=== PATIENT | female | born 1950 | race Caucasian/White ===

== ENCOUNTER 2024-05-12 18:57 | Inpatient (IN) | payer MEDICARE, MEDICAID, SELFPAY ==
[2024-05-12] VITALS (10 sets, daily range): BP systolic 133–168; BP diastolic 83–90; BMI 28.1
[2024-05-12 13:26] LABS: Urine Albumin 3+ (Neg - Trace); Urine Bilirubin 1+ (Negative); Urine Character Slightly Cloudy (Clear); Urine Color Amber; Urine Glucose Trace (Negative); Urine Ketone 3+ (Negative); Urine Leukocyte Trace (Negative); Urine Nitrite Negative (Negative); Urine Occult Blood 3+ (Negative); Urine Urobilinogen Negative (Neg - 1+)
[2024-05-12 13:32] LABS: Ammonia 26 umol/L (9-30); Lactic Acid 1.7 mmol/L (0.7-2.0)
[2024-05-12 13:34] LABS: ALT (SGPT) 36 U/L (0-35); AST (SGOT) 42 U/L (14-36); Albumin 3.9 g/dl (3.5-5.0); Alkaline Phosphatase 98 U/L (38-126); Blood Urea Nitrogen 17 mg/dl (7-17); Calcium 9.5 mg/dl (8.4-10.2); Carbon Dioxide 23 mmol/L (22-30); Chloride 99 mmol/L (98-107); Glucose 278 mg/dl (70-99); Hematocrit 47.3 % (37.0-47.0); Hemoglobin 16.3 g/dL (12.0-16.0); Mean Corp Hgb Conc. 34.5 g/dL (33.0-37.0); Mean Corpuscular Hgb 33.3 pg (27.0-31.0); Mean Corpuscular Volume 96.7 fL (81.0-99.0); Mean Platelet Volume 10.4 fL (7.4-10.4); Platelet Count 310 10^3/uL (130-400); Potassium 3.7 mmol/L (3.5-5.1); Red Blood Cell Count 4.89 10^6/uL (4.20-5.40); Red Cell Dist. Width 13.3 % (11.5-14.5); Sodium 133 mmol/L (135-145); Total Bilirubin 1.7 mg/dl (0.2-1.3); Total Protein 6.6 g/dl (6.3-8.2); White Blood Cell Count 25.3 10^3/uL (4.8-10.8); eGFR > 60.00
[2024-05-12 13:44] LABS: NT-proBNP 1580 pg/ml; Troponin I 0.019 ng/ml
[2024-05-12 14:00] LABS: Urine Amorphous Seen
[2024-05-12 14:01] LABS: Urine Bacteria Moderate (Negative); Urine White Cell 21-25 /HPF (0-5)
[2024-05-12 14:14] LABS: % Basophils 0.2 % (0-2); % Immature Granulocytes 0.6 % (0-0.5); % Lymphocytes 6.4 % (20.5-51.1); % Neutrophils 85.8 % (42.2-75.2); Absolute Basophils 0.1 10^3/uL (0-0.2); Absolute Immature Granulocytes 0.2 10^3/uL (0-0.05); Absolute Lymphocytes 1.6 10^3/uL (1.2-3.4); Absolute Monocytes 1.8 10^3/uL (0.1-0.6); Absolute Neutrophils 21.7 10^3/uL (1.4-6.5); Nucleated Red Blood Cells % 0 %
[2024-05-12] MEDS: TYLENOL/FEVERALL 650 MG RECTAL (15:04)
[2024-05-12] MEDS: ZOSYN 50 IV ×2 (15:04→21:27)
[2024-05-12] MEDS: NSS 500 IV ×2 (15:05→16:28)
--- NOTE | 2024-05-12 15:25 | ED.GENMED ---
History of Present Illness
General
Chief Complaint: Weakness
Source: ambulance crew
Exam Limitations: clinical condition and dementia
Time Seen by Provider: 05/12/24 14:03
History of Present Illness
History of Present Illness:
73 y/o F with h/o COPD on o2; chronic pain on opiates, RA
here with failure to thrive apparently
per EMS pt's called 911 saying that she wasn't eating/drinking
she appaerntly hasn't been able to get out of bed, has been incontinent, c/o shortness of breath
here she seemed to give unreliable history; told me she doesn't usually wear o2 but it is documented she has been on o2
she seems drowsy but awakens
denies pain
appears very dry
i tried calling pt's
no answer
Past History
Past History
ED Past Medical History: COPD, HTN and Other
ED Past Surgical History: Gynecological and Other
Social History
Tobacco: Smoker
Alcohol: None
Drug: None
Personal:
Living: with family (Lives with significant other)
Employment: Employed
Family History
Family History: Hypertension
Phy Exam
Physical Exam
Physical Exam:
GENERAL: arousable to stimuli, a little drowsy
EYE: pupils equal and reactive
NECK: Supple
ENT: VERY DRY MM
CARDIAC: tachycardia; mild RLE edema > Left
LUNGS: diminished; on o2; mild tachypnea; right sided crackles more prominent than L
ABDOMEN: Soft, without focal tenderness, no r/g, no cvat, normal bowel sounds]
incontinent
NEUROLOGICAL: Alert and oriented x 1, generally weak; no strength to lift legs but sensation intact
SKIN: Warm and dry
MUSCULOSKELETAL:mild RLE edema; neg marco's sign
PSYCH: Normal and appropriate interaction.
Course
Orders/Labs/Results
Orders:
Orders
05/12/24 12:48
EKG [Electrocardiogram (*1)] Urgent
Reason for Study: Chest Pain
05/12/24 12:50
EKG- Treatment ONCE
05/12/24 12:59
Ammonia Urgent
Complete Blood Count/With Diff Urgent
Comprehensive Metabolic Panel Urgent
Lactate Level [Lactic Acid] Urgent
NT-proBNP Urgent
Troponin I Urgent
Urinalysis Reflex To Culture Urgent
Date Specimen was Collected: 05/12/24
Time Specimen was Collected: 12:49
Comment: Straight cath specimen
Urine Microscopic Reflex Cult Urgent
Urine Culture Urgent
ROSALIE Source: U
Specimen Description:
Date Specimen was Collected: 05/12/24
Time Specimen was Collected: 12:49
05/12/24 13:02
Blood Culture Urgent
ROSALIE Source: Blood/Venous
Specimen Description:
05/12/24 14:29
COVID-19 Antigen Urgent
Source: Nasal Swab
Acetaminophen [Tylenol/Feverall] 650 mg RECTAL NOW STA
05/12/24 14:30
Lactic Acid Q4H
Comment: CANCEL 2nd LACTIC ACID IF 1st LACTIC ACID IS LESS THAN 2
05/12/24 14:31
0.9% Sodium Chloride 500 ml [Nss] 500 ml IV BOLUS
CR Chest Portable - 1 View Urgent
Comment:
Reason For Exam: fever, cough
Reason Study Needs to be Portable: Patient Unstable
05/12/24 14:40
Piperacillin/Tazo 3.375 Gram [Zosyn] 3.375 gram in 50 ml IV NOW
05/12/24 15:29
0.9% Sodium Chloride 500 ml [Nss] 500 ml IV BOLUS
Venous Doppler Lwr Ext Rt [US Periph Venous LOWER Ext RT] Urgent
Comment:
Reason For Exam: rle edema
05/12/24 18:30
Lactic Acid Q4H
Comment: CANCEL 2nd LACTIC ACID IF 1st LACTIC ACID IS LESS THAN 2
Abnormal Lab Results
05/12/24
12:59
WBC 25.3 H 10^3/uL
(4.8-10.8)
Hgb 16.3 H g/dL
(12.0-16.0)
Hct 47.3 H %
(37.0-47.0)
MCH 33.3 H pg
(27.0-31.0)
Abs Immat Gran (auto) 0.2 H 10^3/uL
(0-0.05)
Absolute Neuts (auto) 21.7 H 10^3/uL
(1.4-6.5)
Absolute Monos (auto) 1.8 H 10^3/uL
(0.1-0.6)
Immature Gran % 0.6 H %
(0-0.5)
Neutrophils % 85.8 H %
(42.2-75.2)
Lymphocytes % 6.4 L %
(20.5-51.1)
Sodium 133 L mmol/L
(135-145)
Glucose 278 H mg/dl
(70-99)
Total Bilirubin 1.7 H mg/dl
(0.2-1.3)
AST 42 H U/L
(14-36)
ALT 36 H U/L
(0-35)
Urine Ketones 3+ A
(Negative)
Ur Occult Blood Reflex 3+ A
(Negative)
Urine Bilirubin 1+ A
(Negative)
Leukocyte Esterase Rfl Trace A
(Negative)
Urine RBC 11-15 A /HPF
(0-2)
Urine WBC (Reflex) 21-25 A /HPF
(0-5)
Urine Bacteria (Reflex) Moderate A
(Negative)
Urine Glucose Trace A
(Negative)
Urine Albumin (Reflex) 3+ A
(Neg - Trace)
05/12/24 12:59
05/12/24 12:59
Vital Signs
Initial and Last Documented VS:
Initial Vital Signs
Temp Pulse Resp Pulse Ox
102.5 F H 114 28 90
05/12/24 12:52 05/12/24 12:52 05/12/24 12:52 05/12/24 12:52
Last Documented Vital Signs
Temp Pulse Resp BP Pulse Ox
102.5 F H 111 37 157/86 93
05/12/24 12:52 05/12/24 13:03 05/12/24 13:03 05/12/24 13:10 05/12/24 13:12
MDM/Problems Addressed
Differential Diagnosis Includes:
sepsis urine or pneumonia, covid, pe
MDM/Problems Addressed:
73 y/o F copd on o2, poor historian; i was unable to reach by phone who called 911 for reportedly 2-3 days of not eat/drinking, laying in urine; she c/o mild dyspnea on arrival
febrile 102, very dry appearing; crackles in both lungs; RLE edema > left mild
abdomen nontender
wbc 25, urine pos, cr normal, lactate normal; bcx pending; cxr suspicious for LLL pna; has allergy to vanc, unclear what it was;
bp stable
will give IVF, zosyn
*Critical Care Note
Total Time (30-74mins, 75-104mins- exclusive of procedures): Not Applicable
ED Attending Note
-
Portions of this chart may have been created with voice recognition software.� Occasional wrong word or��sound alike� substitutions may have occurred due to the inherent limitations of voice recognition software.
Discharge Plan
Departure
Patient Disposition: Admit
Date of Disposition: 05/12/24
Time of Disposition: 14:52
Admit to: IMU
Presentation/result/management discussed w/ accepting MD/DO: Hospitalist
Condition: Fair
Covid-19: Not Applicable
Discharge Problem:
Sepsis
Prescriptions:
No Action
atenolol 50 MG tablet
50 mg PO DAILY
duloxetine 30 MG capsule,delayed release(DR/EC)
30 mg PO DAILY
Rx Instructions:
taken w/ 60mg = 90mg total
duloxetine 60 MG capsule,delayed release(DR/EC)
60 mg PO QPM
Rx Instructions:
taken w/ 30mg = 90mg total
budesonide-formoterol [Symbicort] 160-4.5 mcg/actuation HFA aerosol inhaler
2 puff INHALATION R BID
aspirin 81 mg Tablet,Delayed Release (Dr/Ec)
81 mg PO DAILY
spironolactone 25 mg Tablet
25 mg PO DAILY
gabapentin 800 mg Tablet
800 mg PO TID
hydrochlorothiazide 25 mg Tablet
25 mg PO DAILY
albuterol sulfate 90 mcg/actuation Hfa Aerosol Inhaler
2 puff INHALATION R Q6HPRN PRN (Reason: sob)
CertaVite Senior 0.4 mg-300 mcg- 250 mcg Tablet
1 tab PO DAILY
buprenorphine 7.5 mcg/hour Patch Weekly
1 patch TRANSDERMAL QWEEK
calcium carbonate-vitamin D3 600 mg-62.5 mcg (2,500 unit) capsule
1 cap PO DAILY
prednisone 5 MG tablet
5 mg PO DAILY
Referrals:
UNKNOWN - PT DOES,NOT KNOW [Family Provider] -
Interventions
Interventions:
*Risk Screen - Suicide Last Done: 05/12/24 13:12
*General Assessment Last Done: 05/12/24 13:12
*Neglect/Abuse Screening Last Done: 05/12/24 13:12
ED- Fall Risk Assessment Last Done: 05/12/24 13:12
ED- Cardiac Assessment Last Done: 05/12/24 13:12
ED- Neurological Assessment Last Done: 05/12/24 13:12
ED- Pulmonary Assessment Last Done: 05/12/24 13:12
Discharge Date and Time
Print Language: SUDANESE
--- NOTE | 2024-05-12 15:31 | PHANOTE ---
med rec jessie(05/12/24)-patient was unable to give medication information, attempted to call caregiver Jose Walters at 14:58 and 15:31, but no response. Compiled medication list from [facility] records and [facility].
--- NOTE | 2024-05-12 15:34 | HPS.HSE ---
Addendum entered and electronically signed by Shahzad Spangler MD 05/12/24 20:26:
Case discussed with Neurology ok to start hep gtt for DVT no bolus
Keep NPO pending speech eval
Repeat CT head w/o contrast in AM preior to MRI.
Original Note:
Family Physician
-
Family Physician: NOT KNOW UNKNOWN - PT DOES
Chief Complaint
-
Fever
History of Present Illness
73F COPD Chronic Respiratory Failure requiring 2L Rheumatoid Arthritis BIBEMS septic with fever leukocytosis tachycardia hypoxia (requiring 4L) confused aphasic patient unable to provide meaningful history. All of history from records, ED report,
and discussion with patient's significant other saulo Garcia over phone. Per Jose patient had been sick for the past 2-3 days reporting right sided abdomen pain with associate intermittent fever. Night prior patient was incontinent of urine
and was unable to get out of bed (ambulatory with walker at baseline). Saulo attempted to bring patient to hospital, however she refused. Morning following patient appeared confused prompting to call EMS. AOx1 patient appears only
oriented to self. Significant word finding difficulties were noted, patient had difficulty saying her last name. Repeated a nonsensical word when asked the name of current stated location and year.
Medical History
Past Medical History
Past Medical History: Reports Other (as above)
Past Surgical History: Reports Other (as above)
Social History
Tobacco: Former Smoker
Alcohol: None
Drug: None
Personal: Other (Saulo)
Living: Other (Lives with Saulo)
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
Family History
Family History: Not pertinent (reviewed)
Allergies / Home Medications
Allergies reflects when Allergies were last updated in [facility].
Home Medications with original date entered in [facility]
Allergy/Medication List:
Allergies
Allergy/AdvReac Type Severity Reaction Status Date / Time
ceftriaxone sodium Allergy numbness Verified 05/12/24 12:51
[From Rocephin] tingling
mouth
infliximab [From Remicade] Allergy Unknown Verified 05/12/24 12:51
vancomycin [Vancomycin] Allergy Unknown Verified 05/12/24 12:51
Home Medications
atenolol 50 mg tablet 50 mg PO DAILY Blood pressure 10/11/18
duloxetine 30 mg capsule,delayed release 30 mg PO DAILY neuropathic pain 04/13/19
duloxetine 60 mg capsule,delayed release 60 mg PO QPM neuropathic pain 06/30/21
budesonide-formoterol HFA 160 mcg-4.5 mcg/actuation aerosol inhaler (Symbicort) 2 puff inhalation R BID Lung/breathing issues 01/11/23
albuterol sulfate 90 mcg/actuation aerosol inhaler 2 puff inhalation R Q6HPRN PRN sob 05/12/24
aspirin 81 mg tablet,delayed release 81 mg PO DAILY 05/12/24
buprenorphine 7.5 mcg/hour weekly transdermal patch 1 patch transdermal QWEEK 05/12/24
calcium carbonate 600 mg-vitamin D3 62.5 mcg (2,500 unit) capsule 1 cap PO DAILY 05/12/24
gabapentin 800 mg tablet 800 mg PO TID 05/12/24
hydrochlorothiazide 25 mg tablet 25 mg PO DAILY 05/12/24
tcwbmejw-jci-ehiie acid 0.4 mg-lycopene 300 mcg-lutein 250 mcg tablet (CertaVite Senior) 1 tab PO DAILY 05/12/24
prednisone 5 mg tablet 5 mg PO DAILY rheumatoid arthritis 05/12/24
spironolactone 25 mg tablet 25 mg PO DAILY 05/12/24
Review of Systems
-
Unable to obtain full review of systems at this time due to: Other (Confused Aphasic Denies any Issues, unreliable ROS)
Physical Exam
Vital Signs
Vital Signs
Temp Pulse Resp BP Pulse Ox
102.5 F H 111 37 157/86 93
05/12/24 12:52 05/12/24 13:03 05/12/24 13:03 05/12/24 13:10 05/12/24 13:12
Physical Exam
General: Other (as below)
Laboratory Results
-
05/12/24 12:59
05/12/24 12:59
Laboratory Results
Lactic Acid 1.7 mmol/L (0.7-2.0) 05/12/24 12:59
Total Bilirubin 1.7 mg/dl (0.2-1.3) H 05/12/24 12:59
AST 42 U/L (14-36) H 05/12/24 12:59
ALT 36 U/L (0-35) H 05/12/24 12:59
Alkaline Phosphatase 98 U/L (38-126) 05/12/24 12:59
Troponin I 0.019 ng/ml 05/12/24 12:59
Impression/Plan
-
Physical Exam
General: No pallor, cyanosis, or jaundice.
HEENT: Throat clear. PERRLA Normocephalic atraumatic dry oral mucosa
NECK: Supple. No JVD Carotid Bruits
RESPIRATORY: Lungs clear to auscultation. No crackles wheezes stridor
CVS: S1, S2 sinus tachy. No murmur, rub or gallop.
ABDOMEN: Soft, non-tender. No distension. BS+/normal.
EXTREMITIES: Right externally rotated but same level compared to left, Right Calf larger then Left. Ulnar deviations hands and Valgus deformity b/l knees likey d/t RA
limited range of motion extremities due to weakness vs rheumatoid arthritis
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
IMPRESSION:
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
meaningful history. All of history from records, ED report, and discussion with patient's significant other saulo Garcia over phone. Per Jose patient had been sick for the past 2-3 days reporting right sided abdomen pain with associate
intermittent fever. Night prior patient was incontinent of urine and was unable to get out of bed (ambulatory with walker at baseline). Conchitaelif attempted to bring patient to hospital, however she refused. Morning following patient appeared
confused prompting to call EMS. AOx1 patient appears only oriented to self. Significant word finding difficulties were noted, patient had difficulty saying her last name. Repeated a nonsensical word when asked the name of current stated
location and year.
PLAN:
#Sepsis PNA vs UTI
IMU admit
Leukocytosis Fever Tachycardia
CXR suggestive PNA
urinalysis notes bacteriuria
No hypotension or Lactic acidosis
cont empiric Zozyn
follow Cx's
Tylenol PRN
Acute on Chronic Respiratory Failure
COPD
-requiring 4L, previously noted to be on 2L
-likely d/t PNA as above
-wean O2 as tolerated
-cont home inhaler symbicort
-Duoneb prn sob/wheezing
#RLE DVT
Venous duplex appreciated DVT
Respiratory status otherwise stable on 4L NC
hold of on anticoagulation for now given concern acute stroke
check LLE venous duplex
#Aphasic possible Encephalopathy vs Suspected Stroke out of window, last known normal night prior per discussion w/ Saulo
NPO except meds for now, hold oral medications if unable to pass bedside swallow
CT head appreciated no acute hemorrhage or infarct
NIH neuro checks
follow up Brain MRI MRA Head and Neck
cont home aspirin
permissive hypertension <220/120
Neuro eval
ST/PT/OT eval
A1c
Lipid panel
aspiration fall precautions
#Hyperglycemia
Low dose sliding scale
Follow up A1c
HTN
Hydralazine prn >220/120
hold home Atenolol HCTz Spironolactone
Rheumatoid Arthritis
Chronic Pain
Ambulatory dysfunction
cont home prednisone gabapentin duloxetine
IV morphine 2mg Q4Hprn moderate severe pain
Externally rotated RLE but same level as Left, likely deformity d/t rheumatoid arthritis checking CR hips
DVT ppx Lovenox for now
Gi ppx Protonix
Full Code as per Saulo reported POA.
I spent a total of 80 minutes with the patient or on the floor. More than 50% of this time involved counseling and coordination of care.
[2024-05-12 17:00] LABS: COVID-19 Antigen Negative (Negative)
[2024-05-12 20:12] LABS: Glucose - Point of Care 216 mg/dl (70-99)
[2024-05-12] MEDS: SYMBICORT 160/4.5 MCG INHALER 2 PUFF INH (20:16)
[2024-05-12] MEDS: NSS (PRESERVATIVE FREE) 10 ML IV (21:27)
[2024-05-12] MEDS: MORPHINE SULFATE 2 MG IV (21:27)
[2024-05-12] MEDS: PROTONIX IV 40 MG IV (21:27)
[2024-05-12 21:40] LABS: INR 1.29
[2024-05-12 21:41] LABS: APTT 34.2 Sec (23.4-35.0)
[2024-05-12] MEDS: HEPARIN 25000 UNITS/250 ML IV (22:12)
--- NOTE | 2024-05-12 22:18 | PTCARENOTE ---
Addendum entered by Harish Leigh RN 05/12/24 22:35:
Hip Xray, moved to AM w/ follow up Ct head per house VEST PRESSER.
Buprenorphine patch removed per VEST PRESSER as date of patch is unknown.
Original Note:
Pt arrived from ED approx. 2039. workup for sepsis PNA vs UTI/DVT.
Started on DVT heparin gtt.
Stoke alert called in ED, MRI ordered in AM based on findings from CT.
NIH qShift, neuro checks Q4 x 24hr.
[2024-05-12] MEDS: NEURONTIN PO (22:41)
[2024-05-12 22:56] LABS: Glucose - Point of Care 207 mg/dl (70-99)
[2024-05-13] VITALS (15 sets, daily range): BP systolic 136–179; BP diastolic 68–92; BMI 28.1
[2024-05-13] MEDS: NOVOLOG FLEXPEN-LOW RESISTANCE 2 UNITS SC (00:14)
--- NOTE | 2024-05-13 00:22 | PTCARENOTE ---
pt. NIH/neuro status remains unchanged.
Mild aphasia, slight drift in all ext. noted.
Remains on heparin gtt.
hypertensive, allowing for permissive state, still within parameters.
Pain appears to be controlled w/ PRNs.
Fiance updated at length over phone.
[2024-05-13] MEDS: ZOSYN 50 IV ×2 (01:58→07:51)
[2024-05-13 03:29] LABS: % Basophils 0.4 % (0-2); % Immature Granulocytes 0.5 % (0-0.5); % Lymphocytes 9.1 % (20.5-51.1); % Monocytes 6.5 % (1.7-9.3); % Neutrophils 82.5 % (42.2-75.2); Absolute Basophils 0.1 10^3/uL (0-0.2); Absolute Eosinophils 0.2 10^3/uL (0-0.7); Absolute Immature Granulocytes 0.1 10^3/uL (0-0.05); Absolute Monocytes 1.5 10^3/uL (0.1-0.6); Absolute Neutrophils 18.4 10^3/uL (1.4-6.5); Hematocrit 41.6 % (37.0-47.0); Hemoglobin 14.5 g/dL (12.0-16.0); Mean Corp Hgb Conc. 34.9 g/dL (33.0-37.0); Mean Corpuscular Hgb 33.6 pg (27.0-31.0); Mean Corpuscular Volume 96.3 fL (81.0-99.0); Mean Platelet Volume 10.1 fL (7.4-10.4); Nucleated Red Blood Cells % 0 %; Platelet Count 258 10^3/uL (130-400); Red Blood Cell Count 4.32 10^6/uL (4.20-5.40); Red Cell Dist. Width 13.2 % (11.5-14.5); White Blood Cell Count 22.3 10^3/uL (4.8-10.8)
[2024-05-13 03:42] LABS: APTT 50.4 Sec (23.4-35.0)
[2024-05-13 03:56] LABS: Blood Urea Nitrogen 16 mg/dl (7-17); Calcium 8.7 mg/dl (8.4-10.2); Carbon Dioxide 24 mmol/L (22-30); Chloride 103 mmol/L (98-107); Estimated Creatinine Clearance 90 ml/min; Glucose 198 mg/dl (70-99); HDL Cholesterol 39 mg/dl; LDL Cholesterol, Calculated 79 mg/dl; Magnesium 2.1 mg/dl (1.6-2.3); Potassium 3.6 mmol/L (3.5-5.1); Sodium 134 mmol/L (135-145); Total Cholesterol 146 mg/dl (50-199); Triglyceride 143 mg/dl (10-149); Very Low Density Lipoprotein 28 mg/dl (0-30); eGFR > 60.00
[2024-05-13 06:01] LABS: Glucose - Point of Care 193 mg/dl (70-99)
[2024-05-13] MEDS: NOVOLOG FLEXPEN-LOW RESISTANCE 1 UNITS SC ×3 (06:22→17:33)
--- NOTE | 2024-05-13 07:19 | W.PN.HOSP.TC ---
Addendum entered and electronically signed by Shahzad Spangler MD 05/13/24 21:04:
RLE DVT
hep gtt no bolus
Original Note:
Today's Communication/Plan
-
cont strict NPO
IVF support
non-formulary home Buprenorphine patch substituted with IV morphine equivalent
cont abx as per ID
hep gtt
blood pressure control
Wean O2 as tolerated
ST/PT/OT
Assessment / Plan
Assessment / Plan
Physical Exam
General: No pallor, cyanosis, or jaundice.
HEENT: Throat clear. PERRLA Normocephalic atraumatic dry oral mucosa
NECK: Supple. No JVD Carotid Bruits
RESPIRATORY: Rhonchi
CVS: S1, S2 sinus tachy. No murmur, rub or gallop.
ABDOMEN: Soft, non-tender. No distension. BS+/normal.
EXTREMITIES: Right externally rotated but same level compared to left, Right Calf larger then Left. Ulnar deviations hands and Valgus deformity b/l knees likey d/t RA
limited range of motion extremities due to weakness vs rheumatoid arthritis
TALLOW PUMPER: AOx2 disoriented to time continues to exhibit word finding difficulties occasional perseverates 1 word responses but otherwise improved since initial presentation able to say her last name.
IMPRESSION:
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
meaningful history. All of history from records, ED report, and discussion with patient's significant other saulo Garcia over phone. Per Jose patient had been sick for the past 2-3 days reporting right sided abdomen pain with associate
intermittent fever. Night prior patient was incontinent of urine and was unable to get out of bed (ambulatory with walker at baseline). Saulo attempted to bring patient to hospital, however she refused. Morning following patient appeared
confused prompting to call EMS. AOx1 patient appears only oriented to self. Significant word finding difficulties were noted, patient had difficulty saying her last name. Repeated a nonsensical word when asked the name of current stated
location and year.
PLAN:
#Sepsis PNA vs UTI
IMU admit
Leukocytosis Fever Tachycardia
CXR suggestive PNA
urinalysis notes bacteriuria
No hypotension or Lactic acidosis
follow Cx's
Tylenol PRN
ID eval appreciated empiric zosyn discontinued in favor of unasyn and IV doxycycline
Acute on Chronic Respiratory Failure
COPD
-requiring 4L, previously noted to be on 2L
-likely d/t PNA as above
-wean O2 as tolerated
-cont home inhaler symbicort
-Duoneb prn sob/wheezing
#RLE DVT
Venous duplex appreciated DVT
Respiratory status otherwise stable on 4L NC
hep gtt
#Aphasic possible Encephalopathy vs dementia delirium vs Suspected Stroke out of window, last known normal night prior presentation per discussion w/ Fiancee
strict NPO, speech eval appreciated high aspiration risk, consider alternative means of nutrition if patient doesn't improve
CT head appreciated no acute hemorrhage or infarct, severe white matter leukoaraiosis, severe calcific atherosclerotic plaque anterior posterior intracranial circulations, mild acute left maxillary sinusitis
Repeat CT head noted no acute changes
NIH neuro checks
Neuro eval appreciated likely Encephalopathy Dementia recommends holding off MRI at this time as unlikely to change mgmt, can consider MRI later when patient is more stable
PT/OT eval
A1c 8.2
Lipid panel appreciated
aspiration fall precautions
#Diabetes
#Hyperglycemia
Low dose sliding scale
A1c 8.2
Glycemic control
HTN
Hydralazine prn >160/100
resume home Atenolol HCTz Spironolactone when safe for oral meds
Rheumatoid Arthritis
Chronic Pain
Ambulatory dysfunction
cont home prednisone gabapentin duloxetine when safe for oral meds
Decadron 1 mg IV daily equivalent home prednisone 5 mg daily
IV morphine 2mg Q4Hprn moderate severe pain
Externally rotated RLE but same level as Left, likely deformity d/t rheumatoid arthritis
CR hips note no acute fractures dislocation
home subutex patch 7.5 mcg/h not available on formulary switched to equivalent IV morphine 0.75 mg Q6H per discussion with pharmacy
morphine 2mg prn Q4H moderate severe pain
DVT ppx Lovenox for now
Gi ppx Protonix
Full Code as per Saulo reported POA.
Discussed with Saulo Garcia on day of admission. Subsequent call 05/13 no answer received voicemail full unable to leave message
I spent a total of 57 minutes with the patient or on the floor. More than 50% of this time involved counseling and coordination of care.
Anticipated Discharge: > 48 hours
Subjective/Interval History
-
Date of Service: May 13, 2024
Seen and examined at bedside in no acute distress resting comfortably in bed. stable respiratory status on 4L. Aphasia improved since last night though some word finding issues remain.
Objective Data
-
Labs:
Laboratory Results
05/12/24 05/13/24 05/13/24
21:13 02:59 10:00
WBC 22.3 H
Hgb 14.5
Hct 41.6
Plt Count 258
PT 16.0 H
INR 1.29
APTT 34.2 50.4 H Pending
Sodium 134 L
Potassium 3.6
Chloride 103
Carbon Dioxide 24
BUN 16
Creatinine 0.5 L
Glucose 198 H
Calcium 8.7
Vital Signs:
Vital Signs
Temp Pulse Resp BP Pulse Ox
98.8 F 84 21 155/84 96
05/13/24 07:00 05/13/24 06:00 05/13/24 06:00 05/13/24 06:00 05/13/24 07:17
[2024-05-13] MEDS: SYMBICORT 160/4.5 MCG INHALER 2 PUFF INH ×2 (07:49→20:09)
[2024-05-13] MEDS: PROTONIX IV 40 MG IV (07:51)
[2024-05-13] MEDS: NSS (PRESERVATIVE FREE) 10 ML IV (07:51)
--- NOTE | 2024-05-13 09:06 | CON.ID ---
Addendum entered and electronically signed by Debo Aponte MD 05/13/24 11:26:
doxy switched to IV as now strict NPO
Original Note:
Consultation
-
Date/Time Consultation Requested: 05/13/24 8:21
Date/Time Consultation Performed: 05/13/24 9:07
Requesting Provider: Dr Spangler
Performing Provider: Dr Aponte
Reason for Consultation: sepsis pna vs uti
Chief Complaint / Past History
Chief Complaint
fever
History of Present Illness
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
weeks of levaquin) who presented here yesterday confused and aphasic; history obtained by chart review and interview with patient as she is now more lucid. Saulo reported 2-3 days of fever and right sided abdominal pain. Then incontinent and
unable to get out of bed; refused to come to hospital. Next AM confused and EMS called. Today she reports cough, minimally productive. No: dysuria, urgency, frequencny or suprapubic tenderness. No increase of her chronic pain. No recent RA flare
or increase of steroids. Not on injectable medications. No sick contacts.
Since arrival here febrile to 102.5 rectal, bp stable, wbc 25 today 22, hgb 14, plt 258, L shift noted on arrival now somewhat improved, an 134, cr 0.5, a1c pending, t bili 1.7, ast 42, alt 36, alk phos 98, ammonia 26, bnp 1500, ua 21-25 wbcs and
moderate bacteria, 2008 she labs still on file - she was hypogammaglobulinemic for IgG and IgM at that time, covid ag neg, CXR: left lower lobe pneumonia, periph vas: DVT in the right common femoral vein, CT head: no ICH/infarct, mild L max
sinusitis, repeat CT head this AM, bilateral hip xray: no fracture DJD, single blood culture in progress, urine culture in progress, patient is currently on zosyn. She has a remote history of a L psoas abscess with MSSA. ID is consulted for
assistance with management.
Past History
Additional Past Medical History:
Rheumatoid Arthritis
Chronic Pain Syndrome
Chronic Narcotic Dependence
Hypertension
COPD
OM/discitis L3/L4 due to MSSA 2008
Additional Past Surgical History:
T&A
Allergy History:
ceftriaxone sodium [From Rocephin] Allergy (Verified 05/12/24 12:51)
numbness tingling mouth
infliximab [From Remicade] Allergy (Verified 05/12/24 12:51)
Unknown
vancomycin [Vancomycin] Allergy (Verified 05/12/24 12:51)
Unknown
Medications Reviewed: Yes
Social History
Tobacco: Former Smoker (>50 pack year history)
Alcohol: None
Drug: Other (on prescription opiates)
Family History
Family History: Not Pertinent
Review of Systems
Review of Systems
General: Fever and Chills
All systems: All other systems were reviewed and were negative
Vital Signs
Temp Pulse Resp BP Pulse Ox
98.8 F 86 21 151/88 94
05/13/24 07:00 05/13/24 08:00 05/13/24 08:00 05/13/24 08:00 05/13/24 08:00
Physical Exam
Physical Exam
Constitutional: No Acute Distress and Chronically Ill
Cardiovascular: Regular Rate and S1/S2; Negative Murmur or Rub
Pulmonary: Clear and Symmetric; Negative Wheezes, Rales or Rhonchi
Gastrointestinal: Soft, Non Tender, Non Distended and Normal Bowel Sounds
Skin: Warm and Dry; Negative Rash or Jaundice
Lab / Diagnostic Study Results
05/13/24 02:59
05/13/24 02:59
Abs Immat Gran (auto) 0.1 10^3/uL (0-0.05) H 05/13/24 02:59
Absolute Neuts (auto) 18.4 10^3/uL (1.4-6.5) H 05/13/24 02:59
Absolute Lymphs (auto) 2.0 10^3/uL (1.2-3.4) 05/13/24 02:59
Absolute Monos (auto) 1.5 10^3/uL (0.1-0.6) H 05/13/24 02:59
Absolute Basos (auto) 0.1 10^3/uL (0-0.2) 05/13/24 02:59
Immature Gran % 0.5 % (0-0.5) 05/13/24 02:59
Neutrophils % 82.5 % (42.2-75.2) H 05/13/24 02:59
Lymphocytes % 9.1 % (20.5-51.1) L 05/13/24 02:59
Monocytes % 6.5 % (1.7-9.3) 05/13/24 02:59
Eosinophils % 1.0 % (0-6) 05/13/24 02:59
Basophils % 0.4 % (0-2) 05/13/24 02:59
PT 16.0 Sec (11.4-14.6) H 05/12/24 21:13
INR 1.29 05/12/24 21:13
Lactic Acid Cancelled 05/12/24 18:30
Ur Squamous Epith Cells 3-5 /LPF (Few) 05/12/24 12:59
Microbiology Results
Micro:
05/12/24 12:59 Urine Culture - Pending
Urine
05/12/24 13:02 Blood Culture - Pending
Blood/Venous
Assessment / Plan
Fever
Leukocytosis
Suspected Pneumonia, less likely UTI
Reported allergy to ceftriaxone - numbness/tingling mouth and vancomycin unknown
- send second blood culture given prior history of s aureus OM/discitis
- urine culture in progress
- obtain sputum culture if able
- no history of MDROs on file here
- start unasyn and doxycycline, stop zosyn. Selected given reported allergies, prior cultures
- follow clinically
RA
History of Hypogammaglobulinemia - 2008
- patient specifically denies any recent flares or increase in pred and any injectable medications including immunosuppression and IVIG
- recheck immunoglobulins IgG, IgA, IgM
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
- treated with high bioavailability oral therapy
- send second blood culture
Chronic Pain
- suggest replacing buprenorphine patch with scheduled equivalent - management per IM service
Care Review
Plan reviewed with: Physician (Dr Spangler - buprenorphine)
[2024-05-13 09:38] LABS: Glycohemoglobin (HgbA1c) 8.2 % (4.0-5.6)
--- NOTE | 2024-05-13 10:14 | PTCARENOTE ---
Repeat blood cx's and PTT drawn and sent. ST to see patient for swallow evaluation.
[2024-05-13 10:26] LABS: APTT 82.3 Sec (23.4-35.0)
[2024-05-13] MEDS: NEURONTIN PO ×3 (11:11→21:03)
[2024-05-13] MEDS: CYMBALTA DELAYED RELEASE PO ×2 (11:11→17:32)
--- NOTE | 2024-05-13 11:17 | PTCARENOTE ---
Pt seen by . Unable to safely swallow. Patient to remain strict NPO.
[2024-05-13] MEDS: HEPARIN 25000 UNITS/250 ML IV (11:28)
[2024-05-13] MEDS: UNASYN IV ×2 (11:35→17:32)
[2024-05-13] MEDS: APRESOLINE 5 MG IV ×3 (11:36→20:37)
[2024-05-13 11:42] LABS: Glucose - Point of Care 182 mg/dl (70-99)
[2024-05-13] MEDS: MORPHINE SULFATE 0.75 MG IV ×3 (11:48→23:21)
[2024-05-13] MEDS: DECADRON 1 MG IV (11:49)
--- NOTE | 2024-05-13 12:11 | CON.NEURO4 ---
Consultation - Neurology 4
-
CONSULTING PHYSICIAN: Freedom Mario MD neurology
REFERRING PHYSICIAN: Hospitalist
DICTATED BY: Freedom Mario MD
DATE/TIME OF REQUEST: May 12, 2024
DATE/TIME OF CONSULTATION: May 13, 2024
Reason for Consultation: Altered mental status
History of Present Illness:
This is a 73 year old right handed female who has presented to the hospital with chief complaint of confusion lethargy and speech impediment. She has a h/o chronic Respiratory Failure requiring home oxygen ([place]:2L/m) Rheumatoid Arthritis who was
admitted with fever leukocytosis tachycardia hypoxia (requiring 4L)
At the time of admission to the ER she was confused aphasic .
All the history was obtained from previous records, ED report, and patient's dulce Garcia over phone. Patient had been sick over the past 2-3 days c/o right sided abdomen pain with intermittent fever. Night prior to admission patient was
incontinent of urine and was unable to get out of bed (walks with walker at baseline).
Dulce attempted to bring patient to hospital, however she refused.
Yesterday Morning following patient appeared worse confused prompting call to EMS.
In the ER, patient had difficulty saying her name. Unable to state current location and year with incomprehensible words. Able to move all extremities.
Pat was placed on IV fluids, IV antibiotics. US of legs revealed DVT. And she was started on IV heparin without bolus.
This morning she is awake, alert, Oriented to person and place with fluent speech.Mild memory and cognitive impairment.Motor exam WNL. Pat remains bedbound
Past Medical History: As above
Surgical History: See Hospitalist Note
Family History: [place]
Social History: Lives at home with Dulce
Allergies: Addendum
Home Medications: Addendum
Review of Symptoms:
�Per the HPI.�All systems are reviewed negative except above.
�- 'Per the HPI. I am unable to obtain a complete review of systems�because of patient's inability to provide history.'
Vital Signs:
The patient has a
Temp Pulse Resp BP Pulse Ox
98.8 F 84 21 155/84 96
Physical Exam:
The patient is afebrile, heart sounds S1 and S2 are (regular / irregular), and chest is clear to auscultation bilaterally.
- If not clear, describe.
Neurologic Examination:
The patient is awake, alert and oriented x person and place. She is able to follow commands and answer questions appropriately. There is no aphasia or dysarthria. On cranial nerve assessment, pupils are 3 mm bilateral, round and reactive to light
and accommodation. Visual damon are full. Extraocular movements are intact. Facial sensations are intact and bilaterally symmetrical, there is no facial asymmetry. Hearing is intact bilaterally to normal conversation volume. Tongue palate and
uvula are midline. Sternocleidomastoid strengths are full bilaterally.
Motor strengths are 4/5 bilateral upper and lower extremities on medical research [place] scale. There is no drift or involuntary movement noted.
Deep tendon reflexes are + bilateral upper and lower extremities and Babinski is absent bilaterally.
Sensations of pain, touch, temperature and vibration are impaired and bilaterally symmetrical..
Coordination is intact by finger to nose bilaterally. Rombergs and gait NT as pat is bedbound.
Lab Results: Addendum
Neuro Imaging: CT head: Atrophy small vessel disease. Mild ventricumegaly
Impression:
Ms. SAAD MORGAN is a 73 year old F who has presented to the hospital with chief complaint) of altered mental status secondary to sepsis and DVT that is resolving with mental status near baseline following admission
Differentials for the patient's presentation include:
1. Encephalopathy secondary to sepsis
Recommendations:
1. IV antibiotics
2. IV heparin without bolus
3. Serial CT head
4. PT/OT
5. SW consult for placement
Discussed patient care with: Hospitalist
[2024-05-13] MEDS: VIBRAMYCIN 260 MG IV ×2 (12:41→23:19)
--- NOTE | 2024-05-13 13:22 | PTOTSP ---
SPEECH THERAPY SWALLOW EVALUATION:
Patient exhibits clinical signs of oropharyngeal dysphagia, likely acute related to sepsis/pneumonia, and possibly with a chronic component related to cognitive decline secondary to severe white leukoaraiosis. Patient is at high risk for aspiration
and related complications at this time given significant confusion, tenuous respiratory status, and tenuous pulmonary status. Patient exhibiting signs of aspiration at bedside. Recommend patient to continue strict NPO at this time; consider
temporary non-oral medication/hydration/nutrition. Speech therapy to follow and re-assess in 24 hours, assess diet tolerance and modify as appropriate, provide education regarding aspiration risks and precautions, determine readiness for additional
textures/trials and/or instrumental assessment of swallow when appropriate, and provide continued diagnostic swallow therapy.
RECOMMEND:
1) strict NPO at this time; consider temporary non-oral medication/hydration/nutrition
2) Speech therapy to follow and re-assess in 24 hours
--- NOTE | 2024-05-13 13:42 | PTCARENOTE ---
Patient resting comfortably. Fiance updated over the phone. IVFs ordered due to NPO status.
[2024-05-13] MEDS: LR 1000 IV ×2 (14:01→23:18)
--- NOTE | 2024-05-13 15:33 | TRANSFER ---
Report given to RD Quintero. Patient transported in bed with belongings to 3341.
--- NOTE | 2024-05-13 16:28 | TRANSFER ---
Pt rec'd as transfer from ICU into IMU 3341. NIHSS done at handoff, result 12. Per report, pt's scores do wax and wane with her mental status. Pt oriented to room and plan of care. Update provided by previous RN and also this RN to mika Villa over
the phone, he is very anxious. PRN Hydralazine given for Systolic BP 145. See MAR> pt remains strictly NPO. Safe environment maintained.
[2024-05-13 16:29] LABS: APTT 62.1 Sec (23.4-35.0)
[2024-05-13 17:40] LABS: Glucose - Point of Care 193 mg/dl (70-99)
[2024-05-13] MEDS: TYLENOL/FEVERALL 650 MG RECTAL (20:37)
[2024-05-13 23:05] LABS: APTT 122.1 Sec (23.4-35.0)
[2024-05-14] VITALS (15 sets, daily range): BP systolic 132–171; BP diastolic 70–84; PULSE 100; O2SAT 94–95; BMI 28.1
[2024-05-14] MEDS: NOVOLOG FLEXPEN-LOW RESISTANCE 1 UNITS SC ×3 (00:15→23:43)
[2024-05-14] MEDS: UNASYN IV ×5 (00:15→23:37)
[2024-05-14 00:24] LABS: Glucose - Point of Care 171 mg/dl (70-99)
[2024-05-14] MEDS: HEPARIN 25000 UNITS/250 ML IV ×2 (01:13→17:45)
[2024-05-14] MEDS: APRESOLINE 5 MG IV ×2 (04:06→13:10)
[2024-05-14 04:59] LABS: % Basophils 0.2 % (0-2); % Eosinophils 0.7 % (0-6); % Lymphocytes 17.2 % (20.5-51.1); % Monocytes 7.2 % (1.7-9.3); % Neutrophils 73.7 % (42.2-75.2); Absolute Eosinophils 0.1 10^3/uL (0-0.7); Absolute Immature Granulocytes 0.2 10^3/uL (0-0.05); Absolute Lymphocytes 3.1 10^3/uL (1.2-3.4); Absolute Monocytes 1.3 10^3/uL (0.1-0.6); Absolute Neutrophils 13.1 10^3/uL (1.4-6.5); Hematocrit 35.7 % (37.0-47.0); Hemoglobin 12.6 g/dL (12.0-16.0); Mean Corp Hgb Conc. 35.3 g/dL (33.0-37.0); Mean Corpuscular Hgb 33.4 pg (27.0-31.0); Mean Corpuscular Volume 94.7 fL (81.0-99.0); Nucleated Red Blood Cells % 0 %; Platelet Count 276 10^3/uL (130-400); Red Blood Cell Count 3.77 10^6/uL (4.20-5.40); Red Cell Dist. Width 13.2 % (11.5-14.5); White Blood Cell Count 17.8 10^3/uL (4.8-10.8)
[2024-05-14] MEDS: MORPHINE SULFATE 0.75 MG IV (05:00)
[2024-05-14 05:25] LABS: APTT 113.2 Sec (23.4-35.0)
--- NOTE | 2024-05-14 05:50 | PTCARENOTE ---
Pt resting well overnight. AAOx1. Unable to state name and age no date. Is slightly more talkative this am. Able to ask for pain med for whole body pain. Medicated with scheduled Morphine as ordered. Neuro/NIH as documented and unchanged from
prior. Heparin gtt currently at 18ml/hr awaiting this am's PTT result. LR continues infusing at 100ml/hr. SR/ST on CM rate 80's to 130''s at times. Temp at beginning of shift 101.2. Received Tylenol supp with good result. Received prn Apresoline x 2
per parameters with good result. Purewick with tea colored urine. Rest of assessment as documented. Maintained on Q2hr turns. Call duong remain within reach. Will continue to monitor.
[2024-05-14 05:57] LABS: Blood Urea Nitrogen 15 mg/dl (7-17); Calcium 8.1 mg/dl (8.4-10.2); Carbon Dioxide 21 mmol/L (22-30); Chloride 109 mmol/L (98-107); Estimated Creatinine Clearance 90 ml/min; Glucose 164 mg/dl (70-99); Sodium 139 mmol/L (135-145); eGFR > 60.00
[2024-05-14 06:05] LABS: Glucose - Point of Care 169 mg/dl (70-99)
[2024-05-14 06:16] LABS: IgA 323 mg/dl (70-400); IgG 601 mg/dl (700-1600); IgM 46 mg/dl (40-230)
[2024-05-14] MEDS: SYMBICORT 160/4.5 MCG INHALER 2 PUFF INH ×2 (07:15→19:56)
[2024-05-14] MEDS: MORPHINE SULFATE 2 MG IV (08:19)
[2024-05-14] MEDS: NSS (PRESERVATIVE FREE) 10 ML IV (08:21)
[2024-05-14] MEDS: FLUSH (NSS) 2 FLUSH IV (08:21)
[2024-05-14] MEDS: PROTONIX IV 40 MG IV (08:21)
--- NOTE | 2024-05-14 08:45 | VNURNOTE ---
Chart reviewed. Patient is current with [facility]. Will continue to follow hospital course.
--- NOTE | 2024-05-14 08:47 | PTCARENOTE ---
Patient awake and alert. Patient can state her name and date but unable to state the year she was born. Patient can't state where she is at and how she got here. She is complaining of severe pain 10/ 'all over'. Medicated patient with
morphine sulfate as ordered, she said that it didn't help her at all. Patient also 'very thirsty' performed mouth care and swabbed mouth. Speech therapy to evaluate at bedside again today.
[2024-05-14] MEDS: ALDACTONE PO (08:53)
[2024-05-14] MEDS: NEURONTIN PO (08:53)
[2024-05-14] MEDS: ORETIC PO (08:53)
[2024-05-14] MEDS: CYMBALTA DELAYED RELEASE PO (08:53)
[2024-05-14] MEDS: TENORMIN PO (08:54)
--- NOTE | 2024-05-14 09:08 | W.PN.ID1 ---
Date of Service
Date of Service: May 14, 2024
Today's Communication
- continue unasyn and doxycycline IV while NPO
awaiting immunoglobulins
Assessment / Plan
Fever
Leukocytosis
Suspected Pneumonia
UTI
Reported allergy to ceftriaxone - numbness/tingling mouth and vancomycin unknown
- blood cultures x2 in progress no growth to date
- urine culture 100K aerococcus - possibly the cause of fevers, now endorsing suprapubic tenderness which is new, given immunosuppression prefer to observe and try to obtain sputum culture for another day
- obtain sputum culture if able
- continue unasyn and doxycycline IV while NPO. Selected given reported allergies, prior cultures
- follow clinically
RA
History of Hypogammaglobulinemia - 2008
- patient specifically denies any recent flares or increase in pred and any injectable medications including immunosuppression and IVIG
- await immunoglobulins IgG, IgA, IgM
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
- treated with high bioavailability oral therapy
- send second blood culture
Chronic Pain
- suggest replacing buprenorphine patch with scheduled equivalent - management per IM service
Chief Complaint
-: Fever and Leukocytosis
Subjective / Review of Systems
tmax 101.2 - improving
bp stable
wbc improving
L shift resolved
cr 0.4
urine culture aerococcus 100K
still endorses productive cough, new complaint of mild suprapubic tenderness
Vital Signs / Physical Exam
Vital Signs
Vital Signs
Temp Pulse Resp BP Pulse Ox
98.2 F 99 23 153/76 94
05/14/24 07:11 05/14/24 08:00 05/14/24 08:00 05/14/24 08:00 05/14/24 08:38
Physical Exam
Constitutional: No Acute Distress and Chronically Ill
Cardiovascular: Regular Rate and S1/S2; Negative Murmur or Rub
Pulmonary: Clear and Symmetric; Negative Wheezes or Rales
Gastrointestinal: Soft, Non Tender, Non Distended and Normal Bowel Sounds
Genito-Urinary: Suprapubic Tenderness
Skin: Warm and Dry; Negative Rash or Jaundice
Neurological: Awake
Objective Data
Lab Data
Lab Results
05/14/24 04:44
05/14/24 04:44
PT 16.0 Sec (11.4-14.6) H 05/12/24 21:13
INR 1.29 05/12/24 21:13
APTT 113.2 Sec (23.4-35.0) H 05/14/24 04:44
Estimated Creat Clear 90 ml/min 05/14/24 04:44
Lactic Acid Cancelled 05/12/24 18:30
Total Bilirubin 1.7 mg/dl (0.2-1.3) H 05/12/24 12:59
AST 42 U/L (14-36) H 05/12/24 12:59
ALT 36 U/L (0-35) H 05/12/24 12:59
Alkaline Phosphatase 98 U/L (38-126) 05/12/24 12:59
Most recent labs reviewed.
Micro Results:
05/12/24 12:59 Urine Culture - Final
Urine Aerococcus Species
05/12/24 13:02 Blood Culture - Preliminary
Blood/Venous No Growth in 24 hours- Final report to follow
05/13/24 10:05 Blood Culture - Pending
Blood/Venous
--- NOTE | 2024-05-14 11:23 | CM ---
CM attempted to meet with pt and some confusion noted
Pt notes she resides with her SO in a 1st floor apartment
Per chart review from prior admission, SO assists her with her ADLs and she uses a WW
Pt has home O2, provider unknown
Pt is current with [facility]
CM attempted call with SO, no answer and VM full, unable to leave message
SNF recommended by PT/OT
PAC list bedside
Will need to confirm PLOF with SO and discuss SNF choices
Discharge Disposition- SNF
--- NOTE | 2024-05-14 11:30 | W.PN.HOSP.TC ---
Today's Communication/Plan
-
IV abx per ID
Speech eval
will d/w with pharmacy for pain control
PT/OT
MR brain
IV hep gtt for now
Assessment / Plan
Assessment / Plan
Physical Exam
General: No pallor, cyanosis, or jaundice.
HEENT: Throat clear. PERRLA Normocephalic atraumatic dry oral mucosa
NECK: Supple. No JVD Carotid Bruits
RESPIRATORY: Rhonchi
CVS: S1, S2 sinus tachy. No murmur, rub or gallop.
ABDOMEN: Soft, non-tender. No distension. BS+/normal.
EXTREMITIES: Right externally rotated but same level compared to left, Right Calf larger then Left. Ulnar deviations hands and Valgus deformity b/l knees likey d/t RA
limited range of motion extremities due to weakness vs rheumatoid arthritis
SECURITY ESCORT: AOx2 disoriented to time continues to exhibit word finding difficulties occasional perseverates 1 word responses but otherwise improved since initial presentation able to say her last name.
IMPRESSION:
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
meaningful history. All of history from records, ED report, and discussion with patient's significant other dulce Jiménezen over phone. Per Jose patient had been sick for the past 2-3 days reporting right sided abdomen pain with associate
intermittent fever. Night prior patient was incontinent of urine and was unable to get out of bed (ambulatory with walker at baseline). Dulce attempted to bring patient to hospital, however she refused. Morning following patient appeared
confused prompting to call EMS. AOx1 patient appears only oriented to self. Significant word finding difficulties were noted, patient had difficulty saying her last name. Repeated a nonsensical word when asked the name of current stated
location and year.
PLAN:
#Sepsis PNA vs aerococcus UTI
Leukocytosis Fever Tachycardia
CXR suggestive PNA
urinalysis notes bacteriuria
No hypotension or Lactic acidosis
follow Cx's
Tylenol PRN
ID eval appreciated empiric zosyn discontinued in favor of unasyn and IV doxycycline
Acute on Chronic Respiratory Failure
COPD
-requiring 4L, previously noted to be on 2L
-likely d/t PNA as above
-wean O2 as tolerated
-cont home inhaler symbicort
-Duoneb prn sob/wheezing
#RLE DVT
Venous duplex appreciated DVT
Respiratory status otherwise stable on 4L NC
hep gtt
#Aphasic possible Encephalopathy vs dementia delirium vs Suspected Stroke out of window, last known normal night prior presentation per discussion w/ Fiancee
strict NPO, speech eval appreciated high aspiration risk, consider alternative means of nutrition if patient doesn't improve
CT head appreciated no acute hemorrhage or infarct, severe white matter leukoaraiosis, severe calcific atherosclerotic plaque anterior posterior intracranial circulations, mild acute left maxillary sinusitis
Repeat CT head noted no acute changes
NIH neuro checks
MRI brain to r/o CVA.
PT/OT eval
A1c 8.2
Lipid panel appreciated
aspiration fall precautions
#Dysphagia
Speech eval-strict NPO for now
#Diabetes
#Hyperglycemia
Low dose sliding scale
A1c 8.2
Glycemic control
HTN Primary
Hydralazine prn >160/100
resume home Atenolol HCTz Spironolactone when safe for oral meds
Rheumatoid Arthritis
Chronic Pain
Ambulatory dysfunction
cont home prednisone gabapentin duloxetine when safe for oral meds
Decadron 1 mg IV daily equivalent home prednisone 5 mg daily
IV morphine 2mg Q4Hprn moderate severe pain
Externally rotated RLE but same level as Left, likely deformity d/t rheumatoid arthritis
CR hips note no acute fractures dislocation
home subutex patch 7.5 mcg/h not available on formulary switched to equivalent IV morphine 0.75 mg Q6H per discussion with pharmacy
morphine 2mg prn Q4H moderate severe pain
DVT ppx hep gtt
Gi ppx Protonix
Full Code as per Dulce reported POA.
Anticipated Discharge: > 48 hours
Subjective/Interval History
-
Date of Service: May 14, 2024
able to speak few words
states of pain
remains on oxygen
Objective Data
-
Labs:
Laboratory Results
05/14/24 05/14/24
04:44 12:00
WBC 17.8 H
Hgb 12.6
Hct 35.7 L
Plt Count 276
APTT 113.2 H Pending
Sodium 139
Potassium 3.0 L
Chloride 109 H
Carbon Dioxide 21 L
BUN 15
Creatinine 0.4 L
Glucose 164 H
Calcium 8.1 L
Vital Signs:
Vital Signs
Temp Pulse Resp BP Pulse Ox
98.2 F 99 23 153/76 94
05/14/24 07:11 05/14/24 08:00 05/14/24 08:00 05/14/24 08:00 05/14/24 08:38
I&O
05/13/24 05/14/24 05/15/24
06:59 06:59 06:59
Intake Total 2386 / 2386
Output Total 400 / 400
Balance 1985 / 1985
Data Reviewed
-
Total Time Spent with Patient (in minutes): 55
[2024-05-14 11:58] LABS: Glucose - Point of Care 204 mg/dl (70-99)
--- NOTE | 2024-05-14 12:26 | PTOTSP ---
SPEECH THERAPY SWALLOW EVALUATION:
Patient continues to exhibit clinical signs of oropharyngeal dysphagia, likely acutely related to sepsis/UTI/pneumonia in patient with chronic dysphagia risk factors including COPD, narcotic dependence, RA. Patient with concern for CVA, CXR
concerning for possible pnuemonia. WBC elevated. Patient with multiple predisposing and precipitating dysphagia risk factors. Patient remains at high risk for aspiration and related complications. Recommend Videofluoroscopic Swallowing Study to
further assess swallow function. Recommend patient to be NPO except for necessary medications crushed in puree and ARHP via small single sips of water (SPARINGLY), with RN supervision following oral care with aspiration precautions in place. Speech
therapy to follow and provide additional recommendations following VSE. Consider speech/language/cognitive communication evaluation pending MRI results.
RECOMMEND:
1) Videofluoroscopic Swallowing Study
2) NPO except for necessary medications crushed in puree
3) ARHP via small sips of water, SPARINGLY, with RN supervision and following oral care
4) Aspiration precautions during ARHP and medication administration
5) Speech therapy to follow; Consider speech/language/cognitive communication evaluation pending MRI results
[2024-05-14] MEDS: VIBRAMYCIN 260 MG IV (12:30)
--- NOTE | 2024-05-14 12:32 | PN.CDI ---
CDI
- -
CDI:
Physician Documentation Request
Admit Date: 05/12/24 18:57
Dear Doctor Cele,
Please review the following and provide your response in the progress notes.
Clinical Indicators:
Pt admitted with sepsis 2/2 PNA vs UTI
Progress note 05/14, ' CXR suggestive PNA... unasyn and IV doxycycline...Dysphagia ....Speech eval-strict NPO for now...'
Speech Eval 05/13, ' Patient exhibits clinical signs of oropharyngeal dysphagia...Patient exhibiting signs of aspiration at bedside. Recommend patient to continue strict NPO at this time; consider temporary non-oral medication/hydration/nutrition. '
Based on the above, could you clarify in the Progress Notes further specificity regarding the known, suspected or likely type of pneumonia you are treating (recognizing the specific organism may not be known)?
Aspiration Pneumonia
LLL PNA only
Other type (please Specify
Use of terms such as suspected, likely, concern for, or probable (associated with a specific diagnosis that is being evaluated, monitored, or treated as if it exists) are acceptable and can be coded in the inpatient setting, when documented at the
time of discharge.
Thank you,
Irena Alexis RN
CDI Specialist
[facility]
Please use your independent medical judgment in providing your response.
--- NOTE | 2024-05-14 12:36 | PN.CDI ---
CDI
- -
CDI:
Physician Documentation Request
Admit Date: 05/12/24 18:57
Dear Doctor Cele ,
Please review the following and provide your response in the progress notes.
Clinical Indicators:
Pt admitted with sepsis 2/2 PNA vs UTI
Documented throughout the record H&P - Progress notes 05/14, ' confused aphasic patient unable to provide meaningful history... Morning following patient appeared confused prompting to call EMS. AOx1 patient appears only oriented to self.
Significant word finding difficulties were noted, patient had difficulty saying her last name. Repeated a nonsensical word when asked the name of current stated location and year....Aphasic possible Encephalopathy ....'
Based on the above, could you clarify in the Progress Notes which, if any of the following, is the suspected type of Encephalopathy:
Toxic Metabolic Encephalopathy
Metabolic Encephalopathy
Other ( please specify)
Use of terms such as suspected, likely, concern for, or probable (associated with a specific diagnosis that is being evaluated, monitored, or treated as if it exists) are acceptable and can be coded in the inpatient setting, when documented at the
time of discharge.
Thank you,
Irena Alexis RN
CDI Specialist
[place] Text
Please use your independent medical judgment in providing your response.
--- NOTE | 2024-05-14 12:43 | PN.CDI ---
CDI
- -
CDI:
Physician Documentation Request
Admit Date: 05/12/24 18:57
Dear Doctor Cele,
Please review the following and provide your response in the progress notes.
Clinical Indicators:
Pt admitted with sepsis 2/2 PNA vs UTI/Chronic respiratory Failure on 2 LPM for COPD
Documented per ED, ' LUNGS: diminished; on o2; mild tachypnea; right sided crackles more prominent than L...'
Per EMS was 87% [facility] on arrival and 90% in ED
Please provide the type of suspected Respiratory Failure :
Acute on Chronic Hypoxic respiratory failure
Acute on chronic Hypercapnic respiratory failure
Other (please specify)
Use of terms such as suspected, likely, concern for, or probable (associated with a specific diagnosis that is being evaluated, monitored, or treated as if it exists) are acceptable and can be coded in the inpatient setting, when documented at the
time of discharge.
Thank you,
Irena Alexis RN
CDI Specialist
[place] Text
Please use your independent medical judgment in providing your response.
[2024-05-14] MEDS: DECADRON 1 MG IV (13:08)
[2024-05-14] MEDS: KCL 270 MEQ IV (13:09)
[2024-05-14] MEDS: DILAUDID 0.5 MG IV ×3 (13:26→23:37)
[2024-05-14] MEDS: NOVOLOG FLEXPEN-LOW RESISTANCE 2 UNITS SC ×2 (13:27→18:47)
[2024-05-14 14:34] LABS: APTT 81.6 Sec (23.4-35.0)
[2024-05-14] MEDS: LR 1000 IV ×2 (14:57→23:36)
--- NOTE | 2024-05-14 16:04 | PTCARENOTE ---
Lat PTT 81.6 no changes to heparin drip as per protocol. Drip remains at 1600 units/16 mls/hr. Heparin drip to be d/c at 8 pm and lovenox injections to be started. Patient to have MRI tomorrow. Patient is much more alert today and is responding
to questions better. Patient sleeping intermittently, easily arousable. Providing sips of water with supervision.
[2024-05-14] MEDS: TRANDATE 10 MG IV (16:16)
[2024-05-14] MEDS: NEURONTIN 800 MG PO ×2 (16:54→21:25)
[2024-05-14] MEDS: CYMBALTA DELAYED RELEASE 60 MG PO (17:53)
[2024-05-14 19:02] LABS: Glucose - Point of Care 205 mg/dl (70-99)
[2024-05-14] MEDS: LOVENOX 80 MG SC (20:28)
[2024-05-14 23:32] LABS: Glucose - Point of Care 173 mg/dl (70-99)
[2024-05-15] VITALS (10 sets, daily range): BP systolic 138–188; BP diastolic 72–97; BMI 27.8
[2024-05-15] MEDS: VIBRAMYCIN 260 MG IV ×2 (00:24→12:50)
--- NOTE | 2024-05-15 00:45 | PTCARENOTE ---
Pt received in bed from previous shift. AAOx2 (time) drowsy & forgetful. Telemetry = SR w/1st degree AV block. Full physical assessment documented (refer to worklist). NIHSS = 5. Neuro checks WNL. IV heparin discontinued per MD orders prior to
receiving SubQ lovenox. Female external catheter changed and maintained. Sacral foam intact. Miconazole powder ordered for fungal/MASD to groin. LR infusing via #18 LW without complication. Turned and positioned using foam wedge. Assisted pt
in calling s/o Allen before HS. Speech clear while on the phone. Call duong within reach. Plan of care ongoing.
[2024-05-15 04:52] LABS: % Basophils 0.2 % (0-2); % Eosinophils 0.3 % (0-6); % Immature Granulocytes 0.6 % (0-0.5); % Lymphocytes 19.1 % (20.5-51.1); % Monocytes 7.7 % (1.7-9.3); % Neutrophils 72.1 % (42.2-75.2); Absolute Immature Granulocytes 0.1 10^3/uL (0-0.05); Absolute Lymphocytes 2.3 10^3/uL (1.2-3.4); Absolute Monocytes 0.9 10^3/uL (0.1-0.6); Absolute Neutrophils 8.7 10^3/uL (1.4-6.5); Hematocrit 33.4 % (37.0-47.0); Hemoglobin 11.4 g/dL (12.0-16.0); Mean Corp Hgb Conc. 34.1 g/dL (33.0-37.0); Mean Corpuscular Hgb 33.6 pg (27.0-31.0); Mean Corpuscular Volume 98.5 fL (81.0-99.0); Mean Platelet Volume 10.1 fL (7.4-10.4); Nucleated Red Blood Cells % 0 %; Platelet Count 248 10^3/uL (130-400); Red Blood Cell Count 3.39 10^6/uL (4.20-5.40); Red Cell Dist. Width 13.3 % (11.5-14.5)
[2024-05-15 05:11] LABS: Blood Urea Nitrogen 14 mg/dl (7-17); Carbon Dioxide 25 mmol/L (22-30); Chloride 107 mmol/L (98-107); Estimated Creatinine Clearance 89 ml/min; Glucose 153 mg/dl (70-99); Magnesium 1.9 mg/dl (1.6-2.3); Potassium 3.5 mmol/L (3.5-5.1); Sodium 136 mmol/L (135-145); eGFR > 60.00
[2024-05-15] MEDS: UNASYN IV ×4 (05:12→23:18)
[2024-05-15] MEDS: DILAUDID 0.5 MG IV ×4 (05:12→23:19)
[2024-05-15 06:19] LABS: Glucose - Point of Care 143 mg/dl (70-99)
[2024-05-15] MEDS: NOVOLOG FLEXPEN-LOW RESISTANCE SC (06:21)
[2024-05-15] MEDS: SYMBICORT 160/4.5 MCG INHALER 2 PUFF INH ×2 (07:13→20:11)
[2024-05-15] MEDS: MORPHINE SULFATE 2 MG IV ×2 (08:47→16:46)
[2024-05-15] MEDS: LOVENOX 80 MG SC ×2 (08:47→19:56)
[2024-05-15] MEDS: PROTONIX IV 40 MG IV (08:52)
[2024-05-15] MEDS: NSS (PRESERVATIVE FREE) 10 ML IV (08:52)
[2024-05-15] MEDS: ALDACTONE 25 MG PO (08:52)
[2024-05-15] MEDS: NEURONTIN 800 MG PO ×3 (08:53→21:30)
[2024-05-15] MEDS: CYMBALTA DELAYED RELEASE 30 MG PO (08:53)
[2024-05-15] MEDS: TENORMIN 50 MG PO (08:54)
[2024-05-15] MEDS: LR 1000 IV (08:58)
[2024-05-15] MEDS: DESENEX/MITRAZOL/ZEASORB 1 APPLIC TOPICAL ×2 (08:59→19:56)
--- NOTE | 2024-05-15 09:00 | PTCARENOTE ---
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 Patient resting comfortably in bed. AAOx2 little forgetful to time, VSS. No events noted overnight. Complaints of pain related to RA, see DEC. IVF through IV. Pure wick in place. Scheduled for MRI and video
swallow eval today. Call duong in reach.
--- NOTE | 2024-05-15 09:42 | W.PN.ID1 ---
Date of Service
Date of Service: May 15, 2024
Today's Communication
- continue unasyn and doxycycline IV while strict NPO; when able to switch to orals will do so
Assessment / Plan
Fever
Leukocytosis
Suspected Pneumonia
UTI
Reported allergy to ceftriaxone - numbness/tingling mouth and vancomycin unknown
- blood cultures x2 in progress no growth to date
- urine culture 100K aerococcus
- not producing sputum
- continue unasyn and doxycycline IV while strict NPO; when able to switch to orals will do so
- follow clinically
RA
History of Hypogammaglobulinemia - 2008
- patient specifically denies any recent flares or increase in pred and any injectable medications including immunosuppression and IVIG
- hypogammaglobulinemia now for IgG only - follow up with rheumatology
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
- treated with high bioavailability oral therapy
Chief Complaint
-: Fever and Leukocytosis
Subjective / Review of Systems
afebrile
bp stable
further improved leukocytosis
no left shift
cr 0.4
hypogammaglobulinemia now for IgG only
on the phone - I introduced myself as her ID doc - she prefers to speak tomorrow
Vital Signs / Physical Exam
Vital Signs
Vital Signs
Temp Pulse Resp BP Pulse Ox
98.5 F 105 15 153/97 96
05/15/24 03:56 05/15/24 08:52 05/15/24 07:19 05/15/24 08:52 05/15/24 07:19
Physical Exam
Constitutional: No Acute Distress and Chronically Ill
Cardiovascular: Regular Rate and S1/S2; Negative Murmur or Rub
Pulmonary: Clear and Symmetric; Negative Wheezes or Rales
Gastrointestinal: Soft, Non Tender, Non Distended and Normal Bowel Sounds
Skin: Warm and Dry; Negative Rash or Jaundice
Objective Data
Lab Data
Lab Results
05/15/24 04:23
05/15/24 04:23
PT 16.0 Sec (11.4-14.6) H 05/12/24 21:13
INR 1.29 05/12/24 21:13
APTT 81.6 Sec (23.4-35.0) H 05/14/24 14:06
Estimated Creat Clear 89 ml/min 05/15/24 04:23
Lactic Acid Cancelled 05/12/24 18:30
Total Bilirubin 1.7 mg/dl (0.2-1.3) H 05/12/24 12:59
AST 42 U/L (14-36) H 05/12/24 12:59
ALT 36 U/L (0-35) H 05/12/24 12:59
Alkaline Phosphatase 98 U/L (38-126) 05/12/24 12:59
Most recent labs reviewed.
Micro Results:
05/12/24 13:02 Blood Culture - Preliminary
Blood/Venous No Growth in 48 hours- Final report to follow
05/13/24 10:05 Blood Culture - Preliminary
Blood/Venous No Growth in 24 hours- Final report to follow
05/12/24 12:59 Urine Culture - Final
Urine Aerococcus Species
[2024-05-15] MEDS: ATIVAN 0.5 MG PO (11:34)
--- NOTE | 2024-05-15 11:46 | PTOTSP ---
Video Swallow Study
Summary: Patient unable to breakdown solids due to missing dentition. Oral/pharyngeal swallowing physiology otherwise within functional limits. No aspiration occurred. No significant retention present. Esophageal sweep unremarkable.
Recommend:
1. IDDSI Level 4 (Puree), IDDSI Level 0 (Thin)
2. Medications as best tolerated
3. Supervision with PO intake (given confusion this admission)
4. Oral care 3x daily
5. Dysphagia therapy at the acute care level to determine if/when solid advancement appropriate.
6. Further cognitive-linguistic testing pending if appropriate pending further CVA work up.
[2024-05-15] MEDS: DECADRON 1 MG IV (12:49)
[2024-05-15] MEDS: NOVOLOG FLEXPEN-LOW RESISTANCE 1 UNITS SC (12:50)
--- NOTE | 2024-05-15 12:50 | W.PN.HOSP.TC ---
Addendum entered and electronically signed by Brian Oakley MD 05/15/24 15:13:
Acute hypoxic respiratory insufficiency.
Patient not on home oxygen.
Original Note:
Today's Communication/Plan
-
restarted diet
MR pending
tx out of IMU
PT/OT
IV abx
BP control
Assessment / Plan
Assessment / Plan
Physical Exam
General: No pallor, cyanosis, or jaundice.
HEENT: Throat clear. PERRLA Normocephalic atraumatic dry oral mucosa
NECK: Supple. No JVD Carotid Bruits
RESPIRATORY: Rhonchi
CVS: S1, S2 sinus tachy. No murmur, rub or gallop.
ABDOMEN: Soft, non-tender. No distension. BS+/normal.
EXTREMITIES: Right externally rotated but same level compared to left, Right Calf larger then Left. Ulnar deviations hands and Valgus deformity b/l knees likey d/t RA
limited range of motion extremities due to weakness vs rheumatoid arthritis
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
IMPRESSION:
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
meaningful history. All of history from records, ED report, and discussion with patient's significant other saulo Garcia over phone. Per Jose patient had been sick for the past 2-3 days reporting right sided abdomen pain with associate
intermittent fever. Night prior patient was incontinent of urine and was unable to get out of bed (ambulatory with walker at baseline). Saulo attempted to bring patient to hospital, however she refused. Morning following patient appeared
confused prompting to call EMS. AOx1 patient appears only oriented to self. Significant word finding difficulties were noted, patient had difficulty saying her last name. Repeated a nonsensical word when asked the name of current stated
location and year.
PLAN:
#Sepsis LLL PNA vs aerococcus UTI
Leukocytosis Fever Tachycardia
CXR suggestive PNA
urinalysis notes bacteriuria
No hypotension or Lactic acidosis
follow Cx's
Tylenol PRN
ID eval appreciated empiric zosyn discontinued in favor of unasyn and IV doxycycline
Leukocytosis significantly improving (some bump due to IV steroids)
Acute on Chronic Respiratory hypoxic respiratory insufficiency
COPD
-requiring 4L, previously noted to be on 2L
-likely d/t PNA as above
-wean O2 as tolerated
-cont home inhaler symbicort
-Duoneb prn sob/wheezing
#RLE DVT
Venous duplex appreciated DVT
Respiratory status otherwise stable on 4L NC
hep gtt stopped and started on lovenox.
Eventual transition to DOAC
#Aphasic possible toxic metabolic Encephalopathy vs dementia delirium vs Suspected Stroke out of window, last known normal night prior presentation per discussion w/ Fiancee
strict NPO, speech eval appreciated high aspiration risk, consider alternative means of nutrition if patient doesn't improve
CT head appreciated no acute hemorrhage or infarct, severe white matter leukoaraiosis, severe calcific atherosclerotic plaque anterior posterior intracranial circulations, mild acute left maxillary sinusitis
Repeat CT head noted no acute changes
NIH neuro checks
MRI brain to r/o CVA pending
PT/OT eval
A1c 8.2
Lipid panel appreciated
aspiration fall precautions
#Dysphagia
Started on puree diet w/thin liquids
#Diabetes
#Hyperglycemia
Low dose sliding scale
A1c 8.2
Glycemic control
HTN Primary
resume home Atenolol Spironolactone and HCTZ now
DC ivf
Rheumatoid Arthritis
Chronic Pain
Ambulatory dysfunction
cont home prednisone gabapentin duloxetine when safe for oral meds
Decadron 1 mg IV daily equivalent home prednisone 5 mg daily.
Will transition off to po steroids in next 24h.
Externally rotated RLE but same level as Left, likely deformity d/t rheumatoid arthritis
CR hips note no acute fractures dislocation
home subutex patch 7.5 mcg/h not available on formulary switched to equivalent IV dilaudid
morphine 2mg prn Q4H moderate severe pain
DVT ppx hep gtt
Gi ppx Protonix
Full Code as per Saulo reported POA.
ok to transfer out of IMU
d/w with Conchita garcia over the phone in details.
Anticipated Discharge: 24 - 48 hours
Subjective/Interval History
-
Date of Service: May 15, 2024
Patient with improvement in speech able to speak few more words.
Patient states she is feeling little bit better compared to yesterday
Off IV heparin and on Lovenox
Passed Swallow evaluation
Objective Data
-
Labs:
Laboratory Results
05/15/24
04:23
WBC 12.0 H
Hgb 11.4 L
Hct 33.4 L
Plt Count 248
Sodium 136
Potassium 3.5
Chloride 107
Carbon Dioxide 25
BUN 14
Creatinine 0.4 L
Glucose 153 H
Calcium 8.0 L
Vital Signs:
Vital Signs
Temp Pulse Resp BP Pulse Ox
98.0 F 105 15 153/97 96
05/15/24 07:35 05/15/24 08:52 05/15/24 07:19 05/15/24 08:52 05/15/24 07:19
I&O
05/14/24 05/15/24 05/16/24
06:59 06:59 06:59
Intake Total 2386 / 2386 3780 / 3780
Output Total 400 / 400 1330 / 1330
Balance 1985 2450 / 2450
Data Reviewed
-
Total Time Spent with Patient (in minutes): 59
[2024-05-15 12:51] LABS: Glucose - Point of Care 185 mg/dl (70-99)
--- NOTE | 2024-05-15 17:00 | PTCARENOTE ---
Report given to Richi Houston RN. Patient transported with all known belongings.
[2024-05-15] MEDS: CYMBALTA DELAYED RELEASE 60 MG PO (17:51)
[2024-05-15 18:27] LABS: Glucose - Point of Care 225 mg/dl (70-99)
[2024-05-15] MEDS: NOVOLOG FLEXPEN-LOW RESISTANCE 2 UNITS SC (18:34)
[2024-05-15] MEDS: TRANDATE 10 MG IV (19:54)
[2024-05-15] MEDS: DUONEB 3 ML INH (20:15)
[2024-05-15 21:41] LABS: Glucose - Point of Care 242 mg/dl (70-99)
[2024-05-16] VITALS (8 sets, daily range): BP systolic 134–168; BP diastolic 71–93; PULSE 74; O2SAT 97–98
[2024-05-16] MEDS: VIBRAMYCIN 260 MG IV ×2 (00:26→12:14)
[2024-05-16] MEDS: UNASYN IV ×2 (05:18→12:14)
[2024-05-16] MEDS: DILAUDID 0.5 MG IV ×4 (05:19→23:48)
[2024-05-16] MEDS: DUONEB 3 ML INH ×2 (06:44→20:17)
[2024-05-16] MEDS: SYMBICORT 160/4.5 MCG INHALER 2 PUFF INH ×2 (06:45→20:17)
[2024-05-16 07:53] LABS: % Basophils 0.4 % (0-2); % Eosinophils 1.6 % (0-6); % Immature Granulocytes 1.1 % (0-0.5); % Lymphocytes 26.8 % (20.5-51.1); % Monocytes 7.8 % (1.7-9.3); % Neutrophils 62.3 % (42.2-75.2); Absolute Basophils 0.1 10^3/uL (0-0.2); Absolute Eosinophils 0.2 10^3/uL (0-0.7); Absolute Immature Granulocytes 0.1 10^3/uL (0-0.05); Absolute Lymphocytes 3.3 10^3/uL (1.2-3.4); Absolute Neutrophils 7.7 10^3/uL (1.4-6.5); Hematocrit 34.7 % (37.0-47.0); Mean Corp Hgb Conc. 34.6 g/dL (33.0-37.0); Mean Corpuscular Hgb 33.6 pg (27.0-31.0); Mean Corpuscular Volume 97.2 fL (81.0-99.0); Mean Platelet Volume 10.3 fL (7.4-10.4); Nucleated Red Blood Cells % 0 %; Platelet Count 256 10^3/uL (130-400); Red Blood Cell Count 3.57 10^6/uL (4.20-5.40); Red Cell Dist. Width 13.1 % (11.5-14.5); White Blood Cell Count 12.4 10^3/uL (4.8-10.8)
[2024-05-16 08:18] LABS: Glucose - Point of Care 164 mg/dl (70-99)
[2024-05-16 08:19] LABS: Blood Urea Nitrogen 11 mg/dl (7-17); Calcium 8.2 mg/dl (8.4-10.2); Carbon Dioxide 23 mmol/L (22-30); Chloride 105 mmol/L (98-107); Estimated Creatinine Clearance 89 ml/min; Glucose 143 mg/dl (70-99); Magnesium 1.9 mg/dl (1.6-2.3); Potassium 3.4 mmol/L (3.5-5.1); Sodium 132 mmol/L (135-145); eGFR > 60.00
[2024-05-16] MEDS: PROTONIX IV 40 MG IV (08:31)
[2024-05-16] MEDS: NOVOLOG FLEXPEN-LOW RESISTANCE 1 UNITS SC ×2 (08:32→15:55)
[2024-05-16] MEDS: NSS (PRESERVATIVE FREE) 10 ML IV (08:32)
[2024-05-16] MEDS: NEURONTIN 800 MG PO ×3 (08:33→21:02)
[2024-05-16] MEDS: LOVENOX 80 MG SC ×2 (08:33→21:03)
[2024-05-16] MEDS: DELTASONE 5 MG PO (08:34)
[2024-05-16] MEDS: TENORMIN 50 MG PO (08:35)
[2024-05-16] MEDS: ALDACTONE 25 MG PO (08:35)
[2024-05-16] MEDS: CYMBALTA DELAYED RELEASE 30 MG PO (08:35)
[2024-05-16] MEDS: MORPHINE SULFATE 2 MG IV ×2 (08:43→21:11)
[2024-05-16] MEDS: DESENEX/MITRAZOL/ZEASORB 1 APPLIC TOPICAL ×2 (08:48→21:04)
[2024-05-16] MEDS: KCL ELIXIR 20 MEQ PO (09:20)
--- NOTE | 2024-05-16 10:57 | PTOTSP ---
Dysphagia Therapy
Patient with prolonged mastication related to missing dentition. Patient is appropriate to advance diet to IDDSI Level 6 (Soft Bite Sized), IDDSI Level 0 (Thin Liquid) diet.
Recommend:
1. IDDSI Level 6 (Soft/Bite Sized), IDDSI Level 0 (Thin)
2. Medications as best tolerated
3. Supervision with PO intake
4. Oral care 3x daily
5. Dysphagia therapy at the acute care level to determine if/when further solid advancement appropriate.
[2024-05-16 11:42] LABS: Glucose - Point of Care 275 mg/dl (70-99)
[2024-05-16] MEDS: NOVOLOG FLEXPEN-LOW RESISTANCE 2 UNITS SC (11:43)
--- NOTE | 2024-05-16 11:48 | W.PN.HOSP.TC ---
Today's Communication/Plan
-
replete kcl
abx per ID
CM for dispo/eliquis cost
mentation improved.
off IVF
Assessment / Plan
Assessment / Plan
Physical Exam
General: No pallor, cyanosis, or jaundice.
HEENT: Throat clear. PERRLA Normocephalic atraumatic dry oral mucosa
NECK: Supple. No JVD Carotid Bruits
RESPIRATORY: Rhonchi
CVS: S1, S2 sinus tachy. No murmur, rub or gallop.
ABDOMEN: Soft, non-tender. No distension. BS+/normal.
EXTREMITIES: Right externally rotated but same level compared to left, Right Calf larger then Left. Ulnar deviations hands and Valgus deformity b/l knees likey d/t RA
limited range of motion extremities due to weakness vs rheumatoid arthritis
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
meaningful history. All of history from records, ED report, and discussion with patient's significant other dulce Garcia over phone. Per Jose patient had been sick for the past 2-3 days reporting right sided abdomen pain with associate
intermittent fever. Night prior patient was incontinent of urine and was unable to get out of bed (ambulatory with walker at baseline). Dulce attempted to bring patient to hospital, however she refused. Morning following patient appeared
confused prompting to call EMS. AOx1 patient appears only oriented to self. Significant word finding difficulties were noted, patient had difficulty saying her last name. Repeated a nonsensical word when asked the name of current stated
location and year.
PLAN:
#Sepsis LLL PNA vs aerococcus UTI
Leukocytosis Fever Tachycardia
CXR suggestive PNA
urinalysis notes bacteriuria
No hypotension or Lactic acidosis
follow Cx's
Tylenol PRN
ID eval appreciated empiric zosyn discontinued in favor of unasyn and IV doxycycline
Leukocytosis significantly improving (some bump due to IV steroids)
Acute hypoxic respiratory insufficiency
COPD
-requiring 4L, previously noted to be on 2L and now on room air.
-likely d/t PNA as above
-wean O2 as tolerated
-cont home inhaler symbicort
-Duoneb prn sob/wheezing
-stable on room air. Not on home oxygen.
#RLE DVT
Venous duplex appreciated DVT
Respiratory status otherwise stable on 4L NC and now on room air.
hep gtt stopped and started on lovenox.
Eventual transition to DOAC -CM eval for cost of eliquis
#Aphasic possible toxic metabolic Encephalopathy vs dementia vs delirium vs tia low likelihood last known normal night prior presentation per discussion w/ Fiancee
CT head appreciated no acute hemorrhage or infarct, severe white matter leukoaraiosis, severe calcific atherosclerotic plaque anterior posterior intracranial circulations, mild acute left maxillary sinusitis
Repeat CT head noted no acute changes
NIH neuro checks
MRI brain negative for CVA.
PT/OT eval
A1c 8.2
Lipid panel appreciated
aspiration fall precautions
#Dysphagia
Diet upgraded to soft and bite sized
#Diabetes
#Hyperglycemia
Low dose sliding scale
A1c 8.2
Glycemic control
HTN Primary
resume home Atenolol Spironolactone and HCTZ now
DC ivf
Rheumatoid Arthritis
Chronic Pain
Ambulatory dysfunction
cont home prednisone gabapentin duloxetine when safe for oral meds
DC iv steroids and back to home dose po prednisone
Externally rotated RLE but same level as Left, likely deformity d/t rheumatoid arthritis
CR hips note no acute fractures dislocation
home subutex patch 7.5 mcg/h not available on formulary switched to equivalent IV dilaudid
morphine 2mg prn Q4H moderate severe pain
Chronic cervical spinal cord compression
-no symptoms
-OP f/u
Hypokalemia
-replete/monitor
DVT ppx lovenox
Gi ppx Protonix
Full Code as per Dulce reported POA.
d/w with Conchita garcia over the phone in details on 05/15
PT/OT Last noted SNF-. CM aware. start dispo process.
Anticipated Discharge: Within 24 hours
Subjective/Interval History
-
Date of Service: May 16, 2024
Patient states significant improvement in mentation feels back to baseline
Afebrile overnight
Objective Data
-
Labs:
Laboratory Results
05/16/24
07:25
WBC 12.4 H
Hgb 12.0
Hct 34.7 L
Plt Count 256
Sodium 132 L
Potassium 3.4 L
Chloride 105
Carbon Dioxide 23
BUN 11
Creatinine 0.4 L
Glucose 143 H
Calcium 8.2 L
Vital Signs:
Vital Signs
Temp Pulse Resp BP Pulse Ox
98.1 F 84 18 151/83 95
05/16/24 07:00 05/16/24 08:35 05/16/24 07:00 05/16/24 08:35 05/16/24 10:42
I&O
05/15/24 05/16/24 05/17/24
06:59 06:59 06:59
Intake Total 3780 / 3780 2510 / 2510
Output Total 1330 / 1330 700 / 700
Balance 2450 / 2450 1810 / 1810
Data Reviewed
-
Total Time Spent with Patient (in minutes): 59
--- NOTE | 2024-05-16 12:19 | CM ---
Addendum entered by Heydi Erickson 05/16/24 14:47:
PT recommends [facility]
CM spoke with patient's significant other via phone. He reported the following:
He does not drive
They live in a one floor condo; 28 steps up to enter;
He has been caring for patient for several years;
She has home health services with [facility] for PT and VN; and a physician visits her in the home
Patient will require an ambulance for transport.
Addendum entered by Heydi Erickson 05/16/24 13:48:
PT/OT reassessed patient and reported 'She cannot go home...she is way too weak and there's no way she is going to be able to return home independently'
Attending notified
Addendum entered by Heydi Erickson 05/16/24 12:59:
Significant Other, who she lives with, does not drive; will have to ask him if he can arrange transport if she goes home when discharged
Addendum entered by Heydi Erickson 05/16/24 12:46:
Met with patient at bedside; discussed recommendation to SNF; patient wants to go home with resumption of home health services with [facility]
PT will re-evaluate today
IMM benefit explained; form signed @ 1240
CM Consult completed. Chang script cost verified with pharmacy; NO out of pocket cost for patient; Attending notified
Addendum entered by Heydi Erickson 05/16/24 12:33:
Pharmacy updated on chart to [facility]
Original Note:
CM spoke with patient's significant other, Jose Romeo # [phone], to discuss discharge plan; explained PT's recommendation for rehab at a SNF; he is agreeable with plan; he reported that he does not drive
Reviewed list of SNFs with him and obtained preferences; referrals sent to [facility], [facility], [facility], and [facility] via [employer]
Plan: discharge tomorrow to SNF pending bed availability
--- NOTE | 2024-05-16 12:28 | W.PN.ID1 ---
Date of Service
Date of Service: May 16, 2024
Today's Communication
- switched to oral doxycycline and augmentin to complete 14 day course 05/13-05/26
Assessment / Plan
Fever - resolved
Leukocytosis - overall improving
Suspected Pneumonia
UTI
Reported allergy to ceftriaxone - numbness/tingling mouth and vancomycin unknown
- blood cultures x2 in progress no growth to date
- urine culture 100K aerococcus
- MRI findings management per IM service
- switched to oral doxycycline and augmentin to complete 7 day course 05/13-05/26
- follow clinically
RA
History of Hypogammaglobulinemia - 2008
- patient specifically denies any recent flares or increase in pred and any injectable medications including immunosuppression and IVIG
- hypogammaglobulinemia now for IgG only - follow up with rheumatology
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
- treated with high bioavailability oral therapy
Chief Complaint
-: Fever and Leukocytosis
Subjective / Review of Systems
afebrile
now taking orals
no overnight events
Vital Signs / Physical Exam
Vital Signs
Vital Signs
Temp Pulse Resp BP Pulse Ox
97.9 F 70 18 134/88 94
05/16/24 11:00 05/16/24 11:00 05/16/24 11:00 05/16/24 11:00 05/16/24 11:00
Physical Exam
Constitutional: No Acute Distress
Cardiovascular: Regular Rate and S1/S2; Negative Murmur or Rub
Pulmonary: Clear, Symmetric, Wheezes and Non Labored; Negative Rales
Gastrointestinal: Soft, Non Tender, Non Distended and Normal Bowel Sounds
Skin: Warm and Dry; Negative Rash or Jaundice
Objective Data
Lab Data
Lab Results
05/16/24 07:25
no left shift
05/16/24 07:25
PT 16.0 Sec (11.4-14.6) H 05/12/24 21:13
INR 1.29 05/12/24 21:13
APTT 81.6 Sec (23.4-35.0) H 05/14/24 14:06
Estimated Creat Clear 89 ml/min 05/16/24 07:25
Lactic Acid Cancelled 05/12/24 18:30
Total Bilirubin 1.7 mg/dl (0.2-1.3) H 05/12/24 12:59
AST 42 U/L (14-36) H 05/12/24 12:59
ALT 36 U/L (0-35) H 05/12/24 12:59
Alkaline Phosphatase 98 U/L (38-126) 05/12/24 12:59
Most recent labs reviewed.
Brain MRI: no ICH, severe spinal cord stenosis
Micro Results:
05/13/24 10:05 Blood Culture - Preliminary
Blood/Venous No Growth in 72 hours- Final report to follow
05/12/24 13:02 Blood Culture - Preliminary
Blood/Venous No Growth in 72 hours- Final report to follow
05/12/24 12:59 Urine Culture - Final
Urine Aerococcus Species
Care Review
Plan reviewed with: Physician (Dr Oakley - wheezing on exam - deferred to him)
[2024-05-16 15:43] LABS: Glucose - Point of Care 187 mg/dl (70-99)
[2024-05-16] MEDS: CYMBALTA DELAYED RELEASE 60 MG PO (17:00)
[2024-05-16] MEDS: VIBRAMYCIN 100 MG PO (21:02)
[2024-05-16] MEDS: AUGMENTIN 875 MG/125 MG 1 TABLET PO (21:03)
[2024-05-16 21:48] LABS: Glucose - Point of Care 219 mg/dl (70-99)
[2024-05-17] VITALS (7 sets, daily range): BP systolic 119–160; BP diastolic 51–91; PULSE 72; O2SAT 95
[2024-05-17] MEDS: DILAUDID 0.5 MG IV ×4 (05:45→23:52)
[2024-05-17 07:30] LABS: Glucose - Point of Care 159 mg/dl (70-99)
[2024-05-17 07:43] LABS: % Basophils 0.5 % (0-2); % Eosinophils 3.6 % (0-6); % Immature Granulocytes 1.6 % (0-0.5); % Lymphocytes 22.1 % (20.5-51.1); % Monocytes 6.5 % (1.7-9.3); % Neutrophils 65.7 % (42.2-75.2); Absolute Basophils 0.1 10^3/uL (0-0.2); Absolute Eosinophils 0.5 10^3/uL (0-0.7); Absolute Immature Granulocytes 0.2 10^3/uL (0-0.05); Absolute Lymphocytes 2.9 10^3/uL (1.2-3.4); Absolute Monocytes 0.9 10^3/uL (0.1-0.6); Absolute Neutrophils 8.6 10^3/uL (1.4-6.5); Hemoglobin 11.8 g/dL (12.0-16.0); Mean Corp Hgb Conc. 34.7 g/dL (33.0-37.0); Mean Corpuscular Hgb 33.8 pg (27.0-31.0); Mean Corpuscular Volume 97.4 fL (81.0-99.0); Mean Platelet Volume 10.2 fL (7.4-10.4); Nucleated Red Blood Cells % 0 %; Platelet Count 254 10^3/uL (130-400); Red Blood Cell Count 3.49 10^6/uL (4.20-5.40); Red Cell Dist. Width 13.2 % (11.5-14.5); White Blood Cell Count 13.1 10^3/uL (4.8-10.8)
[2024-05-17 08:21] LABS: Blood Urea Nitrogen 11 mg/dl (7-17); Calcium 8.1 mg/dl (8.4-10.2); Carbon Dioxide 24 mmol/L (22-30); Chloride 104 mmol/L (98-107); Estimated Creatinine Clearance 89 ml/min; Glucose 145 mg/dl (70-99); Magnesium 1.8 mg/dl (1.6-2.3); Potassium 3.8 mmol/L (3.5-5.1); Sodium 133 mmol/L (135-145); eGFR > 60.00
[2024-05-17] MEDS: DUONEB 3 ML INH ×2 (08:27→20:09)
[2024-05-17] MEDS: SYMBICORT 160/4.5 MCG INHALER 2 PUFF INH ×2 (08:27→20:09)
[2024-05-17] MEDS: CYMBALTA DELAYED RELEASE 30 MG PO (08:55)
[2024-05-17] MEDS: ALDACTONE 25 MG PO (08:55)
[2024-05-17] MEDS: VIBRAMYCIN 100 MG PO ×2 (08:55→20:59)
[2024-05-17] MEDS: PROTONIX 40 MG PO (08:55)
[2024-05-17] MEDS: TENORMIN 50 MG PO (08:55)
[2024-05-17] MEDS: ELIQUIS 10 MG PO ×2 (08:56→20:58)
[2024-05-17] MEDS: DELTASONE 5 MG PO (08:56)
[2024-05-17] MEDS: NEURONTIN 800 MG PO ×3 (08:56→22:12)
[2024-05-17] MEDS: AUGMENTIN 875 MG/125 MG 1 TABLET PO ×2 (08:56→20:59)
[2024-05-17] MEDS: NOVOLOG FLEXPEN-LOW RESISTANCE 1 UNITS SC (08:57)
[2024-05-17] MEDS: ORETIC 25 MG PO (08:57)
[2024-05-17] MEDS: MORPHINE SULFATE 2 MG IV ×3 (09:05→20:56)
[2024-05-17] MEDS: DESENEX/MITRAZOL/ZEASORB 1 APPLIC TOPICAL ×2 (09:06→21:37)
--- NOTE | 2024-05-17 09:49 | PN.CDI ---
CDI
- -
CDI:
Physician Documentation Request
Admit Date: 05/12/24 18:57
Dear Doctor Cele,
Please review the following and provide your response in the progress notes.
Clinical Indicators:
Pt admitted with sepsis 2/2 PNA
Sodium levels are as below: Pt did get IVFs
05/12/24 05/13/24 05/16/24
12:59 02:59 07:25
Sodium 133 L 134 L 132 L
05/17/24
07:21
Sodium 133 L
Based on the above, could you clarify in the progress notes, the appropriate diagnosis, if significant, that supports the above abnormalities and additional evaluation, monitoring and/or treatment rendered:
Hyponatremia
Abnormal lab value
Other
Use of terms such as suspected, likely, concern for, or probable (associated with a specific diagnosis that is being evaluated, monitored, or treated as if it exists) are acceptable and can be coded in the inpatient setting, when documented at the
time of discharge.
Thank you,
Irena Alexis RN
CDI Specialist
[place] Text
Please use your independent medical judgment in providing your response.
[2024-05-17] MEDS: DECADRON 4 MG IV ×2 (10:28→22:13)
[2024-05-17 11:10] LABS: Glucose - Point of Care 233 mg/dl (70-99)
[2024-05-17] MEDS: NOVOLOG FLEXPEN-LOW RESISTANCE 2 UNITS SC ×2 (11:30→17:13)
--- NOTE | 2024-05-17 11:45 | W.PN.HOSP.TC ---
Today's Communication/Plan
-
Short course of IV steroid
Transition to Eliquis
po abx
PT/OT
Assessment / Plan
Assessment / Plan
Physical Exam
General: No pallor, cyanosis, or jaundice.
HEENT: Throat clear. Normocephalic atraumatic dry oral mucosa
NECK: Supple. No JVD Carotid Bruits
RESPIRATORY: +wheezing, oxygen
CVS: S1, S2 sinus tachy. No murmur, rub or gallop.
ABDOMEN: Soft, non-tender. No distension. BS+/normal.
EXTREMITIES: Right externally rotated but same level compared to left, Right Calf larger then Left. Ulnar deviations hands and Valgus deformity b/l knees likey d/t RA
limited range of motion extremities due to weakness vs rheumatoid arthritis
ANIMAL SKINNER: AOx3
IMPRESSION:
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
meaningful history. All of history from records, ED report, and discussion with patient's significant other dulce Garcia over phone. Per Jose patient had been sick for the past 2-3 days reporting right sided abdomen pain with associate
intermittent fever. Night prior patient was incontinent of urine and was unable to get out of bed (ambulatory with walker at baseline). Dulce attempted to bring patient to hospital, however she refused. Morning following patient appeared
confused prompting to call EMS. AOx1 patient appears only oriented to self. Significant word finding difficulties were noted, patient had difficulty saying her last name. Repeated a nonsensical word when asked the name of current stated
location and year.
PLAN:
#Sepsis LLL PNA vs aerococcus UTI
Leukocytosis Fever Tachycardia
CXR suggestive PNA
urinalysis notes bacteriuria
No hypotension or Lactic acidosis
follow Cx's
Tylenol PRN
ID eval appreciated empiric zosyn discontinued in favor of unasyn and IV doxycycline and then transition to p.o. Augmentin and p.o. Doxy
Leukocytosis significantly improving (some bump due to IV steroids)
Acute hypoxic respiratory insufficiency likely secondary to COPD exacerbation and pneumonia
-wean O2 as tolerated
-cont home inhaler symbicort
-Duoneb
-Currently on 2 L of oxygen. Wean as tolerated. Started patient on IV steroids and hold p.o. steroids
#RLE DVT
Venous duplex appreciated DVT
Respiratory status otherwise stable on 4L NC and now on room air.
hep gtt stopped and off lovenox. And started on Eliquis.
#Aphasic possible toxic metabolic Encephalopathy vs dementia vs delirium vs tia low likelihood last known normal night prior presentation per discussion w/ Fiancee
CT head appreciated no acute hemorrhage or infarct, severe white matter leukoaraiosis, severe calcific atherosclerotic plaque anterior posterior intracranial circulations, mild acute left maxillary sinusitis
Repeat CT head noted no acute changes
NIH neuro checks
MRI brain negative for CVA.
PT/OT eval
A1c 8.2
Lipid panel appreciated
aspiration fall precautions
#Dysphagia
Diet upgraded to soft and bite sized
#Diabetes
#Hyperglycemia
Low dose sliding scale
A1c 8.2
Glycemic control
HTN Primary
resume home Atenolol Spironolactone and HCTZ now
DC ivf
Rheumatoid Arthritis
Chronic Pain
Ambulatory dysfunction
cont home prednisone gabapentin duloxetine when safe for oral meds
Externally rotated RLE but same level as Left, likely deformity d/t rheumatoid arthritis
CR hips note no acute fractures dislocation
home subutex patch 7.5 mcg/h not available on formulary switched to equivalent IV dilaudid
morphine 2mg prn Q4H moderate severe pain
Chronic cervical spinal cord compression
-no symptoms
-OP f/u
Hypokalemia
-replete/monitor
DVT ppx lovenox
Gi ppx Protonix
Full Code as per Dulce reported POA.
d/w with Conchita garcia over the phone in details on 05/15
PT/OT Last noted SNF-. CM aware. start dispo process. Patient agreed for SNF.
Anticipated Discharge: 24 - 48 hours
Subjective/Interval History
-
Date of Service: May 17, 2024
states of mild sob yesterday and wheezing
Objective Data
-
Labs:
Laboratory Results
05/17/24
07:21
WBC 13.1 H
Hgb 11.8 L
Hct 34.0 L
Plt Count 254
Sodium 133 L
Potassium 3.8
Chloride 104
Carbon Dioxide 24
BUN 11
Creatinine 0.4 L
Glucose 145 H
Calcium 8.1 L
Vital Signs:
Vital Signs
Temp Pulse Resp BP Pulse Ox
98.4 F 75 16 160/83 97
05/17/24 11:00 05/17/24 11:00 05/17/24 11:00 05/17/24 11:00 05/17/24 11:00
I&O
05/16/24 05/17/24 05/18/24
06:59 06:59 06:59
Intake Total 2510 / 2510 480 / 480
Output Total 700 / 700 750 / 750
Balance 1810 / 1810 -270 / -270
Data Reviewed
-
Total Time Spent with Patient (in minutes): 56
--- NOTE | 2024-05-17 13:32 | CM ---
CM met with patient bedside, agreeable to short term rehab. CM awaiting to hear from facilities ([facility] and [facility]), [facility] does not have available beds, [facility] unable to accept patient have medicaid as secondary insurance.
Additional SNF referrals sent. CM will continue to follow for all discharge planning needs.
Plan; SNF pending accepting facility.
[2024-05-17] MEDS: CYMBALTA DELAYED RELEASE 60 MG PO (16:58)
--- NOTE | 2024-05-17 17:03 | W.PN.ID1 ---
Date of Service
Date of Service: May 17, 2024
Today's Communication
- continue oral doxycycline and augmentin to complete 14 day course 05/13-05/26
Assessment / Plan
Fever - resolved
Leukocytosis - overall improving
Suspected Pneumonia
UTI
Reported allergy to ceftriaxone - numbness/tingling mouth and vancomycin unknown
- blood cultures x2 in progress no growth to date
- urine culture 100K aerococcus
- MRI findings management per IM service
- agree with short course steroids given prominent wheezing yesterday - resolved today
- continue oral doxycycline and augmentin to complete 14 day course 05/13-05/26
- follow clinically
RA
History of Hypogammaglobulinemia - 2008
- patient specifically denies any recent flares or increase in pred and any injectable medications including immunosuppression and IVIG
- hypogammaglobulinemia now for IgG only - follow up with rheumatology
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
- treated with high bioavailability oral therapy
Chief Complaint
-: Fever and Leukocytosis
Subjective / Review of Systems
afebrile
bp stable
wheezing resolved
Vital Signs / Physical Exam
Vital Signs
Vital Signs
Temp Pulse Resp BP Pulse Ox
98.2 F 67 20 150/81 95
05/17/24 15:00 05/17/24 15:00 05/17/24 15:00 05/17/24 15:00 05/17/24 15:00
Physical Exam
Constitutional: No Acute Distress
Cardiovascular: Regular Rate and S1/S2; Negative Murmur or Rub
Pulmonary: Clear and Symmetric; Negative Wheezes or Rales
Gastrointestinal: Soft, Non Tender, Non Distended and Normal Bowel Sounds
Skin: Warm and Dry; Negative Rash or Jaundice
Objective Data
Lab Data
Lab Results
05/17/24 07:21
05/17/24 07:21
PT 16.0 Sec (11.4-14.6) H 05/12/24 21:13
INR 1.29 05/12/24 21:13
APTT 81.6 Sec (23.4-35.0) H 05/14/24 14:06
Estimated Creat Clear 89 ml/min 05/17/24 07:21
Lactic Acid Cancelled 05/12/24 18:30
Total Bilirubin 1.7 mg/dl (0.2-1.3) H 05/12/24 12:59
AST 42 U/L (14-36) H 05/12/24 12:59
ALT 36 U/L (0-35) H 05/12/24 12:59
Alkaline Phosphatase 98 U/L (38-126) 05/12/24 12:59
Most recent labs reviewed.
Micro Results:
05/12/24 13:02 Blood Culture - Final
Blood/Venous No Growth - Final Report
05/13/24 10:05 Blood Culture - Preliminary
Blood/Venous No Growth in 4 days- Final report to follow
05/12/24 12:59 Urine Culture - Final
Urine Aerococcus Species
[2024-05-17 17:09] LABS: Glucose - Point of Care 247 mg/dl (70-99)
[2024-05-17 21:30] LABS: Glucose - Point of Care 222 mg/dl (70-99)
[2024-05-17] MEDS: VISBIOME 1 CAP PO (22:12)
[2024-05-18] MEDS: DILAUDID 0.5 MG IV ×4 (05:32→23:39)
[2024-05-18 07:00] VITALS: BP 116/52
[2024-05-18] MEDS: SYMBICORT 160/4.5 MCG INHALER 2 PUFF INH ×2 (07:10→21:00)
[2024-05-18] MEDS: DUONEB 3 ML INH ×2 (07:10→21:00)
[2024-05-18] MEDS: PROTONIX 40 MG PO (07:41)
[2024-05-18] MEDS: NEURONTIN 800 MG PO ×3 (07:41→21:22)
[2024-05-18] MEDS: CYMBALTA DELAYED RELEASE 30 MG PO (07:41)
[2024-05-18] MEDS: ELIQUIS 10 MG PO ×2 (07:41→20:14)
[2024-05-18] MEDS: ORETIC 25 MG PO (07:42)
[2024-05-18] MEDS: AUGMENTIN 875 MG/125 MG 1 TABLET PO ×2 (07:42→20:14)
[2024-05-18] MEDS: ALDACTONE 25 MG PO (07:43)
[2024-05-18] MEDS: TENORMIN 50 MG PO (07:43)
[2024-05-18] MEDS: DESENEX/MITRAZOL/ZEASORB 1 APPLIC TOPICAL ×2 (07:43→20:14)
[2024-05-18] MEDS: VIBRAMYCIN 100 MG PO ×2 (07:43→20:14)
[2024-05-18] MEDS: NOVOLOG FLEXPEN-LOW RESISTANCE 2 UNITS SC (07:48)
[2024-05-18 07:49] LABS: Glucose - Point of Care 244 mg/dl (70-99)
[2024-05-18 08:24] LABS: % Basophils 0.3 % (0-2); % Eosinophils 0.1 % (0-6); % Immature Granulocytes 2.3 % (0-0.5); % Lymphocytes 12.5 % (20.5-51.1); % Neutrophils 79.8 % (42.2-75.2); Absolute Immature Granulocytes 0.3 10^3/uL (0-0.05); Absolute Lymphocytes 1.8 10^3/uL (1.2-3.4); Absolute Monocytes 0.7 10^3/uL (0.1-0.6); Absolute Neutrophils 11.3 10^3/uL (1.4-6.5); Hematocrit 35.9 % (37.0-47.0); Hemoglobin 12.5 g/dL (12.0-16.0); Mean Corp Hgb Conc. 34.8 g/dL (33.0-37.0); Mean Corpuscular Hgb 33.1 pg (27.0-31.0); Mean Platelet Volume 10.1 fL (7.4-10.4); Nucleated Red Blood Cells % 0 %; Platelet Count 325 10^3/uL (130-400); Red Blood Cell Count 3.78 10^6/uL (4.20-5.40); Red Cell Dist. Width 12.9 % (11.5-14.5); White Blood Cell Count 14.1 10^3/uL (4.8-10.8)
[2024-05-18 08:30] LABS: Blood Urea Nitrogen 12 mg/dl (7-17); Calcium 9.1 mg/dl (8.4-10.2); Carbon Dioxide 24 mmol/L (22-30); Chloride 101 mmol/L (98-107); Estimated Creatinine Clearance 89 ml/min; Glucose 247 mg/dl (70-99); Magnesium 2.1 mg/dl (1.6-2.3); Potassium 4.9 mmol/L (3.5-5.1); Sodium 130 mmol/L (135-145); eGFR > 60.00
[2024-05-18] MEDS: MORPHINE SULFATE 2 MG IV ×3 (09:02→21:24)
[2024-05-18] MEDS: DECADRON 4 MG IV ×2 (09:03→21:22)
--- NOTE | 2024-05-18 11:23 | W.PN.HOSP.TC ---
Today's Communication/Plan
-
po steroids taper on dc
start dispo process
cont abx till 05/26
monitor POC
Assessment / Plan
Assessment / Plan
Physical Exam
General: No pallor, cyanosis, or jaundice.
HEENT: Throat clear. Normocephalic atraumatic dry oral mucosa
NECK: Supple. No JVD Carotid Bruits
RESPIRATORY: +wheezing, oxygen
CVS: S1, S2 sinus tachy. No murmur, rub or gallop.
ABDOMEN: Soft, non-tender. No distension. BS+/normal.
EXTREMITIES: Right externally rotated but same level compared to left, Right Calf larger then Left. Ulnar deviations hands and Valgus deformity b/l knees likey d/t RA
limited range of motion extremities due to weakness vs rheumatoid arthritis
PSYCHOLOGIST MILITARY PERSONNEL: AOx3
IMPRESSION:
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
meaningful history. All of history from records, ED report, and discussion with patient's significant other dulce Garcia over phone. Per Jose patient had been sick for the past 2-3 days reporting right sided abdomen pain with associate
intermittent fever. Night prior patient was incontinent of urine and was unable to get out of bed (ambulatory with walker at baseline). Dulce attempted to bring patient to hospital, however she refused. Morning following patient appeared
confused prompting to call EMS. AOx1 patient appears only oriented to self. Significant word finding difficulties were noted, patient had difficulty saying her last name. Repeated a nonsensical word when asked the name of current stated
location and year.
PLAN:
#Sepsis LLL PNA vs aerococcus UTI
Leukocytosis Fever Tachycardia
CXR suggestive PNA
urinalysis notes bacteriuria
No hypotension or Lactic acidosis
follow Cx's
Tylenol PRN
ID eval appreciated empiric zosyn discontinued in favor of unasyn and IV doxycycline and then transition to p.o. Augmentin and p.o. Doxy till 05/26.
Leukocytosis significantly improving (some bump due to IV steroids)
Acute hypoxic respiratory insufficiency likely secondary to COPD exacerbation and pneumonia
-wean O2 as tolerated
-cont home inhaler symbicort
-Duoneb
-Currently on 2 L of oxygen. Wean as tolerated. Started patient on IV steroids 4mg decadron 12h with plan for quick taper
#RLE DVT
Venous duplex appreciated DVT
Respiratory status otherwise stable on 4L NC and now on room air.
hep gtt stopped and off lovenox. And started on Eliquis.
#Aphasic likely 2/2 toxic metabolic Encephalopathy vs dementia vs delirium vs tia low likelihood
CT head appreciated no acute hemorrhage or infarct, severe white matter leukoaraiosis, severe calcific atherosclerotic plaque anterior posterior intracranial circulations, mild acute left maxillary sinusitis
Repeat CT head noted no acute changes
NIH neuro checks
MRI brain negative for CVA.
PT/OT eval
A1c 8.2
Lipid panel appreciated
aspiration fall precautions
#Dysphagia
Diet upgraded to soft and bite sized
#Diabetes
#Hyperglycemia
Low dose sliding scale
A1c 8.2
Glycemic control
monitor POC with IV steroids.
HTN Primary
resume home Atenolol Spironolactone and HCTZ now
DC ivf
Rheumatoid Arthritis
Chronic Pain
Ambulatory dysfunction
cont home prednisone gabapentin duloxetine when safe for oral meds
Externally rotated RLE but same level as Left, likely deformity d/t rheumatoid arthritis
CR hips note no acute fractures dislocation
home subutex patch 7.5 mcg/h not available on formulary switched to equivalent IV dilaudid
morphine 2mg prn Q4H moderate severe pain
Chronic cervical spinal cord compression
-no symptoms
-OP f/u
Hypokalemia
-replete/monitor
Pseudohyponatremia with hyperglycemia
-Monitor for now
DVT ppx lovenox
Gi ppx Protonix
Full Code as per Dulce reported POA.
d/w with Conchita garcia over the phone in details on 05/15
PT/OT Last noted SNF-. CM aware. start dispo process. Patient agreed for SNF.
Anticipated Discharge: Within 24 hours
Subjective/Interval History
-
Date of Service: May 18, 2024
states improvement in breathing
remains on 2L
Objective Data
-
Labs:
Laboratory Results
05/18/24
07:37
WBC 14.1 H
Hgb 12.5
Hct 35.9 L
Plt Count 325 D
Sodium 130 L
Potassium 4.9 D
Chloride 101
Carbon Dioxide 24
BUN 12
Creatinine 0.4 L
Glucose 247 H
Calcium 9.1
Vital Signs:
Vital Signs
Temp Pulse Resp BP Pulse Ox
98 F 65 16 116/52 97
05/18/24 07:00 05/18/24 07:11 05/18/24 07:11 05/18/24 07:00 05/18/24 07:40
I&O
05/17/24 05/18/24 05/19/24
06:59 06:59 06:59
Intake Total 480 / 480 1170 / 1170
Output Total 750 / 750
Balance -270 / -270 1170 / 1170
Data Reviewed
-
Total Time Spent with Patient (in minutes): 57
--- NOTE | 2024-05-18 11:25 | W.PN.ID1 ---
Addendum entered and electronically signed by Ryan Arias DO 05/18/24 14:54:
I saw and evaluated the patient. I reviewed the resident�s note and agree with findings and plan as documented in the resident�s note.
Continue with antibiotics as noted below.
Original Note:
Date of Service
Date of Service: May 18, 2024
Today's Communication
Continue Oral Doxy and Augmentin
Assessment / Plan
Fever - resolved
Leukocytosis - significantly improved from arrival
Suspected Pneumonia
UTI
Reported allergy to ceftriaxone - numbness/tingling mouth and vancomycin unknown
- blood cultures x2 in progress no growth to date
- urine culture 100K aerococcus
- MRI findings management per IM service
- agree with short course steroids given prominent wheezing yesterday - resolved today
- continue oral doxycycline and augmentin to complete 14 day course 05/13-05/26
- Stable for discharge from infectious disease standpoint
- follow clinically
RA
History of Hypogammaglobulinemia - 2008
- patient specifically denies any recent flares or increase in pred and any injectable medications including immunosuppression and IVIG
- hypogammaglobulinemia now for IgG only - follow up with rheumatology
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
- treated with high bioavailability oral therapy
Chief Complaint
-: Fever and Leukocytosis
Subjective / Review of Systems
Significant Improvement in SOB per patient.
No fevers overnight, stable vitals
Pt has questions about elevated sugars and insulin regimen given no history or diabetes. Was on chronic Prednisone therapy 5mg for RA
Concerned about urinary incontinence as no prior history
Review of Systems: No Fever, No Chills, No Chest Pain, No Abdominal Pain, No Diarrhea, No Dysuria, Skin Rash and Other (urinary incontinence)
Vital Signs / Physical Exam
Vital Signs
Vital Signs
Temp Pulse Resp BP Pulse Ox
98 F 65 16 116/52 97
05/18/24 07:00 05/18/24 07:11 05/18/24 07:11 05/18/24 07:00 05/18/24 07:40
Physical Exam
Constitutional: No Acute Distress and Comfortable
Cardiovascular: Regular Rate, S1/S2 and Murmur (systolic murmur)
Pulmonary: Non Labored and Other (Bibasilar crackles L>R. 2L O2 Nasal cannula); Negative Wheezes
Gastrointestinal: Soft, Non Tender, Non Distended, Normal Bowel Sounds, No Rebound and No Guarding
Genito-Urinary: Suprapubic Tenderness (mild) and Other (no visible rash in groin area); Negative Horner or CVA Tenderness
Extremities: Other (No LE edenma)
Skin: Warm and Dry
Neurological: Awake, Alert, Oriented and AO x 3
Psychological: Calm
Lines: PIV (L antecubital fossa)
Objective Data
Lab Data
Lab Results
05/18/24 07:37
05/18/24 07:37
PT 16.0 Sec (11.4-14.6) H 05/12/24 21:13
INR 1.29 05/12/24 21:13
APTT 81.6 Sec (23.4-35.0) H 05/14/24 14:06
Estimated Creat Clear 89 ml/min 05/18/24 07:37
Lactic Acid Cancelled 05/12/24 18:30
Total Bilirubin 1.7 mg/dl (0.2-1.3) H 05/12/24 12:59
AST 42 U/L (14-36) H 05/12/24 12:59
ALT 36 U/L (0-35) H 05/12/24 12:59
Alkaline Phosphatase 98 U/L (38-126) 05/12/24 12:59
Most recent labs reviewed.
Micro Results:
05/13/24 10:05 Blood Culture - Final
Blood/Venous No Growth - Final Report
05/12/24 13:02 Blood Culture - Final
Blood/Venous No Growth - Final Report
05/12/24 12:59 Urine Culture - Final
Urine Aerococcus Species
[2024-05-18 11:47] LABS: Glucose - Point of Care 345 mg/dl (70-99)
[2024-05-18] MEDS: NOVOLOG FLEXPEN-LOW RESISTANCE 4 UNITS SC (12:07)
--- NOTE | 2024-05-18 13:06 | CM ---
Addendum entered by Haritha Huff 05/18/24 13:16:
IMM signed placed in chart. Patient and fiance aware of discharge tomorrow to [facility] SN[facility].
Original Note:
Patient seen bedside, discussed accepting SNFs. Patient requesting CM call her fiance, Allen, while in room to discuss facilities, patient would [facility] or [facility] as they are closest to patients home. Allen also
requesting either [facility] or [facility]. Patient confirms she would only like short term rehab, plan to return home after rehab. CM spoke with Ragini, [facility] liaison, can accept patient tomorrow. Patient will require ambulance
transport, forms placed on patients chart. Hospitalist updated. CM will continue to follow for all discharge planning needs.
Plan; [facility] SNF tomorrow, ambulance transport forms placed in chart.
[2024-05-18 15:00] VITALS: BP 131/59
[2024-05-18 16:28] LABS: Glucose - Point of Care 293 mg/dl (70-99)
[2024-05-18] MEDS: NOVOLOG FLEXPEN-LOW RESISTANCE 3 UNITS SC (16:41)
[2024-05-18] MEDS: CYMBALTA DELAYED RELEASE 60 MG PO (17:25)
[2024-05-18] MEDS: VISBIOME 1 CAP PO (21:22)
[2024-05-18 21:31] LABS: Glucose - Point of Care 192 mg/dl (70-99)
[2024-05-18 23:30] VITALS: BP 122/64
[2024-05-19] MEDS: DILAUDID 0.5 MG IV ×3 (05:37→17:03)
[2024-05-19 07:00] VITALS: BP 133/58
[2024-05-19] MEDS: SYMBICORT 160/4.5 MCG INHALER 2 PUFF INH (07:32)
[2024-05-19] MEDS: DUONEB 3 ML INH (07:32)
[2024-05-19] MEDS: CYMBALTA DELAYED RELEASE 30 MG PO (07:37)
[2024-05-19] MEDS: ORETIC 25 MG PO (07:38)
[2024-05-19] MEDS: PROTONIX 40 MG PO (07:38)
[2024-05-19] MEDS: TENORMIN 50 MG PO (07:38)
[2024-05-19] MEDS: NEURONTIN 800 MG PO ×2 (07:39→14:58)
[2024-05-19] MEDS: AUGMENTIN 875 MG/125 MG 1 TABLET PO (07:39)
[2024-05-19] MEDS: ELIQUIS 10 MG PO (07:39)
[2024-05-19] MEDS: ALDACTONE 25 MG PO (07:39)
[2024-05-19] MEDS: VIBRAMYCIN 100 MG PO (07:39)
[2024-05-19 07:40] LABS: Glucose - Point of Care 293 mg/dl (70-99)
[2024-05-19] MEDS: NOVOLOG FLEXPEN-LOW RESISTANCE 3 UNITS SC (07:40)
[2024-05-19 08:06] LABS: % Basophils 0.3 % (0-2); % Eosinophils 0.1 % (0-6); % Immature Granulocytes 2.3 % (0-0.5); % Lymphocytes 13.2 % (20.5-51.1); % Monocytes 6.2 % (1.7-9.3); % Neutrophils 77.9 % (42.2-75.2); Absolute Basophils 0.1 10^3/uL (0-0.2); Absolute Immature Granulocytes 0.4 10^3/uL (0-0.05); Absolute Neutrophils 11.9 10^3/uL (1.4-6.5); Hematocrit 37.4 % (37.0-47.0); Hemoglobin 12.9 g/dL (12.0-16.0); Mean Corp Hgb Conc. 34.5 g/dL (33.0-37.0); Mean Corpuscular Hgb 33.6 pg (27.0-31.0); Mean Corpuscular Volume 97.4 fL (81.0-99.0); Mean Platelet Volume 10.3 fL (7.4-10.4); Nucleated Red Blood Cells % 0 %; Platelet Count 387 10^3/uL (130-400); Red Blood Cell Count 3.84 10^6/uL (4.20-5.40); Red Cell Dist. Width 13.2 % (11.5-14.5); White Blood Cell Count 15.3 10^3/uL (4.8-10.8)
[2024-05-19 08:28] LABS: Blood Urea Nitrogen 15 mg/dl (7-17); Calcium 9.3 mg/dl (8.4-10.2); Carbon Dioxide 24 mmol/L (22-30); Chloride 98 mmol/L (98-107); Estimated Creatinine Clearance 89 ml/min; Glucose 281 mg/dl (70-99); Magnesium 1.9 mg/dl (1.6-2.3); Potassium 4.7 mmol/L (3.5-5.1); Sodium 130 mmol/L (135-145); eGFR > 60.00
[2024-05-19] MEDS: DECADRON 4 MG IV (09:31)
[2024-05-19] MEDS: MORPHINE SULFATE 2 MG IV ×2 (09:32→14:59)
[2024-05-19] MEDS: DESENEX/MITRAZOL/ZEASORB 1 APPLIC TOPICAL (09:37)
--- NOTE | 2024-05-19 10:28 | W.PN.HOSP.TC ---
Today's Communication/Plan
-
po steroids taper
eliquis
dc to snf
Assessment / Plan
Assessment / Plan
Physical Exam
General: No pallor, cyanosis, or jaundice.
HEENT: Throat clear. Normocephalic atraumatic dry oral mucosa
NECK: Supple. No JVD Carotid Bruits
RESPIRATORY: mild wheezing-significant improvement. off oxygen
CVS: S1, S2 sinus tachy. No murmur, rub or gallop.
ABDOMEN: Soft, non-tender. No distension. BS+/normal.
EXTREMITIES: Right externally rotated but same level compared to left, Right Calf larger then Left. Ulnar deviations hands and Valgus deformity b/l knees likey d/t RA
limited range of motion extremities due to weakness vs rheumatoid arthritis
CAN MARKER: AOx3
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
meaningful history. All of history from records, ED report, and discussion with patient's significant other dulce Garcia over phone. Per Jose patient had been sick for the past 2-3 days reporting right sided abdomen pain with associate
intermittent fever. Night prior patient was incontinent of urine and was unable to get out of bed (ambulatory with walker at baseline). Dulce attempted to bring patient to hospital, however she refused. Morning following patient appeared
confused prompting to call EMS. AOx1 patient appears only oriented to self. Significant word finding difficulties were noted, patient had difficulty saying her last name. Repeated a nonsensical word when asked the name of current stated
location and year.
PLAN:
#Sepsis LLL PNA vs aerococcus UTI
Leukocytosis Fever Tachycardia
CXR suggestive PNA
urinalysis notes bacteriuria
No hypotension or Lactic acidosis
follow Cx's
Tylenol PRN
ID eval appreciated empiric zosyn discontinued in favor of unasyn and IV doxycycline and then transition to p.o. Augmentin and p.o. Doxy till 05/26.
Leukocytosis secondary to steroids.
Acute hypoxic respiratory insufficiency likely secondary to COPD exacerbation and pneumonia
-wean O2 as tolerated
-cont home inhaler symbicort
-Duoneb
-on room air. Started patient on IV steroids 4mg decadron 12h with plan for quick taper at SNF.
#RLE DVT
Venous duplex appreciated DVT
Respiratory status otherwise stable on 4L NC and now on room air.
hep gtt stopped and off lovenox. And started on Eliquis.
#Aphasic likely 2/2 toxic metabolic Encephalopathy vs dementia vs delirium vs tia low likelihood
CT head appreciated no acute hemorrhage or infarct, severe white matter leukoaraiosis, severe calcific atherosclerotic plaque anterior posterior intracranial circulations, mild acute left maxillary sinusitis
Repeat CT head noted no acute changes
NIH neuro checks
MRI brain negative for CVA.
PT/OT eval
A1c 8.2
Lipid panel appreciated
aspiration fall precautions
#Dysphagia
Diet upgraded to soft and bite sized
#Diabetes
#Hyperglycemia
Low dose sliding scale
A1c 8.2
Glycemic control
monitor POC with IV steroids.
HTN Primary
resume home Atenolol Spironolactone and HCTZ now
DC ivf
Rheumatoid Arthritis
Chronic Pain
Ambulatory dysfunction
cont home prednisone gabapentin duloxetine when safe for oral meds
Externally rotated RLE but same level as Left, likely deformity d/t rheumatoid arthritis
CR hips note no acute fractures dislocation
restart home subutex patch 7.5 mcg/h on dc
Chronic cervical spinal cord compression
-no symptoms
-OP f/u
Hypokalemia
-replete/monitor
Pseudohyponatremia with hyperglycemia
-Monitor for now
DVT ppx lovenox
Gi ppx Protonix
Full Code as per Fiancee reported POA.
d/w with Conchita garcia over the phone in details on 05/15
PT/OT Last noted SNF-. CM aware. start dispo process. Patient agreed for SNF.
More than 30 minutes spent in discharge including
Final examination of the patient
Summarizing hospital stay
Instructions for continuing care to all relevant caregivers
Preparation of discharge records, prescriptions, and referral forms
Total time spent (in minutes): 57
Anticipated Discharge: Today
Subjective/Interval History
-
Date of Service: May 19, 2024
Patient states significant improvement in breathing
Objective Data
-
Labs:
Laboratory Results
05/19/24
06:31
WBC 15.3 H
Hgb 12.9
Hct 37.4
Plt Count 387
Sodium 130 L
Potassium 4.7
Chloride 98
Carbon Dioxide 24
BUN 15
Creatinine 0.5 L
Glucose 281 H
Calcium 9.3
Vital Signs:
Vital Signs
Temp Pulse Resp BP Pulse Ox
98.5 F 70 14 133/58 96
05/19/24 07:00 05/19/24 07:58 05/19/24 07:58 05/19/24 07:00 05/19/24 08:14
I&O
05/18/24 05/19/24 05/20/24
06:59 06:59 06:59
Intake Total 1170 / 1170 120 / 120
Balance 1170 / 1170 120 / 120
--- NOTE | 2024-05-19 10:37 | W.[place]-PDMP ---
[place]-PD[place]
-
Checked the [place]- Pres[place] Drug Monitoring Program website, no red flags identified; safe to proceed with prescription.
--- NOTE | 2024-05-19 10:37 | W.DCSUMMARY ---
Discharge Summary
Discharge Data
Date of Admission: 05/12/24
Date of Discharge: 05/19/24
-
Pending Results: No
Hospital Course
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 Patient was found
to be significantly confused with aphasia on admission. Was concern for stroke and stroke workup was initiated. CT head appreciated no acute hemorrhage or infarct, severe white matter leukoaraiosis, severe calcific atherosclerotic plaque anterior
posterior intracranial circulations, mild acute left maxillary sinusitis. Repeat CT head noted no acute changes. Patient was also found to be septic secondary to pneumonia and urinary tract infection. Infectious disease was consulted. Patient was
started on empiric Zosyn. ID changed antibiotics to Unasyn and IV doxycycline. Patient mentation slowly started to improve. MRI brain was performed which was negative for acute CVA. Patient mentation significantly improved and speech normalized.
Patient was able to pass speech and swallow evaluation. Patient was also found to have right lower extremity DVT and IV heparin was transitioned to Lovenox which was transitioned to Eliquis. Patient was also requiring oxygen which was weaned to
room air. Of note patient does not use oxygen at home. Patient home blood pressure medication was restarted. Physical and Occupational Therapy evaluated patient recommending rehab. Patient was also complaining of shortness of breath and was
found to be in acute on chronic COPD exacerbation. Patient was started on IV steroids which was transitioned to p.o. prednisone taper on discharge. Patient has outpatient was on Subutex patch which was nonformulary in the hospital and thus
received IV pain medication to substitute per discussion with pharmacy. Upon discharge patient was reinitiated and prescription for Subutex was placed in the chart by myself. Antibiotics will be transitioned to p.o. Augmentin and doxycycline per
ID recs. Patient be discharged to [facility] facility.
Discharge Plan
-
Patient Disposition: [facility]/SNF
Discharge Diagnosis/Procedures: Sepsis secondary to pneumonia and urinary tract infection
Acute hypoxic respiratory insufficiency secondary to COPD exacerbation and pneumonia
Right lower extremity DVT
Toxic metabolic encephalopathy
Dysphagia
Condition: Fair
Diet: As tolerated and Diabetic, Carb Controlled
Activity: As tolerated
Driving Restrictions: Not until seen by your Dr
Other Services: ST
Referrals:
UNKNOWN - PT DOES,NOT KNOW [Family Provider] - in less than 1 week
Prescriptions:
New
doxycycline hyclate 100 mg Capsule
100 mg PO Q12 Qty: 15 0RF
pantoprazole 40 mg Tablet,Delayed Release (Dr/Ec)
40 mg PO DAILY Qty: 30 0RF
amoxicillin-pot clavulanate 875-125 mg Tablet
1 tab PO Q12 Qty: 15 0RF
Lactobac/Bifidobac [Visbiome]
1 cap PO HS Qty: 10 0RF
prednisone 10 mg Tablet
See Rx Instructions .ROUTE .COMPLEX Qty: 30 0RF
Rx Instructions:
Take By Mouth:
40 mg daily x3 days, 30 mg daily x3 days,
20 mg daily x3 days,
Eliquis 5 mg tablet
See Rx Instructions .ROUTE .COMPLEX Qty: 60 0RF
Rx Instructions:
Take 10mg BId for additional 9 doses then 5mg BID
Continued
atenolol 50 MG tablet
50 mg PO DAILY
duloxetine 30 MG capsule,delayed release(DR/EC)
30 mg PO DAILY
Rx Instructions:
taken w/ 60mg = 90mg total
duloxetine 60 MG capsule,delayed release(DR/EC)
60 mg PO QPM
Rx Instructions:
taken w/ 30mg = 90mg total
budesonide-formoterol [Symbicort] 160-4.5 mcg/actuation HFA aerosol inhaler
2 puff INHALATION R BID
spironolactone 25 mg Tablet
25 mg PO DAILY
gabapentin 800 mg Tablet
800 mg PO TID
hydrochlorothiazide 25 mg Tablet
25 mg PO DAILY
albuterol sulfate 90 mcg/actuation Hfa Aerosol Inhaler
2 puff INHALATION R Q6HPRN PRN (Reason: sob)
CertaVite Senior 0.4 mg-300 mcg- 250 mcg Tablet
1 tab PO DAILY
calcium carbonate-vitamin D3 600 mg-62.5 mcg (2,500 unit) capsule
1 cap PO DAILY
buprenorphine 7.5 mcg/hour Patch Weekly
1 patch TRANSDERMAL QWEEK Qty: 1 0RF
Held
prednisone 5 MG tablet
5 mg PO DAILY
Hold Instructions: Resume on 05/29/24. restart after completion of taper regimen
Discontinued
aspirin 81 mg Tablet,Delayed Release (Dr/Ec)
81 mg PO DAILY
Discharge Orders:
Discharge Patient (As Directed); Ordered 05/19/24
Ordered By: Brian Oakley
Discharge Date and Time
Discharge Date/Time: 05/19/24 18:08
Print Language: [place]
[2024-05-19 11:25] LABS: Glucose - Point of Care 365 mg/dl (70-99)
[2024-05-19] MEDS: NOVOLOG FLEXPEN-LOW RESISTANCE 5 UNITS SC ×2 (11:33→15:17)
--- NOTE | 2024-05-19 11:53 | CM ---
Addendum entered by Ragini Alan 05/19/24 12:55:
information technology security manager spoke with Barbara the lead section supervisor at [facility] and they have a bed for patient today, by ambulance.
[facility]
Barbara Report [phone]
fax [phone]
Original Note:
Chart reviewed and call placed to Orrick [phone] regarding admission to [facility] today. Call also placed to the lead section supervisor at [facility] to confirm that patient was accepted at [facility] today.
Plan; Awaiting confirmation that patient was accepted at [facility] today.
[2024-05-19 15:00] VITALS: BP 136/73
[2024-05-19 15:15] LABS: Glucose - Point of Care 397 mg/dl (70-99)
[2024-05-19] MEDS: CYMBALTA DELAYED RELEASE 60 MG PO (17:03)
--- NOTE | 2024-05-20 10:54 | W.PN.UPDATE ---
Update Note
Progress Note Update
Of note, Just found out from jail physician Dr. Mcgill at [facility] pharmacy does not have Subutex patch and needs alternative regimen which was continued in the hospital as also hospital did not have Subutex patch. Discussed with
DR Mcgill at the [facility] that we will send in Dilaudid prescription as alternate regimen (Rx given to [address] [place], [place] [address]ary to be faxed over) which only needs to be given when patient does not have Subutex patch. Once patient receives Subutex
patch (of note for PDMP patient has been receiving that from outpatient Dr. Michelle Brandon and no other pain medication she has been receiving besides that). It was specifically stated to Dr. Mcgill Dilaudid will need to be given as patient does
not have Subutex patch. Subutex patch can be restarted once medication obtained and Dilaudid discontinued.
== END 2024-05-19 18:08 | DRG 871 ==
LOC: 4 WEST ACU 18:57
PROVIDERS: Physician Assistant; ADMITTING PHYSICIAN Internal Medicine; ATTENDING PHYSICIAN Hospitalist; CONSULT PHYSICIAN Psychiatry & Neurology Neurology; CONSULT PHYSICIAN Student in an Organized Health Care Education/Training Program; EMERGENCY PHYSICIAN Emergency Medicine
DX: A41.9 Sepsis, unspecified organism (principal); G92.8 Other toxic encephalopathy; J18.9 Pneumonia, unspecified organism; N39.0 Urinary tract infection, site not specified; R47.01 Aphasia; F11.20 Opioid dependence, uncomplicated; J44.0 Chronic obstructive pulmonary disease with (acute) lower respiratory infection; D84.9 Immunodeficiency, unspecified; M50.022 Cervical disc disorder at C5-C6 level with myelopathy; M50.023 Cervical disc disorder at C6-C7 level with myelopathy; D80.1 Nonfamilial hypogammaglobulinemia; J44.1 Chronic obstructive pulmonary disease with (acute) exacerbation; I82.411 Acute embolism and thrombosis of right femoral vein; F05 Delirium due to known physiological condition; M48.02 Spinal stenosis, cervical region; G89.4 Chronic pain syndrome; M06.9 Rheumatoid arthritis, unspecified; R62.7 Adult failure to thrive; R13.10 Dysphagia, unspecified; R09.02 Hypoxemia; E11.65 Type 2 diabetes mellitus with hyperglycemia; R06.89 Other abnormalities of breathing; E87.6 Hypokalemia; R41.89 Other symptoms and signs involving cognitive functions and awareness; R65.20 Severe sepsis without septic shock; R26.2 Difficulty in walking, not elsewhere classified; R32 Unspecified urinary incontinence; I10 Essential (primary) hypertension; F17.200 Nicotine dependence, unspecified, uncomplicated; Z79.82 Long term (current) use of aspirin; Z79.52 Long term (current) use of systemic steroids; Z88.1 Allergy status to other antibiotic agents; Z88.8 Allergy status to other drugs, medicaments and biological substances; Z11.52 Encounter for screening for COVID-19; Z74.01 Bed confinement status; Z79.51 Long term (current) use of inhaled steroids
CPT/HCPCS: 70450; 70551; 71045; 73521; 74230; 80048; 80053; 80061; 81003; 81015; 82140; 82784; 82962; 83036; 83605; 83735; 83880; 84484; 85025; 85610; 85730; 87040; 87077; 87086; 87811; 92526; 92610; 92611; 93005; 93306; 93971; 94640; 96361; 96365; 97163; 97167; 97530; 97535; 99285

== ENCOUNTER 2024-05-25 18:28 | Inpatient (IN) | payer OTHER, SELFPAY ==
[2024-05-25] VITALS (12 sets, daily range): BP systolic 124–138; BP diastolic 69–91; PULSE 75; BMI 27.4; BMI 26.3
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
--- NOTE | 2024-05-25 13:04 | CM ---
CM reviewed patient's chart. She has had a recent 3 MN stay. Spoke with patient at bedside. Introduced self and role. Patient verbalized understanding that she will need to see PT/OT before CM can move any further. Patient feels like STR is what's
best for her. PT was ordered. Awaiting recommendations.
Patient shared that she does not want to go back to [facility].
DISCHARGE DISPOSITION:
TBD by PT.
--- NOTE | 2024-05-25 13:07 | ED.GENMED ---
History of Present Illness
<Quinn Hurley DO - Last Filed: 05/25/24 16:05>
General
Chief Complaint: Social Service Referral
Source: patient and records
Exam Limitations: none
Time Seen by Provider: 05/25/24 12:27
Nursing documentation reviewed up to this point in time: agreed with
History of Present Illness
History of Present Illness:
73-year-old female multiple chronic medical conditions recent admitted to [facility] referred to a intermediate facility she states she did not like it there due to poor conditions she left, has been home apparently visiting nurses checked on her
found her that she could get out of bed referred back to the ER
Denies chest pain denies shortness of breath she has chronic back pain, she is chronically weak, tells me she is able to afford her meds, she lives with her fianc�
Past History
<Quinn Hurley DO - Last Filed: 05/25/24 16:05>
Past History
ED Past Medical History: COPD, HTN and Other
ED Past Surgical History: Gynecological and Other
Social History
Tobacco: Smoker
Alcohol: None
Drug: None
Personal:
Living: with family (Lives with significant other)
Employment: Employed
Family History
Family History: Hypertension
Review of Systems
<Quinn Hurley DO - Last Filed: 05/25/24 16:05>
Review of Systems
Other source history: other (Visiting nurses,)
All Other Systems: Not applicable
Constitutional: Denies fever or fatigue
EENT: Reports no symptoms
Respiratory: Reports no symptoms
Cardiac: Reports no symptoms
ABD/GI: Reports no symptoms
: Reports no symptoms
Musculoskeletal: Reports back pain
Skin: Reports no symptoms
Neurological: Reports weakness
Phy Exam
<Quinn Hurley DO - Last Filed: 05/25/24 16:05>
Physical Exam
Physical Exam:
Physical Exam
General: Chronically ill female
Neck: No jaundice
Heart: Regular
Lungs: Expiratory wheeze
Abdomen: Nontender
Neuro: alert and oriented. Globally weak barely able to lift her arms and legs off the bed
Skin: no rash
Psychiatric: Affect is flat somewhat disheveled but cooperative
Extremities: no edema.
Course
<Quinn Hurley, DO - Last Filed: 05/25/24 16:05>
Orders/Labs/Results
Orders:
Orders
05/25/24 12:45
Case Management Consult ONCE
Case Management Consult: Discharge Planning
Physical Therapy Consult [Pt Eval And Treat] Urgent
Activity Level: Out of Bed-Early Mobility
05/25/24 13:56
Complete Blood Count/With Diff Urgent
Comprehensive Metabolic Panel Urgent
Direct Bilirubin Urgent
Comment: ADD ON
LDH Urgent
Comment: ADD ON
Lipase Urgent
Comment: ADD ON
Serum Osmolality Urgent
Comment: ADD ON
TSH Reflex To Free T4 Urgent
Comment: ADD ON
05/25/24 14:31
CR Chest Portable - 1 View Urgent
Comment:
Reason For Exam: wb cout
Reason Study Needs to be Portable: Patient Unstable
05/25/24 14:58
Rectal Temp- Treatment ONCE
05/25/24 Dinner
Cholesterol Lowering
At Your Request: Limited Participation
Cholesterol Lowering: Sodium, 2 Gram
05/25/24 16:36
Urinalysis Reflex To Culture Urgent
Date Specimen was Collected: 05/25/24
Time Specimen was Collected: 15:17
Urine Microscopic Reflex Cult Urgent
05/25/24 17:38
Add On- LAB Stat
Tests Added?: TSH with reflex FT4, Serum osmolarity
Urine Osmolality Random [Osmolality, Random Urine] Stat
Urine Sodium Stat
05/25/24 17:42
Add On- LAB Stat
Tests Added?: Lipase, direct bili, LDH
05/25/24 17:56
Blood Culture Urgent
ROSALIE Source: Blood/Venous
Specimen Description:
05/25/24 18:01
Admit/Transfer Patient As Directed
Co-Sign Provider:
Level of Care: Inpatient admission
Assign to:: Medical/Surgical
Physician / Group: Hospitalist
Diagnosis: hyponatremia
Reason for Hospitalization: hyponatremia
Expected length of stay greater than two midnights?: Yes
ELOS- Estimated Length of Stay in days: 3
I certify the patient meets the requirements for IP care: Yes
PRN Pain Medication Management As Directed
May give lesser potent ordered pain med per pt: Yes
preference::
Protocol:: Medication orders for pain may be administered in a
manner that supports deferring to patient preference
when the pt is:
- Requesting an ordered lesser potent pain medication.
Least to most potent pain medications are defined
as: acetaminophen < NSAID < tramadol < opioids
(morphine, oxycodone, hydromorphone).
- Requesting a lesser dose of the same medication IF
ORDERED.
- Requesting a less intrusive route of administration
if both routes are prescribed by the provider (PO <
IV).
05/25/24 18:02
Code Status As Directed
Resuscitation Status: Full Code
05/25/24 19:30
COVID-19 Antigen Stat
Source: Nasal Swab
Influenza A+B Rapid Molecular Stat
ROSALIE Source: Nasal Swab
Specimen Description:
05/25/24 19:59
Blood Culture Routine
ROSALIE Source: Blood/Venous
Specimen Description:
05/25/24 20:37
BMP [Basic Metabolic Panel] Q4H
0.9% Sodium Chloride 1000 ml [Nss] 1,000 ml IV 75 mls/hr
Acetaminophen [Tylenol] 650 mg PO Q4HPRN PRN
Albuterol Nebs [Ventolin Nebules] 2.5 mg INH R Q4HPRN PRN
Apixaban [Eliquis] 5 mg PO BID
Bisacodyl [Dulcolax] 10 mg RECTAL [id number] PRN
Budesonide/Formoterol 160/4.5 [Symbicort 160/4.5 Mcg Inhaler] 2 puff INH R BID
Docusate W/Senna [Senokot-S] 1 tablet PO BIDPRN PRN
Ondansetron Injectable [Zofran] 4 mg IV Q8HPRN PRN
Piperacillin/Tazo 3.375 Gram [Zosyn] 3.375 gram in 50 ml IV Q6H
Polyethylene Glycol Powder [Miralax] 17 grams PO DAILYPRN PRN
buprenorphine 1 patch TRANSDERM QWEEK
05/25/24 20:37
CT Chest/abd/pel w/wo IV Cont Routine
Comment:
Reason For Exam: possible pneumonia on XR, abd pain
Case Management Consult ONCE
Case Management Consult: Discharge Planning
MRSA Screen Routine
ROSALIE Source: Nose
Specimen Description:
Activity As Directed
Activity Level: Out of Bed-Early Mobility
Vital Signs As Directed
Frequency: Per unit guidelines
Ot Eval And Treat Routine
Pt Eval And Treat Routine
Activity Level: Out of Bed-Early Mobility
05/25/24 22:00
gabapentin 800 mg PO TID
05/26/24 00:37
BMP [Basic Metabolic Panel] Q4H
05/26/24 04:37
BMP [Basic Metabolic Panel] Q4H
05/26/24 06:00
Complete Blood Count/With Diff IN AM
Comprehensive Metabolic Panel IN AM
Procalcitonin IN AM
PCT Algorithmm Indication: Respiratory
05/26/24 08:00
Atenolol [Tenormin] 50 mg PO DAILY
Duloxetine Delayed Release [Cymbalta Delayed Release] 30 mg PO DAILY
Pantoprazole [Protonix] 40 mg PO DAILY
Prednisone [Deltasone] 5 mg PO DAILY
Spironolactone [Aldactone] 25 mg PO DAILY
calcium carbonate-vitamin D3 1 cap PO DAILY
05/26/24 08:37
BMP [Basic Metabolic Panel] Q4H
05/26/24 12:37
BMP [Basic Metabolic Panel] Q4H
05/26/24 16:37
BMP [Basic Metabolic Panel] Q4H
05/26/24 18:00
Duloxetine Delayed Release [Cymbalta Delayed Release] 60 mg PO QPM
Abnormal Lab Results
05/25/24 05/25/24
13:56 16:36
WBC 19.8 H 10^3/uL
(4.8-10.8)
MCH 32.8 H pg
(27.0-31.0)
Plt Count 542 H D 10^3/uL
(130-400)
Abs Immat Gran (auto) 0.2 H 10^3/uL
(0-0.05)
Absolute Neuts (auto) 12.8 H 10^3/uL
(1.4-6.5)
Absolute Lymphs (auto) 5.2 H 10^3/uL
(1.2-3.4)
Absolute Monos (auto) 1.3 H 10^3/uL
(0.1-0.6)
Immature Gran % 0.9 H %
(0-0.5)
Sodium 126 L mmol/L
(135-145)
Chloride 90 L mmol/L
(98-107)
BUN 26 H mg/dl
(7-17)
Glucose 185 H mg/dl
(70-99)
Serum Osmolality 271 L mOsm/kg
(275-300)
Total Bilirubin 1.4 H mg/dl
(0.2-1.3)
AST 38 H U/L
(14-36)
ALT 59 H U/L
(0-35)
Lipase 454 H U/L
(23-300)
Urine Ketones Trace A
(Negative)
Leukocyte Esterase Rfl Trace A
(Negative)
Urine Bacteria (Reflex) Few A
(Negative)
Urine Yeast Few A
(Negative)
Urine Glucose Trace A
(Negative)
05/25/24 13:56
05/25/24 13:56
Vital Signs
Initial and Last Documented VS:
Initial Vital Signs
BP
126/83
05/25/24 11:44
Last Documented Vital Signs
Temp Pulse Resp BP Pulse Ox
98.2 F 71 16 124/71 95
05/25/24 20:02 05/25/24 20:15 05/25/24 20:15 05/25/24 20:00 05/25/24 13:30
<Don Monroe MD - Last Filed: 05/25/24 20:47>
Orders/Labs/Results
Orders:
Orders
05/25/24 12:45
Case Management Consult ONCE
Case Management Consult: Discharge Planning
Physical Therapy Consult [Pt Eval And Treat] Urgent
Activity Level: Out of Bed-Early Mobility
05/25/24 13:56
Complete Blood Count/With Diff Urgent
Comprehensive Metabolic Panel Urgent
Direct Bilirubin Urgent
Comment: ADD ON
LDH Urgent
Comment: ADD ON
Lipase Urgent
Comment: ADD ON
Serum Osmolality Urgent
Comment: ADD ON
TSH Reflex To Free T4 Urgent
Comment: ADD ON
05/25/24 14:31
CR Chest Portable - 1 View Urgent
Comment:
Reason For Exam: wb cout
Reason Study Needs to be Portable: Patient Unstable
05/25/24 14:58
Rectal Temp- Treatment ONCE
05/25/24 Dinner
Cholesterol Lowering
At Your Request: Limited Participation
Cholesterol Lowering: Sodium, 2 Gram
05/25/24 16:36
Urinalysis Reflex To Culture Urgent
Date Specimen was Collected: 05/25/24
Time Specimen was Collected: 15:17
Urine Microscopic Reflex Cult Urgent
05/25/24 17:38
Add On- LAB Stat
Tests Added?: TSH with reflex FT4, Serum osmolarity
Urine Osmolality Random [Osmolality, Random Urine] Stat
Urine Sodium Stat
05/25/24 17:42
Add On- LAB Stat
Tests Added?: Lipase, direct bili, LDH
05/25/24 17:56
Blood Culture Urgent
ROSALIE Source: Blood/Venous
Specimen Description:
05/25/24 18:01
Admit/Transfer Patient As Directed
Co-Sign Provider:
Level of Care: Inpatient admission
Assign to:: Medical/Surgical
Physician / Group: Hospitalist
Diagnosis: hyponatremia
Reason for Hospitalization: hyponatremia
Expected length of stay greater than two midnights?: Yes
ELOS- Estimated Length of Stay in days: 3
I certify the patient meets the requirements for IP care: Yes
PRN Pain Medication Management As Directed
May give lesser potent ordered pain med per pt: Yes
preference::
Protocol:: Medication orders for pain may be administered in a
manner that supports deferring to patient preference
when the pt is:
- Requesting an ordered lesser potent pain medication.
Least to most potent pain medications are defined
as: acetaminophen < NSAID < tramadol < opioids
(morphine, oxycodone, hydromorphone).
- Requesting a lesser dose of the same medication IF
ORDERED.
- Requesting a less intrusive route of administration
if both routes are prescribed by the provider (PO <
IV).
05/25/24 18:02
Code Status As Directed
Resuscitation Status: Full Code
05/25/24 19:30
COVID-19 Antigen Stat
Source: Nasal Swab
Influenza A+B Rapid Molecular Stat
ROSALIE Source: Nasal Swab
Specimen Description:
05/25/24 19:59
Blood Culture Routine
ROSALIE Source: Blood/Venous
Specimen Description:
05/25/24 20:37
BMP [Basic Metabolic Panel] Q4H
0.9% Sodium Chloride 1000 ml [Nss] 1,000 ml IV 75 mls/hr
Acetaminophen [Tylenol] 650 mg PO Q4HPRN PRN
Albuterol Nebs [Ventolin Nebules] 2.5 mg INH R Q4HPRN PRN
Apixaban [Eliquis] 5 mg PO BID
Bisacodyl [Dulcolax] 10 mg RECTAL [id number] PRN
Budesonide/Formoterol 160/4.5 [Symbicort 160/4.5 Mcg Inhaler] 2 puff INH R BID
Docusate W/Senna [Senokot-S] 1 tablet PO BIDPRN PRN
Ondansetron Injectable [Zofran] 4 mg IV Q8HPRN PRN
Piperacillin/Tazo 3.375 Gram [Zosyn] 3.375 gram in 50 ml IV Q6H
Polyethylene Glycol Powder [Miralax] 17 grams PO DAILYPRN PRN
buprenorphine 1 patch TRANSDERM QWEEK
05/25/24 20:37
CT Chest/abd/pel w/wo IV Cont Routine
Comment:
Reason For Exam: possible pneumonia on XR, abd pain
Case Management Consult ONCE
Case Management Consult: Discharge Planning
MRSA Screen Routine
ROSALIE Source: Nose
Specimen Description:
Activity As Directed
Activity Level: Out of Bed-Early Mobility
Vital Signs As Directed
Frequency: Per unit guidelines
Ot Eval And Treat Routine
Pt Eval And Treat Routine
Activity Level: Out of Bed-Early Mobility
05/25/24 22:00
gabapentin 800 mg PO TID
05/26/24 00:37
BMP [Basic Metabolic Panel] Q4H
05/26/24 04:37
BMP [Basic Metabolic Panel] Q4H
05/26/24 06:00
Complete Blood Count/With Diff IN AM
Comprehensive Metabolic Panel IN AM
Procalcitonin IN AM
PCT Algorithmm Indication: Respiratory
05/26/24 08:00
Atenolol [Tenormin] 50 mg PO DAILY
Duloxetine Delayed Release [Cymbalta Delayed Release] 30 mg PO DAILY
Pantoprazole [Protonix] 40 mg PO DAILY
Prednisone [Deltasone] 5 mg PO DAILY
Spironolactone [Aldactone] 25 mg PO DAILY
calcium carbonate-vitamin D3 1 cap PO DAILY
05/26/24 08:37
BMP [Basic Metabolic Panel] Q4H
05/26/24 12:37
BMP [Basic Metabolic Panel] Q4H
05/26/24 16:37
BMP [Basic Metabolic Panel] Q4H
05/26/24 18:00
Duloxetine Delayed Release [Cymbalta Delayed Release] 60 mg PO QPM
Abnormal Lab Results
05/25/24 05/25/24
13:56 16:36
WBC 19.8 H 10^3/uL
(4.8-10.8)
MCH 32.8 H pg
(27.0-31.0)
Plt Count 542 H D 10^3/uL
(130-400)
Abs Immat Gran (auto) 0.2 H 10^3/uL
(0-0.05)
Absolute Neuts (auto) 12.8 H 10^3/uL
(1.4-6.5)
Absolute Lymphs (auto) 5.2 H 10^3/uL
(1.2-3.4)
Absolute Monos (auto) 1.3 H 10^3/uL
(0.1-0.6)
Immature Gran % 0.9 H %
(0-0.5)
Sodium 126 L mmol/L
(135-145)
Chloride 90 L mmol/L
(98-107)
BUN 26 H mg/dl
(7-17)
Glucose 185 H mg/dl
(70-99)
Serum Osmolality 271 L mOsm/kg
(275-300)
Total Bilirubin 1.4 H mg/dl
(0.2-1.3)
AST 38 H U/L
(14-36)
ALT 59 H U/L
(0-35)
Lipase 454 H U/L
(23-300)
Urine Ketones Trace A
(Negative)
Leukocyte Esterase Rfl Trace A
(Negative)
Urine Bacteria (Reflex) Few A
(Negative)
Urine Yeast Few A
(Negative)
Urine Glucose Trace A
(Negative)
05/25/24 13:56
05/25/24 13:56
Vital Signs
Initial and Last Documented VS:
Initial Vital Signs
BP
126/83
05/25/24 11:44
Last Documented Vital Signs
Temp Pulse Resp BP Pulse Ox
98.2 F 71 16 124/71 95
05/25/24 20:02 05/25/24 20:15 05/25/24 20:15 05/25/24 20:00 05/25/24 13:30
<Quinn Hurley DO - Last Filed: 05/25/24 16:05>
MDM/Problems Addressed
Differential Diagnosis Includes:
Deconditioning, chronic illness, electrolyte abnormality, chronic pain social stressors
MDM/Problems Addressed:
Weakness
Chronic conditions affecting care:
Chronic pain chronic lung disease
Chronic conditions affecting care: HTN, Neurological disorder, Immunosuppressed and Kidney disease
Acute Exacerbation and/or Progression of Chronic Illness: Neurological disorder and Immunosuppressed
<Don Monroe MD - Last Filed: 05/25/24 20:47>
*Critical Care Note
Total Time (30-74mins, 75-104mins- exclusive of procedures): Not Applicable
<Quinn Hurley DO - Last Filed: 05/25/24 16:05>
Update Note
Update Note:
Update, discharge summary noted, calling from the visiting nurses noted case management and PT have been consulted
Update numerous discussions with case management and hospitalist
White count is up she is afebrile apparently already on antibiotics mental status is clear
Chest x-ray noted no obvious infiltrate urine is pending
Will try to get her placed this evening if not she would need to be admitted
ED Attending Note
<Quinn Hurley DO - Last Filed: 05/25/24 16:05>
-
Portions of this chart may have been created with voice recognition software.� Occasional wrong word or��sound alike� substitutions may have occurred due to the inherent limitations of voice recognition software.
Discharge Plan
Departure
Patient Disposition: Admit
Date of Disposition: 05/25/24
Time of Disposition: 16:05
Presentation/result/management discussed w/ accepting MD/DO: Hospitalist
Patient with high blood pressure during this ER visit?: No
Condition: Fair
Covid-19: Not Applicable
Discharge Problem:
Chronic pain syndrome, Rheumatoid arthritis, Hyponatremia
Interventions
Interventions:
*Risk Screen - Suicide Last Done: 05/25/24 20:36
*General Assessment Last Done: 05/25/24 20:36
*Neglect/Abuse Screening Last Done: 05/25/24 20:37
ED- Fall Risk Assessment Last Done: 05/25/24 20:36
*ED COVID-19 Vaccine History Last Done: 05/25/24 20:36
*Nursing Disposition Last Done: 05/25/24 20:36
ED-Psychological Assessment Last Done: 05/25/24 20:37
Discharge Date and Time
Discharge Date/Time: 05/25/24 20:37
[2024-05-25 14:12] LABS: Hematocrit 44.4 % (37.0-47.0); Hemoglobin 15.8 g/dL (12.0-16.0); Mean Corp Hgb Conc. 35.6 g/dL (33.0-37.0); Mean Corpuscular Hgb 32.8 pg (27.0-31.0); Mean Corpuscular Volume 92.3 fL (81.0-99.0); Mean Platelet Volume 9.5 fL (7.4-10.4); Platelet Count 542 10^3/uL (130-400); Red Blood Cell Count 4.81 10^6/uL (4.20-5.40); Red Cell Dist. Width 12.7 % (11.5-14.5); White Blood Cell Count 19.8 10^3/uL (4.8-10.8)
[2024-05-25 14:30] LABS: ALT (SGPT) 59 U/L (0-35); AST (SGOT) 38 U/L (14-36); Albumin 3.7 g/dl (3.5-5.0); Alkaline Phosphatase 125 U/L (38-126); Blood Urea Nitrogen 26 mg/dl (7-17); Calcium 10.2 mg/dl (8.4-10.2); Carbon Dioxide 27 mmol/L (22-30); Chloride 90 mmol/L (98-107); Estimated Creatinine Clearance 80 ml/min; Glucose 185 mg/dl (70-99); Sodium 126 mmol/L (135-145); Total Bilirubin 1.4 mg/dl (0.2-1.3); Total Protein 6.4 g/dl (6.3-8.2); eGFR > 60.00
[2024-05-25 14:41] LABS: % Basophils 0.5 % (0-2); % Eosinophils 1.7 % (0-6); % Immature Granulocytes 0.9 % (0-0.5); % Lymphocytes 26.1 % (20.5-51.1); % Monocytes 6.4 % (1.7-9.3); % Neutrophils 64.4 % (42.2-75.2); Absolute Basophils 0.1 10^3/uL (0-0.2); Absolute Eosinophils 0.3 10^3/uL (0-0.7); Absolute Immature Granulocytes 0.2 10^3/uL (0-0.05); Absolute Lymphocytes 5.2 10^3/uL (1.2-3.4); Absolute Monocytes 1.3 10^3/uL (0.1-0.6); Absolute Neutrophils 12.8 10^3/uL (1.4-6.5); Nucleated Red Blood Cells % 0 %
--- NOTE | 2024-05-25 15:00 | CM ---
Addendum entered by Eve Greene 05/25/24 16:38:
Clinicals faxed. Received confirmation message.
Addendum entered by Eve Greene 05/25/24 16:19:
CORONA called [employer] (now called [facility]) at . Insurance authorization request completed.
AUTHORIZATION NUMBER:
[id number]
Fax clinicals to: [phone]
Addendum entered by Eve Greene 05/25/24 15:06:
Patient agreeable to plan. Awaiting whether patient will be admitted or if able to continue Insurance auth request. Holly at [facility] made aware.
Original Note:
DISCHARGE DISPOSITION:
[facility]:
[facility]
Dr. Gutierres's
Patient has [employer] as of 05.17.24. She did not have her insurance card with her. Registration was busy and not able to look up info. CORONA called [employer] for member ID info.
Patient's [employer] Member ID number:
[id number].
ID number given to Holly with [facility].
[2024-05-25 15:12] LABS: Potassium 3.5 mmol/L (3.5-5.1)
[2024-05-25 17:14] LABS: Urine Albumin Trace (Neg - Trace); Urine Bilirubin Negative (Negative); Urine Character Clear (Clear); Urine Color Yellow; Urine Glucose Trace (Negative); Urine Ketone Trace (Negative); Urine Leukocyte Trace (Negative); Urine Nitrite Negative (Negative); Urine Occult Blood Negative (Negative); Urine Specific Gravity 1.015 (<1.030); Urine Urobilinogen Negative (Neg - 1+)
[2024-05-25 17:35] LABS: Urine Mucus Moderate
[2024-05-25 17:36] LABS: Urine Red Blood Cell 0-2 /HPF (0-2)
[2024-05-25 17:37] LABS: Urine Bacteria Few (Negative); Urine Yeast Few (Negative)
--- NOTE | 2024-05-25 18:15 | HPS.HSE ---
Family Physician
-
Family Physician: NOT KNOW UNKNOWN - PT DOES
Chief Complaint
-
weakness
History of Present Illness
73yo F with PMHx of opioid dependence on SUbaxone, neuropathy, RA on chronic prednisone, HTN, recent admission for UTI and pneumonia (discharged on 05/20/24),DVT on ELiquis was sent from home by [facility] since they were concerned that she is too weak and
cannot even ambulate. SHe was discharged from to [facility] but then sent home 2 days prior to this admisison. In ED patient was found hyponatremic with leukocytosis, possible residual pneumonia on XR
With generalized weakness - might need placement. Process initiated in ED
Medical History
Past Medical History
Past Medical History: Reports Other
Additional Past Medical History:
see HPI
Past Surgical History: Reports None
Social History
Tobacco: Former Smoker
Alcohol: None
Drug: Former User
Family History
Family History: Not pertinent
Allergies / Home Medications
Allergies reflects when Allergies were last updated in [facility].
Home Medications with original date entered in [facility] [facility]
Allergy/Medication List:
Allergies
Allergy/AdvReac Type Severity Reaction Status Date / Time
ceftriaxone sodium Allergy numbness Verified 05/25/24 11:46
[From Rocephin] tingling
mouth
infliximab [From Remicade] Allergy Unknown Verified 05/25/24 11:46
vancomycin [Vancomycin] Allergy Unknown Verified 05/25/24 11:46
Home Medications
atenolol 50 mg tablet 50 mg PO DAILY Blood pressure 10/11/18
duloxetine 30 mg capsule,delayed release 30 mg PO DAILY neuropathic pain 04/13/19
duloxetine 60 mg capsule,delayed release 60 mg PO QPM neuropathic pain 06/30/21
budesonide-formoterol HFA 160 mcg-4.5 mcg/actuation aerosol inhaler (Symbicort) 2 puff inhalation R BID Lung/breathing issues 01/11/23
albuterol sulfate 90 mcg/actuation aerosol inhaler 2 puff inhalation R Q6HPRN PRN sob 05/12/24
calcium carbonate 600 mg-vitamin D3 62.5 mcg (2,500 unit) capsule 1 cap PO DAILY Supplement 05/12/24
gabapentin 800 mg tablet 800 mg PO TID Pain 05/12/24
hydrochlorothiazide 25 mg tablet 25 mg PO DAILY Fluid Retention/Swelling 05/12/24
xagtolzm-pds-jbasm acid 0.4 mg-lycopene 300 mcg-lutein 250 mcg tablet (CertaVite Senior) 1 tab PO DAILY Supplement 05/12/24
prednisone 5 mg tablet 5 mg PO DAILY rheumatoid arthritis 05/12/24
spironolactone 25 mg tablet 25 mg PO DAILY Blood Pressure 05/12/24
amoxicillin 875 mg-potassium clavulanate 125 mg tablet 1 tab PO Q12 #15 tabs 05/19/24
apixaban 5 mg tablet (Eliquis) See Rx Instructions .Route .COMPLEX #60 tabs 05/19/24
buprenorphine 7.5 mcg/hour weekly transdermal patch 1 patch transdermal QWEEK Pain #1 ea 05/19/24
doxycycline hyclate 100 mg capsule 100 mg PO Q12 #15 caps 05/19/24
pantoprazole 40 mg tablet,delayed release 40 mg PO DAILY #30 tabs 05/19/24
prednisone 10 mg tablet See Rx Instructions .Route .COMPLEX #30 tabs 05/19/24
hydromorphone 1 mg/mL oral liquid (Dilaudid) 1 mg PO Q6H #10 mL 05/20/24
Lactobac no.2-Bifidobac no.1-S. thermo 112.5 billion cell capsule (Visbiome) 1 cap PO HS 05/25/24
Review of Systems
-
History Source: Patient
A 12 point ROS was completed and negative except as noted: Yes
Constitutional: Reports Fatigue
Physical Exam
Vital Signs
Vital Signs
Temp Pulse Resp BP Pulse Ox
99.2 F 66 25 137/69 95
05/25/24 16:00 05/25/24 16:45 05/25/24 16:45 05/25/24 16:01 05/25/24 13:30
Physical Exam
General: No Apparent Distress
HEENT: NormoCephalic
Respiratory: Clear; No Wheezes, Rales or Rhonchi
Cardiac: S1/S2 and Regular Rhythm
GI: Soft, Non Tender and Non Distended
Genito-urinary: No costovertebral tender
Musculoskeletal: No Clubbing, No Cyanosis and No Edema
Skin: Warm
Neuro: Awake, Alert, Oriented and AO x 3
Psych: Calm
Laboratory Results
-
05/25/24 13:56
05/25/24 13:56
Laboratory Results
Total Bilirubin 1.4 mg/dl (0.2-1.3) H 05/25/24 13:56
AST 38 U/L (14-36) H 05/25/24 13:56
ALT 59 U/L (0-35) H 05/25/24 13:56
Alkaline Phosphatase 125 U/L (38-126) 05/25/24 13:56
Data Reviewed
-
Diagnostic Radiology: Image Personally Visualized and interpreted
Lab Data: Labs Reviewed by me
Impression/Plan
-
A/P:
#Generalized weakness most likely 2/2 recurrent infection
#Mild abdomninal pain
#bilirubinemia
#mild transaminitis
CT chest/Abd/pelvis
follow LFT
Zosyn, procal in AM
Bcx
check LDH
PT/OT and eventual placement
UA not suggesting of infection
check Lipase
#Hyponatremia (hemoconcentration, calcium in ULN)
most likely hypovolemic 2/2 poor oral intake and diuretics
slow hydration, BMP q4h
Serum osm
Urine osm and Na
Check TSH
Hold HCTZ, cont Aldactone (weak diuretic properties)
#Thrombocytosis
reactive vs hemoconcentration
#Chronic HFpEF
#Pulmonary HTN
#Moderate
#RA on chronic prednisone
#Hx of VTE
#Opioid dependency
#COPD not in exacerbation
#Essential HTN
cont home meds
DVT ppx on eliquis
FUll code
I have spent at least 78min preparing admission: reviewing chart, test results and providing direct patient care
[2024-05-25 18:28] LABS: Direct Bilirubin 0.4 mg/dl (0.0-0.4); LDH 210 U/L (120-246); Lipase 454 U/L (23-300)
[2024-05-25 19:00] LABS: Osmolality Serum 271 mOsm/kg (275-300)
[2024-05-25 19:11] LABS: TSH Reflex To Free T4 0.78 uIU/ml (0.47-4.68)
[2024-05-25] MEDS: SYMBICORT 160/4.5 MCG INHALER 2 PUFF INH (21:14)
[2024-05-25 21:48] LABS: Blood Urea Nitrogen 26 mg/dl (7-17); Calcium 9.6 mg/dl (8.4-10.2); Carbon Dioxide 27 mmol/L (22-30); Chloride 88 mmol/L (98-107); Estimated Creatinine Clearance 73 ml/min; Glucose 195 mg/dl (70-99); Potassium 3.6 mmol/L (3.5-5.1); Sodium 124 mmol/L (135-145); eGFR > 60.00
[2024-05-25] MEDS: NSS 1000 IV (21:57)
[2024-05-25] MEDS: ELIQUIS 5 MG PO (21:58)
[2024-05-25] MEDS: NEURONTIN 800 MG PO (21:58)
[2024-05-25] MEDS: ZOSYN 50 IV (21:58)
[2024-05-26] MEDS: LIDOCAINE 4% PATCH 2 PATCH TOPICAL (00:44)
--- NOTE | 2024-05-26 01:00 | PTCARENOTE ---
Patient admitted to unit at approx. 2044. Patient awake and alert. Reviewed home meds with patient and mika Villa on the phone. Reviewed allergies listed and code status (asked mika to bring in copy of living will). Patient states she was
feeling weaker since being discharged home from rehab facility. Recently admitted for PNA and then sent to rehab. Taking PO ABX outpatient and having diarrhea. Patient c/o 05/26 joint pain, specifically in B/L knees and some abdominal pain/tenderness
04/25. Refusing PRN tylenol ordered. Notified [facility] Pauline Bacon. Received order for lidocaine patches for knees. Transdermal buprenorphine patch found on patient's left upper back area. Per mika, that was placed on Tuesday05/23/24. RN dated patch.
[2024-05-26 01:40] LABS: Osmolality Urine 691 mOsm/kg (300-900)
[2024-05-26 01:51] LABS: Urine Sodium 8 mmol/L (30-90)
[2024-05-26 03:34] LABS: Blood Urea Nitrogen 23 mg/dl (7-17); Calcium 9.1 mg/dl (8.4-10.2); Carbon Dioxide 26 mmol/L (22-30); Chloride 91 mmol/L (98-107); Estimated Creatinine Clearance 73 ml/min; Glucose 198 mg/dl (70-99); Potassium 3.8 mmol/L (3.5-5.1); Sodium 125 mmol/L (135-145); eGFR > 60.00
[2024-05-26] MEDS: ZOSYN 50 IV ×2 (05:35→09:38)
--- NOTE | 2024-05-26 06:06 | W.PN.UPDATE ---
Update Note
Progress Note Update
Transdermal buprenorphine patch to patient's left upper back area. Per mika, placed Tuesday05/23/24. Spoke with pharmacy, we do not carry patch. Patient will have to bring from home.
[2024-05-26 07:00] VITALS: BP 127/83
[2024-05-26 07:00] LABS: % Basophils 0.6 % (0-2); % Eosinophils 2.9 % (0-6); % Immature Granulocytes 0.7 % (0-0.5); % Lymphocytes 21.4 % (20.5-51.1); % Monocytes 6.9 % (1.7-9.3); % Neutrophils 67.5 % (42.2-75.2); Absolute Basophils 0.1 10^3/uL (0-0.2); Absolute Eosinophils 0.5 10^3/uL (0-0.7); Absolute Immature Granulocytes 0.1 10^3/uL (0-0.05); Absolute Lymphocytes 3.8 10^3/uL (1.2-3.4); Absolute Monocytes 1.2 10^3/uL (0.1-0.6); Absolute Neutrophils 11.9 10^3/uL (1.4-6.5); Hematocrit 40.8 % (37.0-47.0); Hemoglobin 14.5 g/dL (12.0-16.0); Mean Corp Hgb Conc. 35.5 g/dL (33.0-37.0); Mean Corpuscular Hgb 33.6 pg (27.0-31.0); Mean Corpuscular Volume 94.4 fL (81.0-99.0); Mean Platelet Volume 9.8 fL (7.4-10.4); Nucleated Red Blood Cells % 0 %; Platelet Count 501 10^3/uL (130-400); Red Blood Cell Count 4.32 10^6/uL (4.20-5.40); Red Cell Dist. Width 12.6 % (11.5-14.5); White Blood Cell Count 17.6 10^3/uL (4.8-10.8)
--- NOTE | 2024-05-26 07:03 | W.PN.HOSP.TC ---
Today's Communication/Plan
-
Wantsd to eat - trial of food
IVF
cont BMP q4h
check Lipids
GI consult
Stop Zosyn
Assessment / Plan
Assessment / Plan
73yo F with PMHx of opioid dependence on SUbaxone, neuropathy, RA on chronic prednisone, HTN, recent admission for UTI and pneumonia (discharged on 05/20/24),DVT on ELiquis was sent from home by [facility] since they were concerned that she is too weak and
cannot even ambulate. SHe was discharged from to [facility] but then sent home 2 days prior to this admisison. In ED patient was found hyponatremic with leukocytosis, possible residual pneumonia on XR not proven on CT
FOund edematous pancreatitis
With generalized weakness - might need placement.
A/P:
#Generalized weakness
#Mild abdomninal pain
#bilirubinemia
#mild transaminitis
#Acute edematous pancreatitis
follow LFT
Bcx
check LDH
PT/OT and eventual placement
UA not suggesting of infection
Sludge in gall bladder
Mild hypercalcemia improving
CHeck Tryglicerides
GI consult
#Leukocytosis
most likely 2/2 chronic steroids
No fever
Monitor CBC
Procal neg - Zosyn stopped
#Stable 8mm RLL nodule
#b/l renal cysts
compared with 2019
No further mgmt advised
#Chronic T6, L1 compression Fx
#Hyponatremia (hemoconcentration, calcium in ULN)
BMP q4h
Serum osm elevated, cannot exclude 2/2 duloxetine - hold
Hold HCTZ, cont Aldactone (weak diuretic properties)
Target sodium increase by 4-6meq per 24h
#Thrombocytosis
reactive vs hemoconcentration
#Chronic HFpEF
#Pulmonary HTN
#Moderate
#RA on chronic prednisone
#Hx of VTE
#Opioid dependency
#COPD not in exacerbation
#Essential HTN
cont home meds
DVT ppx on eliquis
FUll code
I have spent at least 58min reviewing chart, test results and providing direct patient care
Anticipated Discharge: > 48 hours
Subjective/Interval History
-
Date of Service: May 26, 2024
Objective Data
-
Labs:
Laboratory Results
05/25/24 05/25/24 05/26/24
20:58 21:29 03:04
WBC
Hgb
Hct
Plt Count
Sodium Cancelled 124 L 125 L
Potassium Cancelled 3.6 3.8
Chloride Cancelled 88 L 91 L
Carbon Dioxide Cancelled 27 26
BUN Cancelled 26 H 23 H
Creatinine Cancelled 0.6 0.6
Glucose Cancelled 195 H 198 H
Calcium Cancelled 9.6 9.1
Total Bilirubin
AST
ALT
Alkaline Phosphatase
05/26/24 05/26/24 05/26/24
04:37 06:31 08:37
WBC 17.6 H
Hgb 14.5
Hct 40.8
Plt Count 501 H
Sodium Cancelled Pending Cancelled
Potassium Cancelled Pending Cancelled
Chloride Cancelled Pending Cancelled
Carbon Dioxide Cancelled Pending Cancelled
BUN Cancelled Pending Cancelled
Creatinine Cancelled Pending Cancelled
Glucose Cancelled Pending Cancelled
Calcium Cancelled Pending Cancelled
Total Bilirubin Pending
AST Pending
ALT Pending
Alkaline Phosphatase Pending
05/26/24 05/26/24 05/26/24
11:00 12:37 15:00
WBC
Hgb
Hct
Plt Count
Sodium Pending Cancelled Pending
Potassium Pending Cancelled Pending
Chloride Pending Cancelled Pending
Carbon Dioxide Pending Cancelled Pending
BUN Pending Cancelled Pending
Creatinine Pending Cancelled Pending
Glucose Pending Cancelled Pending
Calcium Pending Cancelled Pending
Total Bilirubin
AST
ALT
Alkaline Phosphatase
05/26/24 05/26/24 05/26/24
16:37 19:00 23:00
WBC
Hgb
Hct
Plt Count
Sodium Cancelled Pending Pending
Potassium Cancelled Pending Pending
Chloride Cancelled Pending Pending
Carbon Dioxide Cancelled Pending Pending
BUN Cancelled Pending Pending
Creatinine Cancelled Pending Pending
Glucose Cancelled Pending Pending
Calcium Cancelled Pending Pending
Total Bilirubin
AST
ALT
Alkaline Phosphatase
Vital Signs:
Vital Signs
Temp Pulse Resp BP Pulse Ox
98 F 74 16 125/81 92
05/25/24 23:33 05/25/24 23:33 05/25/24 23:33 05/25/24 23:33 05/25/24 23:33
I&O
05/25/24 05/26/24 05/27/24
06:59 06:59 06:59
Intake Total 240 / 240
Balance 240 / 240
Review of Systems
-
History Source: Patient
All other systems: Reviewed and negative
Abdomen/GI: Reports Abdominal Pain
Physical Exam
-
General: No Apparent Distress
HEENT: Normocephalic, Atraumatic and Moist Mucous Membranes
Respiratory: Clear to Auscultation
Cardiac: Regular Rhythm and Murmur (midsystolic)
GI: Soft, Nondistended and Tender (mildly in epigastrium)
Musculoskeletal: No Clubbing, No Cyanosis and No Edema
Skin: Warm
Neuro: Awake, Alert, Oriented and AO x 3
Psych: Calm
[2024-05-26 07:12] LABS: COVID-19 Antigen Negative (Negative)
[2024-05-26 07:16] LABS: ALT (SGPT) 50 U/L (0-35); AST (SGOT) 39 U/L (14-36); Albumin 3.2 g/dl (3.5-5.0); Alkaline Phosphatase 108 U/L (38-126); Blood Urea Nitrogen 20 mg/dl (7-17); Calcium 9.1 mg/dl (8.4-10.2); Carbon Dioxide 27 mmol/L (22-30); Chloride 93 mmol/L (98-107); Estimated Creatinine Clearance 73 ml/min; Glucose 178 mg/dl (70-99); Lipase 677 U/L (23-300); Potassium 3.7 mmol/L (3.5-5.1); Sodium 126 mmol/L (135-145); Total Bilirubin 1.7 mg/dl (0.2-1.3); Total Protein 5.7 g/dl (6.3-8.2); eGFR > 60.00
[2024-05-26 07:17] LABS: Procalcitonin 0.05 ng/ml (0.0-0.25)
[2024-05-26] MEDS: SYMBICORT 160/4.5 MCG INHALER 2 PUFF INH ×2 (07:36→20:55)
[2024-05-26] MEDS: CYMBALTA DELAYED RELEASE 30 MG PO (09:37)
[2024-05-26] MEDS: PROTONIX 40 MG PO (09:37)
[2024-05-26] MEDS: ASPIR LOW (ENTERIC COATED) 81 MG PO (09:37)
[2024-05-26] MEDS: ELIQUIS 5 MG PO ×2 (09:37→19:45)
[2024-05-26] MEDS: DELTASONE 5 MG PO (09:37)
[2024-05-26] MEDS: OSCAL 500 + D 500 MG PO (09:37)
[2024-05-26] MEDS: TENORMIN 50 MG PO (09:37)
--- NOTE | 2024-05-26 09:39 | CM ---
Addendum entered by Heydi Erickson 05/26/24 10:00:
Per Attending, patient is not stable for discharge today
Original Note:
Authorization from [facility] (# ) approved
Start Date 05/25/2024
End Date 05/28/2024
Next Review 05/28/2024; contact Barbara Marie via FAX # [phone]
Authorization ID # [id number]
Plan: discharge to [facility]
[2024-05-26] MEDS: ALDACTONE 25 MG PO (09:43)
[2024-05-26] MEDS: NEURONTIN 800 MG PO ×3 (09:43→21:32)
--- NOTE | 2024-05-26 10:22 | CON.GI ---
Addendum entered and electronically signed by Octavia Thurman MD 05/26/24 13:25:
I saw and examined the patient.
The SURVEILLANCE INVESTIGATOR's note was reviewed and I agree with the note.
Comment: This is a 73-year-old female with past medical history of acute pancreatitis in 2019 with pancreatic cyst unfortunately had not followed up after that who was recently admitted for sepsis with pneumonia and UTI and was treated with IV
antibiotics and discharged on Augmentin and doxycycline which she finished today who was sent to the hospital by visiting nurse because she appeared weak and on imaging was found to have acute pancreatitis and elevated lipase level. She says she
has been having abdominal pain for the past 2 months, poor historian. No fevers chills, no nausea or vomiting.
Assessment and plan second episode of acute pancreatitis etiology unclear she denies alcohol use and workup in 2019 was also essentially unremarkable no GS and nl TG, nl IgG4. Repeat triglyceride levels and calcium are again normal. will also get
MRI with MRCP she had pancreatic cyst on prior imaging in 2019 but not noted on CT this admission. She has been on chronic steroids for RA and on HCTZ but no recent change in medications other than the recent use of antibiotics for her pneumonia
and UTI was on Augmentin and doxycycline doubt that it's medication related but hold HCTZ for now. Continue IV hydration she is actually tolerating diet and her pain seems to have improved. May need EUS based on repeat MRI results
Addendum entered and electronically signed by Vanesa Larose NP 05/26/24 11:31:
Discussed with RAJENDRA Connors for diet if pain is improving (low fat diet entered). Plan for MRI with MRCP. Agree with discontinuation of antibiotics.
Original Note:
Consultation
-
Date/Time Consultation Requested: 05/26/24 @ 10:01
Date/Time Consultation Performed: 05/26/24 @ 10:30
Requesting Provider: Dr. Leal
Performing Provider: RUDY Trevino; Dr. Octavia Thurman
Reason for Consultation: pancreatitis
Medical History
Chief Complaint / HPI
Chief Complaint: weakness
History of Present Illness:
The pt is a 73 yo female with a PMH significant for rheumatoid arthritis on chronic prednisone, chronic opioid on buprenorphine patch, hypertension, history of DVT on Eliquis, CHF, moderate aortic stenosis, pulmonary hypertension, neuropathy, recent
admission for pneumonia/UTI on antibiotics discharged on 05/20/2024, anxiety, depression, GERD, DM2 (hgb A1C 8.2), who presented to the ER with complaints of weakness and abdominal pain. We are being asked to evaluate for pancreatitis. Upon review
of prior records patient was seen in March 2019 for abdominal pain found to have pancreatitis (first episode). She had CT imaging which demonstrated acute uncomplicated pancreatitis with mild PD dilation of 4 mm. At that time etiology was unclear
with normal triglycerides, IgG4 level, and calcium levels. She was not drinking alcohol at that time. She was advised OP follow-up but then had a subsequent admission in June 2019 again for recurrent abdominal pain in which CT imaging showed
acute colitis in the descending colon. Other CT findings showed two pancreatic cysts one measuring 1.1 cm in the pancreatic body and one measuring 1.3 cm in the uncinate process. Again a PD dilation was seen at 4 mm. She was treated for colitis
and advised on outpatient follow-up for colonoscopy and MRI imaging of the pancreas secondary to the pancreatic cysts that were seen. There is no record she followed up here at [place]. She is a poor historian, but today she reports that for the
past 2 months she has been having abdominal pain. She describes the pain as a constant dull discomfort in the middle of her abdomen. She notes this is similar to prior episode of pancreatitis in 2019. She does not feel worsening pain after
eating. She denies any nausea, vomiting, fevers, or chills. She has also had progressive weakness since being discharged on 05/20 and ultimately require re-hospitalization. She denies any change in bowel habits, melena, hematochezia, or hematemesis.
She denies any dysphagia, odynophagia, early satiety, loss of appetite, or unintentional weight loss. She denies any new medications, alcohol use, or drug use. She is a former smoker but quit 2 months ago. She denies any family history of
pancreatic cancer, but reports her mother had colon cancer. She had a colonoscopy about 10 years ago and did have polyps removed at that time. She does not recall why she did not follow-up in regards to her pancreatitis. She denies any consistent
follow-up with a GI doctor. Of note she was recently admitted to [facility] a week ago for treatment of sepsis secondary to pneumonia versus UTI. She was treated with a course of antibiotics and discharged on Augmentin and doxycycline
through 05/26. It was also suspected she possibly had an exacerbation of her COPD with acute hypoxic respiratory failure and was placed on a higher dose of steroids with a taper. She was also found to have a DVT and was placed on Eliquis.
Routine labs reviewed from today showing WBC 17.6, sodium 126, potassium 3.7, BUN 20, creatinine 0.6, calcium 9.6, total bilirubin 1.4, direct bilirubin 0.4, AST 39, ALT 50, alk phos 108, albumin 3.2, lipase 677, procalcitonin 0.05, TSH 0.78. She
underwent a CT of the chest, abdomen, and pelvis with IV contrast this morning showing findings suggesting acute interstitial edematous pancreatitis with no complications. She was placed on IV fluids, PRN analgesics, and a low fat diet (per pt
request).
Past Medical History
Past Medical History: CHF, COPD, GERD, HTN, NIDDM, Valvular Disease (Moderate aortic stenosis), Psychiatric (anxiety, depression) and Other (Chronic opioid dependency, rheumatoid arthritis on chronic prednisone, history of DVT on Eliquis, pulmonary
hypertension, recent hospitalization for sepsis secondary to pneumonia versus UTI (05/12-05/20/2024))
Past Surgical History: None
Social History
Tobacco: Former Smoker
Alcohol: None
Drug: None
Personal: Partner
Living: With Family
Family History
Family History: Cancer (mother-colon cancer)
Allergies / Home Medications
Allergy/AdvReac Type Severity Reaction Status Date / Time
ceftriaxone sodium Allergy numbness Verified 05/25/24 11:46
[From Rocephin] tingling
mouth
infliximab [From Remicade] Allergy Unknown Verified 05/25/24 11:46
vancomycin [Vancomycin] Allergy Unknown Verified 05/25/24 11:46
�Medication �Instructions �Recorded
atenolol 50 mg tablet 50 mg PO DAILY Blood pressure 10/11/18
duloxetine 30 mg capsule,delayed 30 mg PO DAILY neuropathic pain 04/13/19
release
duloxetine 60 mg capsule,delayed 60 mg PO QPM neuropathic pain 06/30/21
release
budesonide-formoterol HFA 160 2 puff inhalation R BID 01/11/23
mcg-4.5 mcg/actuation aerosol Lung/breathing issues
inhaler (Symbicort)
albuterol sulfate 90 mcg/actuation 2 puff inhalation R Q6HPRN PRN sob 05/12/24
aerosol inhaler
calcium carbonate 600 mg-vitamin 1 cap PO DAILY Supplement 05/12/24
D3 62.5 mcg (2,500 unit) capsule
gabapentin 800 mg tablet 800 mg PO TID Pain 05/12/24
hydrochlorothiazide 25 mg tablet 25 mg PO DAILY Fluid 05/12/24
Retention/Swelling
ebonugwx-nrm-mzefw acid 0.4 1 tab PO DAILY Supplement 05/12/24
mg-lycopene 300 mcg-lutein 250 mcg
tablet (CertaVite Senior)
prednisone 5 mg tablet 5 mg PO DAILY rheumatoid arthritis 05/12/24
spironolactone 25 mg tablet 25 mg PO DAILY Blood Pressure 05/12/24
amoxicillin 875 mg-potassium 1 tab PO Q12 #15 tabs 05/19/24
clavulanate 125 mg tablet
apixaban 5 mg tablet (Eliquis) See Rx Instructions .Route 05/19/24
.COMPLEX #60 tabs
buprenorphine 7.5 mcg/hour weekly 1 patch transdermal QWEEK Pain #1 05/19/24
transdermal patch ea
doxycycline hyclate 100 mg capsule 100 mg PO Q12 #15 caps 05/19/24
pantoprazole 40 mg tablet,delayed 40 mg PO DAILY #30 tabs 05/19/24
release
prednisone 10 mg tablet See Rx Instructions .Route 05/19/24
.COMPLEX #30 tabs
hydromorphone 1 mg/mL oral liquid 1 mg PO Q6H #10 mL 05/20/24
(Dilaudid)
Lactobac no.2-Bifidobac no.1-S. 1 cap PO HS 05/25/24
thermo 112.5 billion cell capsule
(Visbiome)
aspirin 81 mg PO DAILY 05/25/24
Review of Systems
-
History Source: Patient
Constitutional: Reports Fatigue
EENT: Reports No Symptoms
Respiratory: Reports No Symptoms
Cardiac: Reports No Symptoms
Abdomen/GI: Reports Abdominal Pain
: Reports No Symptoms
Musculoskeletal: Reports No Symptoms
Skin: Reports No Symptoms
Neurological: Reports Weakness
Vital Signs
Temp Pulse Resp BP Pulse Ox
98.1 F 73 16 127/83 93
05/26/24 07:00 05/26/24 07:37 05/26/24 07:37 05/26/24 07:00 05/26/24 07:37
Physical Exam
Exam
General: No Apparent Distress and Other (chronically ill appearing elderly female)
HEENT: Normocephalic, Anicteric and Atraumatic
Respiratory: Clear
Cardiac: S1/S2 and Regular Rhythm
Breast: Deferred by me
GI: Soft, Normal Bowel Sounds, Tender (generalized throughout the abdomen ) and Distended (softly distended)
Rectal: Deferred by Provider
Skin: Warm and Dry
Neuro: Awake, Alert and Other (forgetful)
Psych: Calm
Results
WBC 17.6 10^3/uL (4.8-10.8) H 05/26/24 06:31
Hgb 14.5 g/dL (12.0-16.0) 05/26/24 06:31
Hct 40.8 % (37.0-47.0) 05/26/24 06:31
MCV 94.4 fL (81.0-99.0) 05/26/24 06:31
Plt Count 501 10^3/uL (130-400) H 05/26/24 06:31
Absolute Neuts (auto) 11.9 10^3/uL (1.4-6.5) H 05/26/24 06:31
Sodium Cancelled 05/26/24 16:37
Potassium Cancelled 05/26/24 16:37
Chloride Cancelled 05/26/24 16:37
Carbon Dioxide Cancelled 05/26/24 16:37
BUN Cancelled 05/26/24 16:37
Creatinine Cancelled 05/26/24 16:37
Calcium Cancelled 05/26/24 16:37
Total Bilirubin 1.7 mg/dl (0.2-1.3) H 05/26/24 06:31
AST 39 U/L (14-36) H 05/26/24 06:31
ALT 50 U/L (0-35) H 05/26/24 06:31
Alkaline Phosphatase 108 U/L (38-126) 05/26/24 06:31
Lipase 677 U/L (23-300) H 05/26/24 06:31
Diagnostic Image Results:
05/26/24 CT C/A/P w/IV contrast: IMPRESSION:
1. Findings suggesting acute interstitial edematous pancreatitis in the appropriate clinical context.
2. No acute intrathoracic process.
Prior GI Procedures:
EGD: none on file
Colonoscopy: 06/17/2010 Dr. Santamaria: Sig tics, otherwise normal
Assessment / Plan
-
The pt is a 73 yo female with a PMH significant for rheumatoid arthritis on chronic prednisone, chronic opioid on buprenorphine patch, hypertension, history of DVT on Eliquis, CHF, moderate aortic stenosis, pulmonary hypertension, neuropathy, recent
admission for pneumonia/UTI on antibiotics discharged on 05/20/2024, anxiety, depression, GERD, DM2 (hgb A1C 8.2), who presented to the ER with complaints of weakness and abdominal pain, found to have hyponatremia and CT imaging suggesting acute
uncomplicated pancreatitis, which we are being asked to evaluate for. She has prior history of pancreatitis in 2019 of unclear etiology with normal triglycerides and IgG4 level. She had not been drinking alcohol at that time. She had repeat CT
imaging several months after her first admission which showed a 1.3 cm pancreatic cyst and 1.1 cm pancreatic cyst that was advised to follow-up with MRI imaging. She denies any alcohol use currently. Only recent changes in medications include
antibiotics with Augmentin and increase in her prednisone dosing. She has reportedly had ongoing pain for about 2 months.
Problem list:
-weakness
-abdominal pain, CT showing acute uncomplicated pancreatitis (2nd episode)
-Hx Pancreatic cyst (seen in [address]) with PD dilation 4mm
-Recent admission for sepsis (pneumonia v UTI)
-Leukocytosis, likely secondary to steroid
-Hyponatremia
-Mild transaminitis
-Elevated bilirubin, primarily indirect
-RA on chronic prednisone
-former cigarette smoker
-hx acute DVT on eliquis
Other pertinent medical history:
-Hypertension
-CHF
-Moderate
-Pulmonary hypertension
-Neuropathy
-Chronic pain
-Depression, anxiety
-GERD
-Type 2 diabetes
Recommendations:
-Etiology of pancreatitis unclear, with no alcohol use or new medications. She is on prednisone and hydrochlorothiazide which can induce pancreatitis although are class III and she has been on these chronically, but did have higher dose of
prednisone recently for admission with possible COPD exacerbation. This is her second episode of pancreatitis. Had prior imaging in 2019 that suggested presence of 2 pancreatic cyst measuring 1.3 cm and 1.1 cm in the body and uncinate process.
She did not have follow-up after that admission as recommended. Historically IgG4 level was normal in 2019.
-At this time would place on clear liquid diet advance as tolerated to low-fat diet. At the time of my evaluation she did not have an appetite and still feels tender therefore would start with clear liquids
-Check triglyceride levels
-Ideally will need further imaging, with ultrasound versus MRI. Given history of pancreatic cyst would likely benefit more from MRI with MRCP to rule out any biliary etiology for her pancreatitis and re-evaluate the cysts seen in 2019. Will review
with Dr. Thurman
-Trend LFTs
-She should continue to abstain from alcohol
-IV fluids as per hospitalist given hyponatremia management (avoid fluid volume overload)
-Encourage ambulation as tolerated
-Given FH colon cancer (mother) she should have a colonoscopy at some point outpatient as it has been 14 years since her last.
-Further management pending above
Data Reviewed
-
CT Scan: Report Reviewed by me
Old Records: Reviewed
-
-
Thank you for consultation and allowing me to participate in the patient's care. Please call the mechanical applications engineer GI physician during the after hours with any questions or concerns.
[2024-05-26 11:36] LABS: HDL Cholesterol 37 mg/dl; Total Cholesterol 139 mg/dl (50-199)
[2024-05-26 12:00] VITALS: BP 104/63; PULSE 69
[2024-05-26] MEDS: NSS 1000 IV ×2 (12:02→23:47)
[2024-05-26 13:07] LABS: Blood Urea Nitrogen 17 mg/dl (7-17); Carbon Dioxide 25 mmol/L (22-30); Chloride 92 mmol/L (98-107); Estimated Creatinine Clearance 73 ml/min; Glucose 202 mg/dl (70-99); Potassium 3.8 mmol/L (3.5-5.1); Sodium 126 mmol/L (135-145); Triglycerides 127 mg/dl (10-149); eGFR > 60.00
[2024-05-26 13:20] LABS: LDL Cholesterol, Calculated 75 mg/dl; Triglyceride 135 mg/dl (10-149); Very Low Density Lipoprotein 27 mg/dl (0-30)
[2024-05-26 15:00] VITALS: BP 115/68
[2024-05-26 16:26] LABS: Blood Urea Nitrogen 15 mg/dl (7-17); Calcium 8.8 mg/dl (8.4-10.2); Carbon Dioxide 27 mmol/L (22-30); Chloride 95 mmol/L (98-107); Estimated Creatinine Clearance 73 ml/min; Glucose 195 mg/dl (70-99); Sodium 126 mmol/L (135-145); eGFR > 60.00
[2024-05-26 19:34] LABS: Blood Urea Nitrogen 14 mg/dl (7-17); Calcium 8.7 mg/dl (8.4-10.2); Carbon Dioxide 29 mmol/L (22-30); Chloride 94 mmol/L (98-107); Estimated Creatinine Clearance 73 ml/min; Glucose 224 mg/dl (70-99); Potassium 4.1 mmol/L (3.5-5.1); Sodium 128 mmol/L (135-145); eGFR > 60.00
[2024-05-26 23:12] VITALS: BP 116/67
[2024-05-26 23:26] LABS: Blood Urea Nitrogen 12 mg/dl (7-17); Calcium 8.7 mg/dl (8.4-10.2); Carbon Dioxide 25 mmol/L (22-30); Chloride 97 mmol/L (98-107); Estimated Creatinine Clearance 73 ml/min; Glucose 263 mg/dl (70-99); Potassium 3.8 mmol/L (3.5-5.1); Sodium 128 mmol/L (135-145); eGFR > 60.00
[2024-05-27 07:37] LABS: % Basophils 0.6 % (0-2); % Eosinophils 2.8 % (0-6); % Immature Granulocytes 1.8 % (0-0.5); % Lymphocytes 28.4 % (20.5-51.1); % Monocytes 7.7 % (1.7-9.3); % Neutrophils 58.7 % (42.2-75.2); Absolute Basophils 0.1 10^3/uL (0-0.2); Absolute Eosinophils 0.4 10^3/uL (0-0.7); Absolute Immature Granulocytes 0.2 10^3/uL (0-0.05); Absolute Lymphocytes 3.8 10^3/uL (1.2-3.4); Absolute Neutrophils 7.9 10^3/uL (1.4-6.5); Hemoglobin 13.3 g/dL (12.0-16.0); Mean Corp Hgb Conc. 35.9 g/dL (33.0-37.0); Mean Corpuscular Hgb 33.8 pg (27.0-31.0); Mean Corpuscular Volume 94.1 fL (81.0-99.0); Mean Platelet Volume 9.8 fL (7.4-10.4); Nucleated Red Blood Cells % 0.1 %; Platelet Count 404 10^3/uL (130-400); Red Blood Cell Count 3.93 10^6/uL (4.20-5.40); Red Cell Dist. Width 12.6 % (11.5-14.5); White Blood Cell Count 13.4 10^3/uL (4.8-10.8)
[2024-05-27] MEDS: SYMBICORT 160/4.5 MCG INHALER 2 PUFF INH ×2 (07:38→20:29)
[2024-05-27 07:51] VITALS: BP 114/54
[2024-05-27 07:56] LABS: ALT (SGPT) 39 U/L (0-35); AST (SGOT) 35 U/L (14-36); Albumin 2.8 g/dl (3.5-5.0); Alkaline Phosphatase 94 U/L (38-126); Blood Urea Nitrogen 9 mg/dl (7-17); Calcium 8.4 mg/dl (8.4-10.2); Carbon Dioxide 24 mmol/L (22-30); Chloride 102 mmol/L (98-107); Estimated Creatinine Clearance 73 ml/min; Glucose 155 mg/dl (70-99); Lipase 307 U/L (23-300); Potassium 3.6 mmol/L (3.5-5.1); Sodium 130 mmol/L (135-145); Total Protein 5.2 g/dl (6.3-8.2); eGFR > 60.00
[2024-05-27] MEDS: NEURONTIN 800 MG PO ×3 (07:56→21:22)
[2024-05-27] MEDS: PROTONIX 40 MG PO (07:56)
[2024-05-27] MEDS: ALDACTONE 25 MG PO (07:57)
[2024-05-27] MEDS: TENORMIN 50 MG PO (07:57)
[2024-05-27] MEDS: ASPIR LOW (ENTERIC COATED) 81 MG PO (07:57)
[2024-05-27] MEDS: OSCAL 500 + D 500 MG PO (07:58)
[2024-05-27] MEDS: ELIQUIS 5 MG PO ×2 (07:58→21:22)
[2024-05-27 09:11] LABS: Osmolality Urine 281 mOsm/kg (300-900)
[2024-05-27 09:20] LABS: Urine Sodium 6 mmol/L (30-90)
--- NOTE | 2024-05-27 10:39 | W.PN.HOSP.TC ---
Today's Communication/Plan
-
cont IVF
MRCP
Assessment / Plan
Assessment / Plan
73yo F with PMHx of opioid dependence on SUbaxone, neuropathy, RA on chronic prednisone, HTN, recent admission for UTI and pneumonia (discharged on 05/20/24),DVT on ELiquis was sent from home by [facility] since they were concerned that she is too weak and
cannot even ambulate. SHe was discharged from to [facility] but then sent home 2 days prior to this admisison. In ED patient was found hyponatremic with leukocytosis, possible residual pneumonia on XR not proven on CT
FOund edematous pancreatitis
With generalized weakness - might need placement.
A/P:
#Generalized weakness
#Mild abdomninal pain
#bilirubinemia
#mild transaminitis
#Acute edematous pancreatitis
#hx of pancreatic cyst
follow LFT
Bcx neg to date
LDH WNL
PT/OT and eventual placement
UA not suggesting of infection
Sludge in gall bladder
Mild hypercalcemia improving
Triglycerides WNL
GI consult: MRCP pending
#Leukocytosis
most likely 2/2 chronic steroids
No fever
Monitor CBC
Procal neg - Zosyn stopped
#Stable 8mm RLL nodule
#b/l renal cysts
compared with 2019
No further mgmt advised
#Chronic T6, L1 compression Fx
#Hyponatremia (hemoconcentration, calcium in ULN)
BMP q4h
Repeated serum osm and Na markadly improved on hydration - most likely hypovolemic hyponatremia, restart PM Cymbalta to avoid withdrawal and monitor
Hold HCTZ, cont Aldactone (weak diuretic properties)
Target sodium increase by 4-6meq per 24h
#Thrombocytosis
reactive vs hemoconcentration
#Chronic HFpEF
#Pulmonary HTN
#Moderate
#RA on chronic prednisone
#Hx of VTE
#Opioid dependency
#COPD not in exacerbation
#Essential HTN
cont home meds
DVT ppx on eliquis
FUll code
I have spent at least 58min reviewing chart, test results and providing direct patient care
Anticipated Discharge: > 48 hours
Subjective/Interval History
-
Date of Service: May 27, 2024
Objective Data
-
Labs:
Laboratory Results
05/26/24 05/27/24
22:43 07:23
WBC 13.4 H
Hgb 13.3
Hct 37.0
Plt Count 404 H
Sodium 128 L 130 L
Potassium 3.8 3.6
Chloride 97 L 102
Carbon Dioxide 25 24
BUN 12 9
Creatinine 0.5 L 0.5 L
Glucose 263 H 155 H
Calcium 8.7 8.4
Total Bilirubin 1.0
AST 35
ALT 39 H
Alkaline Phosphatase 94
Vital Signs:
Vital Signs
Temp Pulse Resp BP Pulse Ox
97.4 F 68 16 114/54 95
05/27/24 07:51 05/27/24 07:51 05/27/24 07:51 05/27/24 07:57 05/27/24 07:51
I&O
05/26/24 05/27/24 05/28/24
06:59 06:59 06:59
Intake Total 240 / 240 240 / 240 900 / 900
Balance 240 / 240 240 / 240 900 / 900
Review of Systems
-
History Source: Patient
All other systems: Reviewed and negative
Constitutional: Reports Fatigue
Physical Exam
-
General: No Apparent Distress
HEENT: Normocephalic and Atraumatic
Respiratory: Clear to Auscultation
Cardiac: Regular Rhythm
GI: Soft and Tender (in epigastrium)
Genito-urinary: No Costovertebral Tender
Musculoskeletal: No Clubbing, No Cyanosis and No Edema
Skin: Warm
Neuro: Awake, Alert, Oriented and AO x 3
Psych: Calm
--- NOTE | 2024-05-27 10:58 | W.PN.GI.CBS2 ---
Today's Communication / Plan
-
MRI today
continue to trend labs
low fat diet as tolerated
Assessment / Plan
-
The pt is a 73 yo female with a PMH significant for rheumatoid arthritis on chronic prednisone, chronic opioid on buprenorphine patch, hypertension, history of DVT on Eliquis, CHF, moderate aortic stenosis, pulmonary hypertension, neuropathy, recent
admission for pneumonia/UTI on antibiotics discharged on 05/20/2024, anxiety, depression, GERD, DM2 (hgb A1C 8.2), who presented to the ER with complaints of weakness and abdominal pain, found to have hyponatremia and CT imaging suggesting acute
uncomplicated pancreatitis, which we are being asked to evaluate for. She has prior history of pancreatitis in 2019 of unclear etiology with normal triglycerides and IgG4 level. She had not been drinking alcohol at that time. She had repeat CT
imaging several months after her first admission which showed a 1.3 cm pancreatic cyst and 1.1 cm pancreatic cyst that was advised to follow-up with MRI imaging. She denies any alcohol use currently. Only recent changes in medications include
antibiotics with Augmentin and increase in her prednisone dosing. She has reportedly had ongoing pain for about 2 months.
Problem list:
-weakness
-abdominal pain, CT showing acute uncomplicated pancreatitis (2nd episode)
-Hx Pancreatic cyst (seen in [address]) with PD dilation 4mm
-Recent admission for sepsis (pneumonia v UTI)
-Leukocytosis, likely secondary to steroid
-Hyponatremia
-Mild transaminitis
-Elevated bilirubin, primarily indirect
-RA on chronic prednisone
-former cigarette smoker
-hx acute DVT on eliquis
Other pertinent medical history:
-Hypertension
-CHF
-Moderate
-Pulmonary hypertension
-Neuropathy
-Chronic pain
-Depression, anxiety
-GERD
-Type 2 diabetes
Recommendations:
-second episode of acute pancreatitis etiology unclear she denies alcohol use and workup in 2019 was also essentially unremarkable no GS and nl TG, nl IgG4. Repeat triglyceride levels and calcium are again normal. will also get MRI with MRCP she
had pancreatic cyst on prior imaging in 2019 but not noted on CT this admission. She has been on chronic steroids for RA and on HCTZ but no recent change in medications other than the recent use of antibiotics for her pneumonia and UTI was on
Augmentin and doxycycline doubt that it's medication related but hold HCTZ for now.
-Continue IV hydration she is actually tolerating diet and her pain seems to have improving.
-LFTS and lipase trending down
-may need EUS based on repeat MRI results
-Given FH colon cancer (mother) she should have a colonoscopy at some point outpatient as it has been 14 years since her last.
Subjective
Subjective
Date of Service: May 27, 2024
complains of mild epigastric pain, no nausea or vomiting reported, for MRI today
Objective
Data Reviewed
Laboratory Data:
Laboratory Results
05/27/24 07:23
05/27/24 07:23
Laboratory Results
Total Bilirubin 1.0 mg/dl (0.2-1.3) 05/27/24 07:23
AST 35 U/L (14-36) 05/27/24 07:23
ALT 39 U/L (0-35) H 05/27/24 07:23
Alkaline Phosphatase 94 U/L (38-126) 05/27/24 07:23
Lipase 307 U/L (23-300) H 05/27/24 07:23
Vital Signs and I&O:
Vital Signs
Temp Pulse Resp BP Pulse Ox
97.4 F 68 16 114/54 95
05/27/24 07:51 05/27/24 07:51 05/27/24 07:51 05/27/24 07:57 05/27/24 07:51
I&O
05/26/24 05/27/24 05/28/24
06:59 06:59 06:59
Intake Total 240 / 240 240 / 240 900 / 900
Balance 240 / 240 240 / 240 900 / 900
Physical Exam
Physical Exam
Cardiology: Normal Sinus Rhythm
Pulmonary: Clear
GI: Soft, Non Distended, Tender (Mild epigastric tenderness) and Normal Bowel Sounds
[2024-05-27] MEDS: DELTASONE 5 MG PO (11:32)
[2024-05-27] MEDS: NSS 1000 IV (13:00)
[2024-05-27 15:00] VITALS: BP 110/57
[2024-05-27] MEDS: CYMBALTA DELAYED RELEASE 60 MG PO (17:23)
[2024-05-27] MEDS: TYLENOL 650 MG PO (23:07)
[2024-05-27 23:25] VITALS: BP 124/49
[2024-05-28] MEDS: SYMBICORT 160/4.5 MCG INHALER 2 PUFF INH ×2 (07:26→20:10)
[2024-05-28 07:34] VITALS: BP 122/69
[2024-05-28] MEDS: OSCAL 500 + D 500 MG PO (07:57)
[2024-05-28] MEDS: ELIQUIS 5 MG PO ×2 (07:57→21:57)
[2024-05-28] MEDS: DELTASONE 5 MG PO (07:57)
[2024-05-28] MEDS: ASPIR LOW (ENTERIC COATED) 81 MG PO (07:57)
[2024-05-28] MEDS: NEURONTIN 800 MG PO ×3 (07:57→21:57)
[2024-05-28] MEDS: ALDACTONE 25 MG PO (07:58)
[2024-05-28] MEDS: TENORMIN 50 MG PO (07:58)
[2024-05-28] MEDS: PROTONIX 40 MG PO (07:59)
[2024-05-28] MEDS: TYLENOL 650 MG PO ×2 (08:03→21:57)
--- NOTE | 2024-05-28 08:13 | W.PN.GI.CBS2 ---
Today's Communication / Plan
-
continue diet
f/u as OP
Assessment / Plan
-
The pt is a 73 yo female with a PMH significant for rheumatoid arthritis on chronic prednisone, chronic opioid on buprenorphine patch, hypertension, history of DVT on Eliquis, CHF, moderate aortic stenosis, pulmonary hypertension, neuropathy, recent
admission for pneumonia/UTI on antibiotics discharged on 05/20/2024, anxiety, depression, GERD, DM2 (hgb A1C 8.2), who presented to the ER with complaints of weakness and abdominal pain, found to have hyponatremia and CT imaging suggesting acute
uncomplicated pancreatitis, which we are being asked to evaluate for. She has prior history of pancreatitis in 2019 of unclear etiology with normal triglycerides and IgG4 level. She had not been drinking alcohol at that time. She had repeat CT
imaging several months after her first admission which showed a 1.3 cm pancreatic cyst and 1.1 cm pancreatic cyst that was advised to follow-up with MRI imaging. She denies any alcohol use currently. Only recent changes in medications include
antibiotics with Augmentin and increase in her prednisone dosing. She has reportedly had ongoing pain for about 2 months.
Problem list:
-weakness
-abdominal pain, CT showing acute uncomplicated pancreatitis (2nd episode)
-Hx Pancreatic cyst (seen in [address]) with PD dilation 4mm
-Recent admission for sepsis (pneumonia v UTI)
-Leukocytosis, likely secondary to steroid
-Hyponatremia
-Mild transaminitis
-Elevated bilirubin, primarily indirect
-RA on chronic prednisone
-former cigarette smoker
-hx acute DVT on eliquis
Other pertinent medical history:
-Hypertension
-CHF
-Moderate
-Pulmonary hypertension
-Neuropathy
-Chronic pain
-Depression, anxiety
-GERD
-Type 2 diabetes
Recommendations:
-second episode of acute pancreatitis etiology unclear she denies alcohol use and workup in 2019 was also essentially unremarkable no GS and nl TG, nl IgG4 in 2019. Repeat triglyceride levels and calcium are again normal. she had pancreatic cyst on
prior imaging in 2019 but not noted [address] or MRI this admission. Repeat MRI shows possible gallbladder sludge could have passed a small stone or sludge or could be medication related she was on recent antibiotics for pneumonia and UTI or could be
related to HCTZ continue to hold HCTZ. No choledocholithiasis seen on MRCP.
-tolerating diet and her pain seems to have improved.
-LFTS and lipase trending down
-Given FH colon cancer (mother) she should have a colonoscopy outpatient as it has been 14 years since her last.
-Fatty liver w/u as OP including possible FIBROSCAN
-will s/o and will be available as needed
Subjective
Subjective
Date of Service: May 28, 2024
Symptoms are much improved she looks more awake and alert also. Her abdominal pain has improved she says that the pain actually improves with eating no nausea vomiting
Objective
Data Reviewed
Laboratory Data:
Laboratory Results
Total Bilirubin 1.0 mg/dl (0.2-1.3) 05/27/24 07:23
AST 35 U/L (14-36) 05/27/24 07:23
ALT 39 U/L (0-35) H 05/27/24 07:23
Alkaline Phosphatase 94 U/L (38-126) 05/27/24 07:23
Lipase 307 U/L (23-300) H 05/27/24 07:23
Vital Signs and I&O:
Vital Signs
Temp Pulse Resp BP Pulse Ox
98.7 F 59 18 122/69 96
05/28/24 07:34 05/28/24 07:58 05/28/24 07:34 05/28/24 07:58 05/28/24 07:34
I&O
05/27/24 05/28/24 05/29/24
06:59 06:59 06:59
Intake Total 240 / 240 3000 / 3000
Output Total 250 / 250
Balance 240 / 240 2750 / 2750
05/27/24 MR Abdomen W/o & W Contrast
IMPRESSION:
1. No MRCP evidence for choledocholithiasis. Mild sludge in the gallbladder lumen, but no appreciable cholelithiasis.
2. Mild acute interstitial edematous pancreatitis without evidence for a loculated peripancreatic fluid collection or pancreatic necrosis.
3. Severe hepatic steatosis. Small cysts in the right hepatic lobe
Bilateral renal cysts. No hydronephrosis.
Chronic degenerative changes of the spine. Moderate lumbar dextroscoliosis.
Physical Exam
Physical Exam
Cardiology: Normal Sinus Rhythm
Pulmonary: Clear
GI: Soft, Non Distended, Non Tender and Normal Bowel Sounds
--- NOTE | 2024-05-28 08:31 | VNURNOTE ---
Chart reviewed. Patient is current with VN. Plan appears to be d/c to SNF due to unable to care for self at home. Will continue to monitor hospital course.
[2024-05-28 08:57] LABS: % Basophils 0.5 % (0-2); % Eosinophils 2.7 % (0-6); % Immature Granulocytes 1.1 % (0-0.5); % Lymphocytes 33.8 % (20.5-51.1); % Monocytes 9.8 % (1.7-9.3); % Neutrophils 52.1 % (42.2-75.2); Absolute Basophils 0.1 10^3/uL (0-0.2); Absolute Eosinophils 0.3 10^3/uL (0-0.7); Absolute Immature Granulocytes 0.1 10^3/uL (0-0.05); Absolute Lymphocytes 3.9 10^3/uL (1.2-3.4); Absolute Monocytes 1.1 10^3/uL (0.1-0.6); Absolute Neutrophils 6.1 10^3/uL (1.4-6.5); Hematocrit 34.5 % (37.0-47.0); Hemoglobin 11.9 g/dL (12.0-16.0); Mean Corp Hgb Conc. 34.5 g/dL (33.0-37.0); Mean Corpuscular Hgb 33.6 pg (27.0-31.0); Mean Corpuscular Volume 97.5 fL (81.0-99.0); Mean Platelet Volume 10.1 fL (7.4-10.4); Nucleated Red Blood Cells % 0 %; Platelet Count 391 10^3/uL (130-400); Red Blood Cell Count 3.54 10^6/uL (4.20-5.40); White Blood Cell Count 11.6 10^3/uL (4.8-10.8)
[2024-05-28 09:37] LABS: ALT (SGPT) 32 U/L (0-35); AST (SGOT) 28 U/L (14-36); Albumin 2.6 g/dl (3.5-5.0); Alkaline Phosphatase 94 U/L (38-126); Blood Urea Nitrogen 6 mg/dl (7-17); Calcium 8.4 mg/dl (8.4-10.2); Carbon Dioxide 27 mmol/L (22-30); Chloride 102 mmol/L (98-107); Estimated Creatinine Clearance 73 ml/min; Glucose 155 mg/dl (70-99); Lipase 370 U/L (23-300); Potassium 3.9 mmol/L (3.5-5.1); Sodium 131 mmol/L (135-145); Total Bilirubin 0.7 mg/dl (0.2-1.3); Total Protein 4.9 g/dl (6.3-8.2); eGFR > 60.00
--- NOTE | 2024-05-28 11:16 | PN.CDI ---
CDI
- -
CDI:
Physician Documentation Request
Admit Date: 05/25/24 18:28
Dear Doctor Mel,
Please review the following and provide your response in the progress notes.
Clinical Indicators:
Pt admitted with weakness and acute pancreatitis.
RN initial assessment note stage 1 bilateral heel pressure injuries POA.
Physician documentation of the type and location of wounds is required for compliant documentation. Based on the above clinical findings and your assessment, please provide the following in your progress note:
Stage 1 bilateral heel pressure injuries POA
bilateral heel non-pressure ulcers
Other
Use of terms such as suspected, likely, concern for, or probable (associated with a specific diagnosis that is being evaluated, monitored, or treated as if it exists) are acceptable and can be coded in the inpatient setting, when documented at the
time of discharge.
Thank you,
Gina Zepeda RN, BSN
CDI Specialist
Available via tiger text
Please use your independent medical judgment in providing your response.
*Source: National Pressure Ulcer Advisory Panel (NPUAP)
[2024-05-28 11:47] VITALS: BP 135/76
[2024-05-28 11:48] VITALS: BP 135/76; O2SAT 95
[2024-05-28] MEDS: NSS 1000 IV ×2 (12:19→23:16)
--- NOTE | 2024-05-28 12:49 | W.PN.HOSP.TC ---
Today's Communication/Plan
-
One more day of hydration
CM for placement
Assessment / Plan
Assessment / Plan
73yo F with PMHx of opioid dependence on SUbaxone, neuropathy, RA on chronic prednisone, HTN, recent admission for UTI and pneumonia (discharged on 05/20/24),DVT on ELiquis was sent from home by [facility] since they were concerned that she is too weak and
cannot even ambulate. SHe was discharged from to [facility] but then sent home 2 days prior to this admisison. In ED patient was found hyponatremic with leukocytosis, possible residual pneumonia on XR not proven on CT
Found edematous pancreatitis that is improving
With generalized weakness - might need placement.
A/P:
#Generalized weakness
#Mild abdominal pain
#bilirubinemia
#mild transaminitis 2/2 hepatic steatosis
#Acute edematous pancreatitis
#hx of pancreatic cyst
#Fatty liver
follow LFT, hepC Ab neg
Bcx neg to date
LDH WNL
PT/OT and eventual placement
UA not suggesting of infection
Sludge in gall bladder
Mild hypercalcemia improving
Triglycerides WNL
GI consult: MRCP without cystic findings on pancreas, outpatient follow up
#Leukocytosis
most likely 2/2 chronic steroids
No fever
Monitor CBC
Procal neg - Zosyn stopped
#Stable 8mm RLL nodule
#b/l renal cysts
compared with 2019
No further mgmt advised
#Chronic T6, L1 compression Fx
PT/OT
#Hyponatremia (hemoconcentration, calcium in ULN)
BMP q4h
Repeated serum osm and Na markadly improved on hydration - most likely hypovolemic hyponatremia, restart PM Cymbalta to avoid withdrawal and monitor
Hold HCTZ, cont Aldactone (weak diuretic properties)
Target sodium increase by 4-6meq per 24h
#Thrombocytosis
reactive vs hemoconcentration
#b/l renal lesions
some simple cysts, some too small to characterize
Outpatient follow up with PCP
#Chronic HFpEF
#Pulmonary HTN
#Moderate
#RA on chronic prednisone
#Hx of VTE
#Opioid dependency
#COPD not in exacerbation
#Essential HTN
cont home meds
#stage 1 bilateral heel pressure injuries POA
Wound care
DVT ppx on eliquis
FUll code
I have spent at least 58min reviewing chart, test results and providing direct patient care
Anticipated Discharge: 24 - 48 hours
Subjective/Interval History
-
Date of Service: May 28, 2024
Objective Data
-
Labs:
Laboratory Results
05/28/24
07:52
WBC 11.6 H
Hgb 11.9 L
Hct 34.5 L
Plt Count 391
Sodium 131 L
Potassium 3.9
Chloride 102
Carbon Dioxide 27
BUN 6 L
Creatinine 0.5 L
Glucose 155 H
Calcium 8.4
Total Bilirubin 0.7
AST 28
ALT 32
Alkaline Phosphatase 94
Vital Signs:
Vital Signs
Temp Pulse Resp BP Pulse Ox
98.7 F 59 18 122/69 96
05/28/24 07:34 05/28/24 07:58 05/28/24 07:34 05/28/24 07:58 05/28/24 07:34
I&O
05/27/24 05/28/24 05/29/24
06:59 06:59 06:59
Intake Total 240 / 240 3000 / 3000
Output Total 250 / 250
Balance 240 / 240 2750 / 2750
Review of Systems
-
History Source: Patient
All other systems: Reviewed and negative
Physical Exam
-
General: No Apparent Distress
HEENT: Normocephalic, Atraumatic and Moist Mucous Membranes
Respiratory: Clear to Auscultation
Cardiac: Regular Rhythm
GI: Soft, Nontender and Nondistended
Genito-urinary: No Costovertebral Tender
Musculoskeletal: No Clubbing, No Cyanosis and No Edema
Skin: Warm
Neuro: Awake, Alert, Oriented and AO x 3
Psych: Calm
--- NOTE | 2024-05-28 14:42 | CM ---
Patient seen bedside.
Patient for possible d/c tomorrow.
Will need to update auth when cleared for d/c.
Domonique tracy [facility] updated, updated clinicals via [facility].
Plan: skilled rehab once stable.
[2024-05-28 15:46] VITALS: BP 127/64
--- NOTE | 2024-05-28 16:00 | WOUNDNOTE ---
WALLY RN note: Patient admitted with hyponatremia.
See H&P for complete history. Lives with boyfriend states patient, assists with care.
PMH: neuropathy, pneumonia, HTN, diarrhea, UTI stomach ulcers and RA.
Wound Location and type/assessment: Patient admitted with: MASD on buttocks, patient confirms she is incontinent at times, has used bedpan. On L buttock has linear line of dark maroon, suspect from bed marr use. Patient states at home she has been
bed ridden for several weeks used bed marr. Able to ambulate with PT today to chair patient reports. Heels blanchable red. Lower back with fungal appearing rash.
Appetite: Good.
Pressure redistribution devices in place: Air overlay, reinflated. Bariatric air chair cushion brought into rm. Patient made aware can take upon discharge. Patient able to turn self in bed, encouraged offloading q few hrs.
Plan: Will order fungal powder for lower back and buttocks. Silicone foam applied to L buttock and adhesive foams to heels. Will confirm orders with hospitalist and update nurse. Updated care plan and will follow as needed.
Note to case management of equipment requested for discharge: None.
Recommend follow up at wound care center if needed upon discharge.
--- NOTE | 2024-05-28 16:01 | WOUNDNOTE ---
BUTTOCKS AND SACRUM
[2024-05-28] MEDS: CYMBALTA DELAYED RELEASE 60 MG PO (17:05)
[2024-05-28] MEDS: DESENEX/MITRAZOL/ZEASORB 1 APPLIC TOPICAL (21:58)
[2024-05-28 23:25] VITALS: BP 129/72
--- NOTE | 2024-05-29 07:27 | W.PN.HOSP.TC ---
Today's Communication/Plan
-
Discharge today
Assessment / Plan
Assessment / Plan
Physical Exam
General: No Apparent Distress
HEENT: Normocephalic, Atraumatic and Moist Mucous Membranes
Respiratory: Clear to Auscultation
Cardiac: S1 and S2. Regular Rhythm
GI: Soft, Nontender and Nondistended. Positive bowel sounds.
Musculoskeletal: No Cyanosis and No Edema
Skin: Warm. Dry.
Neuro: Awake, Alert, Oriented and AO x 3
Psych: Calm

Chest X-Ray (as per radiologist's report)
IMPRESSION:
Nonspecific retrocardiac opacity which could be artifact with pneumonia not excluded. Overall, the appearance of the left lung base is improved compared to the prior study from 05/12/2024.
CT Chest/Abdomen/Pelvis (as per radiologist's report)
IMPRESSION:
1. Findings suggesting acute interstitial edematous pancreatitis in the appropriate clinical context.
2. No acute intrathoracic process.
MRI Abdomen (as per radiologist's report)
IMPRESSION:
1. No MRCP evidence for choledocholithiasis.
2. Mild acute interstitial edematous pancreatitis without evidence for a loculated peripancreatic fluid collection or pancreatic necrosis.
3. Severe hepatic steatosis.

73yo F with PMHx of opioid dependence on SUbaxone, neuropathy, RA on chronic prednisone, HTN, recent admission for UTI and pneumonia (discharged on 05/20/24),DVT on ELiquis was sent from home by [facility] since they were concerned that she was too weak and
could not even ambulate. She was discharged from [facility] but then sent home 2 days prior to this admission. In the emergency department, patient was found to be hyponatremic with leukocytosis, possible residual pneumonia on XR not proven on CT.
Found edematous pancreatitis that is improving.
With generalized weakness - might need placement.
A/P:
#Generalized weakness
#Mild abdominal pain
#bilirubinemia
#mild transaminitis 2/2 hepatic steatosis
#Acute edematous pancreatitis
#hx of pancreatic cyst
#Fatty liver
hepC Ab neg
Recheck hepatic transaminases outpatient
Blood cultures negative to date
LDH WNL
PT/OT and eventual placement
UA not suggesting of infection
Sludge in gall bladder
Mild hypercalcemia improving
Triglycerides WNL
GI consult: MRCP without cystic findings on pancreas, outpatient follow up
Continue to hold HCTZ
Follow-up closely with GI outpatient
#Leukocytosis
most likely 2/2 chronic steroids
No fever
Monitor CBC
Procal neg - Zosyn stopped
#Stable 8mm RLL nodule
#b/l renal cysts
compared with 2019
No further mgmt advised
#Chronic T6, L1 compression Fx
PT/OT
#Hyponatremia - RESOLVED
Repeated serum osm and Na markadly improved on hydration - most likely hypovolemic hyponatremia, restart PM Cymbalta to avoid withdrawal and monitor
Hold HCTZ, cont Aldactone (weak diuretic properties)
#Thrombocytosis
reactive vs hemoconcentration
#b/l renal lesions
some simple cysts, some too small to characterize
Outpatient follow up with PCP
#Chronic HFpEF
#Pulmonary HTN
#Moderate
#RA on chronic prednisone
#Hx of VTE
#Opioid dependency
#COPD not in exacerbation
#Essential HTN
cont home meds except HCTZ (risk of pancreatitis)
#Right Lower Lobe Pulmonary Nodule
#Hepatic Steatosis
#stage 1 bilateral heel pressure injuries POA
Wound care
DVT ppx on eliquis
Full code
More than 30 minutes spent in discharge including
Final examination of the patient
Summarizing hospital stay
Instructions for continuing care to all relevant caregivers
Preparation of discharge records, prescriptions, and referral forms
Total time spent (in minutes): 39
Anticipated Discharge: Today
Subjective/Interval History
-
Date of Service: May 29, 2024
Patient was seen and examined. She reported no new symptoms or complaints.
Objective Data
-
Labs:
Laboratory Results
05/29/24
07:01
WBC Pending
Hgb Pending
Hct Pending
Plt Count Pending
Sodium Pending
Potassium Pending
Chloride Pending
Carbon Dioxide Pending
BUN Pending
Creatinine Pending
Glucose Pending
Calcium Pending
Total Bilirubin Pending
AST Pending
ALT Pending
Alkaline Phosphatase Pending
Vital Signs:
Vital Signs
Temp Pulse Resp BP Pulse Ox
98.2 F 72 18 129/72 95
05/28/24 23:25 05/28/24 23:25 05/28/24 23:25 05/28/24 23:25 05/28/24 23:25
I&O
05/28/24 05/29/24 05/30/24
06:59 06:59 06:59
Intake Total 3000 / 3000 1530 / 1530
Output Total 250 / 250
Balance 2750 / 2750 1530 / 1530
[2024-05-29] MEDS: PROTONIX 40 MG PO (07:48)
[2024-05-29] MEDS: DELTASONE 5 MG PO (07:48)
[2024-05-29] MEDS: NEURONTIN 800 MG PO ×2 (07:48→15:47)
[2024-05-29] MEDS: ELIQUIS 5 MG PO (07:48)
[2024-05-29] MEDS: OSCAL 500 + D 500 MG PO (07:48)
[2024-05-29] MEDS: ASPIR LOW (ENTERIC COATED) 81 MG PO (07:49)
[2024-05-29] MEDS: DESENEX/MITRAZOL/ZEASORB 1 APPLIC TOPICAL (07:49)
[2024-05-29] MEDS: ALDACTONE 25 MG PO (07:51)
[2024-05-29 07:52] LABS: Hematocrit 36.3 % (37.0-47.0); Hemoglobin 12.4 g/dL (12.0-16.0); Mean Corp Hgb Conc. 34.2 g/dL (33.0-37.0); Mean Corpuscular Hgb 33.7 pg (27.0-31.0); Mean Corpuscular Volume 98.6 fL (81.0-99.0); Mean Platelet Volume 10.1 fL (7.4-10.4); Platelet Count 391 10^3/uL (130-400); Red Blood Cell Count 3.68 10^6/uL (4.20-5.40); White Blood Cell Count 11.5 10^3/uL (4.8-10.8)
[2024-05-29] MEDS: TENORMIN 50 MG PO (07:52)
[2024-05-29 07:54] VITALS: BP 152/78
[2024-05-29 08:13] LABS: ALT (SGPT) 32 U/L (0-35); AST (SGOT) 35 U/L (14-36); Alkaline Phosphatase 87 U/L (38-126); Blood Urea Nitrogen 4 mg/dl (7-17); Calcium 8.5 mg/dl (8.4-10.2); Carbon Dioxide 25 mmol/L (22-30); Chloride 104 mmol/L (98-107); Estimated Creatinine Clearance 73 ml/min; Glucose 147 mg/dl (70-99); Potassium 3.8 mmol/L (3.5-5.1); Sodium 135 mmol/L (135-145); Total Bilirubin 0.6 mg/dl (0.2-1.3); Total Protein 5.4 g/dl (6.3-8.2); eGFR > 60.00
[2024-05-29] MEDS: SYMBICORT 160/4.5 MCG INHALER 2 PUFF INH (08:15)
[2024-05-29 08:23] LABS: Absolute Neutrophils -Man Diff 6.6 10^3/uL (1.4-6.5); Atypical Lymphocytes 2 %; Band Neutrophils 0 % (0-3); Eosinophils 2 % (0-6); Lymphocytes 31 % (20-51); Monocytes 7 % (2-9); Normal RBC Morphology Yes; Platelets Checked Yes; Segmented Neutrophils 58 % (42-75); Total Cells Counted 100
[2024-05-29 08:57] VITALS: BMI 26.3
--- NOTE | 2024-05-29 10:32 | CM ---
TT to Dr. Santiago.
Patient to be discharged today to [facility].
Domonique called bed available today & verified she will use the same authorization #.
Transport forms filled out & on chart. Time TBD.
PLAN: Discharge today to [facility].
REPORT #: [phone] (ask for [facility] or the supervisor roller printing)
FAX #: [phone]
--- NOTE | 2024-05-29 14:50 | W.DS.TRANS ---
DC Summary - L[employer] Roller
-
Discharge Instructions:
Discharge Diagnosis/Procedures #Generalized weakness
#Mild abdominal pain
#bilirubinemia
#mild transaminitis secondary to hepatic
steatosis
#Acute edematous pancreatitis
#History of pancreatic cyst
#Fatty liver
#Leukocytosis
#Stable 8mm RLL lung nodule
#b/l renal cysts
#Chronic T6, L1 compression Fx
#Hyponatremia - RESOLVED
#Thrombocytosis
#Bilateral renal lesions
#Chronic HFpEF
#Pulmonary HTN
#Moderate
#RA on chronic prednisone
#History of VTE
#Opioid dependency
#COPD not in exacerbation
#Essential HTN
#Right Lower Lobe Pulmonary Nodule
#Hepatic Steatosis
#Stage 1 bilateral heel pressure injuries POA
Chest X-Ray (as per radiologist's report)
IMPRESSION:
Nonspecific retrocardiac opacity which could be
artifact with pneumonia not excluded. Overall,
the appearance of the left lung base is improved
compared to the prior study from 05/12/2024.
CT Chest/Abdomen/Pelvis (as per radiologist's
report)
IMPRESSION:
1. Findings suggesting acute interstitial
edematous pancreatitis in the appropriate
clinical context.
2. No acute intrathoracic process.
MRI Abdomen (as per radiologist's report)
IMPRESSION:
1. No MRCP evidence for choledocholithiasis.
2. Mild acute interstitial edematous
pancreatitis without evidence for a loculated
peripancreatic fluid collection or pancreatic
necrosis.
3. Severe hepatic steatosis.
Diet Low Fat,Diabetic, Carb Controlled,Other diet,
Restrict fluids to 48 oz
Additional Diets IDDSI Level 6 (Soft/Bite Sized), IDDSI Level 0 (
Thin) for liquids
Activity As tolerated
Driving Restrictions No driving
Blood Work Recheck CBC and BMP in the next 3 to 4 days
Other Services PT,OT
Instructions:
Stand-Alone Forms:
Changes to Home Medications: Yes
Discharge Medications:
DC Medications w/original date entered in [employer]
atenolol 50 mg tablet 50 mg PO DAILY Blood pressure 10/11/18
duloxetine 30 mg capsule,delayed release 30 mg PO DAILY neuropathic pain 04/13/19
duloxetine 60 mg capsule,delayed release 60 mg PO QPM neuropathic pain 06/30/21
budesonide-formoterol HFA 160 mcg-4.5 mcg/actuation aerosol inhaler (Symbicort) 2 puff inhalation R BID Lung/breathing issues 01/11/23
albuterol sulfate 90 mcg/actuation aerosol inhaler 2 puff inhalation R Q6HPRN PRN sob 05/12/24
calcium carbonate 600 mg-vitamin D3 62.5 mcg (2,500 unit) capsule 1 cap PO DAILY Supplement 05/12/24
inzsemyk-axn-xsqpw acid 0.4 mg-lycopene 300 mcg-lutein 250 mcg tablet (CertaVite Senior) 1 tab PO DAILY Supplement 05/12/24
prednisone 5 mg tablet 5 mg PO DAILY rheumatoid arthritis 05/12/24
spironolactone 25 mg tablet 25 mg PO DAILY Blood Pressure 05/12/24
amoxicillin 875 mg-potassium clavulanate 125 mg tablet 1 tab PO Q12 #15 tabs 05/19/24
buprenorphine 7.5 mcg/hour weekly transdermal patch 1 patch transdermal QWEEK Pain #1 ea 05/19/24
doxycycline hyclate 100 mg capsule 100 mg PO Q12 #15 caps 05/19/24
pantoprazole 40 mg tablet,delayed release 40 mg PO DAILY #30 tabs 05/19/24
hydromorphone 1 mg/mL oral liquid (Dilaudid) 1 mg PO Q6H #10 mL 05/20/24
Lactobac no.2-Bifidobac no.1-S. thermo 112.5 billion cell capsule (Visbiome) 1 cap PO HS Supplement 05/25/24
aspirin 81 mg PO DAILY Blood Clot Prevention/Tx 05/25/24
apixaban 5 mg tablet (Eliquis) 5 mg PO BID #60 tabs 05/29/24
gabapentin 800 mg tablet 600 mg (0.75 x 800 mg) PO TID Pain #0 tabs 05/29/24
Home Medication Changes
Continue Eliquis 5 mg BID.
Continue chronic prednisone 5 mg daily.
Hydrochlorothiazide has been stopped.
Gabapentin dose reduced based on renal function.
Pending Results: Yes
Additional Pending Results:
Follow-up blood culture results from hospitalization
Total time spent discharging patient (in min): 39
[2024-05-29] MEDS: PREVNAR 20 0.5 ML IM (15:36)
[2024-05-29 15:44] VITALS: BP 137/64
[2024-05-29] MEDS: NSS IV (15:53)
== END 2024-05-29 14:16 | DRG 438 ==
LOC: 4 WEST ACU 18:28
PROVIDERS: ADMITTING PHYSICIAN Internal Medicine; ATTENDING PHYSICIAN Hospitalist; CONSULT PHYSICIAN Internal Medicine Gastroenterology; EMERGENCY PHYSICIAN Emergency Medicine
DX: K85.80 Other acute pancreatitis without necrosis or infection (principal); J18.9 Pneumonia, unspecified organism; E87.1 Hypo-osmolality and hyponatremia; I50.32 Chronic diastolic (congestive) heart failure; F11.20 Opioid dependence, uncomplicated; K86.2 Cyst of pancreas; D75.839 Thrombocytosis, unspecified; I11.0 Hypertensive heart disease with heart failure; I27.20 Pulmonary hypertension, unspecified; M06.9 Rheumatoid arthritis, unspecified; J44.9 Chronic obstructive pulmonary disease, unspecified; K76.0 Fatty (change of) liver, not elsewhere classified; G89.4 Chronic pain syndrome; E86.1 Hypovolemia; L89.611 Pressure ulcer of right heel, stage 1; L89.621 Pressure ulcer of left heel, stage 1; Z79.52 Long term (current) use of systemic steroids; Z86.718 Personal history of other venous thrombosis and embolism; Z79.82 Long term (current) use of aspirin
CPT/HCPCS: 71045; 71260; 74177; 74183; 80048; 80053; 80061; 81003; 81015; 82248; 83615; 83690; 83930; 83935; 84145; 84300; 84443; 84478; 85025; 87040; 87070; 87502; 87811; 90677; 94640; 97167; 97530; 97535; 99284; A9575; G0009; Q9967

== ENCOUNTER 2024-07-23 15:20 | Inpatient (IN) | payer OTHER, SELFPAY ==
[2024-07-22] VITALS (10 sets, daily range): BP systolic 84–149; BP diastolic 45–75
[2024-07-22 16:49] LABS: Glucose - Point of Care 128 mg/dl (70-99)
--- NOTE | 2024-07-22 17:08 | ED.GENMED ---
History of Present Illness
<Rebel Qureshi MD, Resident - Last Filed: 07/23/24 17:34>
General
Chief Complaint: Musculo-Skeletal Complaint
Source: patient and records
Time Seen by Provider: 07/22/24 16:31
Travel History
Have you traveled to any high risk areas for coronavirus over the past 14 days?: No
Have you had any contact with someone who has COVID-19?: No
Do you have any symptoms of coronavirus? Fever > 100 degrees, chills, cough, shortness of breath, sore throat, loss of taste or smell, muscle aches, or headache?: No
History of Present Illness
History of Present Illness:
Gina Silva, 74-year-old female with rheumatoid arthritis, suspected osteopenia (not on treatment for either), chronic fatigue and ambulatory dysfunction, has had left-sided chest wall pain and tenderness since a few days. She was feeling weak
and felt that she had to sit down on 07-18-24. She was on the floor, unable to get up; her picked her up with a bear hug and she experienced acute left-sided frontal chest wall pain after that. The pain has continued to progress - now has
pain with deep inspiration. She has not been able to eat food since yesterday due to pain. She was feeling weak today again and was on the floor unable to get up - called EMS and was brought here. Her symptoms worsened after she stopped getting
DMARD a couple of years ago, which happened because she started experiencing difficulty keeping her appointments with the health coordinator from poorly controlled RA.
Past History
<Reebl Qureshi MD, Resident - Last Filed: 07/23/24 17:34>
Past History
ED Past Medical History: COPD, HTN and Other (rheumatoid arthritis not on treatment)
ED Past Surgical History: Gynecological and Other
Social History
Tobacco: Smoker
Alcohol: None
Drug: None
Personal:
Living: with family (Lives with significant other)
Employment: Employed
Family History
Family History: Hypertension
Review of Systems
<Rebel Qureshi MD, Resident - Last Filed: 07/23/24 17:34>
Review of Systems
All Other Systems: Not applicable
Constitutional: Reports no symptoms
EENT: Reports no symptoms
Respiratory: Reports no symptoms
Cardiac: Reports no symptoms
ABD/GI: Reports no symptoms
: Reports no symptoms
Musculoskeletal: Reports muscle pain (left-frontal chest) and other (ulnar deviation)
Skin: Reports no symptoms
Neurological: Reports no symptoms
Endocrine: Reports no symptoms
Hematologic/Lymphatic: Reports no symptoms
Psychiatric: Reports no symptoms
Phy Exam
<Rebel Qureshi MD, Resident - Last Filed: 07/23/24 17:34>
General Physical Exam
General Presentation: well appearing and no apparent distress
General Skin: warm and dry
General Habitus: normal
General Mental: alert
General Hydration: appears well hydrated
ENT Exam
ENT Exam: EOMI, pharynx normal, neck supple and normocephalic
Eye Exam
Eye Exam: PERRL, cornea clear and conjunctiva normal
Cardiovascular Exam
Cardiovascular Exam: regular rate/rhythm, no edema, no murmur and normal peripheral pulses
Pulmonary Exam
Pulmonary Exam: lungs clear, no respiratory distress, no rales, no crackles, no rhonchi, no stridor, no wheezing and no cough
Gastrointestinal Exam
Gastrointestinal Exam: normal bowel sounds, non tender, soft, no organomegaly, no pulsatile mass and non distended
Neurological Exam
Neurological Exam: alert, oriented x3, no motor deficits and speech normal
Musculoskeletal Exam
Musculoskeletal Exam: full ROM and other (ulnar deviation; joint swellings in hand; left-frontal chest tenderness and pain with deep inspiration)
Skin Exam
Skin Exam: normal color, warm/dry, no rash and no petechia
Psychiatric Exam
Psychiatric Exam: normal mood/affect
Course
<Rebel Qureshi MD, Resident - Last Filed: 07/23/24 17:34>
Orders/Labs/Results
Orders:
Orders
07/22/24 15:13
Electrocardiogram (*1) Urgent
Reason for Study: Chest Pain
EKG- Treatment ONCE
07/22/24 17:06
CR Chest - 2 Views Urgent
Comment:
Reason For Exam: left sternal/rib pain
07/22/24 17:07
0.9% Sodium Chloride 1000 ml [Nss] 1,000 ml IV BOLUS
Acetaminophen [Tylenol] 1,000 mg PO NOW STA
Ibuprofen [Motrin] 600 mg PO NOW STA
07/22/24 17:24
Complete Blood Count/No Diff Urgent
Comprehensive Metabolic Panel Urgent
Troponin I Urgent
07/22/24 18:24
CT Chest W/o Iv Contrast Urgent
Comment:
Reason For Exam: sternal pain after injury, hx rheumatoid
07/23/24
WOUND/OSTOMY CONSULT Routine
Reason for Consult: Pt has severe MASD to the groin/ buzz area
07/23/24 00:16
COVID-19 Antigen Urgent
Source: Nasal Swab
Procalcitonin Urgent
PCT Algorithmm Indication: Respiratory
07/23/24 01:08
Admit/Transfer Patient As Directed
Co-Sign Provider:
Level of Care: Observation services
Assign to:: Telemetry
Physician / Group: Mario
Diagnosis: Sternum Fracture
Reason for Telemetry: Chest Pain syndromes
Date to Stop Telemetry: 07/25/24
Time to Stop Telemetry: 11:00
07/23/24 01:09
PRN Pain Medication Management As Directed
May give lesser potent ordered pain med per pt: Yes
preference::
Protocol:: Medication orders for pain may be administered in a
manner that supports deferring to patient preference
when the pt is:
- Requesting an ordered lesser potent pain medication.
Least to most potent pain medications are defined
as: acetaminophen < NSAID < tramadol < opioids
(morphine, oxycodone, hydromorphone).
- Requesting a lesser dose of the same medication IF
ORDERED.
- Requesting a less intrusive route of administration
if both routes are prescribed by the provider (PO <
IV).
07/23/24 01:10
Code Status As Directed
Resuscitation Status: Full Code
07/23/24 03:13
Albuterol Nebs [Ventolin Nebules] 2.5 mg INH R Q4HPRN PRN
Dextrose 50%-Water [Dextrose 50% Syringe] 12.5 grams IV Q74IPOL PRN
Glucagon [GlucaGen] 1 mg IM PRN PRN
HYDROmorphone [Dilaudid] 0.5 mg IV Q4HPRN PRN
Polyethylene Glycol Powder [Miralax] 17 grams PO DAILY PRN
07/23/24 03:13
Activity As Directed
Activity Level: Ambulate
With Assistance
Comment: sternal precautions, avoid putting arms behind back + avoid arms to push up
Bedside Glucose Monitoring As Directed
Frequency: AC&HS
Additional Instructions:: Change to q6h if pt on TPN, tube feeding or not eating
I/O [Intake/ Output] As Directed
Frequency: Per unit guidelines
Vital Signs As Directed
Frequency: Per unit guidelines
Weight As Directed
Frequency: Daily
Incentive Spirometry [Rx Incentive Spirometry] [RESP] Routine
Frequency: q1h while awake
Oxygen Therapy [O2 Therapy] [RESP] Routine
Titrate/Wean O2 to maintain O2 sat greater than (%): 94
Ot Eval And Treat Routine
PT Consult [Pt Eval And Treat] Routine
Activity Level: Ambulate
With Assistance
07/23/24 04:00
Flush (0.9% Sodium Chloride) [Flush (Nss)] See Dose Instructions IV PER PROTOCOL
07/23/24 04:15
Basic Metabolic Panel IN AM
Complete Blood Count/No Diff IN AM
Glycohemoglobin (HgbA1c) IN AM
07/23/24 Breakfast
2000 calorie (17 carb) Diabetic
At Your Request: Limited Participation
07/23/24 07:30
Insulin Aspart Corrective Low [Novolog Flexpen-Low Resistance] See Protocol SC AC
07/23/24 08:00
Acetaminophen [Tylenol] 1,000 mg PO TID
Apixaban [Eliquis] 5 mg PO BID
Aspirin Chewable [Low Strength Aspirin] 81 mg PO DAILY
Atenolol [Tenormin] 50 mg PO DAILY
Budesonide/Formoterol 160/4.5 [Symbicort 160/4.5 Mcg Inhaler] 2 puff INH R BID
Duloxetine Delayed Release [Cymbalta Delayed Release] 30 mg PO DAILY
Gabapentin [Neurontin] 600 mg PO TID
Miconazole Nitrate [Desenex/Mitrazol/Zeasorb] See Dose Instructions TOPICAL BID
Pantoprazole [Protonix] 40 mg PO DAILY
Prednisone [Deltasone] 5 mg PO DAILY
Spironolactone [Aldactone] 25 mg PO DAILY
07/23/24 09:08
Oxycodone [Roxicodone] 5 mg PO Q4HPRN PRN
Tramadol HCl [Ultram] 50 mg PO Q6HPRN PRN
07/23/24 09:11
HYDROmorphone [Dilaudid] 0.5 mg IV Q4HPRN PRN
07/23/24 09:15
Lidocaine [Lidocaine 4% Patch] 2 patch TOPICAL DAILY
Apply Lidocaine patch(s) to:: to upper chest/sternal fracture
07/23/24 18:00
Duloxetine Delayed Release [Cymbalta Delayed Release] 60 mg PO QPM
07/23/24 20:00
METFORMIN HCl [Glucophage] 500 mg PO BID
Remove Patch [Remove Lidocaine Patch] See Dose Instructions REMOVE DAILY@1999
07/23/24 22:00
Lactobac/Bifidobac [Visbiome] 1 cap PO HS
Sennosides [Senokot] 17.2 mg PO HS
07/24/24 06:00
Basic Metabolic Panel IN AM
Complete Blood Count/No Diff IN AM
07/25/24 06:00
Basic Metabolic Panel IN AM
Complete Blood Count/No Diff IN AM
07/25/24 08:00
buprenorphine 1 patch TRANSDERM WEEKLY
07/25/24 11:00
DC Protocol for Telemetry ONCE
07/26/24 06:00
Basic Metabolic Panel IN AM
Complete Blood Count/No Diff IN AM
Abnormal Lab Results
07/22/24 07/22/24 07/23/24
16:46 17:24 04:15
WBC 14.9 H 10^3/uL
(4.8-10.8)
RBC 3.85 L 10^6/uL
(4.20-5.40)
Hct 36.5 L %
(37.0-47.0)
MCH 32.0 H pg 32.2 H pg
(27.0-31.0) (27.0-31.0)
Chloride 97 L mmol/L
(98-107)
Creatinine 0.5 L mg/dL
(0.6-1.0)
Glucose 124 H mg/dl 154 H mg/dl
(70-99) (70-99)
Hemoglobin A1c 7.2 H %
(4.0-5.6)
AST 45 H U/L
(14-36)
ALT 40 H U/L
(0-35)
POC Glucose 128 H mg/dl
(70-99)
07/23/24 07/23/24
08:06 11:20
WBC
RBC
Hct
MCH
Chloride
Creatinine
Glucose
Hemoglobin A1c
AST
ALT
POC Glucose 108 H mg/dl 191 H mg/dl
(70-99) (70-99)
07/23/24 04:15
07/23/24 04:15
Vital Signs
Initial and Last Documented VS:
Initial Vital Signs
Temp Pulse Resp BP Pulse Ox
99.5 F 65 16 149/75 95
07/22/24 15:10 07/22/24 15:10 07/22/24 15:10 07/22/24 15:10 07/22/24 15:10
Last Documented Vital Signs
Temp Pulse Resp BP Pulse Ox
98.2 F 58 14 130/64 94
07/23/24 15:10 07/23/24 14:56 07/23/24 14:56 07/23/24 14:56 07/23/24 08:15
<Pauline Mcrae, DO - Last Filed: 07/22/24 18:06>
Orders/Labs/Results
Orders:
Orders
07/22/24 15:13
Electrocardiogram (*1) Urgent
Reason for Study: Chest Pain
EKG- Treatment ONCE
07/22/24 17:06
CR Chest - 2 Views Urgent
Comment:
Reason For Exam: left sternal/rib pain
07/22/24 17:07
0.9% Sodium Chloride 1000 ml [Nss] 1,000 ml IV BOLUS
Acetaminophen [Tylenol] 1,000 mg PO NOW STA
Ibuprofen [Motrin] 600 mg PO NOW STA
07/22/24 17:24
Complete Blood Count/No Diff Urgent
Comprehensive Metabolic Panel Urgent
Troponin I Urgent
07/22/24 18:24
CT Chest W/o Iv Contrast Urgent
Comment:
Reason For Exam: sternal pain after injury, hx rheumatoid
07/23/24
WOUND/OSTOMY CONSULT Routine
Reason for Consult: Pt has severe MASD to the groin/ buzz area
07/23/24 00:16
COVID-19 Antigen Urgent
Source: Nasal Swab
Procalcitonin Urgent
PCT Algorithmm Indication: Respiratory
07/23/24 01:08
Admit/Transfer Patient As Directed
Co-Sign Provider:
Level of Care: Observation services
Assign to:: Telemetry
Physician / Group: Mario
Diagnosis: Sternum Fracture
Reason for Telemetry: Chest Pain syndromes
Date to Stop Telemetry: 07/25/24
Time to Stop Telemetry: 11:00
07/23/24 01:09
PRN Pain Medication Management As Directed
May give lesser potent ordered pain med per pt: Yes
preference::
Protocol:: Medication orders for pain may be administered in a
manner that supports deferring to patient preference
when the pt is:
- Requesting an ordered lesser potent pain medication.
Least to most potent pain medications are defined
as: acetaminophen < NSAID < tramadol < opioids
(morphine, oxycodone, hydromorphone).
- Requesting a lesser dose of the same medication IF
ORDERED.
- Requesting a less intrusive route of administration
if both routes are prescribed by the provider (PO <
IV).
07/23/24 01:10
Code Status As Directed
Resuscitation Status: Full Code
07/23/24 03:13
Albuterol Nebs [Ventolin Nebules] 2.5 mg INH R Q4HPRN PRN
Dextrose 50%-Water [Dextrose 50% Syringe] 12.5 grams IV [id number] PRN
Glucagon [GlucaGen] 1 mg IM PRN PRN
HYDROmorphone [Dilaudid] 0.5 mg IV Q4HPRN PRN
Polyethylene Glycol Powder [Miralax] 17 grams PO DAILY PRN
07/23/24 03:13
Activity As Directed
Activity Level: Ambulate
With Assistance
Comment: sternal precautions, avoid putting arms behind back + avoid arms to push up
Bedside Glucose Monitoring As Directed
Frequency: AC&HS
Additional Instructions:: Change to q6h if pt on TPN, tube feeding or not eating
I/O [Intake/ Output] As Directed
Frequency: Per unit guidelines
Vital Signs As Directed
Frequency: Per unit guidelines
Weight As Directed
Frequency: Daily
Incentive Spirometry [Rx Incentive Spirometry] [RESP] Routine
Frequency: q1h while awake
Oxygen Therapy [O2 Therapy] [RESP] Routine
Titrate/Wean O2 to maintain O2 sat greater than (%): 94
Ot Eval And Treat Routine
PT Consult [Pt Eval And Treat] Routine
Activity Level: Ambulate
With Assistance
07/23/24 04:00
Flush (0.9% Sodium Chloride) [Flush (Nss)] See Dose Instructions IV PER PROTOCOL
07/23/24 04:15
Basic Metabolic Panel IN AM
Complete Blood Count/No Diff IN AM
Glycohemoglobin (HgbA1c) IN AM
07/23/24 Breakfast
2000 calorie (17 carb) Diabetic
At Your Request: Limited Participation
07/23/24 07:30
Insulin Aspart Corrective Low [Novolog Flexpen-Low Resistance] See Protocol SC AC
07/23/24 08:00
Acetaminophen [Tylenol] 1,000 mg PO TID
Apixaban [Eliquis] 5 mg PO BID
Aspirin Chewable [Low Strength Aspirin] 81 mg PO DAILY
Atenolol [Tenormin] 50 mg PO DAILY
Budesonide/Formoterol 160/4.5 [Symbicort 160/4.5 Mcg Inhaler] 2 puff INH R BID
Duloxetine Delayed Release [Cymbalta Delayed Release] 30 mg PO DAILY
Gabapentin [Neurontin] 600 mg PO TID
Miconazole Nitrate [Desenex/Mitrazol/Zeasorb] See Dose Instructions TOPICAL BID
Pantoprazole [Protonix] 40 mg PO DAILY
Prednisone [Deltasone] 5 mg PO DAILY
Spironolactone [Aldactone] 25 mg PO DAILY
07/23/24 09:08
Oxycodone [Roxicodone] 5 mg PO Q4HPRN PRN
Tramadol HCl [Ultram] 50 mg PO Q6HPRN PRN
07/23/24 09:11
HYDROmorphone [Dilaudid] 0.5 mg IV Q4HPRN PRN
07/23/24 09:15
Lidocaine [Lidocaine 4% Patch] 2 patch TOPICAL DAILY
Apply Lidocaine patch(s) to:: to upper chest/sternal fracture
07/23/24 18:00
Duloxetine Delayed Release [Cymbalta Delayed Release] 60 mg PO QPM
07/23/24 20:00
METFORMIN HCl [Glucophage] 500 mg PO BID
Remove Patch [Remove Lidocaine Patch] See Dose Instructions REMOVE DAILY@1999
07/23/24 22:00
Lactobac/Bifidobac [Visbiome] 1 cap PO HS
Sennosides [Senokot] 17.2 mg PO HS
07/24/24 06:00
Basic Metabolic Panel IN AM
Complete Blood Count/No Diff IN AM
07/25/24 06:00
Basic Metabolic Panel IN AM
Complete Blood Count/No Diff IN AM
07/25/24 08:00
buprenorphine 1 patch TRANSDERM WEEKLY
07/25/24 11:00
DC Protocol for Telemetry ONCE
07/26/24 06:00
Basic Metabolic Panel IN AM
Complete Blood Count/No Diff IN AM
Abnormal Lab Results
07/22/24 07/22/24 07/23/24
16:46 17:24 04:15
WBC 14.9 H 10^3/uL
(4.8-10.8)
RBC 3.85 L 10^6/uL
(4.20-5.40)
Hct 36.5 L %
(37.0-47.0)
MCH 32.0 H pg 32.2 H pg
(27.0-31.0) (27.0-31.0)
Chloride 97 L mmol/L
(98-107)
Creatinine 0.5 L mg/dL
(0.6-1.0)
Glucose 124 H mg/dl 154 H mg/dl
(70-99) (70-99)
Hemoglobin A1c 7.2 H %
(4.0-5.6)
AST 45 H U/L
(14-36)
ALT 40 H U/L
(0-35)
POC Glucose 128 H mg/dl
(70-99)
07/23/24 07/23/24
08:06 11:20
WBC
RBC
Hct
MCH
Chloride
Creatinine
Glucose
Hemoglobin A1c
AST
ALT
POC Glucose 108 H mg/dl 191 H mg/dl
(70-99) (70-99)
07/23/24 04:15
07/23/24 04:15
Vital Signs
Initial and Last Documented VS:
Initial Vital Signs
Temp Pulse Resp BP Pulse Ox
99.5 F 65 16 149/75 95
07/22/24 15:10 07/22/24 15:10 07/22/24 15:10 07/22/24 15:10 07/22/24 15:10
Last Documented Vital Signs
Temp Pulse Resp BP Pulse Ox
98.2 F 58 14 130/64 94
07/23/24 15:10 07/23/24 14:56 07/23/24 14:56 07/23/24 14:56 07/23/24 08:15
<Rebel Qureshi MD, Resident - Last Filed: 07/23/24 17:34>
MDM/Problems Addressed
MDM/Problems Addressed:
Tried reaching out to [facility] trauma center - was unable to speak to someone but left a voicemail with details of our emergency number to call back. Called back and discussed with the emergency department at [facility]; no indication for surgical interventions.
The patient became hypotensive and considering her progressive weakness, will admit the patient. Weakness likely multifactorial in setting of severe RA not on treatment, anemia of chronic disease, cHFpEF, COPD.
Chronic conditions affecting care:
RA not on treatment, anemia of chronic disease, cHFpEF, COPD.
<Rebel Qureshi MD, Resident - Last Filed: 07/23/24 17:34>
*Critical Care Note
Total Time (30-74mins, 75-104mins- exclusive of procedures): Not Applicable
<Rebel Qureshi MD, Resident - Last Filed: 07/23/24 17:34>
Update Note
Update Note:
Hypotensive and weak. In setting of multiple comorbidities and acute sternal fracture, will admit.
ED Attending Note
<Rebel Qureshi MD, Resident - Last Filed: 07/23/24 17:34>
-
Portions of this chart may have been created with voice recognition software.� Occasional wrong word or��sound alike� substitutions may have occurred due to the inherent limitations of voice recognition software.
<Pauline Mcrae DO - Last Filed: 07/22/24 18:06>
ED Attending Note
Patient seen and examined by attending physician: Yes
I performed the substantive portion of visit, reviewed & personally made and approve the management plan that is documented in note by myself or LIO.: Yes
I performed a history and physical exam of patient and discussed management with resident, I reviewed resident's note and agree with documented findings and plan of care.: Yes
ED Attending Note:
74-year-old female with history of severe rheumatoid arthritis and chronic fatigue presenting to the emergency department for sternal chest pain. Patient reports 3 days ago, she sat on the ground from her chronic fatigue, which is not abnormal for
her. Her picked her up from underneath the armpits and struck her chest. Since then she has been having pain, worse with deep inspiration. Reports that she is currently on palliative care for her chronic fatigue and has ambulatory issues
at baseline. Denies fever or cough. Denies known cardiac issues. Pain is worse with any type of movement.
Vital signs on arrival are normal. On exam patient is in no acute respiratory distress with benign cardiac and pulmonary exam. EKG obtained on arrival, nonischemic. Patient is diffusely tender to the sternal region, no crepitus. Suspected
musculoskeletal quality to symptoms. However, given patient's severe arthritis, fracture is a consideration. Laboratory analysis obtained, negative troponin. At this time low suspicion for ACS, again seems very musculoskeletal in quality. Plan
for CT imaging of the chest for rule out sternal fracture.
Discharge Plan
Departure
Patient Disposition: Admit
Date of Disposition: 07/22/24
Time of Disposition: 23:55
Presentation/result/management discussed w/ accepting MD/DO: Hospitalist
Patient with high blood pressure during this ER visit?: No
Condition: Good
Discharge Problem:
Fracture of sternum
Interventions
Interventions:
*Risk Screen - Suicide Last Done: 07/22/24 17:04
*General Assessment Last Done: 07/22/24 17:04
*Neglect/Abuse Screening Last Done: 07/22/24 17:04
ED- Fall Risk Assessment Last Done: 07/22/24 16:42
*ED COVID-19 Vaccine History Last Done: 07/22/24 17:04
*Nursing Disposition Last Done: 07/23/24 02:55
ED-Musculoskeletal Assessment Last Done: 07/22/24 16:42
Discharge Date and Time
Discharge Date/Time: 07/23/24 03:07
[2024-07-22] MEDS: TYLENOL 1000 MG PO (17:14)
[2024-07-22] MEDS: MOTRIN 600 MG PO (17:14)
[2024-07-22] MEDS: NSS 1000 IV (17:23)
[2024-07-22 17:29] LABS: Hemoglobin 13.6 g/dL (12.0-16.0); Mean Corpuscular Volume 94.1 fL (81.0-99.0); Mean Platelet Volume 9.5 fL (7.4-10.4); Platelet Count 376 10^3/uL (130-400); Red Blood Cell Count 4.25 10^6/uL (4.20-5.40); Red Cell Dist. Width 13.2 % (11.5-14.5); White Blood Cell Count 14.9 10^3/uL (4.8-10.8)
[2024-07-22 17:42] LABS: ALT (SGPT) 40 U/L (0-35); AST (SGOT) 45 U/L (14-36); Albumin 4.1 g/dl (3.5-5.0); Alkaline Phosphatase 85 U/L (38-126); Blood Urea Nitrogen 13 mg/dl (7-17); Calcium 9.7 mg/dl (8.4-10.2); Carbon Dioxide 27 mmol/L (22-30); Chloride 97 mmol/L (98-107); Glucose 124 mg/dl (70-99); Potassium 4.1 mmol/L (3.5-5.1); Sodium 136 mmol/L (135-145); Total Bilirubin 0.6 mg/dl (0.2-1.3); Total Protein 6.7 g/dl (6.3-8.2); eGFR > 60.00
[2024-07-22 17:54] LABS: Troponin I < 0.012 ng/ml
[2024-07-23] VITALS (14 sets, daily range): BP systolic 100–150; BP diastolic 48–67; PULSE 56; O2SAT 93–95; BMI 31.1
[2024-07-23 00:34] LABS: COVID-19 Antigen Negative (Negative)
[2024-07-23 00:51] LABS: Procalcitonin < 0.05 ng/ml (0.0-0.25)
--- NOTE | 2024-07-23 01:14 | HPS.HSE ---
Family Physician
-
Family Physician: Madonna Rivera PA-C
Chief Complaint
-
Chest pain
History of Present Illness
Patient is a 74y F with PMH significant for rheumatoid arthritis on chronic prednisone, chronic pain, hypertension and DM-II who presents to ED complaining of chest pain. Patient states that she slid out of bed about 3 days ago and fell to the
floor. She denies any significant injury suffered during the fall. Her attempted to help her up - using a 'bear hug' to do so. Since that time, patient has noted pain in the mid / lower chest. Her pain has persisted over the past 3 days
and seemed worse this evening prompting her to present to the ED for further evaluation.
Patient denies any associated symptoms including fevers / chills, cough, N/V/D, etc.
She states that she was started on metformin since her last admission here. No other medication changes.
Medical History
Past Medical History
Past Medical History: Reports Other
Additional Past Medical History:
Rheumatoid Arthritis
Chronic Pain Syndrome
Chronic Narcotic Dependence
Hypertension
COPD
DM-II
Moderate Aortic Stenosis
Pulmonary Hypertension
Chronic HFpEF
RLE DVT (05/2024)
Past Surgical History: Reports Other
Additional Past Surgical History:
T&A
Social History
Tobacco: Former Smoker (Quit in 2021. > 50 pack years total use.)
Alcohol: None
Drug: None
Family History
Family History: Other (Father: HTN, CVA Mother: HTN, Colon Cancer)
Allergies / Home Medications
Allergies reflects when Allergies were last updated in [employer].
Home Medications with original date entered in [employer]
Allergy/Medication List:
Allergies
Allergy/AdvReac Type Severity Reaction Status Date / Time
ceftriaxone sodium Allergy numbness Verified 05/25/24 11:46
[From Rocephin] tingling
mouth
infliximab [From Remicade] Allergy Unknown Verified 05/25/24 11:46
vancomycin [Vancomycin] Allergy Unknown Verified 05/25/24 11:46
Home Medications
atenolol 50 mg tablet 50 mg PO DAILY Blood pressure 10/11/18
duloxetine 30 mg capsule,delayed release 30 mg PO DAILY neuropathic pain 04/13/19
duloxetine 60 mg capsule,delayed release 60 mg PO QPM neuropathic pain 06/30/21
budesonide-formoterol HFA 160 mcg-4.5 mcg/actuation aerosol inhaler (Symbicort) 2 puff inhalation R BID Lung/breathing issues 01/11/23
albuterol sulfate 90 mcg/actuation aerosol inhaler 2 puff inhalation R Q6HPRN PRN sob 05/12/24
calcium 600 mg (as carbonate)-vitamin D3 62.5 mcg (2,500 unit) capsule 1 cap PO DAILY Supplement 05/12/24
pwalpcek-aob-roptg acid 0.4 mg-lycopene 300 mcg-lutein 250 mcg tablet (CertaVite Senior) 1 tab PO DAILY Supplement 05/12/24
prednisone 5 mg tablet 5 mg PO DAILY rheumatoid arthritis 05/12/24
spironolactone 25 mg tablet 25 mg PO DAILY Blood Pressure 05/12/24
pantoprazole 40 mg tablet,delayed release 40 mg PO DAILY #30 tabs 05/19/24
hydromorphone 1 mg/mL oral liquid (Dilaudid) 1 mg PO Q6H #10 mL 05/20/24
Lactobac no.2-Bifidobac no.1-S. thermo 112.5 billion cell capsule (Visbiome) 1 cap PO HS Supplement 05/25/24
aspirin 81 mg PO DAILY Blood Clot Prevention/Tx 05/25/24
apixaban 5 mg tablet (Eliquis) 5 mg PO BID #60 tabs 05/29/24
gabapentin 800 mg tablet 600 mg (0.75 x 800 mg) PO TID Pain #0 tabs 05/29/24
buprenorphine 10 mcg/hour weekly transdermal patch 1 patch transdermal QWEEK 07/23/24
metformin 500 mg tablet 500 mg PO BID 07/23/24
Review of Systems
-
History Source: Patient
A 12 point ROS was completed and negative except as noted: Yes
Constitutional: Denies Fever or Chills
EENT: Denies Sore Throat
Respiratory: Denies Cough or Trouble Breathing
Cardiac: Reports Chest Pain; Denies Palpitations
Abdomen/GI: Denies Abdominal Pain, Nausea, Vomiting or Diarrhea
: Denies Dysuria, Frequency or Flank Pain
Musculoskeletal: Denies Joint Pain or Edema
Neurological: Reports Weakness; Denies Dizzy or Headache
Psych: Denies Depression or Anxiety
Physical Exam
Vital Signs
Vital Signs
Temp Pulse Resp BP Pulse Ox
99.5 F 60 18 102/48 91
07/22/24 15:10 07/23/24 01:00 07/23/24 01:00 07/23/24 00:00 07/23/24 00:00
Physical Exam
General: Other (74y F in mild distress due to chest pain.)
HEENT: Moist mucous membranes and PERRLA
Respiratory: Other (Decreased at bases - otherwise clear.)
Cardiac: S1/S2, Regular Rhythm and Murmur (III/ ROSIO)
GI: Soft, Non Tender, Non Distended and Normal Bowel Sounds
Musculoskeletal: No Clubbing, No Cyanosis and No Edema
Neuro: AO x 3
Laboratory Results
-
07/22/24 17:24
07/22/24 17:24
Laboratory Results
Total Bilirubin 0.6 mg/dl (0.2-1.3) 07/22/24 17:24
AST 45 U/L (14-36) H 07/22/24 17:24
ALT 40 U/L (0-35) H 07/22/24 17:24
Alkaline Phosphatase 85 U/L (38-126) 07/22/24 17:24
Troponin I < 0.012 ng/ml 07/22/24 17:24
Impression/Plan
-
A/P: Patient is a 74y F with PMH significant for chronic pain syndrome, RA on steroids, HTN and DM-II who presents to ED complaining of chest pain s/p fall three days ago.
Sternum Fracture
Chest Pain secondary to the above
- Observe overnight for further evaluation and treatment.
- Continue usual chronic pain medications.
- Adjust med regimen as needed for adequate pain control.
- PT / OT evaluations.
- Patient ambulates with walker - which will likely be uncomfortable given sternal fracture.
- Follow for clinical improvement.
Acute Hypoxemic Respiratory Insufficiency
- Likely secondary to atelectasis / decreased inspiration due to pain.
- Pain control as noted above.
- Incentive spirometry.
Chronic HFpEF
Moderate Aortic Stenosis
Benign Hypertension
- Stable. No evidence of volume overload on exam.
- Continue current CV medications with holding parameters.
COPD without Acute Exacerbation
- Stable. No active wheezing on exam.
- Continue inhaled medications and follow for changes.
Chronic Pain Syndrome
Chronic Opioid Dependence
Rheumatoid Arthritis
Chronic Steroid Dependence
- Only current pain complaint is related to acute injury / sternum fracture.
- Continue chronic pain control regimen.
- Adjust medications as needed for adequate pain control.
- Continue low-dose prednisone with no changes.
History of DVT
DVT Prophylaxis
- Continue Eliquis. Diagnosed with RLE DVT in May.
Code Status: Full
[2024-07-23] MEDS: DILAUDID 0.5 MG IV ×4 (04:07→19:05)
[2024-07-23 04:24] LABS: Hematocrit 36.5 % (37.0-47.0); Hemoglobin 12.4 g/dL (12.0-16.0); Mean Corpuscular Hgb 32.2 pg (27.0-31.0); Mean Corpuscular Volume 94.8 fL (81.0-99.0); Mean Platelet Volume 9.4 fL (7.4-10.4); Platelet Count 339 10^3/uL (130-400); Red Blood Cell Count 3.85 10^6/uL (4.20-5.40); Red Cell Dist. Width 13.4 % (11.5-14.5); White Blood Cell Count 9.2 10^3/uL (4.8-10.8)
[2024-07-23 04:48] LABS: Blood Urea Nitrogen 11 mg/dl (7-17); Calcium 8.7 mg/dl (8.4-10.2); Carbon Dioxide 27 mmol/L (22-30); Chloride 103 mmol/L (98-107); Estimated Creatinine Clearance 83 ml/min; Glucose 154 mg/dl (70-99); Potassium 3.9 mmol/L (3.5-5.1); Sodium 139 mmol/L (135-145); eGFR > 60.00
[2024-07-23] MEDS: DESENEX/MITRAZOL/ZEASORB 1 APPLIC TOPICAL ×2 (05:41→21:37)
[2024-07-23] MEDS: SYMBICORT 160/4.5 MCG INHALER 2 PUFF INH ×2 (07:17→19:29)
[2024-07-23] MEDS: NOVOLOG FLEXPEN-LOW RESISTANCE SC ×2 (08:10→17:25)
[2024-07-23] MEDS: NEURONTIN 600 MG PO ×3 (08:13→21:35)
[2024-07-23] MEDS: TYLENOL 1000 MG PO ×3 (08:13→21:36)
[2024-07-23] MEDS: PROTONIX 40 MG PO (08:13)
[2024-07-23] MEDS: DELTASONE 5 MG PO (08:13)
[2024-07-23] MEDS: ELIQUIS 5 MG PO ×2 (08:13→21:35)
[2024-07-23] MEDS: CYMBALTA DELAYED RELEASE 30 MG PO (08:13)
[2024-07-23] MEDS: TENORMIN 50 MG PO (08:13)
[2024-07-23] MEDS: LOW STRENGTH ASPIRIN 81 MG PO (08:13)
[2024-07-23] MEDS: ALDACTONE PO (08:15)
[2024-07-23 08:19] LABS: Glucose - Point of Care 108 mg/dl (70-99)
[2024-07-23 08:25] LABS: Glycohemoglobin (HgbA1c) 7.2 % (4.0-5.6)
[2024-07-23] MEDS: ROXICODONE 5 MG PO ×3 (11:28→22:16)
[2024-07-23] MEDS: LIDOCAINE 4% PATCH 2 PATCH TOPICAL (11:28)
[2024-07-23 11:32] LABS: Glucose - Point of Care 191 mg/dl (70-99)
[2024-07-23] MEDS: NOVOLOG FLEXPEN-LOW RESISTANCE 1 UNITS SC (12:29)
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
--- NOTE | 2024-07-23 15:18 | W.PN.HOSP.TC ---
Today's Communication/Plan
-
continue IV pain control and encourage oral agents
DC planning to SNF
Assessment / Plan
Assessment / Plan
Assessment:
Sternum Fracture
Chest Pain secondary to the above
- non-operative management
- Continue usual chronic pain medications.
- Adjust med regimen as needed for adequate pain control.
- PT/OT evaluations noted: SNF recommended
- Patient ambulates with walker - which will likely be uncomfortable given sternal fracture. Sternal fracture precautions for activity added
- Follow for clinical improvement.
Acute Hypoxemic Respiratory Insufficiency
- Likely secondary to atelectasis / decreased inspiration due to pain.
- Pain control as noted above.
- Incentive spirometry.
Chronic HFpEF
Moderate Aortic Stenosis
Benign Hypertension
- Stable. No evidence of volume overload on exam.
- Continue current CV medications with holding parameters.
COPD without Acute Exacerbation
- Stable. No active wheezing on exam.
- Continue inhaled medications and follow for changes.
Chronic Pain Syndrome
Chronic Opioid Dependence
Rheumatoid Arthritis
Chronic Steroid Dependence
- Only current pain complaint is related to acute injury / sternum fracture.
- Continue chronic pain control regimen.
- Adjust medications as needed for adequate pain control.
- Continue low-dose prednisone with no changes.
History of DVT
DVT Prophylaxis
- Continue Eliquis. Diagnosed with RLE DVT in May.
Code Status: Full
Anticipated Discharge: 24 - 48 hours
Subjective/Interval History
-
Date of Service: July 23, 2024
pain from sternal fx suboptimally controlled
denies any other complaints
Objective Data
-
Labs:
Laboratory Results
07/23/24
04:15
WBC 9.2
Hgb 12.4
Hct 36.5 L
Plt Count 339
Sodium 139
Potassium 3.9
Chloride 103
Carbon Dioxide 27
BUN 11
Creatinine 0.6
Glucose 154 H
Calcium 8.7
Vital Signs:
Vital Signs
Temp Pulse Resp BP Pulse Ox
97.6 F 59 14 127/60 92
07/23/24 11:05 07/23/24 14:00 07/23/24 14:00 07/23/24 13:50 07/23/24 08:00
I&O
07/22/24 07/23/24 07/24/24
06:59 06:59 06:59
Intake Total 240 / 240
Output Total 900 / 900
Balance -660 / -660
Physical Exam
-
General: No Apparent Distress
HEENT: Normocephalic
Respiratory: Negative Wheezes
Cardiac: Regular Rhythm and S1/S2
GI: Soft
Genito-urinary: No Costovertebral Tender
Neuro: AO x 3
Psych: Calm
Data Reviewed
-
Total Time Spent with Patient (in minutes): 41
Labs: Labs Reviewed by me
--- NOTE | 2024-07-23 15:29 | PTCARENOTE ---
Attending Dr. Nieto attempted x2 to update pt's S.O. with no answer. Pt updated.
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
[2024-07-23 17:08] LABS: Glucose - Point of Care 142 mg/dl (70-99)
[2024-07-23] MEDS: CYMBALTA DELAYED RELEASE 60 MG PO (17:32)
[2024-07-23 21:30] LABS: Glucose - Point of Care 165 mg/dl (70-99)
[2024-07-23] MEDS: GLUCOPHAGE 500 MG PO (21:35)
[2024-07-23] MEDS: SENOKOT 17.2 MG PO (21:35)
[2024-07-23] MEDS: VISBIOME 1 CAP PO (21:36)
[2024-07-24] MEDS: ROXICODONE 5 MG PO ×3 (03:41→13:18)
[2024-07-24] MEDS: DILAUDID 0.5 MG IV ×2 (05:59→10:48)
[2024-07-24 06:00] VITALS: BMI 27.8
[2024-07-24] MEDS: FLUSH (NSS) 2 FLUSH IV (06:00)
[2024-07-24 06:31] LABS: Hematocrit 38.3 % (37.0-47.0); Hemoglobin 12.7 g/dL (12.0-16.0); Mean Corp Hgb Conc. 33.2 g/dL (33.0-37.0); Mean Corpuscular Hgb 32.8 pg (27.0-31.0); Mean Platelet Volume 10.2 fL (7.4-10.4); Platelet Count 351 10^3/uL (130-400); Red Blood Cell Count 3.87 10^6/uL (4.20-5.40); Red Cell Dist. Width 13.3 % (11.5-14.5); White Blood Cell Count 9.6 10^3/uL (4.8-10.8)
[2024-07-24 07:03] LABS: Blood Urea Nitrogen 8 mg/dl (7-17); Calcium 9.1 mg/dl (8.4-10.2); Carbon Dioxide 29 mmol/L (22-30); Chloride 103 mmol/L (98-107); Estimated Creatinine Clearance 79 ml/min; Glucose 126 mg/dl (70-99); Potassium 4.4 mmol/L (3.5-5.1); Sodium 140 mmol/L (135-145); eGFR > 60.00
[2024-07-24 07:31] VITALS: BP 140/73
[2024-07-24 07:31] LABS: Glucose - Point of Care 123 mg/dl (70-99)
[2024-07-24] MEDS: NOVOLOG FLEXPEN-LOW RESISTANCE SC ×2 (07:40→17:46)
[2024-07-24] MEDS: SYMBICORT 160/4.5 MCG INHALER 2 PUFF INH ×2 (08:33→20:52)
[2024-07-24] MEDS: NEURONTIN 600 MG PO ×3 (09:16→21:26)
[2024-07-24] MEDS: CYMBALTA DELAYED RELEASE 30 MG PO (09:16)
[2024-07-24] MEDS: LOW STRENGTH ASPIRIN 81 MG PO (09:17)
[2024-07-24] MEDS: TENORMIN 50 MG PO (09:17)
[2024-07-24] MEDS: PROTONIX 40 MG PO (09:19)
[2024-07-24] MEDS: TYLENOL 1000 MG PO ×3 (09:19→21:26)
[2024-07-24] MEDS: ALDACTONE 25 MG PO (09:20)
[2024-07-24] MEDS: GLUCOPHAGE 500 MG PO ×2 (09:20→21:25)
[2024-07-24] MEDS: DELTASONE 5 MG PO (09:20)
[2024-07-24] MEDS: DESENEX/MITRAZOL/ZEASORB 1 APPLIC TOPICAL ×2 (09:21→21:24)
[2024-07-24] MEDS: LIDOCAINE 4% PATCH 2 PATCH TOPICAL (09:21)
[2024-07-24] MEDS: ELIQUIS 5 MG PO ×2 (09:21→21:25)
--- NOTE | 2024-07-24 09:30 | CM ---
Addendum entered by Barbie Anderson 07/24/24 16:36:
Spoke with patient - agreeable to [facility] - NPI #: [id number] Dr. Youssef NPI #:[id number]
Authorization started in [employer] - Pended reference #[id number]
Faxed clinicals to [phone]
Await authorization
PLAN: [facility], pending authorization
Report #: [id number]
Fax #: [phone]
Original Note:
Met with patient.
Discussed CM role.
PT recommend SNF - [facility] referral in [facility] - will accept, pending bed availablilty.
Patient states will discuss with significant other regarding going to SNF. Current with [facility] - has caregivers through waiver program
Will need insurance authorization if SNF placement
PLAN: [facility] if patient agreeable
[2024-07-24 12:36] LABS: Glucose - Point of Care 226 mg/dl (70-99)
[2024-07-24] MEDS: NOVOLOG FLEXPEN-LOW RESISTANCE 2 UNITS SC (13:11)
--- NOTE | 2024-07-24 14:07 | W.PN.HOSP.TC ---
Today's Communication/Plan
-
dc planning to a SNF
Assessment / Plan
Assessment / Plan
Assessment:
Sternum Fracture
Chest Pain secondary to the above
- non-operative management
- Continue usual chronic pain medications - I have asked patient to have S.O or friend bring in her pain patches (Buprenorphine). In interim will make Oxycodone scheduled + prn. D/W pharmacy.
- PT/OT evaluations noted: SNF recommended
- Patient ambulates with walker - which will likely be uncomfortable given sternal fracture. Sternal fracture precautions for activity added
- Follow for clinical improvement.
Acute Hypoxemic Respiratory Insufficiency
- Likely secondary to atelectasis / decreased inspiration due to pain.
- Pain control as noted above.
- Incentive spirometry.
Chronic HFpEF
Moderate Aortic Stenosis
Benign Hypertension
- Stable. No evidence of volume overload on exam.
- Continue current CV medications with holding parameters.
COPD without Acute Exacerbation
- Stable. No active wheezing on exam.
- Continue inhaled medications and follow for changes.
Chronic Pain Syndrome
Chronic Opioid Dependence
Rheumatoid Arthritis
Chronic Steroid Dependence
- Only current pain complaint is related to acute injury / sternum fracture.
- Continue chronic pain control regimen.
- Adjust medications as needed for adequate pain control.
- Continue low-dose prednisone with no changes.
History of DVT
DVT Prophylaxis
- Continue Eliquis. Diagnosed with RLE DVT in May.
Code Status: Full
Anticipated Discharge: 24 - 48 hours
Subjective/Interval History
-
Date of Service: July 24, 2024
reports pain better controlled
Objective Data
-
Labs:
Laboratory Results
07/24/24
04:51
WBC 9.6
Hgb 12.7
Hct 38.3
Plt Count 351
Sodium 140
Potassium 4.4
Chloride 103
Carbon Dioxide 29
BUN 8
Creatinine 0.6
Glucose 126 H
Calcium 9.1
Vital Signs:
Vital Signs
Temp Pulse Resp BP Pulse Ox
98.5 F 57 18 140/73 95
07/24/24 07:31 07/24/24 09:20 07/24/24 08:38 07/24/24 09:20 07/24/24 08:38
I&O
07/23/24 07/24/24 07/25/24
06:59 06:59 06:59
Intake Total 360 / 360
Output Total 0 / 2300
Balance -1939 / -1939
Physical Exam
-
General: No Apparent Distress
HEENT: Normocephalic and Atraumatic
Respiratory: Negative Wheezes
Cardiac: Regular Rhythm and S1/S2
GI: Soft
Musculoskeletal: No Edema
Neuro: AO x 3
Psych: Calm
Data Reviewed
-
Total Time Spent with Patient (in minutes): 41
Labs: Labs Reviewed by me
[2024-07-24 14:51] VITALS: BP 141/74
[2024-07-24 15:36] VITALS: BP 137/66; PULSE 56
[2024-07-24 15:37] VITALS: BP 137/65; PULSE 56
[2024-07-24] MEDS: CYMBALTA DELAYED RELEASE 60 MG PO (17:10)
[2024-07-24 17:21] LABS: Glucose - Point of Care 132 mg/dl (70-99)
[2024-07-24] MEDS: SENOKOT 17.2 MG PO (21:26)
[2024-07-24] MEDS: VISBIOME 1 CAP PO (21:26)
[2024-07-24 21:35] LABS: Glucose - Point of Care 166 mg/dl (70-99)
[2024-07-24 23:06] VITALS: BP 135/66
[2024-07-25] MEDS: DILAUDID 0.5 MG IV ×2 (04:24→08:42)
[2024-07-25 06:00] VITALS: BMI 27.7
[2024-07-25 06:23] LABS: Hematocrit 38.8 % (37.0-47.0); Mean Corp Hgb Conc. 33.5 g/dL (33.0-37.0); Mean Corpuscular Hgb 33.1 pg (27.0-31.0); Mean Corpuscular Volume 98.7 fL (81.0-99.0); Mean Platelet Volume 10.1 fL (7.4-10.4); Platelet Count 369 10^3/uL (130-400); Red Blood Cell Count 3.93 10^6/uL (4.20-5.40); Red Cell Dist. Width 13.3 % (11.5-14.5); White Blood Cell Count 9.4 10^3/uL (4.8-10.8)
[2024-07-25 06:48] LABS: Blood Urea Nitrogen 11 mg/dl (7-17); Calcium 9.1 mg/dl (8.4-10.2); Carbon Dioxide 25 mmol/L (22-30); Chloride 104 mmol/L (98-107); Estimated Creatinine Clearance 79 ml/min; Glucose 97 mg/dl (70-99); Potassium 4.2 mmol/L (3.5-5.1); Sodium 140 mmol/L (135-145); eGFR > 60.00
[2024-07-25] MEDS: SYMBICORT 160/4.5 MCG INHALER 2 PUFF INH (07:54)
[2024-07-25 07:57] VITALS: BP 166/88
[2024-07-25] MEDS: CYMBALTA DELAYED RELEASE 30 MG PO (08:44)
[2024-07-25] MEDS: NEURONTIN 600 MG PO ×2 (08:44→15:18)
[2024-07-25] MEDS: TENORMIN 50 MG PO (08:44)
[2024-07-25] MEDS: PROTONIX 40 MG PO (08:44)
[2024-07-25] MEDS: DESENEX/MITRAZOL/ZEASORB 1 APPLIC TOPICAL (08:45)
[2024-07-25] MEDS: TYLENOL 1000 MG PO ×2 (08:45→15:17)
[2024-07-25] MEDS: ELIQUIS 5 MG PO (08:45)
[2024-07-25] MEDS: LOW STRENGTH ASPIRIN 81 MG PO (08:45)
[2024-07-25] MEDS: DELTASONE 5 MG PO (08:46)
[2024-07-25] MEDS: LIDOCAINE 4% PATCH 2 PATCH TOPICAL (08:46)
[2024-07-25] MEDS: ALDACTONE 25 MG PO (08:46)
[2024-07-25] MEDS: GLUCOPHAGE 500 MG PO (08:46)
[2024-07-25 08:47] LABS: Glucose - Point of Care 109 mg/dl (70-99)
[2024-07-25] MEDS: NOVOLOG FLEXPEN-LOW RESISTANCE SC (08:47)
--- NOTE | 2024-07-25 10:15 | CM ---
Addendum entered by Raya Martinez 07/25/24 16:22:
Attempted x3 to reach pt contact Jose at listed phone # - No answer. Unable to leave VM - mailbox full
Addendum entered by Raya Martinez 07/25/24 15:35:
Transport at 5:15PM
Holly at [facility] made aware
Attempted to call friend Jose at listed phone # - no answer. Unable to leave VM - mailbox full
Addendum entered by Raya Martinez 07/25/24 14:25:
Received call from Lachelle from [employer]
Auth approved for SNF level care
Start date 07/25 NRD 07/27
Auth # [id number]
Ref # [id number]
Core Driller Barbara Padgett - F - [phone] with updated clinicals
Called Holly at [facility] - given auth info
Dr Nieto aware - auth obtained
Plan - [facility]
Report #: [id number]
Fax #: [phone]
Original Note:
Case management following for discharge planning
Chart reviewed
Auth started yesterday for SNF
Auth remains pending
Plan - [facility] - when auth obtained
Report #: [id number]
Fax #: [phone]
--- NOTE | 2024-07-25 12:05 | PN.CDI ---
CDI
- -
CDI:
Physician Documentation Request
Admit Date: 07/23/24 15:20
Dear Doctor Emilia,
Patient presents to ED for left sided chest wall pain and tenderness. Days prior picked her up from floor with a 'bear hug'
ED notes states patient has suspected osteopenia (not receiving treatment).
2009 bone density impression states 'Osteopenia in the proximal femur. There has been an increase in bone mineral density in the lumbar spine and a decrease in bone mineral density in the proximal femur since the prior exam'
Please provide further specificity regarding the diagnosis of fracture:
Etiology
Traumatic
Pathologic due to osteoporosis
Due to a combination of trauma and a pathological process
but the trauma alone would not likely have been sufficient
to cause the fracture
Use of terms such as suspected, likely, concern for, or probable (associated with a specific diagnosis that is being evaluated, monitored, or treated as if it exists) are acceptable and can be coded in the inpatient setting, when documented at the
time of discharge.
Thank you,
Dania Blackman RN, BSN
CDI Specialist
tiger text
Please use your independent medical judgment in providing your response.
--- NOTE | 2024-07-25 12:21 | W.PN.HOSP.TC ---
Today's Communication/Plan
-
dc to SNF
Assessment / Plan
Assessment / Plan
Assessment:
Sternum Fracture, traumatic not from fall but assistance from significant other in getting up (bear hugged)
Chest Pain secondary to the above
- non-operative management
- no access or supply to home pain patches (Buprenorphine). DC on prn Oxycodone
- PT/OT evaluations noted: SNF recommended. Patient agreeable
- Patient ambulates with walker - which will likely be uncomfortable given sternal fracture. Sternal fracture precautions for activity added
- Follow for clinical improvement.
Acute Hypoxemic Respiratory Insufficiency
- Likely secondary to atelectasis / decreased inspiration due to pain.
- Pain control as noted above.
- Incentive spirometry.
Chronic HFpEF
Moderate Aortic Stenosis
Benign Hypertension
- Stable. No evidence of volume overload on exam.
- Continue current CV medications with holding parameters.
COPD without Acute Exacerbation
- Stable. No active wheezing on exam.
- Continue inhaled medications and follow for changes.
Chronic Pain Syndrome
Chronic Opioid Dependence
Rheumatoid Arthritis
Chronic Steroid Dependence
- Only current pain complaint is related to acute injury / sternum fracture.
- Continue chronic pain control regimen.
- Adjust medications as needed for adequate pain control.
- Continue low-dose prednisone with no changes.
History of DVT
DVT Prophylaxis
- Continue Eliquis. Diagnosed with RLE DVT in May.
Code Status: Full
More than 30 minutes spent in discharge including
Final examination of the patient
Summarizing hospital stay
Instructions for continuing care to all relevant caregivers
Preparation of discharge records, prescriptions, and referral forms
Total time spent (in minutes):41
Anticipated Discharge: Today
Subjective/Interval History
-
Date of Service: July 25, 2024
denies any new complaints
agreeable to SNF
Objective Data
-
Labs:
Laboratory Results
07/25/24
05:20
WBC 9.4
Hgb 13.0
Hct 38.8
Plt Count 369
Sodium 140
Potassium 4.2
Chloride 104
Carbon Dioxide 25
BUN 11
Creatinine 0.5 L
Glucose 97
Calcium 9.1
Vital Signs:
Vital Signs
Temp Pulse Resp BP Pulse Ox
97.5 F 60 18 166/88 95
07/25/24 07:57 07/25/24 08:44 07/25/24 08:00 07/25/24 08:46 07/25/24 08:39
I&O
07/24/24 07/25/24 07/26/24
06:59 06:59 06:59
Intake Total 360 / 360 2099
Output Total 2299 / 2299
Balance -1939 / -1939
Physical Exam
-
General: No Apparent Distress
HEENT: Normocephalic and Atraumatic
Respiratory: Negative Wheezes
Cardiac: Regular Rhythm and S1/S2
GI: Soft and Nontender
Neuro: AO x 3
Psych: Calm
Data Reviewed
-
Total Time Spent with Patient (in minutes): 41
Labs: Labs Reviewed by me
[2024-07-25 12:50] LABS: Glucose - Point of Care 170 mg/dl (70-99)
[2024-07-25] MEDS: NOVOLOG FLEXPEN-LOW RESISTANCE 1 UNITS SC ×2 (12:52→17:23)
--- NOTE | 2024-07-25 14:26 | W.DS.TRANS ---
DC Summary - [employer] Research Analyst
-
Discharge Instructions:
Sleep Apnea Risk Low
Discharge Diagnosis/Procedures fall, sternal fracture
Diet Diabetic, Carb Controlled
Activity As tolerated
Additional Activity sternal precautions, avoid putting arms behind
back + avoid arms to push up
Driving Restrictions Not until seen by your Dr
Bathing Restrictions None
Other Services PT,OT
Instructions:
Stand-Alone Forms:
Changes to Home Medications: No
Discharge Medications:
DC Medications w/original date entered in [employer]
atenolol 50 mg tablet 50 mg PO DAILY Blood pressure 10/11/18
duloxetine 30 mg capsule,delayed release 30 mg PO DAILY neuropathic pain 04/13/19
duloxetine 60 mg capsule,delayed release 60 mg PO QPM neuropathic pain 06/30/21
budesonide-formoterol HFA 160 mcg-4.5 mcg/actuation aerosol inhaler (Symbicort) 2 puff inhalation R BID Lung/breathing issues 01/11/23
albuterol sulfate 90 mcg/actuation aerosol inhaler 2 puff inhalation R Q6HPRN PRN sob 05/12/24
calcium 600 mg (as carbonate)-vitamin D3 62.5 mcg (2,500 unit) capsule 1 cap PO DAILY Supplement 05/12/24
xosfwecz-rsa-tvxpv acid 0.4 mg-lycopene 300 mcg-lutein 250 mcg tablet (CertaVite Senior) 1 tab PO DAILY Supplement 05/12/24
prednisone 5 mg tablet 5 mg PO DAILY rheumatoid arthritis 05/12/24
spironolactone 25 mg tablet 25 mg PO DAILY Blood Pressure 05/12/24
pantoprazole 40 mg tablet,delayed release 40 mg PO DAILY #30 tabs 05/19/24
Lactobac no.2-Bifidobac no.1-S. thermo 112.5 billion cell capsule (Visbiome) 1 cap PO HS Supplement 05/25/24
aspirin 81 mg PO DAILY Blood Clot Prevention/Tx 05/25/24
apixaban 5 mg tablet (Eliquis) 5 mg PO BID #60 tabs 05/29/24
gabapentin 800 mg tablet 600 mg (0.75 x 800 mg) PO TID Pain #0 tabs 05/29/24
metformin 500 mg tablet 500 mg PO BID Diabetes 07/23/24
acetaminophen 500 mg tablet (Tylenol Extra Strength) 1,000 mg (2 x 500 mg) PO TID #100 tabs 07/25/24
lidocaine 4 % topical patch 2 patch topical DAILY #60 ea 07/25/24
oxycodone 5 mg tablet 5 mg PO Q4HPRN PRN severe pain #20 tabs 07/25/24
sennosides 8.6 mg tablet (Senna Laxative) 17.2 mg (2 x 8.6 mg) PO HS #60 tabs 07/25/24
Home Medication Changes
Pending Results: No
Total time spent discharging patient (in min): 41
[2024-07-25 15:04] VITALS: BP 151/73
[2024-07-25] MEDS: ROXICODONE 5 MG PO (15:19)
--- NOTE | 2024-07-25 15:35 | PTCARENOTE ---
Buprenorphine patch removed prior to discharge and placed in the controlled substance wast container with a second nurse present.
[2024-07-25 17:14] LABS: Glucose - Point of Care 170 mg/dl (70-99)
[2024-07-25] MEDS: CYMBALTA DELAYED RELEASE 60 MG PO (17:23)
== END 2024-07-25 17:47 | DRG 565 ==
LOC: 2 SOUTH 15:20
PROVIDERS: Student in an Organized Health Care Education/Training Program; ADMITTING PHYSICIAN Hospitalist; ATTENDING PHYSICIAN Internal Medicine; EMERGENCY PHYSICIAN Student in an Organized Health Care Education/Training Program; FAMILY PHYSICIAN Physician Assistant Medical
DX: S22.22XA Fracture of body of sternum, initial encounter for closed fracture (principal); F11.20 Opioid dependence, uncomplicated; I50.32 Chronic diastolic (congestive) heart failure; J98.11 Atelectasis; X58.XXXA Exposure to other specified factors, initial encounter; I11.0 Hypertensive heart disease with heart failure; G89.4 Chronic pain syndrome; R09.02 Hypoxemia; I35.0 Nonrheumatic aortic (valve) stenosis; J44.9 Chronic obstructive pulmonary disease, unspecified; M06.9 Rheumatoid arthritis, unspecified; E11.9 Type 2 diabetes mellitus without complications; Z79.52 Long term (current) use of systemic steroids; Z86.718 Personal history of other venous thrombosis and embolism
CPT/HCPCS: 71046; 71250; 80048; 80053; 82962; 83036; 84145; 84484; 85027; 87811; 93005; 94640; 96360; 97116; 97163; 97167; 97535; 99285

== ENCOUNTER 2024-09-26 21:11 | Inpatient (IN) | payer OTHER, SELFPAY ==
[2024-09-26 16:37] VITALS: BP 143/64
[2024-09-26 17:29] LABS: % Basophils 0.7 % (0-2); % Eosinophils 3.4 % (0-6); % Immature Granulocytes 0.9 % (0-0.5); % Lymphocytes 17.8 % (20.5-51.1); % Monocytes 7.8 % (1.7-9.3); % Neutrophils 69.4 % (42.2-75.2); Absolute Basophils 0.1 10^3/uL (0-0.2); Absolute Eosinophils 0.5 10^3/uL (0-0.7); Absolute Immature Granulocytes 0.1 10^3/uL (0-0.05); Absolute Lymphocytes 2.4 10^3/uL (1.2-3.4); Absolute Monocytes 1.1 10^3/uL (0.1-0.6); Absolute Neutrophils 9.4 10^3/uL (1.4-6.5); Hematocrit 41.6 % (37.0-47.0); Hemoglobin 13.5 g/dL (12.0-16.0); Mean Corp Hgb Conc. 32.5 g/dL (33.0-37.0); Mean Corpuscular Hgb 31.2 pg (27.0-31.0); Mean Corpuscular Volume 96.1 fL (81.0-99.0); Mean Platelet Volume 9.9 fL (7.4-10.4); Nucleated Red Blood Cells % 0 %; Platelet Count 341 10^3/uL (130-400); Red Blood Cell Count 4.33 10^6/uL (4.20-5.40); Red Cell Dist. Width 13.6 % (11.5-14.5); White Blood Cell Count 13.5 10^3/uL (4.8-10.8)
[2024-09-26 17:43] LABS: ALT (SGPT) 33 U/L (0-35); AST (SGOT) 35 U/L (14-36); Albumin 4.4 g/dl (3.5-5.0); Alkaline Phosphatase 88 U/L (38-126); Blood Urea Nitrogen 14 mg/dl (7-17); Calcium 9.4 mg/dl (8.4-10.2); Carbon Dioxide 22 mmol/L (22-30); Chloride 101 mmol/L (98-107); Glucose 137 mg/dl (70-99); Potassium 4.3 mmol/L (3.5-5.1); Sodium 134 mmol/L (135-145); Total Bilirubin 0.5 mg/dl (0.2-1.3); Total Protein 7.2 g/dl (6.3-8.2); eGFR > 60.00
[2024-09-26 17:47] LABS: COVID-19 Antigen Negative (Negative)
[2024-09-26 17:53] LABS: NT-proBNP 390 pg/ml; Troponin I < 0.012 ng/ml
[2024-09-26 18:52] VITALS: BP 132/73
--- NOTE | 2024-09-26 18:57 | ED.GENMED ---
History of Present Illness
General
Chief Complaint: Cold/Flu/URI Symptoms
Time Seen by Provider: 09/26/24 18:43
History of Present Illness
History of Present Illness:
74-year-old female history of COPD, CHF, hypertension presenting with nonproductive cough and shortness of breath worsening for the past 2 days. Patient denies fever, chills, chest pain, or lower extremity edema. Patient states that she does not
use home oxygen.
Past History
Past History
ED Past Medical History: COPD, HTN and Other (rheumatoid arthritis not on treatment)
ED Past Surgical History: Gynecological and Other
Social History
Tobacco: Smoker
Alcohol: None
Drug: None
Personal:
Living: with family (Lives with significant other)
Employment: Employed
Family History
Family History: Hypertension
Phy Exam
Physical Exam
Physical Exam:
General: Alert, no acute distress
Head: NCAT
Eyes: clear conjunctiva
Neck: supple
Cardiac: regular rate and rhythm, no murmur
Lungs: Diffuse wheezing with prolonged expiratory phase. tachypneic.
Abdomen: soft, nondistended nontender. No rebound or guarding.
MSK: no lower extremity edema bilaterally. No deformity
Skin: warm, dry
Neuro: Alert and oriented x3. no focal deficits
Course
Orders/Labs/Results
Orders:
Orders
09/26/24 16:41
EKG [Electrocardiogram (*1)] Urgent
Reason for Study: Shortness of Breath
09/26/24 16:42
EKG- Treatment ONCE
09/26/24 17:02
Chest [CR Chest - 2 Views ] Urgent
Comment:
Reason For Exam: cp
09/26/24 17:06
CMP [Comprehensive Metabolic Panel] Urgent
COVID-19 Antigen Urgent
Source: Nasal Swab
Complete Blood Count/With Diff Urgent
NT-proBNP Urgent
Troponin I Urgent
INF RAPID [Influenza A+B Rapid Molecular] Urgent
ROSALIE Source: Nasal Swab
Specimen Description:
09/26/24 18:54
Ipratropium/Albuterol Sulfate [Duoneb] 3 ml .ROUTE .STK-MED ONE
Ipratropium/Albuterol Sulfate [Duoneb] 3 ml INH R NOW STA
Prednisone [Deltasone] 50 mg PO NOW STA
09/26/24 20:54
Admit/Transfer Patient As Directed
Co-Sign Provider:
Level of Care: Inpatient admission
Assign to:: Telemetry
Physician / Group: Sybil Abbott
Diagnosis: acute COPD
Reason for Telemetry: Chest Pain syndromes
Date to Stop Telemetry: 09/28/24
Time to Stop Telemetry: 11:00
Reason for Hospitalization: acute COPD, hypoxic respiratory insufficiency
Expected length of stay greater than two midnights?: Yes
ELOS- Estimated Length of Stay in days: 3
I certify the patient meets the requirements for IP care: Yes
PRN Pain Medication Management As Directed
May give lesser potent ordered pain med per pt: Yes
preference::
Protocol:: Medication orders for pain may be administered in a
manner that supports deferring to patient preference
when the pt is:
- Requesting an ordered lesser potent pain medication.
Least to most potent pain medications are defined
as: acetaminophen < NSAID < tramadol < opioids
(morphine, oxycodone, hydromorphone).
- Requesting a lesser dose of the same medication IF
ORDERED.
- Requesting a less intrusive route of administration
if both routes are prescribed by the provider (PO <
IV).
09/26/24 20:55
Code Status As Directed
Resuscitation Status: Full Code
09/26/24 21:49
Acetaminophen [Tylenol] 650 mg PO Q4HPRN PRN
Bisacodyl [Dulcolax] 10 mg RECTAL DAILYPRN PRN
Dextrose 50%-Water [Dextrose 50% Syringe] 12.5 grams IV [id number] PRN
Docusate Sodium [Colace] 100 mg PO BID
Glucagon [GlucaGen] 1 mg IM PRN PRN
Guaifenesin [Mucinex] 600 mg PO Q12
Ipratropium/Albuterol Sulfate [Duoneb] 3 ml INH R Q4HPRN PRN
Polyethylene Glycol Powder [Miralax] 17 grams PO DAILY
09/26/24 21:49
Activity As Directed
Activity Level: As Tolerated
Bedside Glucose Monitoring As Directed
Frequency: AC&HS
Additional Instructions:: Change to q6h if pt on TPN, tube feeding or not eating
Intake/ Output As Directed
Frequency: Per unit guidelines
Pneumatic Compression Sleeves As Directed
Type: Knee high
Vital Signs As Directed
Frequency: Per unit guidelines
Acapella [Rx Pep / Acapela] [RESP] Routine
Copd Education [RESP] Routine
DX Deep Vein Thrombosis Video Routine
09/26/24 22:00
Doxycycline [Vibramycin] 100 mg PO Q12
09/27/24 Breakfast
2000 calorie (17 carb) Diabetic
At Your Request: Limited Participation
Basic Metabolic Panel IN AM
Complete Blood Count/With Diff IN AM
Glycohemoglobin (HgbA1c) IN AM
Dexamethasone Sod Phosphate [Decadron] 4 mg IV Q8H
09/27/24 07:30
Insulin Aspart Corrective Mod [Novolog Flexpen-Moderate Resistance] See Protocol SC AC
09/27/24 08:00
Ipratropium/Albuterol Sulfate [Duoneb] 3 ml INH R QID
09/28/24 11:00
DC Protocol for Telemetry ONCE
Abnormal Lab Results
09/26/24
17:06
WBC 13.5 H 10^3/uL
(4.8-10.8)
MCH 31.2 H pg
(27.0-31.0)
MCHC 32.5 L g/dL
(33.0-37.0)
Abs Immat Gran (auto) 0.1 H 10^3/uL
(0-0.05)
Absolute Neuts (auto) 9.4 H 10^3/uL
(1.4-6.5)
Absolute Monos (auto) 1.1 H 10^3/uL
(0.1-0.6)
Immature Gran % 0.9 H %
(0-0.5)
Lymphocytes % 17.8 L %
(20.5-51.1)
Sodium 134 L mmol/L
(135-145)
Creatinine 0.5 L mg/dL
(0.6-1.0)
Glucose 137 H mg/dl
(70-99)
09/26/24 17:06
09/26/24 17:06
Vital Signs
Initial and Last Documented VS:
Initial Vital Signs
Temp Pulse Resp BP Pulse Ox
98.2 F 68 23 143/64 93
09/26/24 16:37 09/26/24 16:37 09/26/24 16:37 09/26/24 16:37 09/26/24 16:37
Last Documented Vital Signs
Temp Pulse Resp BP Pulse Ox
99.2 F 73 14 138/72 95
09/26/24 22:13 09/26/24 22:59 09/26/24 22:59 09/26/24 22:13 09/26/24 22:59
MDM/Problems Addressed
Differential Diagnosis Includes:
COPD exacerbation, pneumonia, viral syndrome, chf, nstemi
MDM/Problems Addressed:
74-year-old female history of COPD not on nasal cannula at baseline presenting with nonproductive cough and shortness of breath worsening over the past 2 days. Patient was hypoxic to 84% on room air. On exam patient has diffuse wheezing and
tachypneic. Patient treated for COPD exacerbation with DuoNeb, prednisone. Chest x-ray reviewed, no focal infiltrate or consolidation. COVID/flu negative. EKG shows normal sinus rhythm at 67 bpm with IA 142 QTc 439 no acute ischemic changes. On
reevaluation, increased aeration throughout lungs with some rhonchi. When attempted to take patient off of supplemental oxygen, became tachypneic and pt reported she felt more short of breath. Discussed results with patient at bedside. Discussed
with hospitalist for admission
*Critical Care Note
Total Time (30-74mins, 75-104mins- exclusive of procedures): Not Applicable
ED Attending Note
-
Portions of this chart may have been created with voice recognition software.� Occasional wrong word or��sound alike� substitutions may have occurred due to the inherent limitations of voice recognition software.
Discharge Plan
Departure
Patient Disposition: Admit
Date of Disposition: 09/26/24
Time of Disposition: 20:39
Presentation/result/management discussed w/ accepting MD/DO: Hospitalist
Discharge Problem:
Acute exacerbation of chronic obstructive pulmonary disease
Interventions
Interventions:
*Risk Screen - Suicide Last Done: 09/26/24 16:37
*General Assessment Last Done: 09/26/24 19:05
*Neglect/Abuse Screening Last Done: 09/26/24 16:37
*ED COVID-19 Vaccine History Last Done: 09/26/24 19:05
*Nursing Disposition Last Done: 09/26/24 21:42
ED- Pulmonary Assessment Last Done: 09/26/24 19:05
Discharge Date and Time
Discharge Date/Time: 09/26/24 21:42
[2024-09-26 19:00] VITALS: BP 133/82
[2024-09-26] MEDS: DUONEB 3 ML INH (19:00)
[2024-09-26] MEDS: DELTASONE 50 MG PO (19:00)
[2024-09-26 19:05] VITALS: BMI 29.1
[2024-09-26 20:00] VITALS: BP 127/64
--- NOTE | 2024-09-26 20:34 | HPS.HSE ---
Family Physician
-
Family Physician: RUDY Mendoza
Chief Complaint
-
shortness of breath
History of Present Illness
Ms. Gina Silva is a 74 yo woman with hx COPD, HFpEF, rheumatoid arthritis, GERD, DM presents to the ER with shortness of breath and cough.
Patient states she has had progressive shortness of breath and non-productive cough over past 2-3 days. No fevers/chills. No chest pain. She feels better after nebulizers given in the ER.
No chest pain. No abdominal pain. No nausea/vomiting. + constipation
Medical History
Past Medical History
Past Medical History: Reports Other
Additional Past Medical History:
Rheumatoid Arthritis
Chronic Pain Syndrome
Chronic Narcotic Dependence
Hypertension
COPD
DM-II
Moderate Aortic Stenosis
Pulmonary Hypertension
Chronic HFpEF
RLE DVT (05/2024)
Past Surgical History: Reports Other
Additional Past Surgical History:
T&A
Social History
Tobacco: Former Smoker (Quit in 2021. > 50 pack years total use.)
Alcohol: None
Drug: None
Family History
Family History: Other (Father: HTN, CVA Mother: HTN, Colon Cancer)
Allergies / Home Medications
Allergies reflects when Allergies were last updated in [facility].
Home Medications with original date entered in [facility]
Allergy/Medication List:
Allergies
Allergy/AdvReac Type Severity Reaction Status Date / Time
ceftriaxone sodium Allergy numbness Verified 05/25/24 11:46
[From Rocephin] tingling
mouth
infliximab [From Remicade] Allergy Unknown Verified 05/25/24 11:46
vancomycin [Vancomycin] Allergy Unknown Verified 05/25/24 11:46
Home Medications
atenolol 50 mg tablet 50 mg PO DAILY Blood pressure 10/11/18
duloxetine 30 mg capsule,delayed release 30 mg PO DAILY neuropathic pain 04/13/19
duloxetine 60 mg capsule,delayed release 60 mg PO QPM neuropathic pain 06/30/21
budesonide-formoterol HFA 160 mcg-4.5 mcg/actuation aerosol inhaler (Symbicort) 2 puff inhalation R BID Lung/breathing issues 01/11/23
albuterol sulfate 90 mcg/actuation aerosol inhaler 2 puff inhalation R Q6HPRN PRN sob 05/12/24
calcium 600 mg (as carbonate)-vitamin D3 62.5 mcg (2,500 unit) capsule 1 cap PO DAILY Supplement 05/12/24
lnvmigxr-vfx-qoevl acid 0.4 mg-lycopene 300 mcg-lutein 250 mcg tablet (CertaVite Senior) 1 tab PO DAILY Supplement 05/12/24
prednisone 5 mg tablet 5 mg PO DAILY rheumatoid arthritis 05/12/24
spironolactone 25 mg tablet 25 mg PO DAILY Blood Pressure 05/12/24
pantoprazole 40 mg tablet,delayed release 40 mg PO DAILY #30 tabs 05/19/24
Lactobac no.2-Bifidobac no.1-S. thermo 112.5 billion cell capsule (Visbiome) 1 cap PO HS Supplement 05/25/24
aspirin 81 mg PO DAILY Blood Clot Prevention/Tx 05/25/24
apixaban 5 mg tablet (Eliquis) 5 mg PO BID #60 tabs 05/29/24
gabapentin 800 mg tablet 600 mg (0.75 x 800 mg) PO TID Pain #0 tabs 05/29/24
metformin 500 mg tablet 500 mg PO BID Diabetes 07/23/24
acetaminophen 500 mg tablet (Tylenol Extra Strength) 1,000 mg (2 x 500 mg) PO TID #100 tabs 07/25/24
lidocaine 4 % topical patch 2 patch topical DAILY #60 ea 07/25/24
oxycodone 5 mg tablet 5 mg PO Q4HPRN PRN severe pain #20 tabs 07/25/24
sennosides 8.6 mg tablet (Senna Laxative) 17.2 mg (2 x 8.6 mg) PO HS #60 tabs 07/25/24
awaiting med rec reconcilitation
Review of Systems
-
History Source: Patient
A 12 point ROS was completed and negative except as noted: Yes
Physical Exam
Vital Signs
Vital Signs
Temp Pulse Resp BP Pulse Ox
98.2 F 64 25 133/82 89
09/26/24 16:37 09/26/24 19:00 09/26/24 19:00 09/26/24 19:00 09/26/24 19:05
Physical Exam
General: No Apparent Distress and Conversant
HEENT: PERRLA
Respiratory: Wheezes and Rhonchi
Cardiac: S1/S2 and Regular Rhythm
GI: Soft and Non Tender
Musculoskeletal: No Edema
Skin: Warm and Dry; No Rash
Neuro: AO x 3
Psych: Calm
Laboratory Results
-
09/26/24 17:06
09/26/24 17:06
Laboratory Results
Total Bilirubin 0.5 mg/dl (0.2-1.3) 09/26/24 17:06
AST 35 U/L (14-36) 09/26/24 17:06
ALT 33 U/L (0-35) 09/26/24 17:06
Alkaline Phosphatase 88 U/L (38-126) 09/26/24 17:06
Troponin I < 0.012 ng/ml 09/26/24 17:06
Data Reviewed
-
Diagnostic Radiology: Report Reviewed by me
Lab Data: Labs Reviewed by me
Impression/Plan
-
Ms. Gina Silva is a 74 yo woman with hx COPD, HFpEF, rheumatoid arthritis, GERD, DM presents to the ER with shortness of breath and cough.
Triage VS: T 98.2, P 68, RR 23, BP 143/64, SpO2 84% on RA
LABS: WBC 13.5, Hg 13.5, PLT 341, Na 134, K+ 4.3, Cl 101, CO2 22, BUN 14, Cr 0.5, Glucose 137, CA 9.4, T. Bili 0.5, AST 35, ALT 33, Alk Phos 88, Trop < 0.012, BNP 390
Covid negative, Flu negative
CXR
IMPRESSION:
Increased left mid to lower lung zone atelectasis.
MAR: prednisone, duonebs
Hypoxic Respiratory Insufficiency
Acute COPD Exacerbation
-patient improved in ER s/p duonebs, prednisone but tachypneic with removal of O2; diffuse wheezing on exam
-admit to telemetry
-O2 support as needed
-s/p prednisone 50 this evening, start IV Decadron 4G q 8hour tomorrow AM
-duonebs and PRN
-start Doxycycline BID
-BID mucinex, acapella
*awaiting med rec
DM II
-ISS
Opiate Dependence
Chronic Pain
-resume home regimen
Hx DVT
Rheumatoid Arthritis
Constipation
-last BM 4 days ago
-start daily Miralax, colace, dulcolax ME PRN
DVT PPx [employer] Eliquis
FULL CODE
[2024-09-26 21:00] VITALS: BP 131/72
[2024-09-26 22:13] VITALS: BP 138/72; BMI 27.0
[2024-09-26] MEDS: ROXICODONE 5 MG PO (22:14)
[2024-09-26] MEDS: VIBRAMYCIN 100 MG PO (22:14)
[2024-09-26] MEDS: ELIQUIS 5 MG PO (22:14)
[2024-09-26 22:23] VITALS: BMI 27.0
[2024-09-26] MEDS: SENOKOT PO (22:25)
[2024-09-26] MEDS: MIRALAX PO (22:25)
[2024-09-26] MEDS: VISBIOME 1 CAP PO (22:30)
[2024-09-26] MEDS: NEURONTIN 800 MG PO (22:30)
[2024-09-26] MEDS: COLACE PO (22:31)
[2024-09-26] MEDS: MUCINEX 600 MG PO (22:31)
[2024-09-26] MEDS: CYMBALTA DELAYED RELEASE 60 MG PO (22:31)
[2024-09-26] MEDS: SYMBICORT 160/4.5 MCG INHALER 2 PUFF INH (22:55)
--- NOTE | 2024-09-27 00:35 | PTCARENOTE ---
Received pt from ED @ 2200. Pulled over to bed. AAOx3 VSS. 2L O2. Oriented to room, call duong and plan of care.
[2024-09-27 00:59] LABS: Glucose - Point of Care 220 mg/dl (70-99)
[2024-09-27 03:30] VITALS: BP 113/72
[2024-09-27] MEDS: DECADRON 4 MG IV ×3 (05:27→22:28)
[2024-09-27 06:00] VITALS: BMI 25.7
[2024-09-27 07:00] VITALS: BP 108/57
[2024-09-27 07:02] LABS: Glucose - Point of Care 140 mg/dl (70-99)
[2024-09-27] MEDS: NOVOLOG FLEXPEN-MODERATE RESISTANCE SC (07:20)
[2024-09-27] MEDS: ROXICODONE 5 MG PO ×3 (07:27→20:11)
[2024-09-27 07:35] LABS: % Basophils 0.1 % (0-2); % Immature Granulocytes 0.8 % (0-0.5); % Monocytes 5.3 % (1.7-9.3); % Neutrophils 83.8 % (42.2-75.2); Absolute Immature Granulocytes 0.1 10^3/uL (0-0.05); Absolute Monocytes 0.5 10^3/uL (0.1-0.6); Absolute Neutrophils 7.9 10^3/uL (1.4-6.5); Hematocrit 38.7 % (37.0-47.0); Hemoglobin 12.6 g/dL (12.0-16.0); Mean Corp Hgb Conc. 32.6 g/dL (33.0-37.0); Mean Corpuscular Hgb 31.3 pg (27.0-31.0); Mean Platelet Volume 10.2 fL (7.4-10.4); Nucleated Red Blood Cells % 0 %; Platelet Count 340 10^3/uL (130-400); Red Blood Cell Count 4.03 10^6/uL (4.20-5.40); Red Cell Dist. Width 13.5 % (11.5-14.5); White Blood Cell Count 9.5 10^3/uL (4.8-10.8)
[2024-09-27] MEDS: SYMBICORT 160/4.5 MCG INHALER 2 PUFF INH ×2 (07:47→19:45)
[2024-09-27] MEDS: DUONEB 3 ML INH ×3 (07:47→15:18)
[2024-09-27 07:59] LABS: Blood Urea Nitrogen 12 mg/dl (7-17); Calcium 8.9 mg/dl (8.4-10.2); Carbon Dioxide 24 mmol/L (22-30); Chloride 101 mmol/L (98-107); Estimated Creatinine Clearance 69 ml/min; Glucose 139 mg/dl (70-99); Potassium 4.7 mmol/L (3.5-5.1); Sodium 134 mmol/L (135-145); eGFR > 60.00
--- NOTE | 2024-09-27 08:24 | W.PN.HOSP.TC ---
Today's Communication/Plan
-
Pulmonary consult
Continue meds
Assessment / Plan
Assessment / Plan
Gen-AAOx3, NAD
HEENT-NC, AT, anicteric, clear oral mm
Neck-supple
CV-reg, no M, +S1/S2
Lungs-bilateral expiratory wheezing
Abd-soft, NT, ND
Ext-no edema
Musculoskeletal-no cyanosis, clubbing
Skin-warm and dry
Neuro-grossly non-focal
Psych-calm, cooperative
Acute hypoxic respiratory insufficiency - due to acute COPD exacerbation. Currently on 2 L nasal, oxygen. Not on oxygen at home.
Acute COPD exacerbation -continue steroids, nebs, Acapella, oxygen, antibiotics. Consult pulmonary. Chest x-ray shows left-sided atelectasis.
Hyponatremia -sodium 134. Monitor for now.
Chronic heart failure preserved EF -stable.
Essential hypertension -stable.
Moderate aortic stenosis
History of right lower extremity DVT -continue Eliquis.
Rheumatoid arthritis -on chronic prednisone.
DM2 without hyperglycemia -glucose 139 this morning. Hemoglobin A1c 7.2% in July. On metformin 500 mg twice daily at home.
GERD
Chronic pain syndrome/chronic opiate dependence
full code
Anticipated Discharge: > 48 hours
Subjective/Interval History
-
Date of Service: September 27, 2024
Patient seen and examined. Complaining of shortness of breath.
Objective Data
-
Labs:
Laboratory Results
09/27/24
06:23
WBC 9.5
Hgb 12.6
Hct 38.7
Plt Count 340
Sodium 134 L
Potassium 4.7
Chloride 101
Carbon Dioxide 24
BUN 12
Creatinine 0.4 L
Glucose 139 H
Calcium 8.9
Vital Signs:
Vital Signs
Temp Pulse Resp BP Pulse Ox
98.4 F 78 18 108/57 97
09/27/24 07:00 09/27/24 07:50 09/27/24 07:50 09/27/24 07:00 09/27/24 07:50
Review of Systems
-
History Source: Patient
All other systems: Reviewed and negative
--- NOTE | 2024-09-27 08:34 | RESPNOTE ---
patient not on O2 at home, attempted to wean to RA.
initially patient SPO2 97% on 2L,
95% 1L
91% on RA after 30 min however patient felt SOB without O2 especially when coughing.
re-applied O2 @ 1L at this time.
update given to RN.
--- NOTE | 2024-09-27 08:50 | VNURNOTE ---
Chart reviewed. Patient is current with [facility] PT. Will continue to follow hospital course and DC plans.
[2024-09-27] MEDS: MIRALAX PO (09:05)
[2024-09-27] MEDS: TENORMIN 50 MG PO (09:06)
[2024-09-27] MEDS: COLACE 100 MG PO ×2 (09:06→20:12)
[2024-09-27] MEDS: CYMBALTA DELAYED RELEASE 30 MG PO (09:06)
[2024-09-27] MEDS: MUCINEX 600 MG PO ×2 (09:06→20:12)
[2024-09-27] MEDS: LOW STRENGTH ASPIRIN 81 MG PO (09:07)
[2024-09-27] MEDS: VIBRAMYCIN 100 MG PO ×2 (09:07→20:12)
[2024-09-27] MEDS: ELIQUIS 5 MG PO ×2 (09:07→20:11)
[2024-09-27] MEDS: DITROPAN 2.5 MG PO ×2 (09:07→20:12)
[2024-09-27] MEDS: PROTONIX 40 MG PO (09:07)
[2024-09-27] MEDS: NEURONTIN 800 MG PO ×3 (09:08→22:28)
[2024-09-27] MEDS: ALDACTONE 25 MG PO (09:08)
[2024-09-27 11:00] VITALS: BP 124/71
[2024-09-27 11:15] LABS: Glycohemoglobin (HgbA1c) 7.3 % (4.0-5.6)
--- NOTE | 2024-09-27 12:09 | CON.PUL ---
Consultation
Consultation Request
Date/Time Consultation Requested: 09/27/24
Date/Time Consultation Performed: 09/27/24
Performing Provider: Blayne
Reason for Consultation: COPD
Medical History
-
History of Present Illness:
Patient is a 74 year old F with PMH significant for RA on chronic prednisone, chronic pain, hypertension and DM-II who presents to ED complaining of chest pain. Patient states that she slid out of bed about 3 days ago and fell to the floor. She
denies any significant injury suffered during the fall. Her chest pain has persisted over the past 3 days and seemed worse this evening prompting her to present to the ED for further evaluation. On arrival, she has O2 jun 87% and CXR without
significant findings. ProBNP not significantly elevated. Adm for suspected AECOPD.
She has not yet been seen by Pulm OP due to lack of transport. Only on symbicort at home.
Past Medical History
Past Medical History: Other (see list below)
Social History
Tobacco: Former Smoker
Alcohol: None
Drug: None
Family History
Family History: Reviewed & Not Pertinent
Allergies / Home Medications
Allergies
Allergy/AdvReac Type Severity Reaction Status Date / Time
ceftriaxone sodium Allergy numbness Verified 05/25/24 11:46
[From Rocephin] tingling
mouth
infliximab [From Remicade] Allergy Unknown Verified 05/25/24 11:46
vancomycin [Vancomycin] Allergy Unknown Verified 05/25/24 11:46
Home Medications
�Medication �Instructions �Recorded �Confirmed �Last Taken �Type
atenolol 50 mg tablet 50 mg PO DAILY Blood pressure 10/11/18 09/26/24 06/29/21 History
duloxetine 30 mg capsule,delayed 30 mg PO DAILY neuropathic pain 04/13/19 09/26/24 06/29/21 History
release
duloxetine 60 mg capsule,delayed 60 mg PO QPM neuropathic pain 09/14/21 12/11/24 09/13/21 History
release
budesonide-formoterol HFA 160 2 puff inhalation R BID 01/11/23 09/26/24 Unknown History
mcg-4.5 mcg/actuation aerosol Lung/breathing issues
inhaler (Symbicort)
albuterol sulfate 90 mcg/actuation 2 puff inhalation R Q6HPRN PRN sob 05/12/24 09/26/24 Unknown History
aerosol inhaler
calcium 600 mg (as 1 cap PO DAILY Supplement 05/12/24 09/26/24 Unknown History
carbonate)-vitamin D3 62.5 mcg
(2,500 unit) capsule
nggfmfza-vms-pmiqb acid 0.4 1 tab PO DAILY Supplement 05/12/24 09/26/24 Unknown History
mg-lycopene 300 mcg-lutein 250 mcg
tablet (CertaVite Senior)
prednisone 5 mg tablet 5 mg PO DAILY rheumatoid arthritis 05/12/24 09/26/24 Unknown History
spironolactone 25 mg tablet 25 mg PO DAILY Blood Pressure 05/12/24 09/26/24 Unknown History
pantoprazole 40 mg tablet,delayed 40 mg PO DAILY #30 tabs 05/19/24 09/26/24 Unknown Rx
release
Lactobac no.2-Bifidobac no.1-S. 1 cap PO HS Supplement 05/25/24 09/26/24 Unknown History
thermo 112.5 billion cell capsule
(Visbiome)
aspirin 81 mg chewable tablet 81 mg PO DAILY Blood Clot 05/25/24 09/26/24 Unknown History
Prevention/Tx ##0
apixaban 5 mg tablet (Eliquis) 5 mg PO BID #60 tabs 05/29/24 09/26/24 Unknown Rx
metformin 500 mg tablet 500 mg PO BID Diabetes 07/23/24 09/26/24 Unknown History
sennosides 8.6 mg tablet (Senna 17.2 mg (2 x 8.6 mg) PO HS #60 tabs 07/25/24 09/26/24 Unknown Rx
Laxative)
acetaminophen 500 mg tablet 1,000 mg PO TIDPRN PRN mild pain 09/26/24 09/26/24 Unknown History
(Tylenol Extra Strength)
buprenorphine 10 mcg/hour weekly 1 patch transdermal WE 09/26/24 09/26/24 Unknown History
transdermal patch
gabapentin 800 mg tablet 800 mg PO TID Pain 09/26/24 09/26/24 Unknown History
lidocaine 4 % topical patch 2 patch topical DAILY knees 09/26/24 09/26/24 Unknown History
oxybutynin chloride 5 mg 5 mg PO DAILY 09/26/24 09/26/24 Unknown History
tablet,extended release 24 hr
oxycodone 5 mg tablet 5 mg PO BID 09/26/24 09/26/24 Unknown History
Review of Systems
-
History Source: Patient
All other systems: Negative unless noted
Vitals / Labs / Diagnostic Testing
Vital Signs
Temp Pulse Resp BP Pulse Ox
98.4 F 76 16 108/57 93
09/27/24 07:00 09/27/24 11:39 09/27/24 11:39 09/27/24 07:00 09/27/24 11:39
Lab Data
09/27/24 06:23
09/27/24 06:23
Microbiology
09/26/24 17:06 Nasal Swab Influenza Types A & B ([place]) - Final
Negative for Influenza A & B, NAAT
Negative results must be combined with clinical observations
and patient history.
Nucleic Acid Amplification test (NAAT)performed on the
[employer] platform.
Diagnostic Testing:
Physical Exam
-
HEENT: Normocephalic, Anicteric and Moist Mucous Membranes
Cardiovascular: S1/S2 and Regular Rhythm
Respiratory: Rales and Non-Labored Respirations
GI: Soft, Non Distended and Non Tender
Neurology: Awake, Alert, Oriented and No Motor Deficits
Skin: Warm, Dry and Good Color
General: Comfortable and Other (NAD, chronically ill appearing)
Assessment
-
Patient is a 74 year old F with PMH significant for RA on chronic prednisone, chronic pain, hypertension and DM-II who presents to ED complaining of chest pain. Patient states that she slid out of bed about 3 days ago and fell to the floor. She
denies any significant injury suffered during the fall. Her chest pain has persisted over the past 3 days and seemed worse this evening prompting her to present to the ED for further evaluation. On arrival, she has O2 jun 87% and CXR without
significant findings. ProBNP not significantly elevated. Adm for suspected AECOPD. We are consulted for evla.
Acute hypoxemic respiratory failure, 87% jnu
AECOPD
SOB
Chest pain
Conditions prior to admission:
Stage IV COPD, severe obstruction FEV1 34%
RA, severe, limited mobility, on chronic prednisone 5 mg qd
Tobacco dependence
Chronic Pain Syndrome
Chronic Narcotic Dependence
Hypertension
DM-II
Moderate Aortic Stenosis
Pulmonary Hypertension
Chronic HFpEF
RLE DVT (05/2024)
T&A
Former Smoker > 50 pack years total use, quit 2021
Plan
Hypoxemia noted on arrival, O2 jun 87%
She has been on O2 in past, never followed up as OP
Home O2 evaluation
Prior history of lung disease is noted including stage IV COPD, FEV1 34%
She has not yet been seen by Pulm OP due to lack of transport. Only on symbicort at home.
Will add spiriva
She is placed on IV steroids, can transition if doing well in next 24 hours
Wean to home dose of 5mg
CXR/CT obtained indicating no acute process
She has not been getting yearly screening, quit smoking 2021
Other imaging reviewed
Prior ECHO results are reviewed indicating stable function, she has mod , PH
ProbNP not elevated
Smoking history noted >50 pack years
Encouraged continued smoking cessation, quit 2021
Will need outpatient pulmonary evaluation in our office for PFTs and 6MWT
Reviewed with patient, she still notes she does not think she can make her appts
residential prognosis poor in a patient with poor follow up
We will follow
Diagnostic Data
CXR 09/26/24-Increased left mid to lower lung zone atelectasis.
Chest X-Ray: 07/22/24- No acute disease of the chest. Nonacute mild midthoracic spine compression fracture. Stable. Mild cardiomegaly. Stable
CT CHEST 07/22/24- 1). There is acute nondisplaced buckle fracture of the mid-lower body of the sternum
2). There are patchy areas of subpleural interstitial airspace disease in both lungs most prominent in the left lower lobe which may be atelectasis or interstitial
3). The stability of the millimeter pulmonary nodule at the right lung base indicates that it is benign
4). There is diffuse fatty infiltration of the liver
Echo 05/14/24- 1. Left ventricle: Normal size and function. The estimated ejection fraction is 60-65% by visual estimation. No regional wall motion and normalities. Stage II diastolic dysfunction
2. Right ventricle: Normal size
3. Atria: Normal
4. Mitral valve: Sclerotic. Mild mitral regurgitation
5. Aortic valve: Thickened with mild-moderate aortic stenosis. Peak/mean gradients are 40 and 22 mmHg respectively. Pvel: 3.15 m/sec with estimate ENOC of 1.2 cm2. Mild aortic insufficiency with 419 cm/sec
6. Tricuspid valve: Trace tricuspid regurgitation. Mild estimated pulmonary artery systolic pressure is 40-45 mmHg
7. When compared to the most recent echocardiogram from 01/12/2023 there has been no significant change. Aortic valve gradients have increased slightly
2014: LVEF 65%. mod LVH. Suspected mild DD.
PFT's: 07/03/21- FVC was 1.28L or 45% predicted. FEV1 was 0.74L or 34% predicted. FEV1/FVC Ratio was 58%. FEV1 post bronchodilator increased up to 0.9L or 41% predicted, increasing by 22%
Severe obstruction
Reports and relevant images were personally reviewed.
Total time spent on this consultation __75__ minutes which includes review of history, physical exam, medications, laboratory data, personal review of imaging, extensive review of outpatient records, discussion with care team and respiratory therapy.
[2024-09-27 12:48] LABS: Glucose - Point of Care 172 mg/dl (70-99)
[2024-09-27 13:00] VITALS: BP 114/58
[2024-09-27] MEDS: NOVOLOG FLEXPEN-MODERATE RESISTANCE 1 UNITS SC ×2 (13:04→17:34)
[2024-09-27 16:47] LABS: Glucose - Point of Care 186 mg/dl (70-99)
[2024-09-27] MEDS: CYMBALTA DELAYED RELEASE 60 MG PO (17:34)
[2024-09-27 19:30] VITALS: BP 92/60
[2024-09-27 20:52] LABS: Glucose - Point of Care 215 mg/dl (70-99)
[2024-09-27] MEDS: SENOKOT PO ×2 (22:28→22:43)
[2024-09-27] MEDS: VISBIOME 1 CAP PO (22:28)
[2024-09-27] MEDS: LIDOCAINE 4% PATCH 2 PATCH TOPICAL (22:29)
[2024-09-27 23:31] VITALS: BP 104/55
[2024-09-28] VITALS (7 sets, daily range): BP systolic 111–146; BP diastolic 55–68; PULSE 53; O2SAT 95; BMI 26.2
[2024-09-28] MEDS: DECADRON 4 MG IV ×2 (05:34→13:04)
[2024-09-28 07:42] LABS: Glucose - Point of Care 154 mg/dl (70-99)
[2024-09-28] MEDS: SPIRIVA RESPIMAT 2.5 MCG 2 PUFF INH (08:00)
[2024-09-28] MEDS: SYMBICORT 160/4.5 MCG INHALER 2 PUFF INH ×2 (08:00→21:36)
[2024-09-28] MEDS: CYMBALTA DELAYED RELEASE 30 MG PO (08:33)
[2024-09-28] MEDS: PROTONIX 40 MG PO (08:33)
[2024-09-28] MEDS: ALDACTONE 25 MG PO (08:33)
[2024-09-28] MEDS: NEURONTIN 800 MG PO (08:33)
[2024-09-28] MEDS: VIBRAMYCIN 100 MG PO ×2 (08:33→20:26)
[2024-09-28] MEDS: MUCINEX 600 MG PO ×2 (08:34→20:26)
[2024-09-28] MEDS: DITROPAN 2.5 MG PO ×2 (08:34→20:26)
[2024-09-28] MEDS: LOW STRENGTH ASPIRIN 81 MG PO (08:34)
[2024-09-28] MEDS: COLACE 100 MG PO ×2 (08:35→20:25)
[2024-09-28] MEDS: TENORMIN 50 MG PO (08:35)
[2024-09-28] MEDS: ELIQUIS 5 MG PO ×2 (08:35→20:26)
[2024-09-28] MEDS: ROXICODONE 5 MG PO ×4 (08:35→21:56)
[2024-09-28] MEDS: NOVOLOG FLEXPEN-MODERATE RESISTANCE 1 UNITS SC (08:36)
[2024-09-28] MEDS: MIRALAX 17 GRAMS PO (08:36)
--- NOTE | 2024-09-28 10:28 | W.PN.PUL3 ---
Today's Communication / Plan
-
Remains on 2L NC, home O2 eval
Prednisone taper
Continue inhalers at discharge
She has already declined OP FU due to lack of transport
PT/OT eval for discharge planning
We will sign off at this time, please call with questions
Assessment
-
Patient is a 74 year old F with PMH significant for RA on chronic prednisone, chronic pain, hypertension and DM-II who presents to ED complaining of chest pain. Patient states that she slid out of bed about 3 days ago and fell to the floor. She
denies any significant injury suffered during the fall. Her chest pain has persisted over the past 3 days and seemed worse this evening prompting her to present to the ED for further evaluation. On arrival, she has O2 jun 87% and CXR without
significant findings. ProBNP not significantly elevated. Adm for suspected AECOPD. We are consulted for evla.
Acute hypoxemic respiratory failure, 87% jun
AECOPD
SOB
Chest pain
Conditions prior to admission:
Stage IV COPD, severe obstruction FEV1 34%
RA, severe, limited mobility, on chronic prednisone 5 mg qd
Tobacco dependence
Chronic Pain Syndrome
Chronic Narcotic Dependence
Hypertension
DM-II
Moderate Aortic Stenosis
Pulmonary Hypertension
Chronic HFpEF
RLE DVT (05/2024)
T&A
Former Smoker > 50 pack years total use, quit 2021
Plan
Hypoxemia noted on arrival, O2 jun 87%
Currently 92% on 2L NC
She has been on O2 in past, never followed up as OP
Home O2 evaluation
Prior history of lung disease is noted including stage IV COPD, FEV1 34%
She has not yet been seen by Pulm OP due to lack of transport. Only on symbicort at home.
Continue spiriva
Transitioned to PO prednisone, taper at discharge to home dose of 5mg
CXR/CT obtained indicating no acute process
She has not been getting yearly screening, quit smoking 2021
Other imaging reviewed
Prior ECHO results are reviewed indicating stable function, she has mod , PH
ProbNP not elevated
Smoking history noted >50 pack years
Encouraged continued smoking cessation, quit 2021
Will need outpatient pulmonary evaluation in our office for PFTs and 6MWT
Reviewed with patient, she still notes she does not think she can make her appts
nursing home prognosis poor in a patient with poor follow up
PT/OT eval for discharge planning
Diagnostic Data
CXR 09/26/24-Increased left mid to lower lung zone atelectasis.
Chest X-Ray: 07/22/24- No acute disease of the chest. Nonacute mild midthoracic spine compression fracture. Stable. Mild cardiomegaly. Stable
CT CHEST 07/22/24- 1). There is acute nondisplaced buckle fracture of the mid-lower body of the sternum
2). There are patchy areas of subpleural interstitial airspace disease in both lungs most prominent in the left lower lobe which may be atelectasis or interstitial
3). The stability of the millimeter pulmonary nodule at the right lung base indicates that it is benign
4). There is diffuse fatty infiltration of the liver
Echo 05/14/24- 1. Left ventricle: Normal size and function. The estimated ejection fraction is 60-65% by visual estimation. No regional wall motion and normalities. Stage II diastolic dysfunction
2. Right ventricle: Normal size
3. Atria: Normal
4. Mitral valve: Sclerotic. Mild mitral regurgitation
5. Aortic valve: Thickened with mild-moderate aortic stenosis. Peak/mean gradients are 40 and 22 mmHg respectively. Pvel: 3.15 m/sec with estimate ENOC of 1.2 cm2. Mild aortic insufficiency with 419 cm/sec
6. Tricuspid valve: Trace tricuspid regurgitation. Mild estimated pulmonary artery systolic pressure is 40-45 mmHg
7. When compared to the most recent echocardiogram from 01/12/2023 there has been no significant change. Aortic valve gradients have increased slightly
2014: LVEF 65%. mod LVH. Suspected mild DD.
PFT's: 07/03/21- FVC was 1.28L or 45% predicted. FEV1 was 0.74L or 34% predicted. FEV1/FVC Ratio was 58%. FEV1 post bronchodilator increased up to 0.9L or 41% predicted, increasing by 22%
Severe obstruction
Reports and relevant images were personally reviewed.
Total time spent on this encounter __50__ minutes which includes review of history, physical exam, medications, laboratory data, personal review of imaging, extensive review of outpatient records, discussion with care team and respiratory therapy.
Subjective Data
-
Date of Service:
Date of Service: September 28, 2024
Chief Complaint: Pulmonary Follow Up
Subjective:
No new complaints, no events
Sleeping all day, has not gotten OOB
No interest
Objective Data
Data Reviewed
Vital Signs / I&O / Oxygen:
Vital Signs
Temp Pulse Resp BP Pulse Ox
98.3 F 52 14 139/65 92
09/28/24 07:29 09/28/24 08:05 09/28/24 08:05 09/28/24 07:29 09/28/24 08:05
Intake and Output
09/27/24 09/28/24 09/29/24
06:59 06:59 06:59
Intake Total 1919
Balance 1919
SaO2 92
Nasal Cannula flow liters per 2
minute
Physical Exam
General: Comfortable and Other (NAD)
HEENT: Normocephalic, Anicteric and Moist Mucous Membranes
Cardiovascular: S1-S2 and Regular Rhythm
Respiratory: Wheeze (slight on L) and Non-Labored Respirations
GI: Soft, Non Distended and Non Tender
Neurology: Awake, Alert, Oriented, No Motor Deficits and Depressed
Skin: Warm, Dry and Good Color
Labs/Micro/Reports
Lab Data
09/27/24 06:23
09/27/24 06:23
Microbiology
09/26/24 17:06 Nasal Swab Influenza Types A & B ([place]) - Final
Negative for Influenza A & B, NAAT
Negative results must be combined with clinical observations
and patient history.
Nucleic Acid Amplification test (NAAT)performed on the
[employer] platform.
[2024-09-28 11:37] LABS: Glucose - Point of Care 280 mg/dl (70-99)
[2024-09-28 11:37] LABS: Glucose - Point of Care 277 mg/dl (70-99)
--- NOTE | 2024-09-28 12:09 | W.PN.HOSP.TC ---
Today's Communication/Plan
-
Wean oxygen
Continue current care
Assessment / Plan
Assessment / Plan
Gen-AAOx3, NAD
HEENT-NC, AT, anicteric, clear oral mm
Neck-supple
CV-reg, no M, +S1/S2
Lungs-bilateral expiratory wheezing, improving
Abd-soft, NT, ND
Ext-no edema
Musculoskeletal-no cyanosis, clubbing
Skin-warm and dry
Neuro-grossly non-focal
Psych-calm, cooperative
Acute hypoxic respiratory insufficiency - due to acute COPD exacerbation. Currently on 2 L nasal, oxygen. Not on oxygen at home.
Acute COPD exacerbation -continue steroids, nebs, Acapella, oxygen, antibiotics. Chest x-ray shows left-sided atelectasis. Appreciate pulmonary input.
Hyponatremia -sodium 134. Monitor for now.
Chronic heart failure preserved EF -stable.
Essential hypertension -stable.
Moderate aortic stenosis
History of right lower extremity DVT -continue Eliquis.
Rheumatoid arthritis -on chronic prednisone.
DM2 without hyperglycemia -glucose 154 this morning. Hemoglobin A1c 7.3%. On metformin 500 mg twice daily at home.
GERD
Chronic pain syndrome/chronic opiate dependence
full code
Dispo -possible discharge tomorrow morning if stable.
Anticipated Discharge: Within 24 hours
Subjective/Interval History
-
Date of Service: September 28, 2024
Patient seen and examined. Feeling better. Denies shortness of breath.
Objective Data
-
Vital Signs:
Vital Signs
Temp Pulse Resp BP Pulse Ox
98.3 F 52 18 121/55 95
09/28/24 11:16 09/28/24 11:16 09/28/24 11:16 09/28/24 11:16 09/28/24 11:16
I&O
09/27/24 09/28/2409/29/24
06:59 06:59 06:59
Intake Total 1919
Balance 1919
Review of Systems
-
History Source: Patient
All other systems: Reviewed and negative
--- NOTE | 2024-09-28 12:10 | CM ---
Patient seen at bedside with physician. Patient confirms that she lives with her dulce Garcia in a 3rd floor apartment with 6 outside stairs and 2 flights inside stairs. Patient confirmed that she feels safe in going home and that she has no
changes in her environment or home since her last assessment. The patient has been assisted with ADLs by Caregivers through the Waiver program ([facility] 6 hrs/day 7 days/week). Patient has rolling walker at home, a transport chair
and a shower chair. Patient has been at [facility] recently and stated that it was fine. Patient PCP is Dr. Rivera and she uses the [facility]. CM will continue to follow for discharge planning needs.
Plan; return home with VN vs SNF pending medical assessment
[2024-09-28] MEDS: NOVOLOG FLEXPEN-MODERATE RESISTANCE 5 UNITS SC (13:03)
[2024-09-28 15:38] LABS: Glucose - Point of Care 137 mg/dl (70-99)
[2024-09-28 16:23] LABS: Glucose - Point of Care 142 mg/dl (70-99)
--- NOTE | 2024-09-28 16:36 | RESPNOTE ---
Ambulatory pulse ox order received.
Patient taken off 2L NC and assessed for 10 minutes. Spo2 90-93% on room air at rest.
Patient declined to walk with RT at this time. Per pt, she wears a gait belt at home with walking and has not walked during this admission. Patient would rather wait until physical therapy can come bedside and assist with ambulation. Nurse at
bedside for convo; made aware.
Patient left on room air
[2024-09-28] MEDS: NEURONTIN 300 MG PO ×2 (17:19→21:39)
[2024-09-28] MEDS: NOVOLOG FLEXPEN-MODERATE RESISTANCE SC (17:20)
[2024-09-28] MEDS: CYMBALTA DELAYED RELEASE 60 MG PO (17:20)
[2024-09-28] MEDS: LIDOCAINE 4% PATCH 2 PATCH TOPICAL (21:39)
[2024-09-28] MEDS: ROBITUSSIN 200 MG PO (21:39)
[2024-09-28] MEDS: SENOKOT 17.2 MG PO (21:39)
[2024-09-28] MEDS: VISBIOME 1 CAP PO (21:39)
[2024-09-28 22:11] LABS: Glucose - Point of Care 194 mg/dl (70-99)
[2024-09-29 02:56] VITALS: BP 131/56
[2024-09-29] MEDS: ROXICODONE 5 MG PO ×2 (05:26→10:23)
[2024-09-29 06:00] VITALS: BMI 25.7
[2024-09-29 07:00] VITALS: BP 122/58
[2024-09-29 07:53] LABS: Glucose - Point of Care 144 mg/dl (70-99)
[2024-09-29] MEDS: SPIRIVA RESPIMAT 2.5 MCG 2 PUFF INH (08:03)
[2024-09-29] MEDS: SYMBICORT 160/4.5 MCG INHALER 2 PUFF INH (08:04)
[2024-09-29] MEDS: NOVOLOG FLEXPEN-MODERATE RESISTANCE SC (08:20)
[2024-09-29] MEDS: DELTASONE 40 MG PO (08:26)
[2024-09-29] MEDS: CYMBALTA DELAYED RELEASE 30 MG PO (08:26)
[2024-09-29] MEDS: COLACE 100 MG PO (08:26)
[2024-09-29] MEDS: ALDACTONE 25 MG PO (08:26)
[2024-09-29] MEDS: ELIQUIS 5 MG PO (08:27)
[2024-09-29] MEDS: TENORMIN 25 MG PO (08:27)
[2024-09-29] MEDS: LOW STRENGTH ASPIRIN 81 MG PO (08:27)
[2024-09-29] MEDS: DITROPAN 2.5 MG PO (08:27)
[2024-09-29] MEDS: MIRALAX 17 GRAMS PO (08:28)
[2024-09-29] MEDS: VIBRAMYCIN 100 MG PO (08:28)
[2024-09-29] MEDS: NEURONTIN 300 MG PO (08:28)
[2024-09-29] MEDS: PROTONIX 40 MG PO (08:28)
[2024-09-29] MEDS: MUCINEX 600 MG PO (08:28)
--- NOTE | 2024-09-29 09:47 | W.PN.HOSP.TC ---
Today's Communication/Plan
-
Ambulatory pulse ox on room air
Discharge
Assessment / Plan
Assessment / Plan
Gen-AAOx3, NAD
HEENT-NC, AT, anicteric, clear oral mm
Neck-supple
CV-reg, no M, +S1/S2
Lungs-bilateral expiratory wheezing, improving
Abd-soft, NT, ND
Ext-no edema
Musculoskeletal-no cyanosis, clubbing
Skin-warm and dry
Neuro-grossly non-focal
Psych-calm, cooperative
Acute hypoxic respiratory insufficiency - due to acute COPD exacerbation. Oxygenation improved, now on room air. She has an oxygen concentrator at home but claims she does not use it.
Check ambulatory pulse ox on room air.
Acute COPD exacerbation -continue steroids, nebs, Acapella, oxygen, antibiotics. Chest x-ray shows left-sided atelectasis. Appreciate pulmonary input. Can discharge on prednisone taper. Outpatient follow-up.
Hyponatremia -sodium 134. Monitor for now.
Chronic heart failure preserved EF -stable.
Essential hypertension -stable.
Moderate aortic stenosis
History of right lower extremity DVT -continue Eliquis.
Rheumatoid arthritis -on chronic prednisone.
DM2 without hyperglycemia -glucose 144 this morning. Hemoglobin A1c 7.3%. On metformin 500 mg twice daily at home.
GERD
Chronic pain syndrome/chronic opiate dependence
full code
Dispo -seems stable for discharge. She is not interested in SNF. Will arrange for home care. Discussed with social work.
33 min spent in discharge process.
Anticipated Discharge: Today
Subjective/Interval History
-
Date of Service: September 29, 2024
Patient seen and examined. States she feels better, requesting discharge today.
Objective Data
-
Vital Signs:
Vital Signs
Temp Pulse Resp BP Pulse Ox
98.1 F 52 18 122/58 93
09/29/24 07:00 09/29/24 07:00 09/29/24 07:00 09/29/24 07:00 09/29/24 07:00
I&O
09/28/24 09/29/24 09/30/24
06:59 06:59 06:59
Intake Total 1919 1200 / 1200
Balance 1919 1200 / 1200
Review of Systems
-
History Source: Patient
All other systems: Reviewed and negative
--- NOTE | 2024-09-29 09:56 | W.DS.TRANS ---
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
-
Discharge Instructions:
Sleep Apnea Risk Low
Discharge Diagnosis/Procedures COPD exacerbation
Diet Diabetic, Carb Controlled
Activity With assistance
Driving Restrictions No driving
Bathing Restrictions None
Instructions:
Stand-Alone Forms:
Changes to Home Medications: Yes
Discharge Medications:
DC Medications w/original date entered in [facility]
duloxetine 30 mg capsule,delayed release 30 mg PO DAILY neuropathic pain 04/13/19
duloxetine 60 mg capsule,delayed release 60 mg PO QPM neuropathic pain 06/30/21
budesonide-formoterol HFA 160 mcg-4.5 mcg/actuation aerosol inhaler (Symbicort) 2 puff inhalation R BID Lung/breathing issues 01/11/23
albuterol sulfate 90 mcg/actuation aerosol inhaler 2 puff inhalation R Q6HPRN PRN sob 05/12/24
calcium 600 mg (as carbonate)-vitamin D3 62.5 mcg (2,500 unit) capsule 1 cap PO DAILY Supplement 05/12/24
arykphyd-jzk-zxhne acid 0.4 mg-lycopene 300 mcg-lutein 250 mcg tablet (CertaVite Senior) 1 tab PO DAILY Supplement 05/12/24
prednisone 5 mg tablet 5 mg PO DAILY rheumatoid arthritis 05/12/24
spironolactone 25 mg tablet 25 mg PO DAILY Blood Pressure 05/12/24
pantoprazole 40 mg tablet,delayed release 40 mg PO DAILY #30 tabs 05/19/24
Lactobac no.2-Bifidobac no.1-S. thermo 112.5 billion cell capsule (Visbiome) 1 cap PO HS Supplement 05/25/24
aspirin 81 mg chewable tablet 81 mg PO DAILY Blood Clot Prevention/Tx ##0 05/25/24
apixaban 5 mg tablet (Eliquis) 5 mg PO BID #60 tabs 05/29/24
metformin 500 mg tablet 500 mg PO BID Diabetes 07/23/24
sennosides 8.6 mg tablet (Senna Laxative) 17.2 mg (2 x 8.6 mg) PO HS #60 tabs 07/25/24
acetaminophen 500 mg tablet (Tylenol Extra Strength) 1,000 mg PO TIDPRN PRN mild pain 09/26/24
buprenorphine 10 mcg/hour weekly transdermal patch 1 patch transdermal WE 09/26/24
lidocaine 4 % topical patch 2 patch topical DAILY knees 09/26/24
oxybutynin chloride 5 mg tablet,extended release 24 hr 5 mg PO DAILY 09/26/24
oxycodone 5 mg tablet 5 mg PO BID 09/26/24
atenolol 25 mg tablet 25 mg PO DAILY #30 tabs 09/29/24
doxycycline hyclate 100 mg capsule 100 mg PO Q12 #8 caps 09/29/24
gabapentin 300 mg capsule 300 mg PO TID #90 caps 09/29/24
guaifenesin 600 mg tablet, extended release 12 hr 600 mg PO Q12 #20 tabs 09/29/24
prednisone 10 mg tablet 10 mg PO DIRECTED #30 tabs 09/29/24
tiotropium bromide 2.5 mcg/actuation mist for inhalation (Spiriva Respimat) 2 puff inhalation R DAILY #4 grams 09/29/24
Home Medication Changes
Atenolol dose reduced
Gabapentin dose reduced
Pending Results: No
--- NOTE | 2024-09-29 10:48 | CM ---
shopping centre manager reviewed patient's chart and met with patient and patient is refusing skilled placement and wants to return to home, patient is current with [facility] and has caregivers in home, per notes patient is 93% on RA, per patient she has been off
oxygen since yesterday. Patient is requesting ambulance transport, and has 17 steps into home, ambulance has been set up for 2pm, patient's significant other will be home.
Plan; Home today with ambulance chicken picker for 2pm, and [facility] along with caregivers.
[2024-09-29 11:00] VITALS: BP 144/71
[2024-09-29 11:35] LABS: Glucose - Point of Care 170 mg/dl (70-99)
[2024-09-29] MEDS: NOVOLOG FLEXPEN-MODERATE RESISTANCE 1 UNITS SC (11:47)
== END 2024-09-29 13:48 | disposition home health service (06) | DRG 191 ==
LOC: 4 WEST ACU 21:11
PROVIDERS: Student in an Organized Health Care Education/Training Program; ADMITTING PHYSICIAN Student in an Organized Health Care Education/Training Program; ATTENDING PHYSICIAN Hospitalist; CONSULT PHYSICIAN Internal Medicine; EMERGENCY PHYSICIAN Emergency Medicine; FAMILY PHYSICIAN Nurse Practitioner Adult Health
DX: J44.1 Chronic obstructive pulmonary disease with (acute) exacerbation (principal); E87.1 Hypo-osmolality and hyponatremia; I50.32 Chronic diastolic (congestive) heart failure; F11.20 Opioid dependence, uncomplicated; J98.11 Atelectasis; I11.0 Hypertensive heart disease with heart failure; R09.02 Hypoxemia; M06.9 Rheumatoid arthritis, unspecified; F17.200 Nicotine dependence, unspecified, uncomplicated; K21.9 Gastro-esophageal reflux disease without esophagitis; E11.9 Type 2 diabetes mellitus without complications; G89.4 Chronic pain syndrome; I35.0 Nonrheumatic aortic (valve) stenosis; I27.20 Pulmonary hypertension, unspecified; R06.89 Other abnormalities of breathing; K59.00 Constipation, unspecified; W06.XXXA Fall from bed, initial encounter; Y93.89 Activity, other specified; Y92.9 Unspecified place or not applicable; Z86.718 Personal history of other venous thrombosis and embolism; Z80.0 Family history of malignant neoplasm of digestive organs; Z82.3 Family history of stroke; Z82.49 Family history of ischemic heart disease and other diseases of the circulatory system; Z88.1 Allergy status to other antibiotic agents; Z88.8 Allergy status to other drugs, medicaments and biological substances; Z79.82 Long term (current) use of aspirin; Z79.01 Long term (current) use of anticoagulants; Z79.84 Long term (current) use of oral hypoglycemic drugs; Z79.52 Long term (current) use of systemic steroids; Z11.52 Encounter for screening for COVID-19
CPT/HCPCS: 71046; 80048; 80053; 82962; 83036; 83880; 84484; 85025; 87502; 87811; 93005; 94640; 97163; 99284

== ENCOUNTER 2024-11-05 10:32 | Inpatient (IN) | payer OTHER, SELFPAY ==
[2024-11-02 19:27] VITALS: BP 112/56
[2024-11-02 19:36] VITALS: BMI 26.6
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
[2024-11-02] MEDS: DUONEB 3 ML INH (20:15)
[2024-11-02 20:16] LABS: % Basophils 0.4 % (0-2); % Eosinophils 0.4 % (0-6); % Immature Granulocytes 0.7 % (0-0.5); % Lymphocytes 15.9 % (20.5-51.1); % Monocytes 9.3 % (1.7-9.3); % Neutrophils 73.3 % (42.2-75.2); Absolute Basophils 0.1 10^3/uL (0-0.2); Absolute Eosinophils 0.1 10^3/uL (0-0.7); Absolute Immature Granulocytes 0.1 10^3/uL (0-0.05); Absolute Lymphocytes 2.9 10^3/uL (1.2-3.4); Absolute Monocytes 1.7 10^3/uL (0.1-0.6); Absolute Neutrophils 13.5 10^3/uL (1.4-6.5); Hematocrit 39.4 % (37.0-47.0); Hemoglobin 13.2 g/dL (12.0-16.0); Mean Corp Hgb Conc. 33.5 g/dL (33.0-37.0); Mean Corpuscular Hgb 30.8 pg (27.0-31.0); Mean Corpuscular Volume 92.1 fL (81.0-99.0); Mean Platelet Volume 9.5 fL (7.4-10.4); Nucleated Red Blood Cells % 0 %; Platelet Count 345 10^3/uL (130-400); Red Blood Cell Count 4.28 10^6/uL (4.20-5.40); Red Cell Dist. Width 14.4 % (11.5-14.5); White Blood Cell Count 18.5 10^3/uL (4.8-10.8)
[2024-11-02 20:35] LABS: Blood Urea Nitrogen 17 mg/dl (7-17); Calcium 9.2 mg/dl (8.4-10.2); Carbon Dioxide 29 mmol/L (22-30); Chloride 94 mmol/L (98-107); Estimated Creatinine Clearance 69 ml/min; Glucose 210 mg/dl (70-99); Potassium 3.5 mmol/L (3.5-5.1); Sodium 131 mmol/L (135-145); eGFR > 60.00
[2024-11-02 22:28] VITALS: BP 106/60
[2024-11-03] VITALS (14 sets, daily range): BP systolic 102–173; BP diastolic 47–85; PULSE 84; O2SAT 90; BMI 25.1
[2024-11-03 09:19] LABS: Glucose - Point of Care 227 mg/dl (70-99)
[2024-11-03 09:47] LABS: Urine Albumin 1+ (Neg - Trace); Urine Bilirubin Negative (Negative); Urine Character Slightly Cloudy (Clear); Urine Color Yellow; Urine Glucose Negative (Negative); Urine Ketone 1+ (Negative); Urine Leukocyte 2+ (Negative); Urine Nitrite Positive (Negative); Urine Occult Blood 4+ (Negative); Urine Specific Gravity 1.005 (<1.030); Urine Urobilinogen 1+ (Neg - 1+)
[2024-11-03 10:07] LABS: Urine Squamous Cell 0-2 /LPF (Few)
[2024-11-03 10:08] LABS: Urine Bacteria Many (Negative); Urine White Cell >100 /HPF (0-5)
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
[2024-11-03] MEDS: AUGMENTIN 875 MG/125 MG 1 TABLET PO ×2 (14:53→20:39)
[2024-11-03] MEDS: ROXICODONE 5 MG PO ×2 (14:53→20:38)
[2024-11-03 16:39] LABS: Glucose - Point of Care 274 mg/dl (70-99)
--- NOTE | 2024-11-03 16:40 | PTCARENOTE ---
Pt arrived on unit. Pulled over from stretcher to bed. Buprenrphine transdermal 10mcg/ hr ptch removed witnessed by enzo rivas RN. Call ad within reach. Will continue to monitor.
[2024-11-03] MEDS: TYLENOL 650 MG PO (18:11)
[2024-11-03] MEDS: NOVOLOG FLEXPEN-LOW RESISTANCE 3 UNITS SC (18:11)
[2024-11-03] MEDS: SYMBICORT 160/4.5 MCG INHALER 2 PUFF INH (20:17)
[2024-11-03] MEDS: ELIQUIS 5 MG PO (20:38)
[2024-11-03] MEDS: DITROPAN 2.5 MG PO (20:38)
[2024-11-03] MEDS: GLUCOPHAGE 500 MG PO (20:38)
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
[2024-11-03 21:19] LABS: Glucose - Point of Care 200 mg/dl (70-99)
[2024-11-03] MEDS: LIDOCAINE 4% PATCH 2 PATCH TOPICAL (21:28)
[2024-11-03] MEDS: NEURONTIN 800 MG PO (21:29)
[2024-11-04 06:00] VITALS: BMI 24.5
[2024-11-04 06:53] LABS: Hematocrit 39.8 % (37.0-47.0); Hemoglobin 13.2 g/dL (12.0-16.0); Mean Corp Hgb Conc. 33.2 g/dL (33.0-37.0); Mean Corpuscular Hgb 30.6 pg (27.0-31.0); Mean Corpuscular Volume 92.1 fL (81.0-99.0); Mean Platelet Volume 10.2 fL (7.4-10.4); Platelet Count 320 10^3/uL (130-400); Red Blood Cell Count 4.32 10^6/uL (4.20-5.40); Red Cell Dist. Width 14.4 % (11.5-14.5)
[2024-11-04 07:00] VITALS: BP 145/81
[2024-11-04 07:20] LABS: Blood Urea Nitrogen 17 mg/dl (7-17); Calcium 8.8 mg/dl (8.4-10.2); Carbon Dioxide 27 mmol/L (22-30); Chloride 97 mmol/L (98-107); Estimated Creatinine Clearance 69 ml/min; Glucose 185 mg/dl (70-99); Potassium 3.6 mmol/L (3.5-5.1); Sodium 136 mmol/L (135-145); eGFR > 60.00
[2024-11-04] MEDS: SYMBICORT 160/4.5 MCG INHALER 2 PUFF INH ×2 (07:45→21:13)
[2024-11-04] MEDS: SPIRIVA RESPIMAT 2.5 MCG 2 PUFF INH (07:45)
[2024-11-04] MEDS: PROTONIX 40 MG PO (07:56)
[2024-11-04] MEDS: AUGMENTIN 875 MG/125 MG 1 TABLET PO (07:56)
[2024-11-04] MEDS: GLUCOPHAGE 500 MG PO ×2 (07:56→20:06)
[2024-11-04] MEDS: NEURONTIN 800 MG PO ×3 (07:56→21:32)
[2024-11-04] MEDS: TYLENOL 650 MG PO (07:56)
[2024-11-04] MEDS: CYMBALTA DELAYED RELEASE 30 MG PO (07:56)
[2024-11-04] MEDS: CYMBALTA DELAYED RELEASE 60 MG PO (07:56)
[2024-11-04] MEDS: TENORMIN 50 MG PO (07:57)
[2024-11-04] MEDS: ROXICODONE 5 MG PO ×2 (07:57→20:05)
[2024-11-04] MEDS: DELTASONE 5 MG PO (07:57)
[2024-11-04] MEDS: ELIQUIS 5 MG PO ×2 (07:57→20:05)
[2024-11-04] MEDS: ALDACTONE 25 MG PO (07:57)
[2024-11-04] MEDS: LOW STRENGTH ASPIRIN 81 MG PO (07:57)
[2024-11-04] MEDS: DITROPAN 2.5 MG PO ×2 (07:58→20:06)
[2024-11-04 08:28] LABS: Glucose - Point of Care 210 mg/dl (70-99)
[2024-11-04 09:45] LABS: Glycohemoglobin (HgbA1c) 7.5 % (4.0-5.6)
[2024-11-04] MEDS: NOVOLOG FLEXPEN-LOW RESISTANCE SC ×2 (09:45→15:13)
--- NOTE | 2024-11-04 10:42 | RESPNOTE ---
patient seen this morning for scheduled inhaler. SpO2 on digits only 88% RA, HR 67. pt not in distress. not very verbal but denies SOB. when SpO2 checked on Right Ear- sPO2 93-95% RA, SpO2 on Left ear 94-95%, HR correlates to EAR and to digits. pt
unable to answer questions about any vascular disease such as reynaud's. RN updated with findings.
[2024-11-04] MEDS: ZOSYN 50 IV ×3 (10:55→21:31)
[2024-11-04 12:28] LABS: Glucose - Point of Care 205 mg/dl (70-99)
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
[2024-11-04 15:00] VITALS: BP 116/73
[2024-11-04 16:36] LABS: Glucose - Point of Care 164 mg/dl (70-99)
[2024-11-04] MEDS: NOVOLOG FLEXPEN-LOW RESISTANCE 1 UNITS SC (17:00)
[2024-11-04] MEDS: LIDOCAINE 4% PATCH 2 PATCH TOPICAL (21:32)
[2024-11-04 21:36] LABS: Glucose - Point of Care 183 mg/dl (70-99)
[2024-11-04 23:00] VITALS: BP 126/69
[2024-11-05] MEDS: ZOSYN 50 IV ×4 (04:54→21:26)
[2024-11-05 06:00] VITALS: BMI 24.4
[2024-11-05 07:40] VITALS: BP 124/66
[2024-11-05 07:50] LABS: Glucose - Point of Care 159 mg/dl (70-99)
[2024-11-05] MEDS: SPIRIVA RESPIMAT 2.5 MCG 2 PUFF INH (08:03)
[2024-11-05] MEDS: SYMBICORT 160/4.5 MCG INHALER 2 PUFF INH ×2 (08:03→19:43)
[2024-11-05] MEDS: CYMBALTA DELAYED RELEASE 30 MG PO (08:04)
[2024-11-05] MEDS: DELTASONE 5 MG PO (08:04)
[2024-11-05] MEDS: CYMBALTA DELAYED RELEASE 60 MG PO (08:04)
[2024-11-05] MEDS: GLUCOPHAGE 500 MG PO ×2 (08:04→21:27)
[2024-11-05] MEDS: DITROPAN 2.5 MG PO ×2 (08:04→21:25)
[2024-11-05] MEDS: NEURONTIN 800 MG PO (08:04)
[2024-11-05] MEDS: PROTONIX 40 MG PO (08:04)
[2024-11-05] MEDS: ELIQUIS 5 MG PO ×2 (08:05→21:25)
[2024-11-05] MEDS: TENORMIN 50 MG PO (08:05)
[2024-11-05] MEDS: ROXICODONE 5 MG PO ×3 (08:05→21:25)
[2024-11-05] MEDS: ALDACTONE 25 MG PO (08:05)
[2024-11-05] MEDS: NOVOLOG FLEXPEN-LOW RESISTANCE 1 UNITS SC (08:06)
[2024-11-05] MEDS: LOW STRENGTH ASPIRIN 81 MG PO (08:06)
--- NOTE | 2024-11-05 08:34 | VNURNOTE ---
Chart reviewed. Patient is current with [facility] nursing- PT. Will continue to follow hospital course and DC plans.
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
[2024-11-05 10:53] VITALS: BP 132/65; PULSE 64; O2SAT 92
[2024-11-05 11:04] VITALS: BP 132/65; PULSE 64; O2SAT 92
[2024-11-05 11:32] LABS: Glucose - Point of Care 266 mg/dl (70-99)
[2024-11-05] MEDS: NOVOLOG FLEXPEN-LOW RESISTANCE 3 UNITS SC (12:14)
[2024-11-05] MEDS: TYLENOL 650 MG PO (13:09)
[2024-11-05 15:08] VITALS: BP 109/58
[2024-11-05] MEDS: NEURONTIN 600 MG PO ×2 (15:48→21:24)
[2024-11-05 16:38] LABS: Glucose - Point of Care 160 mg/dl (70-99)
--- NOTE | 2024-11-05 17:43 | PTCARENOTE ---
Addendum entered by Jina Dye RN 11/05/24 18:39:
Pt. refusing quiroga to be placed at this time. Pt. has said she will allow the night nurse to place quiroga, but does not want it right now because she is sore from the straight cath process. This RN will update the night RN. Vaginitis panel ordered
sent to lab and results pending.
Original Note:
Pt. had no urine output for duration of day shift. Straight cathed per prn order, bladder scan >460, actual output via straight cath 525, post void residual 112 on bladder scan. Urine output cloudy dark francie with strong odor. updated per
request. to order quiroga to be placed.
[2024-11-05] MEDS: NOVOLOG FLEXPEN-LOW RESISTANCE SC (18:28)
[2024-11-05] MEDS: LIDOCAINE 4% PATCH 2 PATCH TOPICAL (21:26)
[2024-11-05 21:28] LABS: Glucose - Point of Care 144 mg/dl (70-99)
[2024-11-05 23:15] VITALS: BP 137/62
--- NOTE | 2024-11-06 00:19 | PTCARENOTE ---
Pt agreeable to quiroga placement (see order). 14f Catheter placed and 350mls of clear yellow urine out. Call duong within reach and plan of care ongoing.
[2024-11-06] MEDS: ZOSYN 50 IV ×4 (04:57→21:02)
[2024-11-06 06:00] VITALS: BMI 24.3
[2024-11-06 06:31] LABS: % Basophils 0.3 % (0-2); % Eosinophils 1.2 % (0-6); % Immature Granulocytes 0.8 % (0-0.5); % Lymphocytes 20.1 % (20.5-51.1); % Monocytes 8.2 % (1.7-9.3); % Neutrophils 69.4 % (42.2-75.2); Absolute Basophils 0.1 10^3/uL (0-0.2); Absolute Eosinophils 0.2 10^3/uL (0-0.7); Absolute Immature Granulocytes 0.1 10^3/uL (0-0.05); Absolute Lymphocytes 3.1 10^3/uL (1.2-3.4); Absolute Monocytes 1.3 10^3/uL (0.1-0.6); Absolute Neutrophils 10.7 10^3/uL (1.4-6.5); Hematocrit 35.5 % (37.0-47.0); Mean Corp Hgb Conc. 33.8 g/dL (33.0-37.0); Mean Corpuscular Hgb 30.9 pg (27.0-31.0); Mean Corpuscular Volume 91.5 fL (81.0-99.0); Mean Platelet Volume 10.2 fL (7.4-10.4); Nucleated Red Blood Cells % 0 %; Platelet Count 321 10^3/uL (130-400); Red Blood Cell Count 3.88 10^6/uL (4.20-5.40); White Blood Cell Count 15.5 10^3/uL (4.8-10.8)
[2024-11-06 06:49] LABS: Blood Urea Nitrogen 18 mg/dl (7-17); Calcium 8.6 mg/dl (8.4-10.2); Carbon Dioxide 27 mmol/L (22-30); Chloride 94 mmol/L (98-107); Estimated Creatinine Clearance 69 ml/min; Glucose 126 mg/dl (70-99); Potassium 3.3 mmol/L (3.5-5.1); Sodium 132 mmol/L (135-145); eGFR > 60.00
[2024-11-06 07:20] VITALS: BP 135/61
[2024-11-06] MEDS: SYMBICORT 160/4.5 MCG INHALER 2 PUFF INH ×2 (07:34→19:52)
[2024-11-06] MEDS: SPIRIVA RESPIMAT 2.5 MCG 2 PUFF INH (07:34)
[2024-11-06 07:35] LABS: Glucose - Point of Care 146 mg/dl (70-99)
[2024-11-06] MEDS: NEURONTIN 600 MG PO ×3 (07:40→21:03)
[2024-11-06] MEDS: DELTASONE 5 MG PO (07:40)
[2024-11-06] MEDS: ALDACTONE 25 MG PO (07:40)
[2024-11-06] MEDS: CYMBALTA DELAYED RELEASE 60 MG PO (07:40)
[2024-11-06] MEDS: PROTONIX 40 MG PO (07:40)
[2024-11-06] MEDS: CYMBALTA DELAYED RELEASE 30 MG PO (07:40)
[2024-11-06] MEDS: TENORMIN PO (07:40)
[2024-11-06] MEDS: NOVOLOG FLEXPEN-LOW RESISTANCE SC ×2 (07:41→17:59)
[2024-11-06] MEDS: ROXICODONE 5 MG PO ×3 (07:41→20:50)
[2024-11-06] MEDS: GLUCOPHAGE 500 MG PO ×2 (07:41→20:49)
[2024-11-06] MEDS: LOW STRENGTH ASPIRIN 81 MG PO (07:41)
[2024-11-06] MEDS: DITROPAN 2.5 MG PO ×2 (07:41→20:49)
[2024-11-06] MEDS: ELIQUIS 5 MG PO ×2 (07:41→20:50)
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
[2024-11-06] MEDS: KCL 40 MEQ PO (11:19)
[2024-11-06 11:30] LABS: Glucose - Point of Care 207 mg/dl (70-99)
[2024-11-06] MEDS: NOVOLOG FLEXPEN-LOW RESISTANCE 2 UNITS SC (13:11)
[2024-11-06 15:21] VITALS: BP 141/73
[2024-11-06 16:34] LABS: Glucose - Point of Care 141 mg/dl (70-99)
[2024-11-06 20:49] LABS: Glucose - Point of Care 128 mg/dl (70-99)
[2024-11-06] MEDS: LIDOCAINE 4% PATCH 2 PATCH TOPICAL (21:02)
[2024-11-06 23:35] VITALS: BP 132/55
--- NOTE | 2024-11-07 02:27 | DOWNTIME ---
There was a [employer] Client Delivery Motorcycle Driver Downtime on 11/07/2024 from 0100 to 11/07/2023 at 0205 . Downtime documentation of patient's care, including medication administrations, has been reconciled in the electronic record per guidelines. Refer to the
patient's paper chart under the miscellaneous tab to see printed paper medication records and downtime forms.
[2024-11-07] MEDS: ZOSYN 50 IV ×3 (03:57→15:12)
[2024-11-07 05:49] LABS: % Basophils 0.3 % (0-2); % Eosinophils 1.4 % (0-6); % Immature Granulocytes 1.7 % (0-0.5); % Lymphocytes 22.9 % (20.5-51.1); % Neutrophils 66.7 % (42.2-75.2); Absolute Basophils 0.1 10^3/uL (0-0.2); Absolute Eosinophils 0.2 10^3/uL (0-0.7); Absolute Immature Granulocytes 0.3 10^3/uL (0-0.05); Absolute Lymphocytes 3.4 10^3/uL (1.2-3.4); Absolute Monocytes 1.1 10^3/uL (0.1-0.6); Absolute Neutrophils 9.9 10^3/uL (1.4-6.5); Hematocrit 34.8 % (37.0-47.0); Hemoglobin 11.8 g/dL (12.0-16.0); Mean Corp Hgb Conc. 33.9 g/dL (33.0-37.0); Mean Corpuscular Hgb 30.6 pg (27.0-31.0); Mean Corpuscular Volume 90.4 fL (81.0-99.0); Mean Platelet Volume 9.7 fL (7.4-10.4); Nucleated Red Blood Cells % 0 %; Platelet Count 334 10^3/uL (130-400); Red Blood Cell Count 3.85 10^6/uL (4.20-5.40); Red Cell Dist. Width 14.1 % (11.5-14.5); White Blood Cell Count 14.9 10^3/uL (4.8-10.8)
[2024-11-07 06:00] VITALS: BMI 24.8
[2024-11-07 06:48] LABS: Blood Urea Nitrogen 12 mg/dl (7-17); Calcium 8.7 mg/dl (8.4-10.2); Carbon Dioxide 26 mmol/L (22-30); Chloride 97 mmol/L (98-107); Estimated Creatinine Clearance 69 ml/min; Glucose 122 mg/dl (70-99); Sodium 133 mmol/L (135-145); eGFR > 60.00
[2024-11-07] MEDS: SYMBICORT 160/4.5 MCG INHALER 2 PUFF INH ×2 (07:26→21:14)
[2024-11-07] MEDS: SPIRIVA RESPIMAT 2.5 MCG 2 PUFF INH (07:26)
[2024-11-07 07:40] VITALS: BP 140/78
[2024-11-07 07:51] LABS: Glucose - Point of Care 150 mg/dl (70-99)
[2024-11-07] MEDS: DITROPAN 2.5 MG PO ×2 (07:53→20:38)
[2024-11-07] MEDS: ALDACTONE 25 MG PO (07:53)
[2024-11-07] MEDS: TENORMIN 50 MG PO (07:53)
[2024-11-07] MEDS: PROTONIX 40 MG PO (07:53)
[2024-11-07] MEDS: NEURONTIN 600 MG PO ×3 (07:53→21:18)
[2024-11-07] MEDS: DELTASONE 5 MG PO (07:53)
[2024-11-07] MEDS: CYMBALTA DELAYED RELEASE 60 MG PO (07:53)
[2024-11-07] MEDS: ELIQUIS 5 MG PO ×2 (07:54→20:38)
[2024-11-07] MEDS: LOW STRENGTH ASPIRIN 81 MG PO (07:54)
[2024-11-07] MEDS: GLUCOPHAGE 500 MG PO ×2 (07:54→20:39)
[2024-11-07] MEDS: ROXICODONE 5 MG PO ×3 (07:58→20:39)
[2024-11-07] MEDS: NOVOLOG FLEXPEN-LOW RESISTANCE 1 UNITS SC ×2 (07:59→17:54)
[2024-11-07] MEDS: CYMBALTA DELAYED RELEASE 30 MG PO (08:04)
--- NOTE | 2024-11-07 09:44 | PN.CDI ---
CDI
- -
CDI:
Physician Documentation Request
Admit Date: 11/05/24 10:32
Dear Doctor Milena,
Clinical Indicators:
The diagnosis of Sepsis was documented on 11/04, but is not consistently noted in subsequent documentation.
11/04 PN, 'Suspect sepsis secondary to UTI'
11/05, 11/06 PN, 'UTI Gram Negative Bacteremia'
Temp trend:
11/03/24
16:42 11/04/24
07:00
Temp 100.5 F H 101.5 F H
WBC on admission:
11/02/24
20:09
WBC 18.5 H
Please clarify which of the following most accurately describes the status of the patient's infection:
Sepsis (please specify if POA)
- Systemic manifestations of infection, with 2 or more SIRS criteria which include:
- Fever >100.4 degrees F or hypothermia < 96.8 degrees F
- Leukocytosis - WBC > 12,000 or leukopenia - WBC < 4,000 or > 10% bands
- Tachycardia > 90 beats per minute
- Tachypnea - RR > 20 breaths per minute or PaCO2 , 32mmHg
Source: Merck Manual 2013
UTI/Bacteremia Only, Without Systemic Illness
Other
Use of terms such as suspected, likely, concern for, or probable (associated with a specific diagnosis that is being evaluated, monitored, or treated as if it exists) are acceptable and can be coded in the inpatient setting, when documented at the
time of discharge.
Thank you,
Raisa Almendarez RN BSN
CDI Specialist
available via tiger text
Please use your independent medical judgment in providing your response.
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
[2024-11-07 11:45] LABS: Glucose - Point of Care 226 mg/dl (70-99)
--- NOTE | 2024-11-07 12:37 | PTCARENOTE ---
Patient verbalized to this RN that mika Contreras, , is allowed to know her location and 'whatever else you need to tell him.' This RN reassured patient that we do not have to give anyone any information without her permission.
Patient not willing to share more information with this RN at this time. Bindu, staff from [facility], asked for update. Also wanted to speak with the patient in person, but patient was off the floor for testing at that time. Bindu reports she will
return tomorrow.
[2024-11-07] MEDS: NOVOLOG FLEXPEN-LOW RESISTANCE 2 UNITS SC (13:03)
[2024-11-07 15:01] VITALS: BP 96/60
[2024-11-07 15:30] VITALS: BP 111/62; PULSE 63
--- NOTE | 2024-11-07 16:07 | CM ---
[place] reviewed chart, spoke with Bindu Pringle from [facility] [phone], will be in to visit patient today, patient is known to [facility]. Patient seen bedside, agreeable to rehab, reports she has been to [facility] in the past and would like to return. Patient
reports she will likely return to her home after rehab. Patient provided with [facility] contact information for support. CM will send referral to [facility]. CM will continue to follow for all discahrge planning needs.
Plan; SNF, will need insurance auth, [facility] following.
[2024-11-07 16:34] LABS: Bacterial Vaginosis by TMA Negative; Candida glabrata by TMA Positive; Candida species by TMA Negative; Trichomonas vaginalis by TMA Negative
[2024-11-07 16:43] LABS: Glucose - Point of Care 159 mg/dl (70-99)
[2024-11-07] MEDS: SENOKOT-S 1 TABLET PO (17:59)
[2024-11-07] MEDS: BACTRIM DS 800 MG/160 MG 1 TABLET PO (20:38)
[2024-11-07 20:39] LABS: Glucose - Point of Care 123 mg/dl (70-99)
[2024-11-07] MEDS: LIDOCAINE 4% PATCH 2 PATCH TOPICAL (20:39)
[2024-11-07 23:15] VITALS: BP 142/73
[2024-11-08 06:00] VITALS: BMI 24.3
[2024-11-08 06:07] LABS: % Basophils 0.7 % (0-2); % Eosinophils 1.2 % (0-6); % Immature Granulocytes 2.4 % (0-0.5); % Monocytes 6.4 % (1.7-9.3); % Neutrophils 63.3 % (42.2-75.2); Absolute Basophils 0.1 10^3/uL (0-0.2); Absolute Eosinophils 0.2 10^3/uL (0-0.7); Absolute Immature Granulocytes 0.4 10^3/uL (0-0.05); Absolute Neutrophils 9.7 10^3/uL (1.4-6.5); Hematocrit 36.7 % (37.0-47.0); Hemoglobin 12.2 g/dL (12.0-16.0); Mean Corp Hgb Conc. 33.2 g/dL (33.0-37.0); Mean Corpuscular Hgb 30.3 pg (27.0-31.0); Mean Corpuscular Volume 91.1 fL (81.0-99.0); Nucleated Red Blood Cells % 0 %; Platelet Count 390 10^3/uL (130-400); Red Blood Cell Count 4.03 10^6/uL (4.20-5.40); Red Cell Dist. Width 13.9 % (11.5-14.5); White Blood Cell Count 15.2 10^3/uL (4.8-10.8)
[2024-11-08 07:05] VITALS: BP 148/64
[2024-11-08 07:13] LABS: Blood Urea Nitrogen 13 mg/dl (7-17); Calcium 9.1 mg/dl (8.4-10.2); Carbon Dioxide 25 mmol/L (22-30); Chloride 103 mmol/L (98-107); Estimated Creatinine Clearance 69 ml/min; Glucose 127 mg/dl (70-99); Potassium 4.2 mmol/L (3.5-5.1); Sodium 137 mmol/L (135-145); eGFR > 60.00
[2024-11-08] MEDS: SYMBICORT 160/4.5 MCG INHALER 2 PUFF INH ×2 (07:29→19:49)
[2024-11-08] MEDS: SPIRIVA RESPIMAT 2.5 MCG 2 PUFF INH (07:29)
[2024-11-08 08:15] LABS: Glucose - Point of Care 161 mg/dl (70-99)
[2024-11-08] MEDS: NOVOLOG FLEXPEN-LOW RESISTANCE 1 UNITS SC ×2 (08:44→17:34)
[2024-11-08] MEDS: DITROPAN 2.5 MG PO ×2 (08:45→20:06)
[2024-11-08] MEDS: TENORMIN 50 MG PO (08:45)
[2024-11-08] MEDS: ROXICODONE 5 MG PO ×3 (08:45→20:06)
[2024-11-08] MEDS: DELTASONE 5 MG PO (08:45)
[2024-11-08] MEDS: GLUCOPHAGE 500 MG PO ×2 (08:46→20:06)
[2024-11-08] MEDS: PROTONIX 40 MG PO (08:46)
[2024-11-08] MEDS: CYMBALTA DELAYED RELEASE 60 MG PO (08:46)
[2024-11-08] MEDS: LOW STRENGTH ASPIRIN 81 MG PO (08:46)
[2024-11-08] MEDS: ELIQUIS 5 MG PO ×2 (08:46→20:06)
[2024-11-08] MEDS: BACTRIM DS 800 MG/160 MG 1 TABLET PO ×2 (08:46→20:05)
[2024-11-08] MEDS: NEURONTIN 600 MG PO ×3 (08:46→21:20)
[2024-11-08] MEDS: CYMBALTA DELAYED RELEASE 30 MG PO (08:46)
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
[2024-11-08] MEDS: DIFLUCAN 150 MG PO (10:15)
[2024-11-08] MEDS: COLACE 100 MG PO ×2 (10:15→20:06)
[2024-11-08 11:36] VITALS: BP 116/59; PULSE 59; O2SAT 93
[2024-11-08 11:49] LABS: Glucose - Point of Care 133 mg/dl (70-99)
[2024-11-08] MEDS: NOVOLOG FLEXPEN-LOW RESISTANCE SC (11:56)
[2024-11-08 15:05] VITALS: BP 131/64
[2024-11-08 16:40] LABS: Glucose - Point of Care 192 mg/dl (70-99)
[2024-11-08] MEDS: LIDOCAINE 4% PATCH 2 PATCH TOPICAL (21:20)
[2024-11-08 21:24] LABS: Glucose - Point of Care 173 mg/dl (70-99)
[2024-11-08 23:00] VITALS: BP 120/57
[2024-11-09 05:51] VITALS: BMI 24.1
[2024-11-09 07:07] LABS: Blood Urea Nitrogen 14 mg/dl (7-17); Calcium 9.7 mg/dl (8.4-10.2); Carbon Dioxide 18 mmol/L (22-30); Chloride 103 mmol/L (98-107); Estimated Creatinine Clearance 69 ml/min; Glucose 125 mg/dl (70-99); Potassium 4.7 mmol/L (3.5-5.1); Sodium 135 mmol/L (135-145); eGFR > 60.00
[2024-11-09 07:31] LABS: Glucose - Point of Care 135 mg/dl (70-99)
[2024-11-09 07:45] VITALS: BP 139/66
[2024-11-09] MEDS: NOVOLOG FLEXPEN-LOW RESISTANCE SC (08:05)
[2024-11-09] MEDS: ELIQUIS 5 MG PO ×2 (08:05→19:51)
[2024-11-09] MEDS: CYMBALTA DELAYED RELEASE 30 MG PO (08:05)
[2024-11-09] MEDS: NEURONTIN 600 MG PO ×3 (08:05→21:45)
[2024-11-09] MEDS: ROXICODONE 5 MG PO ×3 (08:05→19:50)
[2024-11-09] MEDS: TENORMIN 50 MG PO (08:05)
[2024-11-09] MEDS: CYMBALTA DELAYED RELEASE 60 MG PO (08:05)
[2024-11-09] MEDS: GLUCOPHAGE 500 MG PO ×2 (08:06→19:51)
[2024-11-09] MEDS: MIRALAX 17 GRAMS PO (08:06)
[2024-11-09] MEDS: DITROPAN 2.5 MG PO ×2 (08:06→19:51)
[2024-11-09] MEDS: DELTASONE 5 MG PO (08:06)
[2024-11-09] MEDS: COLACE 100 MG PO ×2 (08:06→19:50)
[2024-11-09] MEDS: PROTONIX 40 MG PO (08:06)
[2024-11-09] MEDS: LOW STRENGTH ASPIRIN 81 MG PO (08:06)
[2024-11-09] MEDS: BACTRIM DS 800 MG/160 MG 1 TABLET PO ×2 (08:07→19:50)
[2024-11-09] MEDS: SYMBICORT 160/4.5 MCG INHALER 2 PUFF INH ×2 (08:21→20:50)
[2024-11-09] MEDS: SPIRIVA RESPIMAT 2.5 MCG 2 PUFF INH (08:21)
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
--- NOTE | 2024-11-09 10:16 | CM ---
Addendum entered by Heydi Erickson 11/09/24 15:57:
IMM benefit explained to alert and oriented patient ; patient was unable to physically sign form
CM dated/timed form @ 1555
Will require Ambulance transport to SNF
Addendum entered by Heydi Erickson 11/09/24 14:22:
SNF can accept patient over the weekend pending AUTH approval
Addendum entered by Heydi Erickson 11/09/24 12:40:
Insurance Authorization submitted to [facility] @ phone #
Pending Referral # [id number]; Clinicals Faxed to # [phone]
Original Note:
Per Attending patient is stable for discharge to SNF
Contacted OT to reassess pateint ernie this morning
CM spoke with Bindu Pringle from [facility] [phone]; discharge plan update provided
Plan: Patient will discharge to SNF in [place] today pending insurance Authorization approval
[facility] located @ [address] [place] [address]; NPI # [id number] Provider, Jean Youssef;[id number] NPI#
Report # [phone]
[2024-11-09 11:30] VITALS: BP 118/57; PULSE 63; O2SAT 92
[2024-11-09 12:11] VITALS: BP 118/57; PULSE 60; O2SAT 92
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
[2024-11-09 12:43] LABS: Glucose - Point of Care 191 mg/dl (70-99)
[2024-11-09] MEDS: NOVOLOG FLEXPEN-LOW RESISTANCE 1 UNITS SC ×2 (12:54→17:09)
[2024-11-09 15:37] VITALS: BP 115/70
[2024-11-09 16:52] LABS: Glucose - Point of Care 163 mg/dl (70-99)
[2024-11-09] MEDS: LIDOCAINE 4% PATCH 2 PATCH TOPICAL (21:47)
[2024-11-09 21:50] LABS: Glucose - Point of Care 126 mg/dl (70-99)
[2024-11-09 23:25] VITALS: BP 124/69
[2024-11-10 06:00] VITALS: BMI 24.0
[2024-11-10] MEDS: SYMBICORT 160/4.5 MCG INHALER 2 PUFF INH ×2 (07:52→20:11)
[2024-11-10] MEDS: SPIRIVA RESPIMAT 2.5 MCG 2 PUFF INH (07:52)
[2024-11-10 07:55] LABS: Glucose - Point of Care 129 mg/dl (70-99)
[2024-11-10 08:00] VITALS: BP 117/52
[2024-11-10] MEDS: NOVOLOG FLEXPEN-LOW RESISTANCE SC ×2 (08:36→17:43)
[2024-11-10] MEDS: TENORMIN 50 MG PO (08:43)
[2024-11-10] MEDS: DELTASONE 5 MG PO (08:43)
[2024-11-10] MEDS: PROTONIX 40 MG PO (08:43)
[2024-11-10] MEDS: NEURONTIN 600 MG PO ×3 (08:43→21:51)
[2024-11-10] MEDS: LOW STRENGTH ASPIRIN 81 MG PO (08:44)
[2024-11-10] MEDS: ELIQUIS 5 MG PO ×2 (08:44→20:45)
[2024-11-10] MEDS: CYMBALTA DELAYED RELEASE 60 MG PO (08:44)
[2024-11-10] MEDS: ROXICODONE 5 MG PO ×4 (08:44→21:51)
[2024-11-10] MEDS: COLACE 100 MG PO ×2 (08:44→20:44)
[2024-11-10] MEDS: CYMBALTA DELAYED RELEASE 30 MG PO (08:45)
[2024-11-10] MEDS: MIRALAX PO (08:46)
[2024-11-10] MEDS: DITROPAN 2.5 MG PO ×2 (08:49→20:45)
[2024-11-10] MEDS: BACTRIM DS 800 MG/160 MG 1 TABLET PO ×2 (08:49→20:44)
[2024-11-10] MEDS: GLUCOPHAGE 500 MG PO ×2 (08:49→20:44)
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
[2024-11-10 12:18] LABS: Glucose - Point of Care 174 mg/dl (70-99)
[2024-11-10] MEDS: NOVOLOG FLEXPEN-LOW RESISTANCE 1 UNITS SC (14:27)
[2024-11-10 15:33] VITALS: BP 118/65
[2024-11-10 17:03] LABS: Glucose - Point of Care 126 mg/dl (70-99)
[2024-11-10] MEDS: LIDOCAINE 4% PATCH 2 PATCH TOPICAL (21:50)
[2024-11-10 21:55] LABS: Glucose - Point of Care 132 mg/dl (70-99)
[2024-11-10 23:00] VITALS: BP 127/64
[2024-11-11 07:00] VITALS: BP 146/66
[2024-11-11] MEDS: SYMBICORT 160/4.5 MCG INHALER 2 PUFF INH ×2 (07:28→20:15)
[2024-11-11] MEDS: SPIRIVA RESPIMAT 2.5 MCG 2 PUFF INH (07:28)
[2024-11-11] MEDS: ROXICODONE 5 MG PO ×3 (08:18→21:46)
[2024-11-11] MEDS: NEURONTIN 600 MG PO ×3 (08:18→21:46)
[2024-11-11] MEDS: PROTONIX 40 MG PO (08:18)
[2024-11-11] MEDS: ELIQUIS 5 MG PO ×2 (08:19→21:44)
[2024-11-11] MEDS: DELTASONE 5 MG PO (08:19)
[2024-11-11] MEDS: COLACE 100 MG PO ×2 (08:19→21:46)
[2024-11-11] MEDS: CYMBALTA DELAYED RELEASE 60 MG PO (08:19)
[2024-11-11] MEDS: CYMBALTA DELAYED RELEASE 30 MG PO (08:19)
[2024-11-11] MEDS: TENORMIN 50 MG PO (08:20)
[2024-11-11] MEDS: LOW STRENGTH ASPIRIN 81 MG PO (08:20)
[2024-11-11] MEDS: DITROPAN 2.5 MG PO ×2 (08:30→21:45)
[2024-11-11] MEDS: GLUCOPHAGE 500 MG PO ×2 (08:30→21:45)
[2024-11-11] MEDS: BACTRIM DS 800 MG/160 MG 1 TABLET PO ×2 (08:30→21:45)
[2024-11-11] MEDS: MIRALAX PO (08:31)
[2024-11-11 08:37] LABS: Glucose - Point of Care 140 mg/dl (70-99)
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
[2024-11-11] MEDS: NOVOLOG FLEXPEN-LOW RESISTANCE SC (09:31)
[2024-11-11 09:58] LABS: Blood Urea Nitrogen 16 mg/dl (7-17); Calcium 9.6 mg/dl (8.4-10.2); Carbon Dioxide 21 mmol/L (22-30); Chloride 102 mmol/L (98-107); Estimated Creatinine Clearance 59 ml/min; Glucose 135 mg/dl (70-99); Potassium 4.6 mmol/L (3.5-5.1); Sodium 133 mmol/L (135-145); eGFR > 60.00
[2024-11-11 10:01] LABS: Hematocrit 38.3 % (37.0-47.0); Hemoglobin 12.9 g/dL (12.0-16.0); Mean Corp Hgb Conc. 33.7 g/dL (33.0-37.0); Mean Corpuscular Hgb 30.6 pg (27.0-31.0); Mean Platelet Volume 9.2 fL (7.4-10.4); Platelet Count 508 10^3/uL (130-400); Red Blood Cell Count 4.21 10^6/uL (4.20-5.40); Red Cell Dist. Width 14.6 % (11.5-14.5); White Blood Cell Count 14.9 10^3/uL (4.8-10.8)
[2024-11-11 11:56] LABS: Glucose - Point of Care 241 mg/dl (70-99)
[2024-11-11] MEDS: NOVOLOG FLEXPEN-LOW RESISTANCE 2 UNITS SC ×2 (12:47→17:50)
[2024-11-11 15:00] VITALS: BP 129/61
[2024-11-11 16:01] VITALS: BP 129/61; PULSE 62; O2SAT 91
[2024-11-11 16:58] LABS: Glucose - Point of Care 558 mg/dl (70-99)
[2024-11-11 17:32] LABS: Glucose 203 mg/dl (70-99)
[2024-11-11] MEDS: LIDOCAINE 4% PATCH 2 PATCH TOPICAL (21:47)
[2024-11-11 22:10] LABS: Glucose - Point of Care 177 mg/dl (70-99)
[2024-11-11 23:37] VITALS: BP 124/68
[2024-11-12] MEDS: ROXICODONE 5 MG PO ×4 (02:04→21:57)
[2024-11-12 06:00] VITALS: BMI 24.5
[2024-11-12] MEDS: SPIRIVA RESPIMAT 2.5 MCG 2 PUFF INH (07:40)
[2024-11-12] MEDS: SYMBICORT 160/4.5 MCG INHALER 2 PUFF INH ×2 (07:40→19:42)
[2024-11-12 08:01] VITALS: BP 115/78
[2024-11-12 08:18] LABS: Glucose - Point of Care 126 mg/dl (70-99)
[2024-11-12] MEDS: NOVOLOG FLEXPEN-LOW RESISTANCE SC ×2 (08:21→17:32)
[2024-11-12] MEDS: DITROPAN 2.5 MG PO (08:24)
[2024-11-12] MEDS: CYMBALTA DELAYED RELEASE 60 MG PO (08:24)
[2024-11-12] MEDS: TENORMIN 50 MG PO (08:24)
[2024-11-12] MEDS: DELTASONE 5 MG PO (08:25)
[2024-11-12] MEDS: BACTRIM DS 800 MG/160 MG 1 TABLET PO ×2 (08:25→22:01)
[2024-11-12] MEDS: ELIQUIS 5 MG PO ×2 (08:25→21:57)
[2024-11-12] MEDS: CYMBALTA DELAYED RELEASE 30 MG PO (08:25)
[2024-11-12] MEDS: NEURONTIN 600 MG PO ×3 (08:25→21:57)
[2024-11-12] MEDS: GLUCOPHAGE 500 MG PO ×2 (08:25→22:01)
[2024-11-12] MEDS: COLACE 100 MG PO ×2 (08:25→21:57)
[2024-11-12] MEDS: LOW STRENGTH ASPIRIN 81 MG PO (08:25)
[2024-11-12] MEDS: PROTONIX 40 MG PO (08:25)
[2024-11-12] MEDS: MIRALAX PO (08:27)
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
[2024-11-12] MEDS: DIFLUCAN 150 MG PO (11:07)
[2024-11-12] MEDS: CITROMA 300 ML PO (11:07)
[2024-11-12 12:36] LABS: Glucose - Point of Care 162 mg/dl (70-99)
[2024-11-12] MEDS: NOVOLOG FLEXPEN-LOW RESISTANCE 1 UNITS SC (13:47)
--- NOTE | 2024-11-12 14:09 | CM ---
Addendum entered by [employer] 11/12/24 16:18:
Pt is aware of going to [facility] tomorrow and she expressed her agreement. pt stated she will stephanie, her daughters to let the know.
IMM reviewed, placed on chart
UCi s scheduling ambulance BLS for tomorrow 11/13/24 with knot picker cloth time 11:00 a.m.
[facility] nursing report: [phone]
Discharge instructions fax: [phone]
D/C plan: [facility] SNF tomorrow 11/13/24.
Addendum entered by [employer] 11/12/24 16:00:
An auth information noted.
CM spoke to [facility] SNF liturgical music director Domonique, auth info provided and she stated that pt requested and needs a private room and a private room will be available tomorrow and knot picker cloth time requested tomorrow at 11:00 a.m.
UC to arrange transportation for tomorrow 11/13/24 with knot picker cloth time 11:00 a.m. PMNC completed and left with
D/C plan: [facility] [place] [place] tomorrow 11/13/24
Original Note:
CM following re: discharge planning.
Reviewed pt's chart, met with pt.
Pt is aware she will go to [facility] ([facility]) for a short term rehab.
CM spoke to [facility] liaison Domonique and she stated the pt is accepted and an auth from [employer] requested.
per CM note, an auth imitated with [facility] [employer] and pt's has [employer]. [facility] [employer] is a secondary insurance and [facility] is primary.
[place] . Accepting MD: Dr. Youssef [phone].
CM asked steam hand case worker to help with obtaining an auth from [employer].
D/C plan: [facility] when an auth is available.
CM will follow to assit pt with discharge to [facility].
--- NOTE | 2024-11-12 14:15 | CM ---
Addendum entered by Nanci Chowdhury 11/12/24 15:26:
TC from [place] from [facility].
Approved skilled rehab.
Start date 11/12/24, LCD/NRD 11/14/24
Authorization # [id number]
Reference# [id number]
updates to Barbara Padgett cafeteria manager at
Original Note:
Patient accepted for transfer to
[email or web address] located @ [address] [place] [address]; NPI # [id number]
Provider, Jean Youssef;[id number] NPI#
TC to [facility] and initiated auth with Jordana.
Pended reference# [id number]
Clinicals faxed to [phone].
Await authorization.
[2024-11-12 15:32] VITALS: BP 118/78
[2024-11-12 17:23] LABS: Glucose - Point of Care 149 mg/dl (70-99)
--- NOTE | 2024-11-12 17:44 | PTCARENOTE ---
Pt states she is constipated and has not had BM since 11/08/24. Mag citrate given this morning and pt drank all of it. Milk of Molasses enema ordered. Pt is refusing MOM enema, RN educated pt on reasoning for enema and how it would be beneficial to
her. Pt refusing. aware.
[2024-11-12] MEDS: LIDOCAINE 4% PATCH 2 PATCH TOPICAL (21:57)
[2024-11-12] MEDS: SENOKOT-S 2 TABLET PO (21:57)
[2024-11-12 22:03] LABS: Glucose - Point of Care 153 mg/dl (70-99)
[2024-11-12 23:52] VITALS: BP 139/85
[2024-11-13 07:22] VITALS: BP 105/65
[2024-11-13 07:36] LABS: Glucose - Point of Care 111 mg/dl (70-99)
[2024-11-13] MEDS: SYMBICORT 160/4.5 MCG INHALER 2 PUFF INH (07:57)
[2024-11-13] MEDS: SPIRIVA RESPIMAT 2.5 MCG 2 PUFF INH (07:57)
[2024-11-13] MEDS: NOVOLOG FLEXPEN-LOW RESISTANCE SC (08:02)
[2024-11-13] MEDS: MIRALAX 17 GRAMS PO (08:07)
[2024-11-13] MEDS: ROXICODONE 5 MG PO (08:08)
[2024-11-13] MEDS: ELIQUIS 5 MG PO (08:08)
[2024-11-13] MEDS: PROTONIX 40 MG PO (08:08)
[2024-11-13] MEDS: LOW STRENGTH ASPIRIN 81 MG PO (08:08)
[2024-11-13] MEDS: BACTRIM DS 800 MG/160 MG 1 TABLET PO (08:09)
[2024-11-13] MEDS: CYMBALTA DELAYED RELEASE 60 MG PO (08:09)
[2024-11-13] MEDS: DELTASONE 5 MG PO (08:09)
[2024-11-13] MEDS: CYMBALTA DELAYED RELEASE 30 MG PO (08:09)
[2024-11-13] MEDS: GLUCOPHAGE 500 MG PO (08:09)
[2024-11-13] MEDS: NEURONTIN 600 MG PO (08:09)
[2024-11-13] MEDS: SENOKOT-S 2 TABLET PO (08:09)
[2024-11-13] MEDS: COLACE 100 MG PO (08:09)
[2024-11-13] MEDS: TENORMIN PO (08:10)
--- NOTE | 2024-11-13 09:44 | CM ---
Addendum entered by Angeles Godwin RN 11/13/24 09:54:
Pt agrees with dc to SNF.
Pt does not want to notify family of discharge.
Pt is confidential.
Original Note:
indicated pt is discharged.
Spoke with Domonique at [facility] pt is accepted today , She is aware of auth number.
Ambulance has been set up for today.
IMM completed yesterday.
[facility]
report [phone] ask for [place] or nursing payroll supervisor

PLAN To [facility]F today
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
--- NOTE | 2024-11-13 10:23 | PTCARENOTE ---
Report called to facility, informed that pt has not had BM since 11/08. made aware, new new orders provided. BM regimen continued.
[2024-11-13 11:00] VITALS: BP 112/50
== END 2024-11-13 11:10 | DRG 690 ==
LOC: 3 WEST ACU 10:32
PROVIDERS: Emergency Medicine; Internal Medicine; Registered Nurse; Student in an Organized Health Care Education/Training Program; ADMITTING PHYSICIAN Internal Medicine; ATTENDING PHYSICIAN Family Medicine; EMERGENCY PHYSICIAN Student in an Organized Health Care Education/Training Program
DX: N39.0 Urinary tract infection, site not specified (principal); E87.1 Hypo-osmolality and hyponatremia; I50.32 Chronic diastolic (congestive) heart failure; B96.20 Unspecified Escherichia coli [E. coli] as the cause of diseases classified elsewhere; F32.A Depression, unspecified; F41.9 Anxiety disorder, unspecified; G89.4 Chronic pain syndrome; I11.0 Hypertensive heart disease with heart failure; M06.9 Rheumatoid arthritis, unspecified; E11.9 Type 2 diabetes mellitus without complications; F17.200 Nicotine dependence, unspecified, uncomplicated; J44.9 Chronic obstructive pulmonary disease, unspecified; K59.00 Constipation, unspecified; T74.31XA Adult psychological abuse, confirmed, initial encounter; Z79.01 Long term (current) use of anticoagulants; Z79.84 Long term (current) use of oral hypoglycemic drugs; Z75.1 Person awaiting admission to adequate facility elsewhere
CPT/HCPCS: 51701; 76770; 80048; 81003; 81015; 81513; 82947; 82962; 83036; 83735; 84145; 85025; 85027; 87040; 87077; 87086; 87149; 87186; 87205; 87481; 87661; 93005; 94640; 97110; 97166; 97530; 97535; 99285

== ENCOUNTER 2025-05-27 19:21 | Inpatient (IN) | payer OTHER, SELFPAY ==
[2025-05-27] VITALS (8 sets, daily range): BP systolic 108–134; BP diastolic 55–78; BMI 25.2
[2025-05-27 10:53] LABS: Hematocrit 41.9 % (37.0-47.0); Hemoglobin 13.8 g/dL (12.0-16.0); Mean Corp Hgb Conc. 32.9 g/dL (33.0-37.0); Mean Corpuscular Volume 91.9 fL (81.0-99.0); Nucleated Red Blood Cells % 0 %; Platelet Count 413 10^3/uL (130-400); Red Cell Dist. Width 15.0 % (11.5-14.5)
[2025-05-27 11:17] LABS: ALT (SGPT) 28 U/L (0-35); AST (SGOT) 37 U/L (14-36); Albumin 4.3 g/dl (3.5-5.0); Alkaline Phosphatase 87 U/L (38-126); Blood Urea Nitrogen 10 mg/dl (7-17); Calcium 9.8 mg/dl (8.4-10.2); Carbon Dioxide 26 mmol/L (22-30); Chloride 98 mmol/L (98-107); Glucose 161 mg/dl (70-99); Potassium 4.8 mmol/L (3.5-5.1); Sodium 133 mmol/L (135-145); Total Protein 7.0 g/dl (6.3-8.2); eGFR > 60.00
--- NOTE | 2025-05-27 13:09 | ED.GENMED ---
History of Present Illness
General
Chief Complaint: Urinary Symptoms
Source: patient
Exam Limitations: none
Time Seen by Provider: 05/27/25 13:01
Nursing documentation reviewed up to this point in time: agreed with
History of Present Illness
History of Present Illness:
Patient is a 74-year-old female from home presents to the ER for evaluation. Patient has past medical history of rheumatoid , depression anxiety CHF hypertension, COPD, chronic pain , DVT presents to the ER complaining of weakness and cloudy
urine. She reports he normally walks with a walker but today was not able to walk.
Patient has a chronic Quiroga in place that she reports was last changed 2 weeks ago . Patient denies any fevers.
Past History
Past History
ED Past Medical History: COPD, HTN and Other (rheumatoid arthritis not on treatment)
ED Past Surgical History: Gynecological and Other
Social History
Tobacco: Smoker
Alcohol: None
Drug: None
Personal:
Living: with family (Lives with significant other)
Employment: Employed
Family History
Family History: Hypertension
Phy Exam
General Physical Exam
General Presentation: no apparent distress
General age: appears stated age
General Skin: warm and dry
General Habitus: normal
General Mental: alert
General Hydration: dry mucous membranes
Cardiovascular Exam
Cardiovascular Exam: regular rate/rhythm, no murmur and normal peripheral pulses
Pulmonary Exam
Pulmonary Exam: lungs clear and no respiratory distress
Neurological Exam
Neurological Exam: alert and oriented x3
Musculoskeletal Exam
Musculoskeletal Exam: full ROM
Skin Exam
Skin Exam: normal color and warm/dry
Psychiatric Exam
Psychiatric Exam: normal mood/affect
Course
Orders/Labs/Results
Orders:
Orders
05/27/25 10:45
Complete Blood Count/With Diff Urgent
Comprehensive Metabolic Panel Urgent
05/27/25 13:19
Quiroga Placement- Treatment ONCE
Reason for insertion: Chronic Quiroga on Admit
05/27/25 13:26
Venous Doppler Lwr Ext Rt [US Periph Venous LOWER Ext RT] Urgent
Comment:
Reason For Exam: swelling to right l/e ankle region
05/27/25 13:42
Urinalysis Reflex To Culture Urgent
Date Specimen was Collected: 05/27/25
Time Specimen was Collected: 10:30
Urine Microscopic Reflex Cult Urgent
Urine Culture Urgent
ROSALIE Source: U
Specimen Description:
Date Specimen was Collected: 05/27/25
Time Specimen was Collected: 10:30
05/27/25 15:03
Piperacillin/Tazo 3.375 Gram [Zosyn] 3.375 gram in 50 ml IV NOW
Abnormal Lab Results
05/27/25 05/27/25
10:45 13:42
WBC 17.6 H 10^3/uL
(4.8-10.8)
MCHC 32.9 L g/dL
(33.0-37.0)
RDW 15.0 H %
(11.5-14.5)
Plt Count 413 H 10^3/uL
(130-400)
Abs Immat Gran (auto) 0.1 H 10^3/uL
(0-0.05)
Absolute Neuts (auto) 13.8 H 10^3/uL
(1.4-6.5)
Absolute Monos (auto) 1.0 H 10^3/uL
(0.1-0.6)
Immature Gran % 0.7 H %
(0-0.5)
Neutrophils % 78.5 H %
(42.2-75.2)
Lymphocytes % 13.6 L %
(20.5-51.1)
Sodium 133 L mmol/L
(135-145)
Creatinine 0.5 L mg/dL
(0.6-1.0)
Glucose 161 H mg/dl
(70-99)
AST 37 H U/L
(14-36)
Urine Ketones 3+ A
(Negative)
Ur Occult Blood Reflex 4+ A
(Negative)
Urine Nitrite (Reflex) Positive A
(Negative)
Leukocyte Esterase Rfl 3+ A
(Negative)
Urine RBC 26-30 A /HPF
(0-2)
Urine WBC (Reflex) >100 A /HPF
(0-5)
Urine Bacteria (Reflex) Many A
(Negative)
Urine Albumin (Reflex) 3+ A
(Neg - Trace)
05/27/25 10:45
05/27/25 10:45
Vital Signs
Initial and Last Documented VS:
Initial Vital Signs
Temp Pulse Resp BP Pulse Ox
99.2 F 68 18 134/78 98
05/27/25 10:27 05/27/25 10:27 05/27/25 10:27 05/27/25 10:27 05/27/25 10:27
Last Documented Vital Signs
Temp Pulse Resp BP Pulse Ox
99.5 F 75 18 120/55 93
05/27/25 17:59 05/27/25 17:59 05/27/25 17:59 05/27/25 17:59 05/27/25 17:59
MDM/Problems Addressed
Differential Diagnosis Includes:
not limited to: UTI, dehydration
MDM/Problems Addressed:
Patient with chronic Quiroga presents with weakness. New Quiroga inserted with debris and sediment in the tubing. Patient presents awake alert with an elevated white count of 17,000. Patient with normal renal function IV antibiotics ordered based on
previous culture results.
Chronic conditions affecting care:
chronic quiroga
*Pulse Oximetry
SaO2: 97
Oxygen Mode of Delivery: Room air
Patient hypoxic: no
*Critical Care Note
Total Time (30-74mins, 75-104mins- exclusive of procedures): Not Applicable
ED Attending Note
-
Portions of this chart may have been created with voice recognition software.� Occasional wrong word or��sound alike� substitutions may have occurred due to the inherent limitations of voice recognition software.
Discharge Plan
Departure
Patient Disposition: Admit
Date of Disposition: 05/27/25
Time of Disposition: 15:10
Admit to: Med/Surg
Admit to doctor: hospitalist
Presentation/result/management discussed w/ accepting MD/DO: Hospitalist
Condition: Fair
Covid-19: Not Applicable
Discharge Problem:
Acute UTI, Weakness
Prescriptions:
No Action
duloxetine 30 MG capsule,delayed release(DR/EC)
30 mg PO DAILY
Rx Instructions:
take with 60mg for total of 90mg
duloxetine 60 MG capsule,delayed release(DR/EC)
60 mg PO DAILY
Rx Instructions:
take with 30mg for total of 90mg
budesonide-formoterol [Symbicort] 160-4.5 mcg/actuation HFA aerosol inhaler
2 puff INHALATION R BID
albuterol sulfate 90 mcg/actuation Hfa Aerosol Inhaler
2 puff INHALATION R Q6HPRN PRN (Reason: sob)
CertaVite Senior 0.4 mg-300 mcg- 250 mcg Tablet
1 tab PO DAILY
calcium carbonate-vitamin D3 600 mg-62.5 mcg (2,500 unit) capsule
1 cap PO DAILY
prednisone 5 MG tablet
5 mg PO DAILY
pantoprazole 40 mg Tablet,Delayed Release (Dr/Ec)
40 mg PO DAILY Qty: 30 0RF
aspirin 81 mg Tablet,Chewable
81 mg PO DAILY Qty: 0
Eliquis 5 mg tablet
5 mg PO BID Qty: 60 0RF
metformin 500 mg Tablet
500 mg PO BID
buprenorphine 10 mcg/hour Patch Weekly
1 patch TRANSDERMAL TH
lidocaine 4 % adhesive patch,medicated
2 patch topical HS
Spiriva Respimat 2.5 mcg/actuation Mist
2 puff inhalation R DAILY Qty: 4 0RF
atenolol 50 mg Tablet
50 mg PO DAILY
gabapentin 300 mg Capsule
600 mg PO TID Qty: 120 0RF
spironolactone 25 mg Tablet
25 mg PO DAILY
oxycodone 5 mg tablet
5 mg PO BID
Referrals:
Madonna Rivera CRNP [Family Provider, General]
Interventions
Interventions:
*Risk Screen - Suicide Last Done: 05/27/25 10:27
*General Assessment Last Done: 05/27/25 10:27
*Neglect/Abuse Screening Last Done: 05/27/25 10:27
*ED- Fall Risk Assessment Last Done: 05/27/25 12:37
*ED COVID-19 Vaccine History Last Done: 05/27/25 12:37
ED- Cardiac Assessment Last Done: 05/27/25 12:38
ED-Female Genitourinary Assessment Last Done: 05/27/25 12:38
ED- Neurological Assessment Last Done: 05/27/25 12:38
ED- Pulmonary Assessment Last Done: 05/27/25 12:38
Discharge Date and Time
Print Language: DIVEHI
[2025-05-27 14:12] LABS: Urine Character Clear (Clear)
[2025-05-27] MEDS: ZOSYN 50 IV ×2 (15:16→21:50)
[2025-05-27 15:36] LABS: Urine Squamous Cell >30 /LPF (Few)
[2025-05-27 15:37] LABS: Urine Urothelial Cell >30 /LPF (FEW)
[2025-05-27 15:38] LABS: Urine Red Blood Cell 26-30 /HPF (0-2); Urine White Cell >100 /HPF (0-5)
--- NOTE | 2025-05-27 18:56 | HPS.HSE ---
Family Physician
-
Family Physician: RUDY Mendoza
Chief Complaint
-
weakness
History of Present Illness
74-year-old female past medical history of chronic Horner catheter last used 2 weeks ago, rheumatoid arthritis, anxiety/depression, chronic pain, CHF, COPD, hypertension, DVT, presenting with weakness and cloudy urine. He was unable to walk today.
Denies any fevers. No bowel movement in 4 days.
Denies smoking or alcohol use.
Medical History
Past Medical History
Past Medical History: Reports Other (chronic Horner catheter last used 2 weeks ago, rheumatoid arthritis, anxiety/depression, chronic pain, CHF, COPD, hypertension, DVT)
Past Surgical History: Reports None
Social History
Tobacco: Non-smoker
Alcohol: None
Drug: None
Family History
Family History: Not pertinent
Allergies / Home Medications
Allergies reflects when Allergies were last updated in [employer]
Home Medications with original date entered in [employer]
Allergy/Medication List:
Allergies
Allergy/AdvReac Type Severity Reaction Status Date / Time
ceftriaxone sodium (From Allergy numbness Verified 05/27/25 10:25
Rocephin) tingling
mouth
infliximab (From Remicade) Allergy Unknown Verified 05/27/25 10:25
vancomycin (Vancomycin) Allergy Unknown Verified 05/27/25 10:25
Home Medications
duloxetine 30 mg capsule,delayed release 30 mg PO DAILY neuropathic pain 04/13/19
duloxetine 60 mg capsule,delayed release 60 mg PO DAILY neuropathic pain 06/30/21
budesonide-formoterol HFA 160 mcg-4.5 mcg/actuation aerosol inhaler (Symbicort) 2 puff inhalation R BID Lung/breathing issues 01/11/23
albuterol sulfate 90 mcg/actuation aerosol inhaler 2 puff inhalation R Q6HPRN PRN sob 05/12/24
calcium 600 mg (as carbonate)-vitamin D3 62.5 mcg (2,500 unit) capsule 1 cap PO DAILY Supplement 05/12/24
frfibkdp-kfs-vpzln acid 0.4 mg-lycopene 300 mcg-lutein 250 mcg tablet (CertaVite Senior) 1 tab PO DAILY Supplement 05/12/24
prednisone 5 mg tablet 5 mg PO DAILY rheumatoid arthritis 05/12/24
pantoprazole 40 mg tablet,delayed release 40 mg PO DAILY #30 tabs 05/19/24
aspirin 81 mg chewable tablet 81 mg PO DAILY Blood Clot Prevention/Tx ##0 05/25/24
apixaban 5 mg tablet (Eliquis) 5 mg PO BID #60 tabs 05/29/24
metformin 500 mg tablet 500 mg PO BID Diabetes 07/23/24
buprenorphine 10 mcg/hour weekly transdermal patch 1 patch transdermal TH 09/26/24
lidocaine 4 % topical patch 2 patch topical HS b/l knees 09/26/24
tiotropium bromide 2.5 mcg/actuation mist for inhalation (Spiriva Respimat) 2 puff inhalation R DAILY #4 grams 09/29/24
atenolol 50 mg tablet 50 mg PO DAILY Blood Pressure 11/02/24
gabapentin 300 mg capsule 600 mg (2 x 300 mg) PO TID #120 caps 11/09/24
oxycodone 5 mg tablet 5 mg PO BID 05/27/25
spironolactone 25 mg tablet 25 mg PO DAILY 05/27/25
Review of Systems
-
Constitutional: Reports No Symptoms
EENT: Reports No Symptoms
Respiratory: Reports No Symptoms
Cardiac: Reports No Symptoms
Abdomen/GI: Reports No Symptoms
: Reports No Symptoms
Musculoskeletal: Reports No Symptoms
Skin: Reports No Symptoms
Neurological: Reports No Symptoms
Endocrine: Reports No Symptoms
Hematologic/Lymphatic: Reports No Symptoms
Psych: Reports No Symptoms
Physical Exam
Vital Signs
Vital Signs
Temp Pulse Resp BP Pulse Ox
99.5 F 75 18 120/55 93
08/11/25 17:59 05/27/25 17:59 05/27/25 17:59 05/27/25 17:59 05/27/25 17:59
Physical Exam
General: Well Developed, Well Nourished and No Apparent Distress
HEENT: NormoCephalic, Moist mucous membranes and Atraumatic
Respiratory: Clear
Cardiac: S1/S2 and Regular Rhythm; No Murmur or Rub
GI: Soft, Non Tender, Non Distended and Normal Bowel Sounds; No Organomegaly
Rectal: Deferred by Provider
Musculoskeletal: No Clubbing, No Cyanosis and No Edema
Skin: No Rash
Neuro: Nonfocal/grossly intact
Laboratory Results
-
05/27/25 10:45
05/27/25 10:45
Laboratory Results
Total Bilirubin 1.0 mg/dl (0.2-1.3) 05/27/25 10:45
AST 37 U/L (14-36) H 05/27/25 10:45
ALT 28 U/L (0-35) 05/27/25 10:45
Alkaline Phosphatase 87 U/L (38-126) 05/27/25 10:45
Data Reviewed
-
Lab Data: Labs Reviewed by me
Old Records: Reviewed
Impression/Plan
-
IMPRESSION:
PLAN:
# Catheter associated UTI
# History of E. coli bacteremia
-Urinalysis
- Urine culture
- Zosyn
- Horner catheter changed 2 weeks ago and was changed today in the ER
# Constipation
- No bowel movement in 4 days
- MiraLAX, Dulcolax as needed
Rheumatoid arthritis
- Continue prednisone
Anxiety/depression
Chronic pain
- Continue gabapentin, duloxetine, buprenorphine
Moderate aortic stenosis
History of HFpEF
COPD
- Continue Spiriva, inhaler
Essential hypertension
- Continue spironolactone, atenolol
History of DVT
- Continue Eliquis
Type 2 diabetes
- Hold metformin
- Insulin sliding scale
Full code
DVT prophylaxis�Eliquis
Regular diet
--- NOTE | 2025-05-27 20:14 | PTCARENOTE ---
Pt arrived to room 417-01. Pt transferred from stretcher to bed. Pt AAOx3, VSS. Pt oriented to room, call duong placed within reach. Bed alarm in place.
[2025-05-27] MEDS: SYMBICORT 160/4.5 MCG INHALER 2 PUFF INH (20:32)
[2025-05-27] MEDS: ELIQUIS 5 MG PO (20:41)
[2025-05-27] MEDS: ROXICODONE 5 MG PO (20:41)
[2025-05-27] MEDS: NEURONTIN 600 MG PO (21:50)
[2025-05-28 00:01] LABS: Glucose - Point of Care 145 mg/dl (70-99)
[2025-05-28] MEDS: ZOSYN 50 IV ×4 (05:04→22:26)
[2025-05-28 05:47] VITALS: BMI 25.6
[2025-05-28 06:45] LABS: Hematocrit 38.5 % (37.0-47.0); Hemoglobin 12.9 g/dL (12.0-16.0); Mean Corp Hgb Conc. 33.5 g/dL (33.0-37.0); Mean Corpuscular Volume 90.6 fL (81.0-99.0); Nucleated Red Blood Cells % 0 %; Platelet Count 426 10^3/uL (130-400); Red Cell Dist. Width 14.8 % (11.5-14.5)
[2025-05-28 07:00] VITALS: BP 132/73
[2025-05-28 07:07] LABS: Glucose - Point of Care 146 mg/dl (70-99)
[2025-05-28 07:09] LABS: ALT (SGPT) 22 U/L (0-35); AST (SGOT) 26 U/L (14-36); Albumin 3.9 g/dl (3.5-5.0); Alkaline Phosphatase 78 U/L (38-126); Blood Urea Nitrogen 11 mg/dl (7-17); Calcium 9.6 mg/dl (8.4-10.2); Carbon Dioxide 24 mmol/L (22-30); Chloride 100 mmol/L (98-107); Estimated Creatinine Clearance 69 ml/min; Glucose 132 mg/dl (70-99); Potassium 4.3 mmol/L (3.5-5.1); Sodium 133 mmol/L (135-145); Total Protein 6.5 g/dl (6.3-8.2); eGFR > 60.00
[2025-05-28] MEDS: SYMBICORT 160/4.5 MCG INHALER 2 PUFF INH ×2 (07:49→19:41)
[2025-05-28] MEDS: SPIRIVA RESPIMAT 2.5 MCG 2 PUFF INH (07:49)
[2025-05-28] MEDS: NOVOLOG FLEXPEN-LOW RESISTANCE SC (08:09)
[2025-05-28] MEDS: DESENEX/MITRAZOL/ZEASORB 1 APPLIC TOPICAL ×2 (08:09→20:09)
[2025-05-28] MEDS: LOW STRENGTH ASPIRIN 81 MG PO (08:11)
[2025-05-28] MEDS: OSCAL 500 + D 500 MG PO (08:11)
[2025-05-28] MEDS: MIRALAX 17 GRAMS PO (08:11)
[2025-05-28] MEDS: CYMBALTA DELAYED RELEASE 30 MG PO (08:11)
[2025-05-28] MEDS: PROTONIX 40 MG PO (08:11)
[2025-05-28] MEDS: NEURONTIN 600 MG PO ×3 (08:11→22:26)
[2025-05-28] MEDS: CYMBALTA DELAYED RELEASE 60 MG PO (08:12)
[2025-05-28] MEDS: ELIQUIS 5 MG PO ×2 (08:12→20:09)
[2025-05-28] MEDS: TENORMIN 50 MG PO (08:12)
[2025-05-28] MEDS: DELTASONE 5 MG PO (08:12)
[2025-05-28] MEDS: ALDACTONE 25 MG PO (08:12)
[2025-05-28] MEDS: ROXICODONE 5 MG PO ×2 (08:12→20:09)
[2025-05-28] MEDS: THERAGRAN 1 TABLET PO (08:12)
[2025-05-28 08:22] LABS: Glycohemoglobin (HgbA1c) 7.1 % (4.0-5.6)
--- NOTE | 2025-05-28 11:10 | VNURNOTE ---
Chart reviewed. Patient is current with [facility]. Will continue to follow hospital course and DC plans.
[2025-05-28 11:28] LABS: Glucose - Point of Care 243 mg/dl (70-99)
--- NOTE | 2025-05-28 13:07 | CM ---
CM reviewed chart, patient seen bedside, initial assessment completed. Patient resides with her in a condo, third floor, about 15 steps to enter. Patient reports she has a cane and walker in the home, is current with [facility]. Patient reports
she has been to SNF in the past, unsure name of facility. Patient reports she would like to return home with [facility] upon d.c. TT to Hospitalist for PT orders. Patient confirms PCP Madonna Rivera, pharmacy [facility], confirms prescription
coverage. Patient denies insecurities at home. CM will continue to follow for all discharge planning needs.
Plan; home with [facility], watch for PT recommendations
[2025-05-28] MEDS: NOVOLOG FLEXPEN-LOW RESISTANCE 2 UNITS SC (13:41)
--- NOTE | 2025-05-28 13:58 | W.PN.HOSP.TC ---
Addendum entered and electronically signed by Nicolas Canseco MD 05/29/25 18:30:
Pressure injury stage [Present on admission Sacrum] Stage 2
Original Note:
Today's Communication/Plan
-
cont abx
f/u cultures
Assessment / Plan
Assessment / Plan
Physical Exam
General: Well Developed, Well Nourished and No Apparent Distress
HEENT: NormoCephalic, Moist mucous membranes and Atraumatic
Respiratory: Clear
Cardiac: S1/S2 and Regular Rhythm; No Murmur or Rub
GI: Soft, Non Tender, Non Distended and Normal Bowel Sounds; No Organomegaly
Rectal: Deferred by Provider
Musculoskeletal: No Clubbing, No Cyanosis and No Edema
Skin: No Rash
Neuro: Nonfocal/grossly intact
# Catheter associated UTI
# History of E. coli bacteremia
-Urinalysis
- Urine culture
- Zosyn
- Horner catheter changed 2 weeks ago and was changed today in the ER
# Constipation
- No bowel movement in 4 days
- MiraLAX, Dulcolax as needed
Rheumatoid arthritis
- Continue prednisone
Anxiety/depression
Chronic pain
- Continue gabapentin, duloxetine, buprenorphine
Moderate aortic stenosis
History of HFpEF
COPD
- Continue Spiriva, inhaler
Essential hypertension
- Continue spironolactone, atenolol
History of DVT
- Continue Eliquis
Type 2 diabetes
- Hold metformin
- Insulin sliding scale
Full code
DVT prophylaxis�Eliquis
Regular diet
Anticipated Discharge: 24 - 48 hours
Subjective/Interval History
-
Date of Service: May 28, 2025
No acute events
Objective Data
-
Labs:
Laboratory Results
05/28/25
05:59
WBC 14.6 H
Hgb 12.9
Hct 38.5
Plt Count 426 H
Sodium 133 L
Potassium 4.3
Chloride 100
Carbon Dioxide 24
BUN 11
Creatinine 0.6
Glucose 132 H
Calcium 9.6
Total Bilirubin 1.1
AST 26
ALT 22
Alkaline Phosphatase 78
Vital Signs:
Vital Signs
Temp Pulse Resp BP Pulse Ox
99.3 F 76 16 132/73 97
05/28/25 07:00 05/28/25 08:12 05/28/25 07:52 05/28/25 08:12 05/28/25 07:52
I&O
05/27/25 05/28/25 05/29/25
06:59 06:59 06:59
Output Total 300 / 300
Balance -300 / -300
Review of Systems
-
History Source: Patient
All other systems: Not reviewed unless documented
Physical Exam
-
General: No Apparent Distress
HEENT: Normocephalic and Atraumatic
Respiratory: Negative Wheezes
Cardiac: Regular Rhythm and S1/S2
GI: Soft and Nontender
Neuro: AO x 3
Psych: Calm
Data Reviewed
-
Diagnostic Radiology: Report Reviewed by me
Labs: Labs Reviewed by me
[2025-05-28 15:00] VITALS: BP 105/51
[2025-05-28 16:09] VITALS: BP 111/51; PULSE 61
[2025-05-28 16:37] LABS: Glucose - Point of Care 153 mg/dl (70-99)
[2025-05-28] MEDS: NOVOLOG FLEXPEN-LOW RESISTANCE 1 UNITS SC (17:21)
[2025-05-28 21:48] LABS: Glucose - Point of Care 161 mg/dl (70-99)
[2025-05-28 23:17] VITALS: BP 121/62
[2025-05-29] MEDS: ZOSYN 50 IV ×4 (05:19→21:52)
[2025-05-29 06:00] VITALS: BMI 25.7
[2025-05-29 07:00] VITALS: BP 126/62
[2025-05-29 07:02] LABS: Glucose - Point of Care 126 mg/dl (70-99)
[2025-05-29] MEDS: SYMBICORT 160/4.5 MCG INHALER 2 PUFF INH ×2 (07:47→19:23)
[2025-05-29] MEDS: SPIRIVA RESPIMAT 2.5 MCG 2 PUFF INH (07:47)
[2025-05-29] MEDS: ROXICODONE 5 MG PO ×3 (08:03→19:47)
[2025-05-29] MEDS: DELTASONE 5 MG PO (08:03)
[2025-05-29] MEDS: CYMBALTA DELAYED RELEASE 30 MG PO (08:04)
[2025-05-29] MEDS: NEURONTIN 600 MG PO ×3 (08:04→21:53)
[2025-05-29] MEDS: LOW STRENGTH ASPIRIN 81 MG PO (08:04)
[2025-05-29] MEDS: THERAGRAN 1 TABLET PO (08:04)
[2025-05-29] MEDS: MIRALAX 17 GRAMS PO (08:04)
[2025-05-29] MEDS: CYMBALTA DELAYED RELEASE 60 MG PO (08:04)
[2025-05-29] MEDS: TYLENOL 650 MG PO (08:04)
[2025-05-29] MEDS: PROTONIX 40 MG PO (08:04)
[2025-05-29] MEDS: ELIQUIS 5 MG PO ×2 (08:04→19:47)
[2025-05-29] MEDS: OSCAL 500 + D 500 MG PO (08:05)
[2025-05-29] MEDS: DESENEX/MITRAZOL/ZEASORB 1 APPLIC TOPICAL ×2 (08:05→19:47)
[2025-05-29] MEDS: ALDACTONE 25 MG PO (08:06)
[2025-05-29] MEDS: TENORMIN 50 MG PO (08:06)
[2025-05-29] MEDS: NOVOLOG FLEXPEN-LOW RESISTANCE SC (08:07)
[2025-05-29 08:18] LABS: Hematocrit 36.8 % (37.0-47.0); Hemoglobin 12.4 g/dL (12.0-16.0); Mean Corp Hgb Conc. 33.7 g/dL (33.0-37.0); Mean Corpuscular Volume 90.6 fL (81.0-99.0); Platelet Count 405 10^3/uL (130-400); Red Cell Dist. Width 14.6 % (11.5-14.5)
[2025-05-29 09:32] LABS: ALT (SGPT) 23 U/L (0-35); AST (SGOT) 29 U/L (14-36); Albumin 3.9 g/dl (3.5-5.0); Alkaline Phosphatase 71 U/L (38-126); Blood Urea Nitrogen 10 mg/dl (7-17); Calcium 9.0 mg/dl (8.4-10.2); Carbon Dioxide 24 mmol/L (22-30); Chloride 102 mmol/L (98-107); Estimated Creatinine Clearance 69 ml/min; Glucose 120 mg/dl (70-99); Potassium 3.8 mmol/L (3.5-5.1); Sodium 134 mmol/L (135-145); Total Protein 6.4 g/dl (6.3-8.2); eGFR > 60.00
--- NOTE | 2025-05-29 11:09 | PN.CDI ---
CDI
- -
CDI:
Physician Documentation Request
Admit Date: 05/27/25 19:21
Dear Doctor Ajith,
Patient admitted for CAUTI.
Selected Entries
05/27/25
23:38
Pressure injury appearance [Present on admission Sacrum] Ecchymotic -
purple
Ecchymotic -
red
[place] wound bed
Pressure injury stage [Present on admission Sacrum] Stage 2
Surrounding Skin - [Present on admission Sacrum] Dry and intact
Local erythema
Treatment provided [Present on admission Sacrum] Silicone border
foam
Physician documentation of the type and location of wounds is required for compliant documentation. Based on the above clinical findings and your assessment, please provide the following in your progress note:
1. Location of the ulcer/wound, including laterality.
2. Type (etiology) of ulcer/wound:
- Diabetic ulcer
- Arterial (ischemic) ulcer
- Traumatic wound
- Venous stasis ulcer
- Pressure (decubitus) ulcer
- Non-healing surgical wound
- Other
- Unable to determine
3. For a non-pressure ulcer, please indicate the depth/severity:
- Limited to the breakdown of skin
- With fat layer exposed
- With necrosis of muscle
- With necrosis of bone
- Other
- Unable to determine
4. If a pressure ulcer, please also include the stage* of the ulcer:
- Stage 1 - Skin intact, non-blanchable redness
- Stage 2 - Partial thickness loss of dermis, includes intact or open blister
- Stage 3 - Full thickness tissue not including bone, tendon or muscle
- Stage 4 - Full thickness tissue loss, including exposed bone, tendon or muscle
- Unstageable - Full thickness loss in which the base of the ulcer is covered by slough (yellow, barrientos, bee, green or brown) and/or eschar (barrientos, brown or black) in the wound bed.
- Unable to determine
Use of terms such as suspected, likely, concern for, or probable (associated with a specific diagnosis that is being evaluated, monitored, or treated as if it exists) are acceptable and can be coded in the inpatient setting, when documented at the
time of discharge.
Thank you,
Liza Fong RN,BSN
CDI Specialist
Available via [place] text
Please use your independent medical judgment in providing your response.
*Source: National Pressure Ulcer Advisory Panel (NPUAP)
[2025-05-29 12:29] LABS: Glucose - Point of Care 287 mg/dl (70-99)
--- NOTE | 2025-05-29 12:44 | CM ---
CM reviewed chart, patient seen bedside. CM discussed therapy recommendations of SNF, patient currently max assist. Patient denies SNF and wants to return home with [facility]. CM will continue to discuss/offer SNF for patient. CM will continue to follow
for all discharge planning needs.
Plan; patient declining SNF, wants to return home with [facility]
[2025-05-29] MEDS: NOVOLOG FLEXPEN-LOW RESISTANCE 3 UNITS SC (13:08)
[2025-05-29 15:00] VITALS: BP 104/58
[2025-05-29 17:40] LABS: Glucose - Point of Care 195 mg/dl (70-99)
[2025-05-29] MEDS: NOVOLOG FLEXPEN-LOW RESISTANCE 1 UNITS SC (18:14)
[2025-05-29 22:11] LABS: Glucose - Point of Care 209 mg/dl (70-99)
[2025-05-29 23:23] VITALS: BP 145/53
[2025-05-30] MEDS: ZOSYN 50 IV ×2 (04:54→10:53)
[2025-05-30 06:00] VITALS: BMI 26.0
[2025-05-30 06:53] LABS: ALT (SGPT) 21 U/L (0-35); AST (SGOT) 24 U/L (14-36); Albumin 3.7 g/dl (3.5-5.0); Alkaline Phosphatase 67 U/L (38-126); Blood Urea Nitrogen 9 mg/dl (7-17); Calcium 8.8 mg/dl (8.4-10.2); Carbon Dioxide 25 mmol/L (22-30); Chloride 104 mmol/L (98-107); Estimated Creatinine Clearance 69 ml/min; Glucose 129 mg/dl (70-99); Potassium 3.5 mmol/L (3.5-5.1); Sodium 136 mmol/L (135-145); Total Protein 6.1 g/dl (6.3-8.2); eGFR > 60.00
[2025-05-30 07:18] VITALS: BP 148/62
[2025-05-30 07:40] LABS: Hematocrit 36.3 % (37.0-47.0); Hemoglobin 12.1 g/dL (12.0-16.0); Mean Corp Hgb Conc. 33.3 g/dL (33.0-37.0); Mean Corpuscular Volume 91.2 fL (81.0-99.0); Platelet Count 403 10^3/uL (130-400); Red Cell Dist. Width 14.6 % (11.5-14.5)
[2025-05-30] MEDS: SYMBICORT 160/4.5 MCG INHALER 2 PUFF INH (07:53)
[2025-05-30] MEDS: SPIRIVA RESPIMAT 2.5 MCG 2 PUFF INH (07:53)
[2025-05-30 08:08] LABS: Glucose - Point of Care 183 mg/dl (70-99)
[2025-05-30] MEDS: NEURONTIN 600 MG PO ×2 (08:12→15:33)
[2025-05-30] MEDS: THERAGRAN 1 TABLET PO (08:12)
[2025-05-30] MEDS: CYMBALTA DELAYED RELEASE 30 MG PO (08:13)
[2025-05-30] MEDS: LOW STRENGTH ASPIRIN 81 MG PO (08:13)
[2025-05-30] MEDS: DELTASONE 5 MG PO (08:14)
[2025-05-30] MEDS: ELIQUIS 5 MG PO (08:14)
[2025-05-30] MEDS: ROXICODONE 5 MG PO ×3 (08:15→18:35)
[2025-05-30] MEDS: OSCAL 500 + D 500 MG PO (08:15)
[2025-05-30] MEDS: ALDACTONE 25 MG PO (08:15)
[2025-05-30] MEDS: CYMBALTA DELAYED RELEASE 60 MG PO (08:15)
[2025-05-30] MEDS: PROTONIX 40 MG PO (08:15)
[2025-05-30] MEDS: TENORMIN 50 MG PO (08:16)
[2025-05-30] MEDS: NOVOLOG FLEXPEN-LOW RESISTANCE 1 UNITS SC (08:18)
[2025-05-30] MEDS: DESENEX/MITRAZOL/ZEASORB 1 APPLIC TOPICAL (08:21)
[2025-05-30] MEDS: MIRALAX 17 GRAMS PO (08:21)
--- NOTE | 2025-05-30 10:18 | PN.CDI ---
CDI
- -
CDI:
Physician Documentation Request
Admit Date: 05/27/25 19:21
Dear Doctor Ajith,
Patient admitted for CAUTI.
Laboratory Tests
05/27/25 05/28/25 05/29/25
10:45 05:59 07:30
Sodium 133 L 133 L 134 L
Based on the above, could you clarify in the progress notes, the appropriate diagnosis, if significant, that supports the above abnormalities and additional evaluation, monitoring and/or treatment rendered:
Hyponatremia, resolved
Abnormal lab value insignificant
Other
Use of terms such as suspected, likely, concern for, or probable (associated with a specific diagnosis that is being evaluated, monitored, or treated as if it exists) are acceptable and can be coded in the inpatient setting, when documented at the
time of discharge.
Thank you,
Liza Fong RN, BSN
CDI Specialist
Available via [place] text
Please use your independent medical judgment in providing your response.
[2025-05-30 11:37] LABS: Glucose - Point of Care 225 mg/dl (70-99)
--- NOTE | 2025-05-30 12:01 | CM ---
Addendum entered by Haritha Huff 05/30/25 12:50:
transport time changed- 7:00 p.m.
Original Note:
CM reviewed chart, patient seen bedside, continue to offer SNF to patient. Patient declining, would like to return home with [facility]. Patient confirms she has equipment needed at home, also has caregivers through waiver program, when asked schedule,
reports 'when they show up', reports her is home in addition to caregivers. IMM verbally reviewed with patient, provided with copy, placed in chart. Patient will require ambulance transport home, address confirmed, no elevator to third floor
condo, 17 steps up. Update to [facility] liaison on d/c plan. CM will continue to follow for all discharge planning needs.
Plan; [facility] with [facility], ambulance transport scheduled for 5:00 p.m.
--- NOTE | 2025-05-30 12:01 | W.PN.HOSP.TC ---
Addendum entered and electronically signed by Nicolas Canseco MD 06/01/25 15:45:
Chronic HFpEF
Hyponatremia
Addendum entered and electronically signed by Nicolas Canseco MD 05/31/25 14:40:
[id number]
Addendum entered and electronically signed by Nicolas Canseco MD 05/30/25 14:54:
dc on cefdinir if tolerates
Original Note:
Today's Communication/Plan
-
abx to complete 7 day course
f/u pcp, urology outpt
Assessment / Plan
Assessment / Plan
Physical Exam
General: Well Developed, Well Nourished and No Apparent Distress
HEENT: NormoCephalic, Moist mucous membranes and Atraumatic
Respiratory: Clear
Cardiac: S1/S2 and Regular Rhythm; No Murmur or Rub
GI: Soft, Non Tender, Non Distended and Normal Bowel Sounds; No Organomegaly
Rectal: Deferred by Provider
Musculoskeletal: No Clubbing, No Cyanosis and No Edema
Skin: No Rash
Neuro: Nonfocal/grossly intact
# Catheter associated UTI
# History of E. coli bacteremia
-Urinalysis
- Urine culture - Ecoli
- Zosyn x 3days - switch to doxycycline x 4 more days to complete 7 day course
- Horner catheter changed 2 weeks ago and was changed today in the ER
# Constipation
- MiraLAX, Dulcolax as needed
Rheumatoid arthritis
- Continue prednisone
Anxiety/depression
Chronic pain
- Continue gabapentin, duloxetine, buprenorphine
Moderate aortic stenosis
History of HFpEF
COPD
- Continue Spiriva, inhaler
Essential hypertension
- Continue spironolactone, atenolol
History of DVT
- Continue Eliquis
Type 2 diabetes
- Hold metformin
- Insulin sliding scale
Full code
DVT prophylaxis�Eliquis
Regular diet
More than 30 minutes spent in discharge including
Final examination of the patient
Summarizing hospital stay
Instructions for continuing care to all relevant caregivers
Preparation of discharge records, prescriptions, and referral forms
Total time spent (in minutes): 37
Anticipated Discharge: Today
Subjective/Interval History
-
Date of Service: May 30, 2025
no acute events
Objective Data
-
Labs:
Laboratory Results
05/30/25
06:17
WBC 11.7 H
Hgb 12.1
Hct 36.3 L
Plt Count 403 H
Sodium 136
Potassium 3.5
Chloride 104
Carbon Dioxide 25
BUN 9
Creatinine 0.6
Glucose 129 H
Calcium 8.8
Total Bilirubin 0.7
AST 24
ALT 21
Alkaline Phosphatase 67
Vital Signs:
Vital Signs
Temp Pulse Resp BP Pulse Ox
98.6 F 61 16 148/62 94
05/30/25 07:18 05/30/25 07:58 05/30/25 07:58 05/30/25 07:18 05/30/25 07:58
I&O
05/29/25 05/30/25 05/31/25
06:59 06:59 06:59
Intake Total 600 / 600 1440 / 1440
Output Total 1450 / 1450 600 / 600
Balance -850 / -850 840 / 840
Review of Systems
-
History Source: Patient
All other systems: Not reviewed unless documented
Physical Exam
-
General: No Apparent Distress
HEENT: Normocephalic and Atraumatic
Respiratory: Negative Wheezes
Cardiac: Regular Rhythm and S1/S2
GI: Soft and Nontender
Neuro: AO x 3
Psych: Calm
Data Reviewed
-
Diagnostic Radiology: Report Reviewed by me
Labs: Labs Reviewed by me
[2025-05-30] MEDS: NOVOLOG FLEXPEN-LOW RESISTANCE 2 UNITS SC (12:25)
[2025-05-30] MEDS: OMNICEF 50 MG PO (13:14)
[2025-05-30 13:22] VITALS: BP 118/62
--- NOTE | 2025-05-30 14:53 | W.DS.TRANS ---
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
-
Discharge Instructions:
Sleep Apnea Risk Low
Discharge Diagnosis/Procedures # Catheter associated UTI
Diet Low Cholesterol,Low Fat,Diabetic, Carb
Controlled
Blood Work cbc and bmp in 5-7 days with pcp
Instructions:
Stand-Alone Forms:
Changes to Home Medications: Yes
Discharge Medications:
DC Medications w/original date entered in [facility]
duloxetine 30 mg capsule,delayed release 30 mg PO DAILY neuropathic pain 04/13/19
duloxetine 60 mg capsule,delayed release 60 mg PO DAILY neuropathic pain 06/30/21
budesonide-formoterol HFA 160 mcg-4.5 mcg/actuation aerosol inhaler (Symbicort) 2 puff inhalation R BID Lung/breathing issues 01/11/23
albuterol sulfate 90 mcg/actuation aerosol inhaler 2 puff inhalation R Q6HPRN PRN sob 05/12/24
calcium 600 mg (as carbonate)-vitamin D3 62.5 mcg (2,500 unit) capsule 1 cap PO DAILY Supplement 05/12/24
pjxigjwu-ctm-dxvfu acid 0.4 mg-lycopene 300 mcg-lutein 250 mcg tablet (CertaVite Senior) 1 tab PO DAILY Supplement 05/12/24
prednisone 5 mg tablet 5 mg PO DAILY rheumatoid arthritis 05/12/24
pantoprazole 40 mg tablet,delayed release 40 mg PO DAILY #30 tabs 05/19/24
aspirin 81 mg chewable tablet 81 mg PO DAILY Blood Clot Prevention/Tx ##0 05/25/24
apixaban 5 mg tablet (Eliquis) 5 mg PO BID #60 tabs 05/29/24
metformin 500 mg tablet 500 mg PO BID Diabetes 07/23/24
buprenorphine 10 mcg/hour weekly transdermal patch 1 patch transdermal TH Pain 09/26/24
lidocaine 4 % topical patch 2 patch topical HS b/l knees 09/26/24
tiotropium bromide 2.5 mcg/actuation mist for inhalation (Spiriva Respimat) 2 puff inhalation R DAILY #4 grams 09/29/24
atenolol 50 mg tablet 50 mg PO DAILY Blood Pressure 11/02/24
gabapentin 300 mg capsule 600 mg (2 x 300 mg) PO TID #120 caps 11/09/24
oxycodone 5 mg tablet 5 mg PO BID Pain 05/27/25
spironolactone 25 mg tablet 25 mg PO DAILY Fluid Retention/Swelling 05/27/25
cefdinir 300 mg capsule 300 mg PO Q12H 5 days #10 caps 05/30/25
miconazole nitrate 2 % topical powder (Miconazorb AF) 1 applic topical BID #85 grams 05/30/25
Home Medication Changes
cefdinir 300 mg capsule 300 mg PO Q12H 5 days #10 caps 05/30/25
miconazole nitrate 2 % topical powder (Miconazorb AF) 1 applic topical BID #85 grams 05/30/25
Pending Results: No
[2025-05-30 15:12] VITALS: BP 105/88
[2025-05-30] MEDS: OMNICEF 300 MG PO (15:33)
[2025-05-30 16:11] LABS: Glucose - Point of Care 144 mg/dl (70-99)
[2025-05-30] MEDS: ZOSYN IV (16:12)
[2025-05-30] MEDS: NOVOLOG FLEXPEN-LOW RESISTANCE SC (16:16)
[2025-05-30 16:45] VITALS: BP 117/76
--- NOTE | 2025-05-31 10:46 | PN.CDI ---
CDI
- -
CDI:
Physician Documentation Request
Admit Date: 05/27/25 19:21
Dear Doctor Ajith,
Patient admitted for CAUTI.
H&P: 'Home Medications:...spironolactone 25 mg tablet 25 mg PO DAILY 05/27/25'
05/30 PN: 'History of HFpEF'
Please provide further specificity regarding the most likely acuity of CHF you are evaluating, treating or monitoring.
Chronic HFpEF
History of HFpEF only
Other
Use of terms such as suspected, likely, concern for, or probable (associated with a specific diagnosis that is being evaluated, monitored, or treated as if it exists) are acceptable and can be coded in the inpatient setting, when documented at the
time of discharge.
Thank you,
Liza Fong RN, BSN
CDI Specialist
Available via [place] text
Please use your independent medical judgment in providing your response.
== END 2025-05-30 19:20 | disposition home health service (06) | DRG 699 ==
LOC: 4 WEST ACU 19:21
PROVIDERS: Student in an Organized Health Care Education/Training Program; ADMITTING PHYSICIAN Hospitalist; ATTENDING PHYSICIAN Internal Medicine; EMERGENCY PHYSICIAN Student in an Organized Health Care Education/Training Program; FAMILY PHYSICIAN Nurse Practitioner Adult Health
DX: T83.511A Infection and inflammatory reaction due to indwelling urethral catheter, initial encounter (principal); E87.1 Hypo-osmolality and hyponatremia; I50.32 Chronic diastolic (congestive) heart failure; Y84.6 Urinary catheterization as the cause of abnormal reaction of the patient, or of later complication, without mention of misadventure at the time of the procedure; Y73.2 Prosthetic and other implants, materials and accessory gastroenterology and urology devices associated with adverse incidents; N39.0 Urinary tract infection, site not specified; K59.00 Constipation, unspecified; M06.9 Rheumatoid arthritis, unspecified; F41.9 Anxiety disorder, unspecified; F32.A Depression, unspecified; G89.29 Other chronic pain; I06.0 Rheumatic aortic stenosis; J44.9 Chronic obstructive pulmonary disease, unspecified; I11.0 Hypertensive heart disease with heart failure; E11.9 Type 2 diabetes mellitus without complications; F17.200 Nicotine dependence, unspecified, uncomplicated; L89.152 Pressure ulcer of sacral region, stage 2; Z86.718 Personal history of other venous thrombosis and embolism; Z79.01 Long term (current) use of anticoagulants
CPT/HCPCS: 80053; 81003; 81015; 82962; 83036; 85025; 85027; 87077; 87086; 87186; 93971; 94640; 96365; 97163; 99285

== ENCOUNTER 2025-06-12 12:33 | Inpatient (IN) | payer OTHER, SELFPAY ==
[2025-06-09] VITALS (8 sets, daily range): BP systolic 104–125; BP diastolic 53–63; BMI 25.1
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
[2025-06-09] MEDS: NSS 1000 IV (21:37)
[2025-06-09 21:38] LABS: Hematocrit 36.1 % (37.0-47.0); Hemoglobin 12.0 g/dL (12.0-16.0); Mean Corp Hgb Conc. 33.2 g/dL (33.0-37.0); Mean Corpuscular Volume 90.3 fL (81.0-99.0); Nucleated Red Blood Cells % 0 %; Platelet Count 354 10^3/uL (130-400); Red Cell Dist. Width 14.2 % (11.5-14.5)
[2025-06-09] MEDS: MORPHINE SULFATE 4 MG IV (21:52)
[2025-06-09 21:55] LABS: ALT (SGPT) 20 U/L (0-35); AST (SGOT) 33 U/L (14-36); Albumin 3.7 g/dl (3.5-5.0); Alkaline Phosphatase 71 U/L (38-126); Blood Urea Nitrogen 7 mg/dl (7-17); Calcium 8.7 mg/dl (8.4-10.2); Carbon Dioxide 26 mmol/L (22-30); Chloride 98 mmol/L (98-107); Estimated Creatinine Clearance 69 ml/min; Glucose 123 mg/dl (70-99); Potassium 4.3 mmol/L (3.5-5.1); Sodium 130 mmol/L (135-145); Total Protein 6.2 g/dl (6.3-8.2); eGFR > 60.00
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
[2025-06-10] VITALS (7 sets, daily range): BP systolic 109–155; BP diastolic 55–78; PULSE 66–67; O2SAT 96; BMI 25.1; BMI 25.0
[2025-06-10 00:43] LABS: Urine Character Clear (Clear)
[2025-06-10 00:53] LABS: Urine Red Blood Cell 0-2 /HPF (0-2); Urine Squamous Cell >30 /LPF (Few); Urine White Cell 26-30 /HPF (0-5)
[2025-06-10 07:33] LABS: Glucose - Point of Care 96 mg/dl (70-99)
[2025-06-10] MEDS: SPIRIVA RESPIMAT 2.5 MCG 2 PUFF INH (07:46)
[2025-06-10] MEDS: SYMBICORT 160/4.5 MCG INHALER 2 PUFF INH ×2 (07:46→19:12)
[2025-06-10 08:20] LABS: Hematocrit 35.1 % (37.0-47.0); Hemoglobin 11.6 g/dL (12.0-16.0); Mean Corp Hgb Conc. 33.0 g/dL (33.0-37.0); Mean Corpuscular Volume 91.6 fL (81.0-99.0); Nucleated Red Blood Cells % 0 %; Platelet Count 359 10^3/uL (130-400); Red Cell Dist. Width 14.3 % (11.5-14.5)
--- NOTE | 2025-06-10 08:37 | PTCARENOTE ---
Attempting to get a hold of Allen, patient's significant other to help w/ med rec and request nonformulary buprenorphine patches be brought in for use in hospital. This RN called the 3 different phone numbers seen in patient's chart over the past
year that are documented as Allen' number, unable to leave voicemail. Unable to get ahold of significant other at this time.
[2025-06-10 08:40] LABS: ALT (SGPT) 18 U/L (0-35); AST (SGOT) 29 U/L (14-36); Albumin 3.3 g/dl (3.5-5.0); Alkaline Phosphatase 66 U/L (38-126); Blood Urea Nitrogen 6 mg/dl (7-17); Calcium 8.4 mg/dl (8.4-10.2); Carbon Dioxide 23 mmol/L (22-30); Chloride 103 mmol/L (98-107); Estimated Creatinine Clearance 69 ml/min; Glucose 86 mg/dl (70-99); Potassium 4.1 mmol/L (3.5-5.1); Sodium 132 mmol/L (135-145); Total Protein 5.7 g/dl (6.3-8.2); eGFR > 60.00
--- NOTE | 2025-06-10 08:55 | VNURNOTE ---
Chart reviewed. Patient is current with [facility]. Will continue to follow hospital course and DC plans.
[2025-06-10] MEDS: NOVOLOG FLEXPEN-LOW RESISTANCE SC ×2 (11:13→14:11)
[2025-06-10] MEDS: DESENEX/MITRAZOL/ZEASORB 1 APPLIC TOPICAL ×2 (11:14→21:10)
[2025-06-10] MEDS: ROXICODONE 5 MG PO ×2 (11:15→21:04)
[2025-06-10] MEDS: TENORMIN 50 MG PO (11:15)
[2025-06-10] MEDS: LOW STRENGTH ASPIRIN 81 MG PO (11:15)
[2025-06-10] MEDS: ELIQUIS 5 MG PO ×2 (11:15→21:03)
[2025-06-10] MEDS: CYMBALTA DELAYED RELEASE 30 MG PO (11:15)
[2025-06-10] MEDS: THERAGRAN 1 TABLET PO (11:15)
[2025-06-10] MEDS: PROTONIX 40 MG PO (11:15)
[2025-06-10] MEDS: CYMBALTA DELAYED RELEASE 60 MG PO (11:15)
[2025-06-10] MEDS: NEURONTIN 600 MG PO ×3 (11:15→21:07)
[2025-06-10] MEDS: DELTASONE 5 MG PO (11:15)
[2025-06-10] MEDS: ALDACTONE 25 MG PO (11:15)
[2025-06-10] MEDS: OSCAL 500 + D 500 MG PO (11:25)
--- NOTE | 2025-06-10 11:49 | W.PN.HOSP.TC ---
Today's Communication/Plan
-
Check orthostatic vital signs
Follow-up and urine culture data
Rehab evaluation
Speech evaluation
Assessment / Plan
Assessment / Plan
General: Well Developed, Well Nourished and No Apparent Distress
HEENT: NormoCephalic, Moist mucous membranes and Atraumatic
Respiratory: Clear
Cardiac: S1/S2 and Regular Rhythm; No Murmur or Rub
GI: Soft, Non Tender, Non Distended and Normal Bowel Sounds; No Organomegaly
Rectal: Deferred by Provider
Musculoskeletal: No Clubbing, No Cyanosis and No Edema
Skin: No Rash
Neuro: Nonfocal/grossly intact
# Weakness concern for infectious etiology versus dehydration versus deconditioning due to multiple hospitalization
- Follow-up on the urine culture. WBC normal. Afebrile.
-Check orthostatics
- Horner catheter changed
- Will need case management for disposition
# Acute diarrhea
-Unclear if this is secondary to incontinence from poor care or true diarrhea
-Previously had constipation 2 weeks ago
- Check stool studies if further diarrhea
# Chronic cough
- Chest x-ray unremarkable
-Speech eval
Recent catheter associated UTI
History of E. coli bacteremia
Rheumatoid arthritis
Chronic steroids usage
- Continue prednisone-BP stable.
Anxiety/depression
Chronic pain syndrome
- Continue gabapentin, duloxetine, buprenorphine
- Monitor for sedation. Hold for lethargy
Moderate aortic stenosis
Chronic HFpEF
-Not on diuretics at home
COPD
- Continue Spiriva, inhaler
Essential hypertension
- Continue spironolactone, atenolol
History of DVT
- Continue Eliquis
Type 2 diabetes
- Hold metformin
- Insulin sliding scale
Full code
DVT prophylaxis�Eliquis
Await med rec
Anticipated Discharge: > 48 hours
Subjective/Interval History
-
Date of Service: June 10, 2025
states of weakness
denies diarrhea
Objective Data
-
Labs:
Laboratory Results
06/10/25
07:24
WBC 8.6
Hgb 11.6 L
Hct 35.1 L
Plt Count 359
Sodium 132 L
Potassium 4.1
Chloride 103
Carbon Dioxide 23
BUN 6 L
Creatinine 0.5 L
Glucose 86
Calcium 8.4
Total Bilirubin 0.4
AST 29
ALT 18
Alkaline Phosphatase 66
Vital Signs:
Vital Signs
Temp Pulse Resp BP Pulse Ox
98.6 F 69 16 130/69 95
06/10/25 07:28 06/10/25 07:52 06/10/25 07:52 06/10/25 07:28 06/10/25 07:52
Data Reviewed
-
Total Time Spent with Patient (in minutes): 55
[2025-06-10 12:28] LABS: Glucose - Point of Care 118 mg/dl (70-99)
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
--- NOTE | 2025-06-10 15:20 | PTOTSP ---
Dysphagia Evaluation
Patient with prolonged/decreased chewing breakdown related to missing dentition (1 visible tooth). No other signs concerning for a true oral/pharyngeal dysphagia or aspiration observed.
Recommend:
1. IDDSI 6 Soft/Bite Sized Diet, thin liquids
2. Medications as best tolerated
3. Assist with meal tray set up and feeding as needed
4. General aspiration precautions
5. No further dysphagia tx f/u warranted at the acute care level. Please reconsult as appropriate.
[2025-06-10] MEDS: REMOVE PT OWN BUTRANS PATCH 2 PATCH REMOVE (16:50)
--- NOTE | 2025-06-10 16:53 | PTCARENOTE ---
2 Buprenorphine (10mcg each) patches removed and placed into bee controlled substance waste container witnessed by community recreation coordinator Shannon Ríos. Attempted to waste patches in pyxis per protocol, but Buprenorphine 10mcg patches not able to be found
in pyxis when wasting. Per pharmacist Ita, patient will be starting sublingual buprenorphine and first dose is to start 12 hours following patch removal.
[2025-06-10 17:07] LABS: Glucose - Point of Care 254 mg/dl (70-99)
[2025-06-10] MEDS: NSS 1000 IV (18:38)
[2025-06-10] MEDS: NOVOLOG FLEXPEN-LOW RESISTANCE 3 UNITS SC (19:00)
[2025-06-10 21:30] LABS: Glucose - Point of Care 110 mg/dl (70-99)
[2025-06-11 06:00] VITALS: BMI 24.7
[2025-06-11 07:11] VITALS: BP 133/61
[2025-06-11 07:35] LABS: Blood Urea Nitrogen 5 mg/dl (7-17); Calcium 8.7 mg/dl (8.4-10.2); Carbon Dioxide 24 mmol/L (22-30); Chloride 108 mmol/L (98-107); Estimated Creatinine Clearance 69 ml/min; Glucose 88 mg/dl (70-99); Magnesium 1.8 mg/dl (1.6-2.3); Potassium 4.1 mmol/L (3.5-5.1); Sodium 136 mmol/L (135-145); eGFR > 60.00
[2025-06-11] MEDS: SPIRIVA RESPIMAT 2.5 MCG 2 PUFF INH (07:50)
[2025-06-11] MEDS: SYMBICORT 160/4.5 MCG INHALER 2 PUFF INH ×2 (07:50→19:28)
[2025-06-11 07:54] LABS: Hematocrit 34.0 % (37.0-47.0); Hemoglobin 11.1 g/dL (12.0-16.0); Mean Corp Hgb Conc. 32.6 g/dL (33.0-37.0); Mean Corpuscular Volume 92.4 fL (81.0-99.0); Nucleated Red Blood Cells % 0 %; Platelet Count 369 10^3/uL (130-400); Red Cell Dist. Width 14.4 % (11.5-14.5)
[2025-06-11 08:21] LABS: Glucose - Point of Care 137 mg/dl (70-99)
[2025-06-11] MEDS: NOVOLOG FLEXPEN-LOW RESISTANCE SC (08:27)
[2025-06-11] MEDS: CYMBALTA DELAYED RELEASE 30 MG PO (08:37)
[2025-06-11] MEDS: LOW STRENGTH ASPIRIN 81 MG PO (08:37)
[2025-06-11] MEDS: NEURONTIN 600 MG PO ×3 (08:37→21:16)
[2025-06-11] MEDS: TENORMIN 50 MG PO (08:37)
[2025-06-11] MEDS: ALDACTONE 25 MG PO (08:37)
[2025-06-11] MEDS: OSCAL 500 + D 500 MG PO (08:37)
[2025-06-11] MEDS: ELIQUIS 5 MG PO ×2 (08:37→21:15)
[2025-06-11] MEDS: PROTONIX 40 MG PO (08:37)
[2025-06-11] MEDS: BELBUCA 150 MCG BUCCAL (08:37)
[2025-06-11] MEDS: CYMBALTA DELAYED RELEASE 60 MG PO (08:37)
[2025-06-11] MEDS: DESENEX/MITRAZOL/ZEASORB 1 APPLIC TOPICAL ×2 (08:37→21:16)
[2025-06-11] MEDS: DELTASONE 5 MG PO (08:37)
[2025-06-11] MEDS: THERAGRAN 1 TABLET PO (08:37)
[2025-06-11] MEDS: ROXICODONE 5 MG PO ×2 (10:49→21:15)
--- NOTE | 2025-06-11 11:15 | W.PN.HOSP.TC ---
Today's Communication/Plan
-
Repeat chest x-ray
Wean oxygen.
PT/OT
Ongoing disposition planning
Follow-up on the urine culture results
Assessment / Plan
Assessment / Plan
General: Well Developed, Well Nourished and No Apparent Distress
HEENT: NormoCephalic, Moist mucous membranes and Atraumatic
Respiratory: Rhonchi, oxygen
Cardiac: S1/S2 and Regular Rhythm; No Murmur or Rub
GI: Soft, Non Tender, Non Distended and Normal Bowel Sounds; No Organomegaly
Rectal: Deferred by Provider
Musculoskeletal: No Clubbing, No Cyanosis and No Edema
Skin: No Rash
Neuro: Nonfocal/grossly intact
# Weakness concern for infectious etiology versus dehydration versus deconditioning due to multiple hospitalization
- Follow-up on the urine culture. WBC normal. Afebrile.
-Check orthostatics negative
- Horner catheter changed
- Will need case management for disposition. [facility] protection agency involved.
# Acute diarrhea
-Unclear if this is secondary to incontinence from poor care or true diarrhea
-Previously had constipation 2 weeks ago
- Check stool studies if further diarrhea
# Chronic cough
#Acute hypoxic respiratory insufficiency
# Dysphagia currently on soft and bite-size diet
-Repeat chest x-ray
-Speech recs
Rheumatoid arthritis
Chronic steroids usage
- Continue prednisone-BP stable.
Anxiety/depression
Chronic pain syndrome
- Continue gabapentin, duloxetine, buprenorphine patch has been transition to sublingual
- Monitor for sedation. Hold for lethargy
Moderate aortic stenosis
Chronic HFpEF
-Not on diuretics at home
COPD
History of tobacco abuse
- Continue Spiriva, inhaler
Essential hypertension
- Continue spironolactone, atenolol
History of DVT
- Continue Eliquis
Type 2 diabetes
- Hold metformin
- Insulin sliding scale
Full code
DVT prophylaxis�Eliquis
Anticipated Discharge: 24 - 48 hours
Subjective/Interval History
-
Date of Service: June 11, 2025
More awake and interactive
Denies any abdominal pain or diarrhea
States of coughing
Objective Data
-
Labs:
Laboratory Results
06/11/25
05:58
WBC 9.2
Hgb 11.1 L
Hct 34.0 L
Plt Count 369
Sodium 136
Potassium 4.1
Chloride 108 H
Carbon Dioxide 24
BUN 5 L
Creatinine 0.4 L
Glucose 88
Calcium 8.7
Vital Signs:
Vital Signs
Temp Pulse Resp BP Pulse Ox
98.2 F 60 16 133/61 93
06/11/25 07:11 06/11/25 07:55 06/11/25 07:55 06/11/25 07:11 06/11/25 09:01
I&O
06/10/25 06/11/25 06/12/25
06:59 06:59 06:59
Intake Total 600 / 600
Output Total 1600 / 1600
Balance -1000 / -1000
Data Reviewed
-
Total Time Spent with Patient (in minutes): 55
[2025-06-11 12:56] LABS: Glucose - Point of Care 157 mg/dl (70-99)
[2025-06-11] MEDS: NOVOLOG FLEXPEN-LOW RESISTANCE 1 UNITS SC ×2 (13:54→18:28)
--- NOTE | 2025-06-11 15:23 | CM ---
CM following re: discharge planning.
Reviewed pt's chart, met with pt and pt's hotel guest service agent from [facility] at bedside assessing the pt for waiver services.
CM spoke to [facility] liaison and she denied a referral due to not having a oysterman care bed available.
[facility] and [facility] offered a bed for a short term rehab and a oysterman care.
Pt is aware and she preferred [facility].
CM spoke to [facility] testing director Domonique, liaison Ambar and regional facilities specialist Marti and they confirmed that will have a bed available for pt for a short term rehab and a shelter care.
D/c plan: [facility] for a short term and a shelter care.
[2025-06-11 15:34] VITALS: BP 132/64
[2025-06-11 17:57] LABS: Glucose - Point of Care 159 mg/dl (70-99)
[2025-06-11] MEDS: BELBUCA BUCCAL ×2 (21:16→22:35)
--- NOTE | 2025-06-11 21:30 | W.PN.UPDATE ---
Update Note
Progress Note Update
09:30 Pm
-Patient is complaining of sob and using accessory muscles. Bp 132/64, hr 79, RR 29, Temp 102, Spo2 92% on 3 L
-Crackle lung sounds on exam.
-New orders of chest x-ray, abg, cbc, Pro BNP, bmp, mag, flu, covid, Duo nebs for sob.
- Unremarkable abg result received.
-Covid & flu (Neg).
-Pro- BNP (Neg)
-Repeated chest x-ray with no change from earlier.
-Lactic acid is 1
-WBC increased to 16.8 previously 9.2.
-Giving the history of CHF and crackle lung sound ----> One time dose of lasix 40 mg was given.
-With the current condition of SOB, leukocytosis, new onset of fever, sob and possible aspiration in the chest x-ray will send blood cultures and start Zosyn.
-aspiration precaution/ chest PT.
-Will transfer to IMU level.
@3 am Patient is hypotensive 80/50, map 59 will start Levophed.
[2025-06-11] MEDS: DUONEB 3 ML INH (21:41)
[2025-06-11 21:57] LABS: B.E. 0.6 mmol/L; HCO3 24.3 mmol/L (21-28); O2 Saturation % 95.9 % (94-98); PCO2 35 mmHg (32-35); PO2 86 mmHg (83-108)
[2025-06-11 22:05] LABS: Glucose - Point of Care 148 mg/dl (70-99)
[2025-06-11 22:08] LABS: Hematocrit 36.0 % (37.0-47.0); Hemoglobin 12.2 g/dL (12.0-16.0); Mean Corp Hgb Conc. 33.9 g/dL (33.0-37.0); Mean Corpuscular Volume 89.6 fL (81.0-99.0); Platelet Count 380 10^3/uL (130-400); Red Cell Dist. Width 14.4 % (11.5-14.5)
[2025-06-11 22:16] LABS: COVID-19 Antigen Negative (Negative)
[2025-06-11] MEDS: LASIX 40 MG IV (22:21)
[2025-06-11 22:30] VITALS: BP 123/79
[2025-06-11 22:30] LABS: Blood Urea Nitrogen 4 mg/dl (7-17); Calcium 9.4 mg/dl (8.4-10.2); Carbon Dioxide 24 mmol/L (22-30); Estimated Creatinine Clearance 69 ml/min; Glucose 133 mg/dl (70-99); Magnesium 1.5 mg/dl (1.6-2.3); eGFR > 60.00
[2025-06-11 22:42] LABS: Chloride 101 mmol/L (98-107); Potassium 4.5 mmol/L (3.5-5.1); Sodium 129 mmol/L (135-145)
[2025-06-11] MEDS: OFIRMEV 100 IV (23:22)
[2025-06-11] MEDS: MAGNESIUM SULFATE 100 IV (23:22)
[2025-06-12] VITALS (57 sets, daily range): BP systolic 48–141; BP diastolic 22–79; PULSE 66; O2SAT 95; BMI 23.9
[2025-06-12] MEDS: ZOSYN 50 IV ×4 (00:48→18:31)
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
--- NOTE | 2025-06-12 01:21 | PTCARENOTE ---
Around 9pm RN into reassess patient, Patient has notable accessory muscle use and notable SOB, she is awake and alert but disoriented to place as she had known that earlier in the day. WATER TAXI FERRY OPERATOR up to assess patient. Multiple test ordered, as well as
ABGs and BCx2 for a temp rectally of 102.0 pt placed on tele, NSR, BP normal resp 29. Patient eventually transferred to IMU for closer monitoring. Attempted to call Allen, her as patient stated we could talk to him but unable to reach, he
did call multiple times patients room while I was in there and patient stated I could fill him in with what was occurring currently with her.
[2025-06-12] MEDS: LEVOPHED 250 IV (02:17)
--- NOTE | 2025-06-12 03:13 | PTCARENOTE ---
Pt transferred from [facility] on 3L NC. Pt pulse ox 88-90% on 3L with labored respirations and audible crackles. Pt now 95% on 10L MF; RR high 20s to 30s. BP dropped to 80s/50s with MAPs in the 50s. TWISTING FRAME CHANGER notified. Levo ordered and started to
maintain MAP >65 (see worklist for documentation). Pt states she no longer feels SOB despite the high RR, continued labored respirations, and audible crackles.
[2025-06-12 04:28] LABS: Hematocrit 36.7 % (37.0-47.0); Hemoglobin 12.4 g/dL (12.0-16.0); Mean Corp Hgb Conc. 33.8 g/dL (33.0-37.0); Mean Corpuscular Volume 88.9 fL (81.0-99.0); Nucleated Red Blood Cells % 0 %; Platelet Count 417 10^3/uL (130-400); Red Cell Dist. Width 14.4 % (11.5-14.5)
[2025-06-12 04:55] LABS: Blood Urea Nitrogen 5 mg/dl (7-17); Calcium 9.4 mg/dl (8.4-10.2); Carbon Dioxide 26 mmol/L (22-30); Chloride 100 mmol/L (98-107); Estimated Creatinine Clearance 72 ml/min; Glucose 162 mg/dl (70-99); Potassium 4.0 mmol/L (3.5-5.1); Sodium 133 mmol/L (135-145); eGFR > 60.00
[2025-06-12] MEDS: SPIRIVA RESPIMAT 2.5 MCG 2 PUFF INH (07:24)
[2025-06-12] MEDS: SYMBICORT 160/4.5 MCG INHALER 2 PUFF INH (07:24)
[2025-06-12 08:14] LABS: Glucose - Point of Care 186 mg/dl (70-99)
[2025-06-12 09:20] LABS: Magnesium 1.8 mg/dl (1.6-2.3)
[2025-06-12] MEDS: ALDACTONE PO (10:25)
[2025-06-12] MEDS: BELBUCA BUCCAL ×2 (10:26→20:07)
[2025-06-12] MEDS: ELIQUIS PO (10:26)
[2025-06-12] MEDS: LOW STRENGTH ASPIRIN PO (10:26)
[2025-06-12] MEDS: DELTASONE PO (10:26)
[2025-06-12] MEDS: CYMBALTA DELAYED RELEASE PO ×2 (10:26)
[2025-06-12] MEDS: NEURONTIN PO ×3 (10:26→22:06)
[2025-06-12] MEDS: OSCAL 500 + D PO (10:27)
[2025-06-12] MEDS: PROTONIX PO (10:27)
[2025-06-12] MEDS: THERAGRAN PO (10:27)
[2025-06-12] MEDS: TENORMIN PO (10:27)
[2025-06-12] MEDS: ROXICODONE PO ×2 (10:27→20:07)
--- NOTE | 2025-06-12 10:30 | PTCARENOTE ---
Pt drowsy, with wet sounding voice and cough. D/W Dr. Oakley, pt to be NPO and PO medications held at this time.
[2025-06-12] MEDS: NOVOLOG FLEXPEN-LOW RESISTANCE SC ×2 (10:57→11:47)
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
[2025-06-12 11:39] LABS: Glucose - Point of Care 142 mg/dl (70-99)
[2025-06-12] MEDS: DESENEX/MITRAZOL/ZEASORB 1 APPLIC TOPICAL ×2 (11:42→20:06)
--- NOTE | 2025-06-12 12:32 | W.PN.HOSP.TC ---
Addendum entered and electronically signed by Brian Oakley MD 06/12/25 16:15:
Patient with history of DVT. Currently remains NPO. Unable to take p.o. Eliquis due to risk of aspiration. Repeat speech eval pending. In the interim we will start patient on heparin infusion.
Original Note:
Today's Communication/Plan
-
Continue IV broad-spectrum antibiotics
Changed to nebulizing treatment
Trial of steroids
Downgrade diet to n.p.o.
Speech eval
Wean O2 as tolerated
Assessment / Plan
Assessment / Plan
General: Well Developed, Well Nourished and No Apparent Distress
HEENT: NormoCephalic, Moist mucous membranes and Atraumatic
Respiratory: Rhonchi, oxygen
Cardiac: S1/S2 and Regular Rhythm; No Murmur or Rub
GI: Soft, Non Tender, Non Distended and Normal Bowel Sounds; No Organomegaly
Rectal: Deferred by Provider
Musculoskeletal: No Clubbing, No Cyanosis and No Edema
Skin: No Rash
Neuro: Nonfocal/grossly intact
#Acute hypoxic respiratory failure likely multifactorial with concern for aspiration pneumonia/pneumonitis versus COPD exacerbation
#COPD
#History of tobacco abuse
- Switch patient to nebulizing treatment
- Trial of steroids Decadron 6 mg daily
- proBNP noted
- Check CT chest with pulmonary study (patient with bedbound status) unclear if missed any doses of Eliquis as outpatient
- Currently on 10 L of mid flow. Wean O2 as tolerated. Not on oxygen at home
- Continue with IV antibiotics
- Speech evaluation
- diet downgraded to NPO currently.
- Pulmonary eval
#E. coli urinary tract infection
#Shock likely hypovolemia and medication S/E
#Sepsis likely secondary to tract infection and aspiration pneumonia
- Continue with Zosyn. Await for susceptibility results
- Follow-up on the blood culture results
- off levophed. BP stabilize
# Weakness concern for infectious etiology versus dehydration versus deconditioning due to multiple hospitalization
-Check orthostatics negative
- Horner catheter changed
- Will need case management for disposition. [facility] protection agency involved.
# Acute diarrhea
-Unclear if this is secondary to incontinence from poor care or true diarrhea
-Previously had constipation 2 weeks ago
- Check stool studies if further diarrhea
# Chronic cough
# Dysphagia
-Downgrade diet to n.p.o. for now
-Speech recs
Rheumatoid arthritis
Chronic steroids usage
- Continue prednisone with episode of hypotension will give IV steroids
Anxiety/depression
Chronic pain syndrome
- Continue gabapentin, duloxetine, buprenorphine patch has been transition to sublingual
- Monitor for sedation. Hold for lethargy
Moderate aortic stenosis
Chronic HFpEF
-Not on diuretics at home
Essential hypertension
- Continue spironolactone, atenolol-Hold for now
History of DVT
- Continue Eliquis-if unable to take po meds may need to transition to hep gtt.
Type 2 diabetes
- Hold metformin
- Insulin sliding scale
Full code
DVT prophylaxis�Eliquis
Updated spouse over the phone in details.
Anticipated Discharge: > 48 hours
Subjective/Interval History
-
Date of Service: June 12, 2025
overnight events noted
increased in oxygenation requirement
hypotension and required transfer to IMU
states of mild sob
Objective Data
-
Labs:
Laboratory Results
06/12/25
04:14
WBC 19.3 H
Hgb 12.4
Hct 36.7 L
Plt Count 417 H
Sodium 133 L
Potassium 4.0
Chloride 100
Carbon Dioxide 26
BUN 5 L
Creatinine 0.5 L
Glucose 162 H
Calcium 9.4
Vital Signs:
Vital Signs
Temp Pulse Resp BP Pulse Ox
97.4 F 65 26 126/77 95
06/12/25 07:20 06/12/25 12:28 06/12/25 12:28 06/12/25 12:28 06/12/25 12:28
I&O
06/11/25 06/12/25 06/13/25
06:59 06:59 06:59
Intake Total 600 / 600 977.5 / 977.5
Output Total 1600 / 1600 1450 / 1450
Balance -1000 / -1000 -472.5 / -472.5
Data Reviewed
-
Total Time Spent with Patient (in minutes): 58
--- NOTE | 2025-06-12 12:57 | PTCARENOTE ---
Pt's BP/map stable. Levo off at this time- see intervention.
--- NOTE | 2025-06-12 13:51 | CON.PUL ---
Consultation
Consultation Request
Date/Time Consultation Requested: 06/12/25
Date/Time Consultation Performed: 06/12/25
Performing Provider: Blayne
Reason for Consultation: Hypoxemia
Medical History
-
History of Present Illness:
Patient is a 74 year old F with PMH significant for RA on chronic prednisone, severe COPD, chronic pain, hypertension and DM-II who presents to ED complaining of diarrhea and inability to be cared for at home she has had chronic cough but denies
any complaints of acute shortness of breath. She has not had much p.o. intake over the past few days. She has chronic pain in her joints. She has noted to have stool all over her clothing, Horner catheter had foul-smelling urine, admitted recently
to [facility] 2 weeks ago for catheter associated UTI. She has recently been seen as an outpatient with palliative care services. She has not been able to follow-up with outpatient pulmonary visits due to lack of transportation. She is
admitted for failure to thrive.
Past Medical History
Past Medical History: Other (see list below)
Social History
Tobacco: Former Smoker
Alcohol: None
Drug: None
Family History
Family History: Reviewed & Not Pertinent
Allergies / Home Medications
Allergies
Allergy/AdvReac Type Severity Reaction Status Date / Time
ceftriaxone sodium (From Allergy numbness Verified 06/09/25 20:43
Rocephin) tingling
mouth
infliximab (From Remicade) Allergy Unknown Verified 06/09/25 20:43
vancomycin (Vancomycin) Allergy Unknown Verified 06/09/25 20:43
Home Medications
�Medication �Instructions �Recorded �Confirmed �Last Taken �Type
duloxetine 30 mg capsule,delayed 30 mg PO DAILY neuropathic pain 04/13/19 06/10/25 05/26/25 History
release
duloxetine 60 mg capsule,delayed 60 mg PO DAILY neuropathic pain 06/30/21 06/10/25 05/26/25 History
release
budesonide-formoterol HFA 160 2 puff inhalation R BID 01/11/23 06/10/25 05/26/25 History
mcg-4.5 mcg/actuation aerosol Lung/breathing issues
inhaler (Symbicort)
albuterol sulfate 90 mcg/actuation 2 puff inhalation R Q6HPRN PRN sob 05/12/24 06/10/25 Unknown History
aerosol inhaler
calcium 600 mg (as 1 cap PO DAILY Supplement 05/12/24 06/10/25 05/26/25 History
carbonate)-vitamin D3 62.5 mcg
(2,500 unit) capsule
unmyslbk-tml-jdrtd acid 0.4 1 tab PO DAILY Supplement 05/12/24 06/10/25 05/26/25 History
mg-lycopene 300 mcg-lutein 250 mcg
tablet (CertaVite Senior)
prednisone 5 mg tablet 5 mg PO DAILY rheumatoid arthritis 05/12/24 06/10/25 05/26/25 History
pantoprazole 40 mg tablet,delayed 40 mg PO DAILY #30 tabs 05/19/24 06/10/25 05/26/25 Rx
release
apixaban 5 mg tablet (Eliquis) 5 mg PO BID #60 tabs 05/29/24 06/10/25 05/26/25 Rx
metformin 500 mg tablet 500 mg PO BID Diabetes 07/23/24 06/10/25 05/26/25 History
buprenorphine 10 mcg/hour weekly 1 patch transdermal TH Pain 09/26/24 06/10/25 05/27/25 History
transdermal patch
lidocaine 4 % topical patch 2 patch topical HS b/l knees 09/26/24 06/10/25 Unknown History
tiotropium bromide 2.5 2 puff inhalation R DAILY #4 grams 09/29/24 06/10/25 05/26/25 Rx
mcg/actuation mist for inhalation
(Spiriva Respimat)
atenolol 50 mg tablet 50 mg PO DAILY Blood Pressure 11/02/24 06/10/25 05/26/25 History
gabapentin 300 mg capsule 600 mg (2 x 300 mg) PO TID #120 11/09/24 06/10/25 05/26/25 Rx
caps
oxycodone 5 mg tablet 5 mg PO BID Pain 05/27/25 06/10/25 05/26/25 History
spironolactone 25 mg tablet 25 mg PO DAILY Fluid 05/27/25 06/10/25 05/26/25 History
Retention/Swelling
miconazole nitrate 2 % topical 1 applic topical BID #85 grams 05/30/25 06/10/25 Unknown Rx
powder (Miconazorb AF)
Review of Systems
-
History Source: Patient
All other systems: Negative unless noted
Vitals / Labs / Diagnostic Testing
Vital Signs
Temp Pulse Resp BP Pulse Ox
97.4 F 65 26 126/77 92
06/12/25 07:20 06/12/25 12:28 06/12/25 12:28 06/12/25 12:28 06/12/25 13:21
Lab Data
06/12/25 04:14
06/12/25 04:14
Laboratory Results
06/11/25
21:50
pH 7.45
pCO2 35
pO2 86
HCO3 24.3
O2 Delivery Level
Microbiology
06/11/25 21:24 Nasal Swab Influenza Types A & B ([place]) - Final
Negative for Influenza A & B, NAAT
Negative results must be combined with clinical observations
and patient history.
Nucleic Acid Amplification test (NAAT)performed on the
A2B platform.
06/10/25 00:08 Urine Urine Culture - Preliminary
Escherichia coli
Diagnostic Testing:
Physical Exam
-
HEENT: Normocephalic, Anicteric and Moist Mucous Membranes
Cardiovascular: S1/S2 and Regular Rhythm
Respiratory: Rales and Non-Labored Respirations
GI: Soft, Non Distended and Non Tender
Neurology: Awake, Alert, Oriented and No Motor Deficits
Skin: Warm, Dry and Good Color
General: Pain and Other (NAD)
Assessment
-
Patient is a 74 year old F with PMH significant for RA on chronic prednisone, severe COPD, chronic pain, hypertension and DM-II who presents to ED complaining of diarrhea and inability to be cared for at home she has had chronic cough but denies
any complaints of acute shortness of breath. She has not had much p.o. intake over the past few days. She has chronic pain in her joints. She has noted to have stool all over her clothing, Horner catheter had foul-smelling urine, admitted recently
to [facility] 2 weeks ago for catheter associated UTI. She has recently been seen as an outpatient with palliative care services. She has not been able to follow-up with outpatient pulmonary visits due to lack of transportation. She is
admitted for failure to thrive.
Acute hypoxemic respiratory failure, now on >10L midflow
AECOPD
SOB
Leukocytosis
UTI
Diarrhea
Decreased PO intake
FTT
Conditions prior to admission:
Stage IV COPD, severe obstruction FEV1 34%
RA, severe, limited mobility, on chronic prednisone 5 mg qd
Tobacco dependence
Chronic Pain Syndrome
Chronic Narcotic Dependence
Hypertension
DM-II
Moderate Aortic Stenosis
Pulmonary Hypertension
Chronic HFpEF
RLE DVT (05/2024)
T&A
Former Smoker > 50 pack years total use, quit 2021
Plan
Hypoxemia noted on arrival, she is currently 92% on 10L NC
She has been on O2 in past, never followed up as OP
Prior history of lung disease is noted including stage IV COPD, FEV1 34%
She has not yet been seen by Pulm OP due to lack of transport.
Only on symbicort at home. Continue spiriva
Continued with prednisone 5mg daily at home
UA showing UTI, with hypotension and lack of self care at home
This is her 9th admission in the past year
CXR/CT obtained indicating no acute process
She has not been getting yearly screening, quit smoking [address] in 2023 showing nodule/airspace opacities
Speech eval obtained
Prior ECHO results are reviewed indicating stable function, she has mod , PH
ProBNP not elevated
Smoking history noted >50 pack years
Encouraged continued smoking cessation, quit 2021
Will need outpatient pulmonary evaluation in our office for PFTs and 6MWT
Reviewed with patient, she still notes she does not think she can make her appts
She is being followed by outpatient palliative care--she does not feel her pain is being adequately addressed
concentrator operator prognosis poor in a patient with poor follow up
Hospice consult would be appropriate in a patient with stage IV COPD, poor compliance and social support at home, and FTT
She is agreeable, consult placed
Diagnostic Data
CXR 06/11/25-Increased linear and reticular markings within both lungs, mainly in the mid to lower lungs, similar to prior examinations, and probably representing linear scarring. No convincing evidence for a new lung parenchymal opacity.
CXR 09/26/24-Increased left mid to lower lung zone atelectasis.
Chest X-Ray: 07/22/24- No acute disease of the chest. Nonacute mild midthoracic spine compression fracture. Stable. Mild cardiomegaly. Stable
CT CHEST 07/22/24- 1). There is acute nondisplaced buckle fracture of the mid-lower body of the sternum
2). There are patchy areas of subpleural interstitial airspace disease in both lungs most prominent in the left lower lobe which may be atelectasis or interstitial
3). The stability of the millimeter pulmonary nodule at the right lung base indicates that it is benign
4). There is diffuse fatty infiltration of the liver
Echo 05/14/24- 1. Left ventricle: Normal size and function. The estimated ejection fraction is 60-65% by visual estimation. No regional wall motion and normalities. Stage II diastolic dysfunction
2. Right ventricle: Normal size
3. Atria: Normal
4. Mitral valve: Sclerotic. Mild mitral regurgitation
5. Aortic valve: Thickened with mild-moderate aortic stenosis. Peak/mean gradients are 40 and 22 mmHg respectively. Pvel: 3.15 m/sec with estimate ENOC of 1.2 cm2. Mild aortic insufficiency with 419 cm/sec
6. Tricuspid valve: Trace tricuspid regurgitation. Mild estimated pulmonary artery systolic pressure is 40-45 mmHg
7. When compared to the most recent echocardiogram from 01/12/2023 there has been no significant change. Aortic valve gradients have increased slightly
2014: LVEF 65%. mod LVH. Suspected mild DD.
PFT's: 07/03/21- FVC was 1.28L or 45% predicted. FEV1 was 0.74L or 34% predicted. FEV1/FVC Ratio was 58%. FEV1 post bronchodilator increased up to 0.9L or 41% predicted, increasing by 22%
Severe obstruction
Reports and relevant images were personally reviewed.
Total time spent on this encounter __75__ minutes which includes review of history, physical exam, medications, laboratory data, personal review of imaging, extensive review of outpatient records, discussion with care team and respiratory therapy.
[2025-06-12] MEDS: MORPHINE SULFATE 1 MG IV ×2 (14:40→22:02)
[2025-06-12] MEDS: LR 1000 IV (14:40)
[2025-06-12] MEDS: DECADRON 6 MG IV (14:41)
[2025-06-12] MEDS: DUONEB 3 ML INH ×2 (14:46→19:22)
[2025-06-12] MEDS: HEPARIN 25000 UNITS/250 ML IV (16:26)
[2025-06-12 16:41] LABS: APTT 38.1 Sec (23.4-35.0)
--- NOTE | 2025-06-12 16:45 | PTCARENOTE ---
Order received to start heparin gtt. Baseline ptt drawn and sent. Heparin hung per order, see MAR/intervention.
--- NOTE | 2025-06-12 17:30 | PTCARENOTE ---
To and from CT via stretcher with this RN.
[2025-06-12] MEDS: NOVOLOG FLEXPEN-LOW RESISTANCE 1 UNITS SC (18:30)
[2025-06-12 18:40] LABS: Glucose - Point of Care 178 mg/dl (70-99)
--- NOTE | 2025-06-12 22:21 | PTCARENOTE ---
Care assumed of Pt from previous RN after change of shift report. pt is resting in bed with eyes open watching tv. oriented to self and place. forgetful. currently satting 93% on 10L. cough present, wet non productive. quiroga in place draining yellow
urine. npo maintained. assessment as documented on worklist intervention. call light in reach.
[2025-06-12 23:23] LABS: Glucose - Point of Care 186 mg/dl (70-99)
[2025-06-12 23:36] LABS: APTT 123.7 Sec (23.4-35.0)
[2025-06-13] VITALS (52 sets, daily range): BP systolic 101–153; BP diastolic 55–90; PULSE 67; O2SAT 97; BMI 24.0
[2025-06-13] MEDS: ZOSYN 50 IV ×4 (00:01→18:42)
[2025-06-13 05:44] LABS: Glucose - Point of Care 154 mg/dl (70-99)
[2025-06-13] MEDS: MORPHINE SULFATE 1 MG IV ×3 (05:59→18:39)
[2025-06-13] MEDS: LR 1000 IV (05:59)
[2025-06-13] MEDS: NOVOLOG FLEXPEN-LOW RESISTANCE 1 UNITS SC ×3 (06:00→12:26)
[2025-06-13 06:04] LABS: Hematocrit 33.3 % (37.0-47.0); Hemoglobin 11.3 g/dL (12.0-16.0); Mean Corp Hgb Conc. 33.9 g/dL (33.0-37.0); Mean Corpuscular Volume 87.6 fL (81.0-99.0); Nucleated Red Blood Cells % 0 %; Platelet Count 353 10^3/uL (130-400); Red Cell Dist. Width 14.1 % (11.5-14.5)
[2025-06-13 06:37] LABS: Blood Urea Nitrogen 13 mg/dl (7-17); Calcium 8.9 mg/dl (8.4-10.2); Carbon Dioxide 24 mmol/L (22-30); Chloride 105 mmol/L (98-107); Estimated Creatinine Clearance 72 ml/min; Glucose 146 mg/dl (70-99); Potassium 4.1 mmol/L (3.5-5.1); Sodium 134 mmol/L (135-145); eGFR > 60.00
[2025-06-13 07:04] LABS: APTT 84.9 Sec (23.4-35.0)
[2025-06-13] MEDS: DUONEB 3 ML INH ×4 (07:24→19:25)
[2025-06-13] MEDS: BELBUCA 150 MCG BUCCAL ×2 (08:34→20:36)
[2025-06-13] MEDS: DESENEX/MITRAZOL/ZEASORB 1 APPLIC TOPICAL ×2 (08:35→20:35)
[2025-06-13] MEDS: NEURONTIN PO (08:36)
[2025-06-13] MEDS: LOW STRENGTH ASPIRIN PO (08:36)
[2025-06-13] MEDS: PROTONIX IV 40 MG IV (08:36)
[2025-06-13] MEDS: ROXICODONE PO (08:38)
--- NOTE | 2025-06-13 09:10 | W.PN.PUL3 ---
Today's Communication / Plan
-
Remains on 10L, wean as tolerated
Remains on IV abx for recurrent UTI
Hospice eval placed given end-stage COPD, frequent admissions, poor QoL, chronic pain
Awaiting decision making
Assessment
-
Patient is a 74 year old F with PMH significant for RA on chronic prednisone, severe COPD, chronic pain, hypertension and DM-II who presents to ED complaining of diarrhea and inability to be cared for at home she has had chronic cough but denies
any complaints of acute shortness of breath. She has not had much p.o. intake over the past few days. She has chronic pain in her joints. She has noted to have stool all over her clothing, Horner catheter had foul-smelling urine, admitted recently
to [facility] 2 weeks ago for catheter associated UTI. She has recently been seen as an outpatient with palliative care services. She has not been able to follow-up with outpatient pulmonary visits due to lack of transportation. She is
admitted for failure to thrive.
Acute hypoxemic respiratory failure, now on >10L midflow
AECOPD
SOB
Leukocytosis
UTI
Diarrhea
Decreased PO intake
FTT
Conditions prior to admission:
Stage IV COPD, severe obstruction FEV1 34%
RA, severe, limited mobility, on chronic prednisone 5 mg qd
Tobacco dependence
Chronic Pain Syndrome
Chronic Narcotic Dependence
Hypertension
DM-II
Moderate Aortic Stenosis
Pulmonary Hypertension
Chronic HFpEF
RLE DVT (05/2024)
T&A
Former Smoker > 50 pack years total use, quit 2021
Plan
Hypoxemia noted on arrival, she is currently 92% on 10L NC--wean as tolerated
She has been on O2 in past, never followed up as OP
Prior history of lung disease is noted including stage IV COPD, FEV1 34%
She has not yet been seen by Pulm OP due to lack of transport.
Only on symbicort at home. Continue spiriva
Continued with prednisone 5mg daily at home
UA showing UTI, with hypotension and lack of self care at home
This is her 9th admission in the past year
CXR/CT obtained indicating no acute process
She has not been getting yearly screening, quit smoking [address] in 2023 showing nodule/airspace opacities
Speech eval obtained
Prior ECHO results are reviewed indicating stable function, she has mod , PH
ProBNP not elevated
Smoking history noted >50 pack years
Encouraged continued smoking cessation, quit 2021
Will need outpatient pulmonary evaluation in our office for PFTs and 6MWT
Reviewed with patient, she still notes she does not think she can make her appts
She is being followed by outpatient palliative care--she does not feel her pain is being adequately addressed
intermediate card tender prognosis poor in a patient with poor follow up
Hospice consult would be appropriate in a patient with stage IV COPD, poor compliance and social support at home, and FTT
She is agreeable, consult placed
Diagnostic Data
CXR 06/11/25-Increased linear and reticular markings within both lungs, mainly in the mid to lower lungs, similar to prior examinations, and probably representing linear scarring. No convincing evidence for a new lung parenchymal opacity.
CXR 09/26/24-Increased left mid to lower lung zone atelectasis.
Chest X-Ray: 07/22/24- No acute disease of the chest. Nonacute mild midthoracic spine compression fracture. Stable. Mild cardiomegaly. Stable
CT CHEST 07/22/24- 1). There is acute nondisplaced buckle fracture of the mid-lower body of the sternum
2). There are patchy areas of subpleural interstitial airspace disease in both lungs most prominent in the left lower lobe which may be atelectasis or interstitial
3). The stability of the millimeter pulmonary nodule at the right lung base indicates that it is benign
4). There is diffuse fatty infiltration of the liver
Echo 05/14/24- 1. Left ventricle: Normal size and function. The estimated ejection fraction is 60-65% by visual estimation. No regional wall motion and normalities. Stage II diastolic dysfunction
2. Right ventricle: Normal size
3. Atria: Normal
4. Mitral valve: Sclerotic. Mild mitral regurgitation
5. Aortic valve: Thickened with mild-moderate aortic stenosis. Peak/mean gradients are 40 and 22 mmHg respectively. Pvel: 3.15 m/sec with estimate ENOC of 1.2 cm2. Mild aortic insufficiency with 419 cm/sec
6. Tricuspid valve: Trace tricuspid regurgitation. Mild estimated pulmonary artery systolic pressure is 40-45 mmHg
7. When compared to the most recent echocardiogram from 01/12/2023 there has been no significant change. Aortic valve gradients have increased slightly
2014: LVEF 65%. mod LVH. Suspected mild DD.
PFT's: 07/03/21- FVC was 1.28L or 45% predicted. FEV1 was 0.74L or 34% predicted. FEV1/FVC Ratio was 58%. FEV1 post bronchodilator increased up to 0.9L or 41% predicted, increasing by 22%
Severe obstruction
Reports and relevant images were personally reviewed.
Total time spent on this encounter __50__ minutes which includes review of history, physical exam, medications, laboratory data, personal review of imaging, extensive review of outpatient records, discussion with care team and respiratory therapy.
Subjective Data
-
Date of Service:
Date of Service: June 13, 2025
Chief Complaint: Pulmonary Follow Up
Subjective:
Remains on 10L, wean as tolerated
She feels her pain is not being addressed
Objective Data
Data Reviewed
Vital Signs / I&O / Oxygen:
Vital Signs
Temp Pulse Resp BP Pulse Ox
98.0 F 64 15 142/72 92
06/13/25 07:30 06/13/25 07:30 06/13/25 07:30 06/13/25 07:30 06/13/25 07:30
Intake and Output
06/12/25 06/13/25 06/14/25
06:59 06:59 06:59
Intake Total 977.5 / 977.5
Output Total 1450 / 1450 350 / 350
Balance -472.5 / -472.5 -350 / -350
SaO2 92
Nasal Cannula flow liters per 10
minute
Physical Exam
General: Comfortable, Pain and Other (NAD)
HEENT: Normocephalic, Anicteric and Moist Mucous Membranes
Cardiovascular: S1-S2 and Regular Rhythm
Respiratory: Clear and Non-Labored Respirations
GI: Soft, Non Distended and Non Tender
Neurology: Awake, Alert, Oriented and No Motor Deficits
Skin: Warm, Dry and Good Color
Labs/Micro/Reports
Lab Data
06/13/25 05:50
06/13/25 05:50
Laboratory Results
06/12/25 06/12/25 06/13/25
16:24 23:19 05:50
APTT 38.1 H 123.7 H 84.9 H
Microbiology
06/11/25 23:03 Blood/Venous Blood Culture - Preliminary
No Growth in 24 hours- Final report to follow
06/11/25 22:22 Blood/Venous Blood Culture - Preliminary
No Growth in 24 hours- Final report to follow
06/10/25 00:08 Urine Urine Culture - Preliminary
Escherichia coli
06/11/25 21:24 Nasal Swab Influenza Types A & B ([place]) - Final
Negative for Influenza A & B, NAAT
Negative results must be combined with clinical observations
and patient history.
Nucleic Acid Amplification test (NAAT)performed on the
[employer] platform.
--- NOTE | 2025-06-13 09:12 | HOSPNOTE ---
Addendum entered by Marcella Oh RN 06/13/25 14:23:
Notes reviewed and see that patient is not interested in hospice. Reviewed that plan is SNF placement. Marge Scott is out of our service area when hospice is wanted. Hospice will sign off
Original Note:
Hospice referral received. Notes reviewed. We will follow and be available if and when hospice discussion is warranted. Please keep hospice updated due to family dynamics. CM and Attending updated.
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
[2025-06-13 12:27] LABS: Glucose - Point of Care 152 mg/dl (70-99)
[2025-06-13 13:50] LABS: APTT 92.4 Sec (23.4-35.0)
--- NOTE | 2025-06-13 13:54 | PTCARENOTE ---
Pt's assessment as documented. Aox2, forgetful to time. NSR on tele monitor. Sating mid 90's on 6L. Horner draining yellow urine. Upgraded to diet by . Medicated for pain with PRN Morphine, see MAR. Heparin gtt infusing as ordered, see
intervention. Bed alarm in place for safety. Call duong within reach.
--- NOTE | 2025-06-13 14:24 | PTOTSP ---
Dysphagia Tx
Impression: Patient with prolonged/decreased chewing breakdown related to missing dentition (1 visible tooth). No other signs concerning for a true oral/pharyngeal dysphagia or aspiration observed. Cannot rule out silent aspiration for patient
with end stage COPD at the bedside. Consider instrumental testing as appropriate for further objective assessment. Patient in agreement w/ FEES as needed and diet modifications below.
Recommend:
1. IDDSI 6 Soft/Bite Sized Diet, thin liquids
2. Medications as best tolerated
3. Assist with meal tray set up and feeding as needed
4. Strategies: PO only when awake/alert, single sips/bites, slow rate with breaks for breathing
5. Consider FEES to r/o silent aspiration
[2025-06-13] MEDS: DECADRON 6 MG IV (14:27)
[2025-06-13] MEDS: HEPARIN 25000 UNITS/250 ML IV (15:37)
[2025-06-13] MEDS: NEURONTIN 600 MG PO ×2 (17:13→21:47)
[2025-06-13 17:15] LABS: Glucose - Point of Care 256 mg/dl (70-99)
[2025-06-13] MEDS: NOVOLOG FLEXPEN-LOW RESISTANCE 3 UNITS SC (17:21)
[2025-06-13] MEDS: ROXICODONE 5 MG PO (20:35)
[2025-06-13 21:46] LABS: Glucose - Point of Care 239 mg/dl (70-99)
[2025-06-14] VITALS (47 sets, daily range): BP systolic 96–169; BP diastolic 56–87; BMI 25.1
[2025-06-14] MEDS: ZOSYN 50 IV ×4 (00:36→18:22)
[2025-06-14 05:56] LABS: Hematocrit 30.2 % (37.0-47.0); Hemoglobin 10.2 g/dL (12.0-16.0); Mean Corp Hgb Conc. 33.8 g/dL (33.0-37.0); Mean Corpuscular Volume 89.9 fL (81.0-99.0); Nucleated Red Blood Cells % 0 %; Platelet Count 371 10^3/uL (130-400); Red Cell Dist. Width 14.0 % (11.5-14.5)
[2025-06-14 06:17] LABS: APTT 95.8 Sec (23.4-35.0)
[2025-06-14 06:21] LABS: Blood Urea Nitrogen 11 mg/dl (7-17); Calcium 9.3 mg/dl (8.4-10.2); Carbon Dioxide 26 mmol/L (22-30); Chloride 108 mmol/L (98-107); Estimated Creatinine Clearance 72 ml/min; Glucose 165 mg/dl (70-99); Potassium 4.1 mmol/L (3.5-5.1); Sodium 137 mmol/L (135-145); eGFR > 60.00
[2025-06-14] MEDS: DUONEB 3 ML INH ×3 (07:36→19:14)
--- NOTE | 2025-06-14 08:34 | PN.CDI ---
CDI
- -
CDI:
Physician Documentation Request
Admit Date: 06/12/25 12:33
Dear Doctor Cele,
Patient admitted for weakness.
ER Physician Documentation: 'Her Quiroga catheter also appears neglected and appears that it has not been changed in quite a while.'
06/13 Hospitalist PN: 'E. coli urinary tract infection...Quiroga catheter changed'
Please clarify the relationship between these conditions:
Yes, UTI is related to/associated with/due to quiroga catheter.
No, UTI is not related to/associated with/due to quiroga catheter but it is due to ___. (Please specify)
Unable to determine
Use of terms such as suspected, likely, concern for, or probable (associated with a specific diagnosis that is being evaluated, monitored, or treated as if it exists) are acceptable and can be coded in the inpatient setting, when documented at the
time of discharge.
Thank you,
Liza Fong RN, BSN
CDI Specialist
Avaiable via [employer] text
Please use your independent medical judgment in providing your response.
--- NOTE | 2025-06-14 08:39 | PTCARENOTE ---
Patient received from fur dressing supervisor. Patient resting comfortably in bed. AAO, VSS. No events noted overnight. No complaints of pain at this time. Currently on 3L N/C, will try and wean. Heparin gtt at 1000 units/hr, PTT therapeutic. Chronic
quiroga maintained. No testing scheduled at this time. Call duong in reach.
--- NOTE | 2025-06-14 09:10 | W.PN.PUL3 ---
Today's Communication / Plan
-
- Resume Symbicort BID and Spiriva
- Change Duoneb to qid PRN
- D/c Dexamethasone
- Prednisone 30 mg daily for 5 days then back to home dose of Prednisone 5 mg PO daily
- Assess for Home O2 need prior to discharge
- Hospice evaluation
- Pulmonary team will sign off, please call as needed.
Assessment
-
Patient is a 74 year old F with PMH significant for RA on chronic prednisone, severe COPD, chronic pain, hypertension and DM-II who presents to ED complaining of diarrhea and inability to be cared for at home she has had chronic cough but denies
any complaints of acute shortness of breath. She has not had much p.o. intake over the past few days. She has chronic pain in her joints. She has noted to have stool all over her clothing, Horner catheter had foul-smelling urine, admitted recently
to [facility] 2 weeks ago for catheter associated UTI. She has recently been seen as an outpatient with palliative care services. She has not been able to follow-up with outpatient pulmonary visits due to lack of transportation. She is
admitted for failure to thrive.
Acute hypoxemic respiratory failure, now on >10L midflow
AECOPD
SOB
Leukocytosis
UTI
Diarrhea
Decreased PO intake
FTT
Conditions prior to admission:
Stage IV COPD, severe obstruction FEV1 34%
RA, severe, limited mobility, on chronic prednisone 5 mg qd
Tobacco dependence
Chronic Pain Syndrome
Chronic Narcotic Dependence
Hypertension
DM-II
Moderate Aortic Stenosis
Pulmonary Hypertension
Chronic HFpEF
RLE DVT (05/2024)
T&A
Former Smoker > 50 pack years total use, quit 2021
Plan
Hypoxemia noted on arrival, she is currently 92% on 2L NC--wean as tolerated, overall much imprpved
She has been on O2 in past, never followed up as OP
Prior history of lung disease is noted including stage IV COPD, FEV1 34%
She has not yet been seen by Pulm OP due to lack of transport.
Resume Spiriva and Symbicort. Switch to PRN Duoneb
Switch to PO Prednisone 30 mg for 5 days then back to home dose of 5 mg daily
UA showing UTI, with hypotension and lack of self care at home
This is her 9th admission in the past year
CXR/CT obtained indicating no acute process
She has not been getting yearly screening, quit smoking [address] in 2023 showing nodule/airspace opacities
Speech eval obtained
Prior ECHO results are reviewed indicating stable function, she has mod , PH
ProBNP not elevated
Smoking history noted >50 pack years
Encouraged continued smoking cessation, quit 2021
Will need outpatient pulmonary evaluation in our office for PFTs and 6MWT
She is being followed by outpatient palliative care--she does not feel her pain is being adequately addressed
custodial prognosis poor in a patient with poor follow up
Hospice consult would be appropriate in a patient with stage IV COPD, poor compliance and social support at home, and FTT
Diagnostic Data
CXR 06/11/25-Increased linear and reticular markings within both lungs, mainly in the mid to lower lungs, similar to prior examinations, and probably representing linear scarring. No convincing evidence for a new lung parenchymal opacity.
CXR 09/26/24-Increased left mid to lower lung zone atelectasis.
Chest X-Ray: 07/22/24- No acute disease of the chest. Nonacute mild midthoracic spine compression fracture. Stable. Mild cardiomegaly. Stable
CT CHEST 07/22/24- 1). There is acute nondisplaced buckle fracture of the mid-lower body of the sternum
2). There are patchy areas of subpleural interstitial airspace disease in both lungs most prominent in the left lower lobe which may be atelectasis or interstitial
3). The stability of the millimeter pulmonary nodule at the right lung base indicates that it is benign
4). There is diffuse fatty infiltration of the liver
Echo 05/14/24- 1. Left ventricle: Normal size and function. The estimated ejection fraction is 60-65% by visual estimation. No regional wall motion and normalities. Stage II diastolic dysfunction
2. Right ventricle: Normal size
3. Atria: Normal
4. Mitral valve: Sclerotic. Mild mitral regurgitation
5. Aortic valve: Thickened with mild-moderate aortic stenosis. Peak/mean gradients are 40 and 22 mmHg respectively. Pvel: 3.15 m/sec with estimate ENOC of 1.2 cm2. Mild aortic insufficiency with 419 cm/sec
6. Tricuspid valve: Trace tricuspid regurgitation. Mild estimated pulmonary artery systolic pressure is 40-45 mmHg
7. When compared to the most recent echocardiogram from 01/12/2023 there has been no significant change. Aortic valve gradients have increased slightly
2014: LVEF 65%. mod LVH. Suspected mild DD.
PFT's: 07/03/21- FVC was 1.28L or 45% predicted. FEV1 was 0.74L or 34% predicted. FEV1/FVC Ratio was 58%. FEV1 post bronchodilator increased up to 0.9L or 41% predicted, increasing by 22%
Severe obstruction
Reports and relevant images were personally reviewed.
Total time spent on this encounter __38__ minutes which includes review of history, physical exam, medications, laboratory data, personal review of imaging, extensive review of outpatient records, discussion with care team and respiratory therapy.
Subjective Data
-
Date of Service:
Date of Service: June 14, 2025
Chief Complaint: Pulmonary Follow Up
Subjective:
Comfortably lying in bed, no acute distress
Review of Systems
Genitourinary: Other (No new pulmonary symptoms reported)
Objective Data
Data Reviewed
Vital Signs / I&O / Oxygen:
Vital Signs
Temp Pulse Resp BP Pulse Ox
97.5 F 78 15 112/66 97
06/14/25 03:25 06/14/25 07:39 06/14/25 07:39 06/14/25 06:30 06/14/25 08:09
Intake and Output
06/13/25 06/14/25 06/15/25
06:59 06:59 06:59
Output Total 350 / 350 1750 / 1750
Balance -350 / -350 -1750 / -1750
SaO2 97
Nasal Cannula flow liters per 2
minute
Physical Exam
General: Comfortable, Pain and Other (NAD)
HEENT: Normocephalic, Anicteric and Moist Mucous Membranes
Cardiovascular: S1-S2 and Regular Rhythm
Respiratory: Clear, Wheeze (None) and Non-Labored Respirations
GI: Soft, Non Distended and Non Tender
Neurology: Awake, Alert, Oriented and No Motor Deficits
Skin: Warm, Dry and Good Color
Labs/Micro/Reports
Lab Data
06/14/25 05:42
06/14/25 05:42
Laboratory Results
06/13/25 06/14/25
13:24 05:42
APTT 92.4 H 95.8 H
Microbiology
06/10/25 00:08 Urine Urine Culture - Final
Escherichia coli
06/11/25 23:03 Blood/Venous Blood Culture - Preliminary
No Growth in 48 hours- Final report to follow
06/11/25 22:22 Blood/Venous Blood Culture - Preliminary
No Growth in 48 hours- Final report to follow
06/11/25 21:24 Nasal Swab Influenza Types A & B ([place]) - Final
Negative for Influenza A & B, NAAT
Negative results must be combined with clinical observations
and patient history.
Nucleic Acid Amplification test (NAAT)performed on the
[employer] platform.
[2025-06-14] MEDS: SYMBICORT 160/4.5 MCG INHALER INH (09:16)
[2025-06-14] MEDS: NOVOLOG FLEXPEN-LOW RESISTANCE SC (09:40)
[2025-06-14] MEDS: NEURONTIN 600 MG PO ×3 (09:41→19:54)
[2025-06-14] MEDS: CYMBALTA DELAYED RELEASE 30 MG PO (09:41)
[2025-06-14] MEDS: DELTASONE 30 MG PO (09:41)
[2025-06-14] MEDS: CYMBALTA DELAYED RELEASE 60 MG PO (09:41)
[2025-06-14] MEDS: ROXICODONE 5 MG PO ×2 (09:41→19:54)
[2025-06-14] MEDS: LOW STRENGTH ASPIRIN 81 MG PO (09:41)
[2025-06-14] MEDS: BELBUCA BUCCAL (09:42)
[2025-06-14] MEDS: PROTONIX IV 40 MG IV (09:42)
[2025-06-14 09:50] LABS: Glucose - Point of Care 145 mg/dl (70-99)
[2025-06-14] MEDS: DESENEX/MITRAZOL/ZEASORB 1 APPLIC TOPICAL ×2 (10:32→19:55)
[2025-06-14] MEDS: BELBUCA 150 MCG BUCCAL ×2 (11:02→19:54)
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
[2025-06-14 12:44] LABS: Glucose - Point of Care 253 mg/dl (70-99)
[2025-06-14] MEDS: NOVOLOG FLEXPEN-LOW RESISTANCE 3 UNITS SC ×2 (13:16→17:57)
[2025-06-14] MEDS: MORPHINE SULFATE 1 MG IV ×2 (13:23→20:53)
[2025-06-14] MEDS: HEPARIN 25000 UNITS/250 ML IV (16:24)
[2025-06-14 18:06] LABS: Glucose - Point of Care 281 mg/dl (70-99)
[2025-06-14] MEDS: SYMBICORT 160/4.5 MCG INHALER 2 PUFF INH (19:14)
[2025-06-14] MEDS: ELIQUIS 5 MG PO (19:54)
[2025-06-14 21:11] LABS: Glucose - Point of Care 314 mg/dl (70-99)
--- NOTE | 2025-06-14 22:15 | PTCARENOTE ---
Received pt at change of shift. Heparin infusing at 1000 units/hr. Switched to Eliquis tonight for her 20:00 medications. Heparin switched off at that time as order for the transition. Pt c/o 05/26 pain. Scheduled Francy administered but
pt was still having pain. Administered PRN morphine per order (see DEC). Pt states her pain came down to a 4. Resting in bed with call duong in reach.
[2025-06-14] MEDS: NOVOLOG FLEXPEN 5 UNITS SC (22:20)
[2025-06-15] VITALS (29 sets, daily range): BP systolic 106–169; BP diastolic 56–89; PULSE 60; O2SAT 92; BMI 25.1
[2025-06-15 00:37] LABS: Glucose - Point of Care 258 mg/dl (70-99)
[2025-06-15] MEDS: ZOSYN 50 IV ×4 (02:08→17:42)
[2025-06-15 04:17] LABS: Hematocrit 30.0 % (37.0-47.0); Hemoglobin 10.0 g/dL (12.0-16.0); Mean Corp Hgb Conc. 33.3 g/dL (33.0-37.0); Mean Corpuscular Volume 89.6 fL (81.0-99.0); Nucleated Red Blood Cells % 0 %; Platelet Count 386 10^3/uL (130-400); Red Cell Dist. Width 14.0 % (11.5-14.5)
[2025-06-15 04:37] LABS: Blood Urea Nitrogen 9 mg/dl (7-17); Calcium 9.1 mg/dl (8.4-10.2); Carbon Dioxide 27 mmol/L (22-30); Chloride 105 mmol/L (98-107); Estimated Creatinine Clearance 72 ml/min; Glucose 199 mg/dl (70-99); Potassium 3.7 mmol/L (3.5-5.1); Sodium 136 mmol/L (135-145); eGFR > 60.00
[2025-06-15 08:23] LABS: Glucose - Point of Care 127 mg/dl (70-99)
[2025-06-15] MEDS: SPIRIVA RESPIMAT 2.5 MCG 2 PUFF INH (08:29)
[2025-06-15] MEDS: SYMBICORT 160/4.5 MCG INHALER 2 PUFF INH ×2 (08:30→19:59)
[2025-06-15] MEDS: BELBUCA 150 MCG BUCCAL ×2 (09:16→21:45)
[2025-06-15] MEDS: NOVOLOG FLEXPEN-LOW RESISTANCE SC (09:16)
[2025-06-15] MEDS: CYMBALTA DELAYED RELEASE 60 MG PO (09:17)
[2025-06-15] MEDS: DESENEX/MITRAZOL/ZEASORB 1 APPLIC TOPICAL ×2 (09:18→20:13)
[2025-06-15] MEDS: CYMBALTA DELAYED RELEASE 30 MG PO (09:18)
[2025-06-15] MEDS: DELTASONE 30 MG PO (09:18)
[2025-06-15] MEDS: ROXICODONE 5 MG PO ×2 (09:19→20:10)
[2025-06-15] MEDS: ELIQUIS 5 MG PO ×2 (09:19→20:10)
[2025-06-15] MEDS: OSCAL 500 + D 500 MG PO (09:19)
[2025-06-15] MEDS: NEURONTIN 600 MG PO ×3 (09:19→21:45)
[2025-06-15] MEDS: LOW STRENGTH ASPIRIN 81 MG PO (09:19)
[2025-06-15] MEDS: PROTONIX IV 40 MG IV (09:20)
[2025-06-15] MEDS: NOVOLOG FLEXPEN-LOW RESISTANCE 2 UNITS SC (11:43)
[2025-06-15 11:52] LABS: Glucose - Point of Care 215 mg/dl (70-99)
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
[2025-06-15] MEDS: MORPHINE SULFATE 1 MG IV (13:17)
[2025-06-15] MEDS: NOVOLOG FLEXPEN-LOW RESISTANCE 1 UNITS SC (17:41)
[2025-06-15 17:50] LABS: Glucose - Point of Care 196 mg/dl (70-99)
[2025-06-15 20:56] LABS: Glucose - Point of Care 304 mg/dl (70-99)
[2025-06-16] VITALS (7 sets, daily range): BP systolic 131–161; BP diastolic 68–79; BMI 23.3
[2025-06-16] MEDS: ZOSYN 50 IV ×4 (00:20→18:02)
[2025-06-16 07:10] LABS: Hematocrit 32.4 % (37.0-47.0); Hemoglobin 10.8 g/dL (12.0-16.0); Mean Corp Hgb Conc. 33.3 g/dL (33.0-37.0); Mean Corpuscular Volume 90.3 fL (81.0-99.0); Nucleated Red Blood Cells % 0 %; Platelet Count 414 10^3/uL (130-400); Red Cell Dist. Width 14.1 % (11.5-14.5)
[2025-06-16] MEDS: SPIRIVA RESPIMAT 2.5 MCG 2 PUFF INH (07:32)
[2025-06-16] MEDS: SYMBICORT 160/4.5 MCG INHALER 2 PUFF INH ×2 (07:32→19:20)
[2025-06-16 07:37] LABS: Blood Urea Nitrogen 10 mg/dl (7-17); Calcium 9.0 mg/dl (8.4-10.2); Carbon Dioxide 26 mmol/L (22-30); Chloride 103 mmol/L (98-107); Estimated Creatinine Clearance 72 ml/min; Glucose 153 mg/dl (70-99); Potassium 3.7 mmol/L (3.5-5.1); Sodium 135 mmol/L (135-145); eGFR > 60.00
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
[2025-06-16 08:23] LABS: Glucose - Point of Care 145 mg/dl (70-99)
[2025-06-16] MEDS: NOVOLOG FLEXPEN-LOW RESISTANCE SC (08:24)
[2025-06-16] MEDS: ELIQUIS 5 MG PO ×2 (08:29→20:37)
[2025-06-16] MEDS: CYMBALTA DELAYED RELEASE 60 MG PO (08:29)
[2025-06-16] MEDS: CYMBALTA DELAYED RELEASE 30 MG PO (08:29)
[2025-06-16] MEDS: BELBUCA 150 MCG BUCCAL ×2 (08:29→20:35)
[2025-06-16] MEDS: PROTONIX IV 40 MG IV ×2 (08:30)
[2025-06-16] MEDS: ROXICODONE 5 MG PO ×2 (08:31→20:36)
[2025-06-16] MEDS: ALDACTONE 25 MG PO (08:31)
[2025-06-16] MEDS: DELTASONE 30 MG PO (08:34)
[2025-06-16] MEDS: LOW STRENGTH ASPIRIN 81 MG PO (08:34)
[2025-06-16] MEDS: THERAGRAN 1 TABLET PO (08:34)
[2025-06-16] MEDS: OSCAL 500 + D 500 MG PO (08:34)
[2025-06-16] MEDS: TENORMIN 50 MG PO (08:34)
[2025-06-16] MEDS: NEURONTIN 600 MG PO ×3 (08:35→22:37)
[2025-06-16] MEDS: DESENEX/MITRAZOL/ZEASORB 1 APPLIC TOPICAL ×2 (08:36→20:38)
[2025-06-16 12:38] LABS: Glucose - Point of Care 219 mg/dl (70-99)
[2025-06-16] MEDS: NOVOLOG FLEXPEN-LOW RESISTANCE 2 UNITS SC (12:43)
[2025-06-16] MEDS: MORPHINE SULFATE 1 MG IV (13:09)
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
[2025-06-16 17:18] LABS: Glucose - Point of Care 176 mg/dl (70-99)
[2025-06-16] MEDS: NOVOLOG FLEXPEN-LOW RESISTANCE 1 UNITS SC (17:22)
[2025-06-16 21:31] LABS: Glucose - Point of Care 228 mg/dl (70-99)
--- NOTE | 2025-06-16 23:31 | PTCARENOTE ---
Oral care was not performed on patient because she stated that it was her preference to brush her teeth in the morning.
[2025-06-17] MEDS: ZOSYN 50 IV ×2 (00:22→06:14)
[2025-06-17 03:00] VITALS: BP 143/73
[2025-06-17 03:14] VITALS: BMI 23.7
[2025-06-17] MEDS: MORPHINE SULFATE 1 MG IV (06:24)
[2025-06-17 06:38] LABS: Hematocrit 32.9 % (37.0-47.0); Hemoglobin 10.8 g/dL (12.0-16.0); Mean Corp Hgb Conc. 32.8 g/dL (33.0-37.0); Mean Corpuscular Volume 90.9 fL (81.0-99.0); Nucleated Red Blood Cells % 0 %; Platelet Count 415 10^3/uL (130-400); Red Cell Dist. Width 13.9 % (11.5-14.5)
[2025-06-17 07:01] LABS: Blood Urea Nitrogen 13 mg/dl (7-17); Calcium 9.6 mg/dl (8.4-10.2); Carbon Dioxide 26 mmol/L (22-30); Chloride 105 mmol/L (98-107); Estimated Creatinine Clearance 72 ml/min; Glucose 90 mg/dl (70-99); Potassium 4.0 mmol/L (3.5-5.1); Sodium 135 mmol/L (135-145); eGFR > 60.00
[2025-06-17 07:13] VITALS: BP 111/61
[2025-06-17] MEDS: SPIRIVA RESPIMAT 2.5 MCG 2 PUFF INH (07:45)
[2025-06-17] MEDS: SYMBICORT 160/4.5 MCG INHALER 2 PUFF INH ×2 (07:45→17:49)
[2025-06-17 08:00] LABS: Glucose - Point of Care 106 mg/dl (70-99)
[2025-06-17] MEDS: NEURONTIN 600 MG PO ×3 (08:04→21:35)
[2025-06-17] MEDS: OSCAL 500 + D 500 MG PO (08:04)
[2025-06-17] MEDS: DELTASONE 30 MG PO (08:04)
[2025-06-17] MEDS: ELIQUIS 5 MG PO ×2 (08:04→19:59)
[2025-06-17] MEDS: TENORMIN 50 MG PO (08:05)
[2025-06-17] MEDS: THERAGRAN 1 TABLET PO (08:05)
[2025-06-17] MEDS: ROXICODONE 5 MG PO ×3 (08:05→19:59)
[2025-06-17] MEDS: LOW STRENGTH ASPIRIN 81 MG PO (08:05)
[2025-06-17] MEDS: CYMBALTA DELAYED RELEASE 30 MG PO (08:06)
[2025-06-17] MEDS: ALDACTONE 25 MG PO (08:06)
[2025-06-17] MEDS: BELBUCA 150 MCG BUCCAL ×2 (08:07→19:59)
[2025-06-17] MEDS: NOVOLOG FLEXPEN-LOW RESISTANCE SC (08:07)
[2025-06-17] MEDS: CYMBALTA DELAYED RELEASE 60 MG PO (08:08)
[2025-06-17] MEDS: DESENEX/MITRAZOL/ZEASORB 1 APPLIC TOPICAL ×2 (08:09→19:59)
[2025-06-17 10:58] VITALS: BP 127/72
[2025-06-17 11:44] LABS: Glucose - Point of Care 294 mg/dl (70-99)
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
[2025-06-17] MEDS: NOVOLOG FLEXPEN-LOW RESISTANCE 3 UNITS SC (13:53)
[2025-06-17 15:34] VITALS: BP 142/68
[2025-06-17] MEDS: MORPHINE SULFATE 2 MG IV ×2 (16:27→22:19)
[2025-06-17 16:56] LABS: Glucose - Point of Care 247 mg/dl (70-99)
[2025-06-17] MEDS: NOVOLOG FLEXPEN-LOW RESISTANCE 2 UNITS SC (18:37)
[2025-06-17] MEDS: BACTRIM DS 800 MG/160 MG 1 TABLET PO (19:59)
[2025-06-17 21:51] LABS: Glucose - Point of Care 167 mg/dl (70-99)
[2025-06-17 23:11] VITALS: BP 94/64
[2025-06-18 06:00] VITALS: BMI 23.2
[2025-06-18 07:00] VITALS: BP 116/67
[2025-06-18] MEDS: SPIRIVA RESPIMAT 2.5 MCG 2 PUFF INH (07:08)
[2025-06-18] MEDS: SYMBICORT 160/4.5 MCG INHALER 2 PUFF INH ×2 (07:08→20:30)
[2025-06-18] MEDS: NEURONTIN 600 MG PO ×3 (07:39→22:04)
[2025-06-18] MEDS: DELTASONE 30 MG PO (07:39)
[2025-06-18 07:42] LABS: Glucose - Point of Care 132 mg/dl (70-99)
[2025-06-18] MEDS: CYMBALTA DELAYED RELEASE 30 MG PO (07:42)
[2025-06-18] MEDS: CYMBALTA DELAYED RELEASE 60 MG PO (07:42)
[2025-06-18] MEDS: LOW STRENGTH ASPIRIN 81 MG PO (07:42)
[2025-06-18] MEDS: OSCAL 500 + D 500 MG PO (07:42)
[2025-06-18] MEDS: ELIQUIS 5 MG PO ×2 (07:43→20:50)
[2025-06-18] MEDS: PROTONIX IV 40 MG IV (07:43)
[2025-06-18] MEDS: ROXICODONE 5 MG PO ×2 (07:49→20:50)
[2025-06-18] MEDS: TENORMIN 50 MG PO (07:50)
[2025-06-18] MEDS: ALDACTONE 25 MG PO (07:51)
[2025-06-18] MEDS: BACTRIM DS 800 MG/160 MG 1 TABLET PO ×2 (07:52→20:50)
[2025-06-18] MEDS: BELBUCA 150 MCG BUCCAL ×2 (07:52→20:50)
[2025-06-18] MEDS: NOVOLOG FLEXPEN-LOW RESISTANCE SC (07:56)
[2025-06-18] MEDS: DESENEX/MITRAZOL/ZEASORB 1 APPLIC TOPICAL ×2 (08:10→20:50)
[2025-06-18] MEDS: THERAGRAN 1 TABLET PO (08:13)
[2025-06-18 11:48] LABS: Glucose - Point of Care 253 mg/dl (70-99)
[2025-06-18 12:08] VITALS: BP 134/65; PULSE 58; O2SAT 92
[2025-06-18] MEDS: NOVOLOG FLEXPEN-LOW RESISTANCE 3 UNITS SC ×2 (13:16→17:33)
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
[2025-06-18 14:50] VITALS: BP 115/77
[2025-06-18] MEDS: MORPHINE SULFATE 2 MG IV ×2 (16:08→22:15)
[2025-06-18 16:51] LABS: Glucose - Point of Care 276 mg/dl (70-99)
[2025-06-18 21:27] LABS: Glucose - Point of Care 242 mg/dl (70-99)
[2025-06-18 23:00] VITALS: BP 121/63
[2025-06-19 05:51] LABS: Hematocrit 34.6 % (37.0-47.0); Hemoglobin 11.3 g/dL (12.0-16.0); Mean Corp Hgb Conc. 32.7 g/dL (33.0-37.0); Mean Corpuscular Volume 91.5 fL (81.0-99.0); Platelet Count 449 10^3/uL (130-400); Red Cell Dist. Width 14.2 % (11.5-14.5)
[2025-06-19 06:00] VITALS: BMI 22.5
[2025-06-19] MEDS: NEURONTIN 600 MG PO ×2 (07:34→15:31)
[2025-06-19] MEDS: BACTRIM DS 800 MG/160 MG 1 TABLET PO (07:34)
[2025-06-19] MEDS: CYMBALTA DELAYED RELEASE 60 MG PO (07:34)
[2025-06-19] MEDS: CYMBALTA DELAYED RELEASE 30 MG PO (07:34)
[2025-06-19] MEDS: DELTASONE 5 MG PO (07:35)
[2025-06-19] MEDS: ROXICODONE 5 MG PO (07:35)
[2025-06-19] MEDS: OSCAL 500 + D 500 MG PO (07:35)
[2025-06-19] MEDS: BELBUCA 150 MCG BUCCAL (07:35)
[2025-06-19] MEDS: ELIQUIS 5 MG PO (07:35)
[2025-06-19] MEDS: LOW STRENGTH ASPIRIN 81 MG PO (07:35)
[2025-06-19] MEDS: THERAGRAN 1 TABLET PO (07:35)
[2025-06-19] MEDS: PROTONIX IV 40 MG IV (07:36)
[2025-06-19] MEDS: SPIRIVA RESPIMAT 2.5 MCG 2 PUFF INH (07:37)
[2025-06-19] MEDS: SYMBICORT 160/4.5 MCG INHALER 2 PUFF INH (07:37)
[2025-06-19] MEDS: ALDACTONE 25 MG PO (07:42)
[2025-06-19] MEDS: DESENEX/MITRAZOL/ZEASORB 1 APPLIC TOPICAL (07:43)
[2025-06-19] MEDS: TENORMIN 50 MG PO (07:43)
[2025-06-19 07:49] VITALS: BP 107/57
[2025-06-19 08:05] LABS: Glucose - Point of Care 113 mg/dl (70-99)
[2025-06-19] MEDS: NOVOLOG FLEXPEN-LOW RESISTANCE SC ×2 (08:10→16:34)
--- NOTE | 2025-06-19 10:15 | PN.CDI ---
CDI
- -
CDI:
Physician Documentation Request
Admit Date: 06/12/25 12:33
Dear Doctor Mani,
Patient admitted for respiratory failure.
Laboratory Tests
06/09/25 06/10/25 06/11/25
21:31 07:24 21:50
Sodium 130 L 132 L 129 L
06/12/25 06/13/25
04:14 05:50
Sodium 133 L 134 L
Based on the above, could you clarify in the progress notes, the appropriate diagnosis, if significant, that supports the above abnormalities and additional evaluation, monitoring and/or treatment rendered:
Hyponatremia
Abnormal lab value insignificant
Other
Use of terms such as suspected, likely, concern for, or probable (associated with a specific diagnosis that is being evaluated, monitored, or treated as if it exists) are acceptable and can be coded in the inpatient setting, when documented at the
time of discharge.
Thank you,
Liza Fong RN, BSN
CDI Specialist
Available via [place] text
Please use your independent medical judgment in providing your response.
[2025-06-19 11:23] LABS: Glucose - Point of Care 219 mg/dl (70-99)
[2025-06-19] MEDS: NOVOLOG FLEXPEN-LOW RESISTANCE 2 UNITS SC (11:50)
--- NOTE | 2025-06-19 13:14 | CM ---
Addendum entered by Callie Buck 06/19/25 13:36:
[facility] Report: [phone]
[facility]
Original Note:
Pt is cleared for discharge to SNF today. Bed available at [facility].
CM met with Gina to discuss discharge; she was asking if she could go home for a few days before going to SNF. CM advised that this was not a safe option.
Call placed to [facility] at the [facility] to make her aware of discharge and plan for transfer to [facility]. I advised that there are limited options for SNF due to lack of family involvement and lack of knowledge
regarding finances. Pt's daughter had called her yesterday and gave Gina her phone number, but does not know where she put it. CM assisted with trying to find the phone number in her room, however it was not to be found. Therefore, I am unable
to contact her daughter with information about discharge today.
Bed available at [facility] for today. Ambulance transport arranged for 1600 today.
[2025-06-19] MEDS: MORPHINE SULFATE 2 MG IV (13:35)
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
[2025-06-19 15:02] VITALS: BP 112/55
== END 2025-06-19 18:09 | DRG 871 ==
LOC: 3 WEST ACU 12:33
PROVIDERS: Hospitalist; Nurse Practitioner Family; ADMITTING PHYSICIAN Hospitalist; ATTENDING PHYSICIAN Internal Medicine; CONSULT PHYSICIAN Internal Medicine; EMERGENCY PHYSICIAN Student in an Organized Health Care Education/Training Program
DX: A41.9 Sepsis, unspecified organism (principal); J18.9 Pneumonia, unspecified organism; J69.0 Pneumonitis due to inhalation of food and vomit; J96.01 Acute respiratory failure with hypoxia; R57.1 Hypovolemic shock; T83.511A Infection and inflammatory reaction due to indwelling urethral catheter, initial encounter; F11.20 Opioid dependence, uncomplicated; I50.32 Chronic diastolic (congestive) heart failure; J44.1 Chronic obstructive pulmonary disease with (acute) exacerbation; E87.1 Hypo-osmolality and hyponatremia; T76.01XA Adult neglect or abandonment, suspected, initial encounter; N39.0 Urinary tract infection, site not specified; I11.0 Hypertensive heart disease with heart failure; M06.9 Rheumatoid arthritis, unspecified; F17.200 Nicotine dependence, unspecified, uncomplicated; E86.0 Dehydration; R62.7 Adult failure to thrive; F41.9 Anxiety disorder, unspecified; I35.0 Nonrheumatic aortic (valve) stenosis; R19.7 Diarrhea, unspecified; E11.9 Type 2 diabetes mellitus without complications; G89.4 Chronic pain syndrome; F32.A Depression, unspecified; B96.20 Unspecified Escherichia coli [E. coli] as the cause of diseases classified elsewhere; I27.20 Pulmonary hypertension, unspecified; R13.10 Dysphagia, unspecified; Y84.6 Urinary catheterization as the cause of abnormal reaction of the patient, or of later complication, without mention of misadventure at the time of the procedure; Y92.9 Unspecified place or not applicable; Y73.2 Prosthetic and other implants, materials and accessory gastroenterology and urology devices associated with adverse incidents; Z86.718 Personal history of other venous thrombosis and embolism; Z79.51 Long term (current) use of inhaled steroids; Z79.82 Long term (current) use of aspirin; Z79.01 Long term (current) use of anticoagulants; Z79.52 Long term (current) use of systemic steroids; Z88.1 Allergy status to other antibiotic agents; Z88.8 Allergy status to other drugs, medicaments and biological substances; Z59.82 Transportation insecurity; Z79.84 Long term (current) use of oral hypoglycemic drugs; Z87.440 Personal history of urinary (tract) infections; Z68.22 Body mass index [BMI] 22.0-22.9, adult
CPT/HCPCS: 36600; 71045; 71046; 71275; 80048; 80053; 81003; 81015; 82805; 82962; 83605; 83735; 83880; 84100; 85025; 85027; 85730; 87040; 87086; 87088; 87186; 87502; 87811; 92526; 92610; 94640; 96361; 96374; 97110; 97116; 97163; 97167; 97530; 99285; Q9967

== ENCOUNTER 2025-09-28 13:04 | Emergency (ER) | payer OTHER, MEDICARE, SELFPAY ==
[2025-09-28 13:09] VITALS: BP 126/57
--- NOTE | 2025-09-28 16:34 | ED.GENMED ---
History of Present Illness
General
Chief Complaint: Fall
Source: patient
Exam Limitations: none
Time Seen by Provider: 09/28/25 13:44
Nursing documentation reviewed up to this point in time: agreed with
History of Present Illness
History of Present Illness:
Patient is a 75-year-old female who presents to the emergency department for evaluation of persistent right hip pain after fall on . Patient states that she suffered a mechanical fall on night when getting out of bed while at her
rehab facility. She is unsure if she struck her head at that time. She was assisted up by staff and put back into bed without any medical attention at that time. Yesterday, she states she did have some pain in her right hip however was scheduled
for discharge home. She did not want to seek medical care at that would delay her discharge back home.
Patient states that upon waking this morning she was having very limited ability to ambulate with significant pain in her right hip prompting visit today to the emergency department.
She denies any numbness/tingling her right lower extremity. No headache, neck pain, or back pain.
Patient states that she takes oxycodone twice daily for chronic pain. She did not have her morning dose
Past History
Past History
ED Past Medical History: COPD, HTN and Other (rheumatoid arthritis not on treatment)
ED Past Surgical History: Gynecological and Other
Social History
Tobacco: Smoker
Alcohol: None
Drug: None
Personal:
Living: with family (Lives with significant other)
Employment: Employed
Family History
Family History: Hypertension
Review of Systems
Review of Systems
Allergies reviewed?: Yes
All Other Systems: ROS reviewed and negative except as documented in HPI and ROS
Phy Exam
Physical Exam
Physical Exam:
Vitals: Patient's vital signs are stable. Afebrile
General: Patient is generally weak appearing
Skin: Warm and dry, no rashes or lesions
Head: Normocephalic, atraumatic
Eyes: Sclera nonicteric.
Throat: Protecting airway
Neck: Normal ROM, no cervical spine tenderness, no meningismus
Cardiac: Regular rate and rhythm, no murmurs.
Pulm: Normal respiratory effort. Lungs clear
Abdomen: No abdominal tenderness.
Back: No midline spinal tenderness.
Extremities: No obvious deformity of right lower extremity. Full range of motion in right knee and right hip without pain. She does have some reproducible tenderness along superior pelvis. Right lower extremity neurovascularly intact with
palpable distal pulses
Neuro: AAOx3. Grossly intact.
Psychiatric: Normal affect.
Course
Orders/Labs/Results
Orders:
Orders
09/28/25 13:22
Hip, Right 2-3 Views [CR Hip - RT w/wo Pel 2-3 Vw*] Urgent
Comment:
Reason For Exam: fall, pain, difficulty weight bearing
Include a pelvis x-ray?: Yes
09/28/25 14:45
CT Head W/o Iv Contrast Urgent
Comment:
Reason For Exam: unwitnessed fall
Cervical Spine wo Contrast CT [CT Cervical Spine W/o Iv Contr] Urgent
Comment:
Reason For Exam: unwitnessed fall
Pelvis wo Contrast CT [CT Pelvis W/o Iv Contrast] Urgent
Comment:
Reason For Exam: fall, right hip pain, unable to bear weight
09/28/25 17:08
Acetaminophen [Tylenol] 1,000 mg PO NOW STA
09/28/25 17:15
Oxycodone [Roxicodone] 5 mg PO NOW STA
09/28/25 19:30
Case Management Consult ONCE
Case Management Consult: VN/Home Care
Vital Signs
Initial and Last Documented VS:
Initial Vital Signs
Temp Pulse Resp BP Pulse Ox
98.8 F 68 18 126/57 98
09/28/25 13:09 09/28/25 13:09 09/28/25 13:09 09/28/25 13:09 09/28/25 13:09
Last Documented Vital Signs
Temp Pulse Resp BP Pulse Ox
98.8 F 68 18 126/57 98
09/28/25 13:09 09/28/25 13:09 09/28/25 13:09 09/28/25 13:09 09/28/25 16:34
MDM/Problems Addressed
Differential Diagnosis Includes:
Not limited to: Contusion, hip fracture, pelvic fracture, muscular strain, etc.
MDM/Problems Addressed:
75-year-old female presenting with right hip pain after mechanical fall two days ago. Unknown head strike at that time. Discharged yesterday from rehab facility after admission for generalized weakness secondary to frequent UTIs.
Vitals unremarkable. On exam, patient appears in no distress and is resting comfortably. She has mild reproducbble tenderness in right superior pelvis, however no obvious deformity of right lower extremity or evidence of vascular compromise. She�s
alert and oriented without any focal neurologic deficits or evidence of head trauma.
A right hip x-ray was obtained in triage without any evidence of acute fracture. However, given that patient is having difficulty weight-bearing with recent fall � will obtain CT imaging of pelvis to rule out occult fracture. Will also obtain CT
imaging of head and cervical spine to rule out other traumatic injuries.
Update: CT imaging without evidence of acute fracture or other acute traumatic injuries of head or cervical spine.
She was able to take a few steps and weightier with help of walker. However, she clearly has significant ambulatory dysfunction, and I fear she is at risk of fall and may have difficulties with ADLs at home. I did strongly recommend admission for
PT/case management consult possible return to rehab placement.
Patient is adamant that she would like to return home with her who can assist. Patient is fully oriented and has full capacity to make these medical decisions. She will be discharged home with strict return precautions. I did consult case
management for possible home PT/visiting nurse.
Chronic conditions affecting care:
N/A
Acute Exacerbation and/or Progression of Chronic Illness:
N/A
*Radiology
Radiology exam reviewed: radiology read reviewed
*Pulse Oximetry
SaO2: 98
Oxygen Mode of Delivery: Room air
Patient hypoxic: no
*EKG
Interpreted by ED Provider?: NA
*Floor Tiling Professional Interpretation
Rate: Floor Tiling Professional- N/A
*Critical Care Note
Total Time (30-74mins, 75-104mins- exclusive of procedures): Not Applicable
ED Attending Note
-
Portions of this chart may have been created with voice recognition software.� Occasional wrong word or��sound alike� substitutions may have occurred due to the inherent limitations of voice recognition software.
Discharge Plan
Departure
Patient Disposition: Home (Routine Discharge)
Date of Disposition: 09/28/25
Time of Disposition: 19:22
Patient with high blood pressure during this ER visit?: No
Condition: Good
Discharge Problem:
Hip pain, right, Ambulatory dysfunction
Instructions: Hip pain - ED (DC)
Prescriptions:
No Action
duloxetine 30 MG capsule,delayed release(DR/EC)
30 mg PO DAILY
Rx Instructions:
take with 60mg for total of 90mg
duloxetine 60 MG capsule,delayed release(DR/EC)
60 mg PO DAILY
Rx Instructions:
take with 30mg for total of 90mg
albuterol sulfate 90 mcg/actuation Hfa Aerosol Inhaler
2 puff INHALATION R Q6HPRN PRN (Reason: sob)
CertaVite Senior 0.4 mg-300 mcg- 250 mcg Tablet
1 tab PO DAILY
prednisone 5 MG tablet
5 mg PO DAILY
pantoprazole 40 mg Tablet,Delayed Release (Dr/Ec)
40 mg PO DAILY Qty: 30 0RF
Eliquis 5 mg tablet
5 mg PO BID Qty: 60 0RF
metformin 500 mg Tablet
500 mg PO BID
lidocaine 4 % adhesive patch,medicated
2 patch topical DAILY
atenolol 50 mg Tablet
50 mg PO DAILY
gabapentin 300 mg Capsule
600 mg PO TID Qty: 120 0RF
spironolactone 25 mg Tablet
25 mg PO DAILY
aspirin 81 mg Tablet,Chewable
81 mg PO DAILY Qty: 1 0RF
buprenorphine 10 mcg/hour Patch Weekly
1 patch TRANSDERMAL TH Qty: 1 0RF
acetaminophen 500 mg Tablet
1,000 mg PO TID
magnesium hydroxide [Milk of Magnesia] 400 mg/5 mL Suspension
30 ml PO DAILY PRN (Reason: if no BM in 3 days, give on day 4)
bisacodyl 10 mg Suppository
10 mg IA DAILY PRN (Reason: if no BM in 4 days, give on day 5)
Fleet Enema 19-7 gram/118 mL Enema
118 ml IA DAILYPRN PRN (Reason: if no BM in 5 days, give on day 6)
fluticasone propion-salmeterol 100-50 mcg/dose blister with device
1 inh INHALATION BID
[place] Nasal Mist 0.65 % Aerosol,Thompson
1 spray INTRANASAL TID
[place] Nasal 0.65 % Aerosol,Thompson
1 spray INTRANASAL Q8HPRN PRN (Reason: dry nose)
Incruse Ellipta 62.5 mcg/actuation blister with device
1 inh INHALATION DAILY
miconazole nitrate [Miconazorb AF] 2 % powder
1 applic topical BID
oxycodone 5 mg tablet
5 mg PO BID
Referrals:
Luis Rivera DO [Family Provider]
Activity Restrictions/Additional Instructions:
RETURN TO THE EMERGENCY DEPARTMENT WITH ANY INABILITY TO AMBULATE, INTRACTABLE PAIN, CHEST PAIN OR SHORTNESS OF BREATH, WORSENING CURRENT SYMPTOMS, OR ANY OTHER CONCERNS
- As discussed your imaging performed the emergency department showed no evidence of acute fracture. It was recommended that you stay in the hospital for rehab placement.
- You continue to take your medications as prescribed. Please use walker at home as needed for ambulation.
- I have put a consult in for case management to assist with potential at home services.
- Please follow-up with your primary care provider for further evaluation/management to ensure that your symptoms are improving
Monitor your symptoms closely and return to the emergency department with any acute worsening/new symptoms or any other concerns
Interventions
Interventions:
*Risk Screen - Suicide Last Done: 09/28/25 16:00
*General Assessment Last Done: 09/28/25 16:00
*Neglect/Abuse Screening Last Done: 09/28/25 16:00
[facility] Risk Assessment Tool Last Done: 09/28/25 16:00
*Nursing Disposition Last Done: 09/28/25 20:59
ED-Musculoskeletal Assessment Last Done: 09/28/25 16:00
ED- Neurological Assessment Last Done: 09/28/25 16:00
ED-Skin Assessment Last Done: 09/28/25 16:00
Discharge Date and Time
Print Language: MAORI
[2025-09-28] MEDS: ROXICODONE 5 MG PO (17:39)
--- NOTE | 2025-09-29 09:49 | EDCM ---
Received CM consult, chart reviewed. Pt was discharged home from [facility] on Tuesday, pt had a fall at [facility] on , seen in ED yesterday. Per Elvie CHARLES, pt had ambulatory dysfunction but declined admission and did not want to wait overnight to be
seen by CM and PT in am.
I attempted to reach pt to discuss referral to VN but her phone went to voicemail and I was unable to leave a message.
Will try to reach her later today.
--- NOTE | 2025-09-30 13:32 | CM ---
Phone call from [facility] [phone]
Asking for CM to set up HHC via home care
Referral sent to [facility] liaison
== END 2025-09-28 20:59 | disposition home or self-care (01) ==
LOC: EMR 13:04
PROVIDERS: EMERGENCY PHYSICIAN Student in an Organized Health Care Education/Training Program; FAMILY PHYSICIAN Student in an Organized Health Care Education/Training Program
DX: M25.551 Pain in right hip (principal); W06.XXXA Fall from bed, initial encounter; Y92.193 Bedroom in other specified residential institution as the place of occurrence of the external cause; R26.2 Difficulty in walking, not elsewhere classified; J44.9 Chronic obstructive pulmonary disease, unspecified; I10 Essential (primary) hypertension; M06.9 Rheumatoid arthritis, unspecified; F17.200 Nicotine dependence, unspecified, uncomplicated; Z79.891 Long term (current) use of opiate analgesic
CPT/HCPCS: 99284; 70450; 72125; 72192; 73502

== ENCOUNTER 2025-10-07 17:54 | Observation (INO) | payer MEDICARE, OTHER, SELFPAY ==
[2025-10-07] VITALS (9 sets, daily range): BP systolic 108–129; BP diastolic 56–98; BMI 25.4; BMI 24.0
--- NOTE | 2025-10-07 15:03 | ED.GENMED ---
History of Present Illness
<Jeff Douglass PA-C - Last Filed: 10/07/25 19:28>
General
Chief Complaint: Weakness
Source: patient and records
Time Seen by Provider: 10/07/25 14:54
History of Present Illness
History of Present Illness:
75-year-old female with past medical history of COPD, CHF, hypertension, ihm-lwpelxn-zhewzhnbq diabetes presenting to the emergency department at the request of home physical therapy due to persistent generalized weakness and ambulatory dysfunction,
patient seen in this emergency department recently for a fall resulting in right sided hip pain, CTs were performed and no osseous injuries were noted. Patient states that while she has not fallen again since she has been having difficulty caring
for herself at home, lives with her but her has also been unable to help significantly. Patient has no new symptoms today and at present time is only noting the weakness and continued right sided hip pain. She is unaware of any
fevers, chills, rigors, nausea, vomiting, change in oral intake to both solids or liquids or urinary symptoms or bowel changes.
Past History
<Jeff Douglass PA-C - Last Filed: 10/07/25 19:28>
Past History
ED Past Medical History: COPD, HTN, NIDDM and Other (rheumatoid arthritis not on treatment)
ED Past Surgical History: Gynecological and Other
Social History
Tobacco: Smoker
Alcohol: None
Drug: None
Personal:
Living: with family (Lives with significant other)
Employment: Employed
Family History
Family History: Hypertension
Review of Systems
<Jeff Douglass PA-C - Last Filed: 10/07/25 19:28>
Review of Systems
All Other Systems: ROS reviewed and negative except as documented in HPI and ROS
Phy Exam
<MELVIN Carvalho Last Filed: 10/07/25 19:28>
Physical Exam
Physical Exam:
GENERAL: Alert , in no apparent distress, appears older than stated age, somewhat unkempt
HEAD: Normocephalic atraumatic
EYE: Clear conjunctiva
NECK: Supple
ENT: o/p clr, mmm.
CARDIAC: Regular rate and rhythm .
LUNGS: Clear breath sounds bilaterally, no acute respiratory distress, no wheezes/rales/rhonchi
ABDOMEN: Soft, without focal tenderness, no r/g, no cvat
NEUROLOGICAL: Alert and oriented, seems to answer questions appropriately however it states that she is and she was talking about her , unclear as to whom she may live with as patient is not with any current family members and EMS had
already left the ER prior to my exam
SKIN: Warm and dry, skin intact.
MUSCULOSKELETAL: No edema, well perfused.
PSYCH: Normal and appropriate interaction.
Scores
<Jeff Douglass PA-C - Last Filed: 10/07/25 19:28>
Heart Failure Risk
Heart Failure Risk Score: Not Applicable
Heart Score for Chest Pain Patients
STEMI patient?: Not applicable
Withdrawal Assessment of Alcohol
Withdrawal Assessment Completed?: Not applicable
Course
<Jeff Douglass PA-C - Last Filed: 10/07/25 19:28>
Orders/Labs/Results
Orders:
Orders
10/07/25 15:02
CR Pelvis - 1 Or 2 Views Urgent
Comment:
Reason For Exam: continued pain, recent fall right side
10/07/25 15:03
Electrocardiogram (*1) Urgent
Reason for Study: Fatigue / Weakness
EKG- Treatment ONCE
10/07/25 15:10
Case Management Consult ONCE
Case Management Consult: Discharge Planning
Physical Therapy Consult [Pt Eval And Treat] Urgent
Activity Level: Ambulate
10/07/25 15:13
C-Reactive Protein Urgent
Comment: ADD ON
COVID-19 Antigen Urgent
Source: Nasal Swab
Complete Blood Count/With Diff Urgent
Comprehensive Metabolic Panel Urgent
Erythrocyte Sed Rate Urgent
Comment: ADD ON
TSH Urgent
Urinalysis Reflex To Culture Urgent
Date Specimen was Collected: 10/07/25
Time Specimen was Collected: 15:12
Urine Microscopic Reflex Cult Urgent
Influenza A+B Rapid Molecular Urgent
ROSALIE Source: Nasal Swab
Specimen Description:
Urine Culture Urgent
ROSALIE Source: U
Specimen Description:
Date Specimen was Collected: 10/07/25
Time Specimen was Collected: 15:12
10/07/25 16:44
Piperacillin/Tazo 3.375 Gram [Zosyn] 3.375 gram in 50 ml IV NOW
10/07/25 17:11
Admit/Transfer Patient As Directed
Co-Sign Provider:
Level of Care: Observation services
Assign to:: Medical/Surgical
Physician / Group: Mike Singleton
Diagnosis: generalized weakness
PRN Pain Medication Management As Directed
May give lesser potent ordered pain med per pt: Yes
preference::
Protocol:: Medication orders for pain may be administered in a
manner that supports deferring to patient preference
when the pt is:
- Requesting an ordered lesser potent pain medication.
Least to most potent pain medications are defined
as: acetaminophen < NSAID < tramadol < opioids
(morphine, oxycodone, hydromorphone).
- Requesting a lesser dose of the same medication IF
ORDERED.
- Requesting a less intrusive route of administration
if both routes are prescribed by the provider (PO <
IV).
10/07/25 17:12
Code Status As Directed
Resuscitation Status: Full Code
10/07/25 17:19
CT Pelvis W/o Iv Contrast Routine
Comment:
Reason For Exam: right hip pain
10/07/25 17:26
Add On- LAB Urgent
Tests Added?: CRP
Add On- LAB Urgent
Tests Added?: ESR
Abnormal Lab Results
10/07/25
15:13
WBC 12.0 H 10^3/uL
(4.8-10.8)
RBC 3.66 L 10^6/uL
(4.20-5.40)
Hgb 11.1 L g/dL
(12.0-16.0)
Hct 33.5 L %
(37.0-47.0)
Plt Count 411 H 10^3/uL
(130-400)
Abs Immat Gran (auto) 0.1 H 10^3/uL
(0-0.05)
Absolute Neuts (auto) 6.9 H 10^3/uL
(1.4-6.5)
Absolute Monos (auto) 1.1 H 10^3/uL
(0.1-0.6)
Immature Gran % 0.7 H %
(0-0.5)
ESR 58 H mm/hour
(0-20)
Sodium 131 L mmol/L
(135-145)
Creatinine 0.5 L mg/dL
(0.6-1.0)
Glucose 118 H mg/dl
(70-99)
C-Reactive Protein 27.40 H mg/L
(0.0-10.00)
Urine Nitrite (Reflex) Positive A
(Negative)
Leukocyte Esterase Rfl 2+ A
(Negative)
Urine WBC (Reflex) 40-50 A /HPF
(0-5)
Urine Bacteria (Reflex) Many A
(Negative)
10/07/25 15:13
10/07/25 15:13
Vital Signs
Initial and Last Documented VS:
Initial Vital Signs
Temp Pulse Resp BP Pulse Ox
98.4 F 63 14 124/98 95
10/07/25 14:50 10/07/25 14:50 10/07/25 14:50 10/07/25 14:50 10/07/25 14:50
Last Documented Vital Signs
Temp Pulse Resp BP Pulse Ox
98.4 F 65 16 111/75 92
10/07/25 14:50 10/07/25 19:15 10/07/25 19:15 10/07/25 19:00 10/07/25 17:30
<Quinn Hurley, DO - Last Filed: 10/07/25 17:51>
Orders/Labs/Results
Orders:
Orders
10/07/25 15:02
CR Pelvis - 1 Or 2 Views Urgent
Comment:
Reason For Exam: continued pain, recent fall right side
10/07/25 15:03
Electrocardiogram (*1) Urgent
Reason for Study: Fatigue / Weakness
EKG- Treatment ONCE
10/07/25 15:10
Case Management Consult ONCE
Case Management Consult: Discharge Planning
Physical Therapy Consult [Pt Eval And Treat] Urgent
Activity Level: Ambulate
10/07/25 15:13
C-Reactive Protein Urgent
Comment: ADD ON
COVID-19 Antigen Urgent
Source: Nasal Swab
Complete Blood Count/With Diff Urgent
Comprehensive Metabolic Panel Urgent
Erythrocyte Sed Rate Urgent
Comment: ADD ON
TSH Urgent
Urinalysis Reflex To Culture Urgent
Date Specimen was Collected: 10/07/25
Time Specimen was Collected: 15:12
Urine Microscopic Reflex Cult Urgent
Influenza A+B Rapid Molecular Urgent
ROSALIE Source: Nasal Swab
Specimen Description:
Urine Culture Urgent
ROSALIE Source: U
Specimen Description:
Date Specimen was Collected: 10/07/25
Time Specimen was Collected: 15:12
10/07/25 16:44
Piperacillin/Tazo 3.375 Gram [Zosyn] 3.375 gram in 50 ml IV NOW
10/07/25 17:11
Admit/Transfer Patient As Directed
Co-Sign Provider:
Level of Care: Observation services
Assign to:: Medical/Surgical
Physician / Group: Mike Singleton
Diagnosis: generalized weakness
PRN Pain Medication Management As Directed
May give lesser potent ordered pain med per pt: Yes
preference::
Protocol:: Medication orders for pain may be administered in a
manner that supports deferring to patient preference
when the pt is:
- Requesting an ordered lesser potent pain medication.
Least to most potent pain medications are defined
as: acetaminophen < NSAID < tramadol < opioids
(morphine, oxycodone, hydromorphone).
- Requesting a lesser dose of the same medication IF
ORDERED.
- Requesting a less intrusive route of administration
if both routes are prescribed by the provider (PO <
IV).
10/07/25 17:12
Code Status As Directed
Resuscitation Status: Full Code
10/07/25 17:19
CT Pelvis W/o Iv Contrast Routine
Comment:
Reason For Exam: right hip pain
10/07/25 17:26
Add On- LAB Urgent
Tests Added?: CRP
Add On- LAB Urgent
Tests Added?: ESR
Abnormal Lab Results
10/07/25
15:13
WBC 12.0 H 10^3/uL
(4.8-10.8)
RBC 3.66 L 10^6/uL
(4.20-5.40)
Hgb 11.1 L g/dL
(12.0-16.0)
Hct 33.5 L %
(37.0-47.0)
Plt Count 411 H 10^3/uL
(130-400)
Abs Immat Gran (auto) 0.1 H 10^3/uL
(0-0.05)
Absolute Neuts (auto) 6.9 H 10^3/uL
(1.4-6.5)
Absolute Monos (auto) 1.1 H 10^3/uL
(0.1-0.6)
Immature Gran % 0.7 H %
(0-0.5)
ESR 58 H mm/hour
(0-20)
Sodium 131 L mmol/L
(135-145)
Creatinine 0.5 L mg/dL
(0.6-1.0)
Glucose 118 H mg/dl
(70-99)
C-Reactive Protein 27.40 H mg/L
(0.0-10.00)
Urine Nitrite (Reflex) Positive A
(Negative)
Leukocyte Esterase Rfl 2+ A
(Negative)
Urine WBC (Reflex) 40-50 A /HPF
(0-5)
Urine Bacteria (Reflex) Many A
(Negative)
10/07/25 15:13
10/07/25 15:13
Vital Signs
Initial and Last Documented VS:
Initial Vital Signs
Temp Pulse Resp BP Pulse Ox
98.4 F 63 14 124/98 95
10/07/25 14:50 10/07/25 14:50 10/07/25 14:50 10/07/25 14:50 10/07/25 14:50
Last Documented Vital Signs
Temp Pulse Resp BP Pulse Ox
98.4 F 65 16 111/75 92
10/07/25 14:50 10/07/25 19:15 10/07/25 19:15 10/07/25 19:00 10/07/25 17:30
<Jeff Douglass PA-C - Last Filed: 10/07/25 19:28>
MDM/Problems Addressed
Differential Diagnosis Includes:
Failure to thrive
Viral syndrome
Electrolyte imbalance
Urinary tract infection
Pneumonia
Acute kidney injury
MDM/Problems Addressed:
75-year-old female presenting to the emergency department for evaluation of continued generalized weakness, no new falls but still noting pain on the right hip/pelvis from her recent fall a little over 1 week ago. She is hemodynamically stable here
and without fevers. Will check labs, urine and x-ray of the hip although patient notes that she has not had any falls since her recent injury. Plan to admit as patient clearly is not able to continue caring for herself at home and given the time
of day unlikely to be placed at a facility at this time.
<Jeff Douglass PA-C - Last Filed: 10/07/25 19:28>
*Radiology
Radiology exam reviewed: preliminary read by ED provider (No acute fracture of the pelvis)
*Pulse Oximetry
SaO2: 95
Oxygen Mode of Delivery: Room air
Patient hypoxic: no
*Critical Care Note
Total Time (30-74mins, 75-104mins- exclusive of procedures): Not Applicable
Data Reviewed
Review of Other/Old Records Reveals: Labs, Records and Radiology Studies
<Jeff Douglass PA-C - Last Filed: 10/07/25 19:28>
Patient Management
Discussion with other providers: Hospitalist
Escalation/DeEscalation of care consider admission/obs:
Patient's urinalysis is consistent with a UTI, there is 40-50 WBCs. Based off previous cultures I did order Zosyn given patient's allergy list. Hospitalist team is aware and accepts for continued evaluation and treatment.
<Quinn Hurley DO - Last Filed: 10/07/25 17:51>
Update Note
Update Note:
5:45 PM update urinalysis noted was a straight culture, urine culture pending
ED Attending Note
<KEVIN Carvalho-Kerry - Last Filed: 10/07/25 19:28>
-
Portions of this chart may have been created with voice recognition software.� Occasional wrong word or��sound alike� substitutions may have occurred due to the inherent limitations of voice recognition software.
<Quinn Hurley DO - Last Filed: 10/07/25 17:51>
ED Attending Note
Patient seen and examined by attending physician: Yes
I performed the substantive portion of visit, reviewed & personally made and approve the management plan that is documented in note by myself or LIO.: Yes
ED Attending Note:
Seen with PA examined independently agree with assessment and plan
Discharge Plan
Departure
Patient Disposition: Admit
Date of Disposition: 10/07/25
Time of Disposition: 16:22
Presentation/result/management discussed w/ accepting MD/DO: Hospitalist
Discharge Problem:
Generalized weakness, Multiple falls
Interventions
Interventions:
*General Assessment Last Done: 10/07/25 15:20
*Neglect/Abuse Screening Last Done: 10/07/25 15:17
*ED COVID-19 Vaccine History Last Done: 10/07/25 15:17
*ED Influenza Vaccine History Last Done: 10/07/25 15:17
[facility] Risk Assessment Tool Last Done: 10/07/25 15:17
*Risk Screen - Suicide (C-SSRS) Last Done: 10/07/25 15:17
ED- Cardiac Assessment Last Done: 10/07/25 15:18
ED- Neurological Assessment Last Done: 10/07/25 15:18
ED- Pulmonary Assessment Last Done: 10/07/25 15:18
[2025-10-07 15:28] LABS: Hematocrit 33.5 % (37.0-47.0); Hemoglobin 11.1 g/dL (12.0-16.0); Mean Corp Hgb Conc. 33.1 g/dL (33.0-37.0); Mean Corpuscular Volume 91.5 fL (81.0-99.0); Nucleated Red Blood Cells % 0 %; Platelet Count 411 10^3/uL (130-400); Red Cell Dist. Width 13.2 % (11.5-14.5)
[2025-10-07 15:36] LABS: ALT (SGPT) 19 U/L (0-35); AST (SGOT) 26 U/L (14-36); Albumin 3.8 g/dl (3.5-5.0); Alkaline Phosphatase 102 U/L (38-126); Blood Urea Nitrogen 11 mg/dl (7-17); Calcium 9.1 mg/dl (8.4-10.2); Carbon Dioxide 26 mmol/L (22-30); Chloride 98 mmol/L (98-107); Estimated Creatinine Clearance 65 ml/min; Glucose 118 mg/dl (70-99); Potassium 4.2 mmol/L (3.5-5.1); Sodium 131 mmol/L (135-145); Total Protein 6.5 g/dl (6.3-8.2); eGFR > 60.00
[2025-10-07 15:44] LABS: COVID-19 Antigen Negative (Negative)
--- NOTE | 2025-10-07 16:04 | EDCM ---
Received consult, met with pt bedside in ED. Tootie from PT also at bedside.
Pt lives with her SO Allen in third floor condo, address [address] in [place]. 12-15 steps to enter.
PMH includes Rheumatoid arthritis, CHF, COPD, HTN, DM.
Pt was at [facility] after admission in June, was discharged 09/27, had a fall at the facility the day before discharge.
Was seen in ED 09/28 for R hip and back pain, was discharged home, [facility] set up, was sent to ED today by home PT as she is still having R hip and back pain, unable to bear weight. Pt continues to be unable to bear weight in ED. Pt does have a cane
and walker at home.
Per CM notes from June admission, [facility], Adult Protective Services is involved. Prior CM notes discuss plan for LTC. Daughter La Nena Noonan number is listed ([phone]) but pt states she does not speak to her daughter.
With Gina's permission, I called Allen, he is per primary caregiver, he said her children do not keep in touch with her. He said she has not been able to walk since her discharge from [facility]. He would like her to return there for more
rehab
Pt would like to return to [facility]. Will place referral when PT note is complete.
Discussed with Jose Roberto CHARLES, pt will be admitted.
PCP: Madonna Rivera
Pharmacy: [facility] [place]
Anticipate SNF placement, CM will continue to follow.
[2025-10-07 16:05] LABS: TSH 2.12 uIU/ml (0.47-4.68)
[2025-10-07 16:32] LABS: Urine Character Slightly Cloudy (Clear)
--- NOTE | 2025-10-07 16:33 | HPS.HSE ---
Family Physician
<RUDY Sr - Last Filed: 10/07/25 17:40>
-
Family Physician: Madonna Rivera PA-C
Chief Complaint
<RUDY Sr - Last Filed: 10/07/25 17:40>
-
generalized weakness
History of Present Illness
Patient is a 75-year-old female with past medical history significant for Rheumatoid arthritis, chronic pain syndrome, hypertension, COPD, type 2 diabetes, chronic HFpEF and depression/anxiety who presented to [facility] ED for evaluation of generalized
weakness. Patient reports she lives at home with her and generally ambulates with assistance of a walker. She has had PT coming the home for services when today they requested her come to ED for evaluation. Patient states she has not been
able to ambulate with walker for 2 weeks now. She notes a fall about a 1 week ago that happened when she slipped getting into bed. Patient denies any symptoms at this time. Denies fever, chills, cough, shortness of breath, chest pain, nausea,
vomiting, constiaption, diarrhea or urinary symptoms.
Medical History
<RUDY Sr - Last Filed: 10/07/25 17:40>
Past Medical History
Past Medical History: Reports Other
Additional Past Medical History:
Rheumatoid arthritis
chronic pain syndrome
chronic narcotic dependence
hypertension
COPD
type 2 diabetes
moderate aortic stenosis
pulmonary hypertension
chronic HFpEF
depression/anxiety
RLE DVT (05/2024)
Past Surgical History: Reports Other
Additional Past Surgical History:
tubal ligation
tonsillectomy
Social History
Tobacco: Former Smoker (Quit 2 months ago. > 50 pack years total use.)
Alcohol: None
Drug: None
Personal:
Living: With Family
Employment: Retired
Family History
Family History: Other (Father: HTN, CVA Mother: HTN, Colon Cancer)
Allergies / Home Medications
Allergies reflects when Allergies were last updated in [employer].
Home Medications with original date entered in [employer]
Allergy/Medication List:
Allergies
Allergy/AdvReac Type Severity Reaction Status Date / Time
ceftriaxone sodium (From Allergy numbness Verified 09/28/25 13:13
Rocephin) tingling
mouth
infliximab (From Remicade) Allergy Unknown Verified 09/28/25 13:13
vancomycin (Vancomycin) Allergy Unknown Verified 09/28/25 13:13
Home Medications
duloxetine 30 mg capsule,delayed release 30 mg PO DAILY neuropathic pain 04/13/19
duloxetine 60 mg capsule,delayed release 60 mg PO DAILY neuropathic pain 06/30/21
albuterol sulfate 90 mcg/actuation aerosol inhaler 2 puff inhalation R Q6HPRN PRN sob 05/12/24
pdohyrbj-fhm-vhvuh acid 0.4 mg-lycopene 300 mcg-lutein 250 mcg tablet (CertaVite Senior) 1 tab PO DAILY Supplement 05/12/24
prednisone 5 mg tablet 5 mg PO DAILY rheumatoid arthritis 05/12/24
apixaban 5 mg tablet (Eliquis) 5 mg PO BID #60 tabs 05/29/24
metformin 500 mg tablet 500 mg PO BID Diabetes 07/23/24
lidocaine 4 % topical patch 2 patch topical HS b/l knees 09/26/24
atenolol 50 mg tablet 50 mg PO DAILY Blood Pressure 11/02/24
gabapentin 300 mg capsule 600 mg (2 x 300 mg) PO TID #120 caps 11/09/24
spironolactone 25 mg tablet 25 mg PO DAILY Fluid Retention/Swelling 05/27/25
buprenorphine 10 mcg/hour weekly transdermal patch 1 patch transdermal TH Pain #1 ea 06/19/25
oxycodone 5 mg tablet 5 mg PO BID severe pain 09/28/25
aspirin 81 mg tablet,delayed release 81 mg PO DAILY 10/07/25
budesonide-formoterol HFA 160 mcg-4.5 mcg/actuation aerosol inhaler (Symbicort) 2 puff inhalation R DAILY 10/07/25
pantoprazole 40 mg tablet,delayed release 40 mg PO QPM 10/07/25
tiotropium bromide 2.5 mcg/actuation mist for inhalation (Spiriva Respimat) 2 puff inhalation R DAILY 10/07/25
<Mike Singleton MD - Last Filed: 10/07/25 17:31>
Allergies / Home Medications
Allergy/Medication List:
Allergies
Allergy/AdvReac Type Severity Reaction Status Date / Time
ceftriaxone sodium (From Allergy numbness Verified 09/28/25 13:13
Rocephin) tingling
mouth
infliximab (From Remicade) Allergy Unknown Verified 09/28/25 13:13
vancomycin (Vancomycin) Allergy Unknown Verified 09/28/25 13:13
Home Medications
duloxetine 30 mg capsule,delayed release 30 mg PO DAILY neuropathic pain 04/13/19
duloxetine 60 mg capsule,delayed release 60 mg PO DAILY neuropathic pain 06/30/21
albuterol sulfate 90 mcg/actuation aerosol inhaler 2 puff inhalation R Q6HPRN PRN sob 05/12/24
ckxgbqma-new-mntpr acid 0.4 mg-lycopene 300 mcg-lutein 250 mcg tablet (CertaVite Senior) 1 tab PO DAILY Supplement 05/12/24
prednisone 5 mg tablet 5 mg PO DAILY rheumatoid arthritis 05/12/24
pantoprazole 40 mg tablet,delayed release 40 mg PO DAILY #30 tabs 05/19/24
apixaban 5 mg tablet (Eliquis) 5 mg PO BID #60 tabs 05/29/24
metformin 500 mg tablet 500 mg PO BID Diabetes 07/23/24
lidocaine 4 % topical patch 2 patch topical DAILY b/l knees 09/26/24
atenolol 50 mg tablet 50 mg PO DAILY Blood Pressure 11/02/24
gabapentin 300 mg capsule 600 mg (2 x 300 mg) PO TID #120 caps 11/09/24
spironolactone 25 mg tablet 25 mg PO DAILY Fluid Retention/Swelling 05/27/25
aspirin 81 mg chewable tablet 81 mg PO DAILY #1 tab 06/19/25
buprenorphine 10 mcg/hour weekly transdermal patch 1 patch transdermal TH Pain #1 ea 06/19/25
acetaminophen 500 mg tablet 1,000 mg PO TID 09/28/25
bisacodyl 10 mg rectal suppository 10 mg NJ DAILY PRN if no BM in 4 days, give on day 5 09/28/25
fluticasone 100 mcg-salmeterol 50 mcg/dose blistr powdr for inhalation 1 inh inhalation BID 09/28/25
magnesium hydroxide 400 mg/5 mL oral suspension (Milk of Magnesia) 30 ml PO DAILY PRN if no BM in 3 days, give on day 4 09/28/25
miconazole nitrate 2 % topical powder (Miconazorb AF) 1 applic topical BID b/l breast and groin rash 09/28/25
oxycodone 5 mg tablet 5 mg PO BID severe pain 09/28/25
sodium chloride 0.65 % nasal spray aerosol 1 spray intranasal Q8HPRN PRN dry nose 09/28/25
sodium chloride 0.65 % nasal spray aerosol 1 spray intranasal TID 09/28/25
sodium phosphates 19 gram-7 gram/118 mL enema (Fleet Enema) 118 ml NJ DAILYPRN PRN if no BM in 5 days, give on day 6 09/28/25
umeclidinium 62.5 mcg/actuation blister powder for inhalation (Incruse Ellipta) 1 inh inhalation DAILY 09/28/25
Review of Systems
<RUDY Sr - Last Filed: 10/07/25 17:40>
-
History Source: Patient
Constitutional: Denies Fever or Chills
EENT: Denies Sore Throat
Respiratory: Denies Cough or Trouble Breathing
Cardiac: Denies Chest Pain, Diaphoresis, Palpitations or Syncope
Abdomen/GI: Denies Abdominal Pain, Nausea, Vomiting or Diarrhea
: Denies Dysuria, Frequency or Urgency
Skin: Denies Rash
Neurological: Reports Weakness; Denies Dizzy, Headache or Numbness
Physical Exam
<RUDY Sr - Last Filed: 10/07/25 17:40>
Vital Signs
Vital Signs
Temp Pulse Resp BP Pulse Ox
98.4 F 63 14 111/67 95
10/07/25 14:50 10/07/25 14:50 10/07/25 14:50 10/07/25 16:00 10/07/25 15:10
Physical Exam
General: Well Developed, Well Nourished, No Apparent Distress, Comfortable and Obese
HEENT: NormoCephalic, Moist mucous membranes, PERRLA, Nose Appears Normal and Ears Appear Normal
Respiratory: Clear and Non Labored Respirations; No Wheezes, Rales or Rhonchi
Cardiac: S1/S2, Regular Rhythm and Murmur
GI: Soft, Non Tender, Non Distended and Normal Bowel Sounds
Musculoskeletal: No Clubbing and No Cyanosis
Skin: Warm and IV/Catheter Site
Neuro: Awake and Alert
Psych: Calm
Laboratory Results
<RUDY Sr - Last Filed: 10/07/25 17:40>
-
10/07/25 15:13
10/07/25 15:13
Laboratory Results
Total Bilirubin 0.3 mg/dl (0.2-1.3) 10/07/25 15:13
AST 26 U/L (14-36) 10/07/25 15:13
ALT 19 U/L (0-35) 10/07/25 15:13
Alkaline Phosphatase 102 U/L (38-126) 10/07/25 15:13
Data Reviewed
<RUDY Sr - Last Filed: 10/07/25 17:40>
-
Diagnostic Radiology: Report Reviewed by me (Pelvic: Diffuse osteopenia and degenerative changes are noted. There are no findings to confirm recent cortical fracture or dislocation. Atherosclerotic vascular soft tissue calcifications are noted.)
Lab Data: Labs Reviewed by me (WBC 12.0, hgb 11.1, hct 33.5, Na 131)
Impression/Plan
<RUDY Sr - Last Filed: 10/07/25 17:40>
-
IMPRESSION/PLAN:
#generalized weakness 2/2 infectious process vs. AFTT vs. injury
generalized weakness
WBC 12.0, hgb 11.1, hct 33.5, Na 131
Covid: negative
Influenza: negative
UA: pending
Urine Cx: pending
Pelvic x-ray: Diffuse osteopenia and degenerative changes are noted.
There are no findings to confirm recent cortical fracture or dislocation.
Atherosclerotic vascular soft tissue calcifications are noted.
- Admit to med/surg
- Consult Case management
- Consult PT/OT
- Recheck Pelvis CT
- check ESR and CRP
- bladder scan/straight cath protocol
- supportive care
#Rheumatoid arthritis
- continue prednisone
- check ESR and CRP
- continue lidocaine patch
#chronic pain syndrome
#chronic narcotic dependence
- continue buprenorphine patch
- continue gabapentin and oxycodone
#hypertension
- continue atenolol
#COPD
- continue albuterol HFA PRN, fluticasone, Symbicort and Incruse Ellipta
#type 2 diabetes
- AccuCheck AC & HS
- SSI
- hold metformin while in patient
#chronic HFpEF
- daily weights
- I & Os
- continue spironolactone
#depression/anxiety
- continue duloxetine
#moderate aortic stenosis
#pulmonary hypertension
Code status: full code
DVT prophylaxis: Eliquis
[2025-10-07] MEDS: ZOSYN 50 IV (16:51)
--- NOTE | 2025-10-07 17:24 | W.PN.UPDATE ---
Update Note
Progress Note Update
Seen and examined by me independently in collaboration with the nurse practitioner Dina.
Past medical history/social history/medication/allergies reviewed.
Lab data and imaging data reviewed.
Patient presents from home due to generalized weakness and failure to thrive at home. She is not able to take care of herself.
She was here last week after she had a fall at home. She had a right pelvic pain which she continues to have.
She has a history of rheumatoid arthritis and she is Significant disease in bilateral knees which prevents her from ambulating well. She also has generalized weakness and achiness in joint symptoms in other joints in general. No specific joint
swelling other than the specific right hip pain.
No fever or chills at home.
Denies sore throat, cough or shortness of breath. No nausea vomiting or diarrhea. She has no more Horner catheter but she is incontinent of urine. Denies dysuria.
Alert and oriented. Afebrile. Pulse 63 blood pressure 111/67.
S1 plus S2 heard regular with a systolic murmur
Chest clear.
Abdomen soft.
No right hip no pelvic tenderness on palpation but she had pain on flexion and extension of the hip. She also has limitations in the knee mobility bilaterally. She has a deformed left more than right knee joint. The left knee seems to be more
diffuse than right. Bilateral ankle movements are okay.
White count is mildly elevated. Sodium is 131. Creatinine 0.5. UA is pending. Pelvic x-ray shows no evidence of fracture.
Generalized weakness and failure to thrive with ambulatory dysfunction.
With leukocytosis rule out any infectious process. Check a urinalysis with culture. She had a prior history of aspiration pneumonia-check a chest x-ray.
Repeat a CT of the pelvis to rule out any fracture as she persist to have right pelvis pain.
Also my concern is that this is just secondary to rheumatoid arthritis flare with her systemic symptoms and multijoint pain symptoms and ambulatory dysfunction. Check inflammatory markers. She is on chronic prednisone and has not seen a
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 She can follow-up with rheumatology because of her mobility issues.
She has a history of chronic heart failure preserved EF-clinically without JVD, chest is clear, no lower extremity edema. Not on any diuretics.
History of hypertension-blood pressure under goal
History of COPD-no flare, continue with inhaler therapy
History of DVT continue with Eliquis
History of diabetes mellitus type 2 hold metformin and start on sliding scale insulin
Chronic pain syndrome-continue with bupropion patch, oxycodone, gabapentin
Full code
Portions of this chart may have been created with voice recognition software. Occasional wrong word or 'sound alike' substitutions may have occurred due to the inherent limitations of voice recognition software.
[2025-10-07 17:30] LABS: Urine Squamous Cell 16-20 /LPF (Few)
[2025-10-07 17:31] LABS: Urine Red Blood Cell 0-2 /HPF (0-2); Urine White Cell 40-50 /HPF (0-5)
[2025-10-07 18:01] LABS: C-Reactive Protein 27.40 mg/L (0.0-10.00)
--- NOTE | 2025-10-07 20:35 | PTCARENOTE ---
Patient arrived from ED via stretcher. Patient AAOx3, vital signs stable, and complains of 7/10 pain in both knees. Oriented to room and call duong within reach.
[2025-10-07 21:40] LABS: Glucose - Point of Care 128 mg/dl (70-99)
[2025-10-07] MEDS: PROTONIX 40 MG PO (21:53)
[2025-10-07] MEDS: ROXICODONE 5 MG PO (21:53)
[2025-10-07] MEDS: ELIQUIS 5 MG PO (21:53)
[2025-10-07] MEDS: NEURONTIN 600 MG PO (21:53)
[2025-10-07] MEDS: LIDOCAINE 4% PATCH 2 PATCH TOPICAL (21:54)
[2025-10-08 05:39] VITALS: BMI 24.0
[2025-10-08] MEDS: SPIRIVA RESPIMAT 2.5 MCG 2 PUFF INH (07:28)
[2025-10-08] MEDS: SYMBICORT 160/4.5 MCG INHALER 2 PUFF INH (07:28)
[2025-10-08 07:45] VITALS: BP 117/54
[2025-10-08 08:10] LABS: Glucose - Point of Care 111 mg/dl (70-99)
--- NOTE | 2025-10-08 08:34 | VNURNOTE ---
Chart reviewed. Patient is current with [facility]. Will continue to follow hospital course and DC plans- per ER CM note plan is for SNF
[2025-10-08 08:41] LABS: Hematocrit 33.2 % (37.0-47.0); Hemoglobin 10.9 g/dL (12.0-16.0); Mean Corp Hgb Conc. 32.8 g/dL (33.0-37.0); Mean Corpuscular Volume 89.0 fL (81.0-99.0); Platelet Count 426 10^3/uL (130-400); Red Cell Dist. Width 13.4 % (11.5-14.5)
[2025-10-08] MEDS: NOVOLOG FLEXPEN-LOW RESISTANCE SC ×2 (08:49→13:13)
[2025-10-08] MEDS: NEURONTIN 600 MG PO ×3 (08:50→22:09)
[2025-10-08] MEDS: CYMBALTA DELAYED RELEASE 30 MG PO (08:50)
[2025-10-08] MEDS: TENORMIN 50 MG PO (08:50)
[2025-10-08] MEDS: ELIQUIS 5 MG PO ×2 (08:50→20:42)
[2025-10-08] MEDS: ASPIR LOW (ENTERIC COATED) 81 MG PO (08:50)
[2025-10-08] MEDS: CYMBALTA DELAYED RELEASE 60 MG PO (08:50)
[2025-10-08] MEDS: DELTASONE 5 MG PO (08:50)
[2025-10-08] MEDS: ALDACTONE 25 MG PO (08:51)
[2025-10-08] MEDS: ROXICODONE 5 MG PO ×3 (08:51→20:42)
[2025-10-08 09:17] LABS: Blood Urea Nitrogen 9 mg/dl (7-17); Calcium 9.1 mg/dl (8.4-10.2); Carbon Dioxide 24 mmol/L (22-30); Chloride 103 mmol/L (98-107); Estimated Creatinine Clearance 68 ml/min; Glucose 100 mg/dl (70-99); Potassium 4.3 mmol/L (3.5-5.1); Sodium 136 mmol/L (135-145); eGFR > 60.00
[2025-10-08] MEDS: REMOVE LIDOCAINE PATCH 2 PATCH REMOVE (10:47)
[2025-10-08 11:20] LABS: Glycohemoglobin (HgbA1c) 6.5 % (4.0-5.9)
--- NOTE | 2025-10-08 13:01 | W.PN.HOSP.TC ---
Today's Communication/Plan
-
Check BNP
PT/OT eval
Like dc in am if stable
Assessment / Plan
Assessment / Plan
Generalized weakness, ambulatory dysfunction and failure to thrive
No obvious focal signs or symptoms. No fever or chills.
White count was 12.0 and urinalysis shows pyuria. She has no dysuria or frequency of urine. Hold further antibiotics and follow culture data.
COVID and flu is negative.
Chest x-ray shows no focal consolidation.
She has rheumatoid arthritis with chronic joint pains and also has chronic pain syndrome. She has chronic bilateral rotator cuff full-thickness tears. Suspect her symptomatology may be all related to chronic medical conditions.
Again follow urine culture data.
Recent fall and right pelvic pain
Repeat CT of the pelvis shows no evidence of fracture
Chronic rheumatoid arthritis.
Chronic pain syndrome
CRP is mildly elevated but no acute joints noted.
Continue with her chronic prednisone and pain regimen.
COPD without flare
Patient without cough or respiratory symptoms shortness of breath. Continue with inhaler therapy.
History of chronic heart failure with preserved EF
Abnormal chest x-ray
CXR from 10/07 There mildly increased vascular interstitial markings in both lungs suggesting mild interstitial cardiogenic pulmonary edema
She is asymptomatic without shortness of breath. Not hypoxic.
Last known echo from 2023 shows EF of 60 to 65%. Mild MR. Mild to moderate aortic stenosis noted.
Check BNP
On spironolactone but not on Lasix
History of DVT on anticoagulation-continue with Eliquis
If BNP is normal , follow CXR as OP and if continued interstiatal prominence consider CT Chest fro ILD eval( known to have RA)
DW CM
Anticipated Discharge: Within 24 hours
Subjective/Interval History
-
Date of Service: October 08, 2025
No overnight events. Voices no new specific complaints.
Denies any fever or chills.
Denies any nausea vomiting or abdominal pain. Denies diarrhea. Denies any dysuria or frequency of urine. No cough, shortness of breath or chest pain.
Objective Data
-
Labs:
Laboratory Results
10/08/25
07:43
WBC 10.6
Hgb 10.9 L
Hct 33.2 L
Plt Count 426 H
Sodium 136
Potassium 4.3
Chloride 103
Carbon Dioxide 24
BUN 9
Creatinine 0.5 L
Glucose 100 H
Calcium 9.1
Vital Signs:
Vital Signs
Temp Pulse Resp BP Pulse Ox
98.9 F 77 16 117/54 91
10/08/25 07:45 10/08/25 07:45 10/08/25 07:45 10/08/25 08:50 10/08/25 07:45
I&O
10/07/25 10/08/25 10/09/25
06:59 06:59 06:59
Intake Total 120 / 120
Output Total 200 / 200
Balance -80 / -80
Physical Exam
-
General: Comfortable
Respiratory: Clear to Auscultation and Non Labored Respirations; Negative Accessory Resp Muscle Use
Cardiac: Regular Rhythm and S1/S2; Negative Tachycardic
GI: Soft, Nontender, Nondistended and Normal Bowel Sounds
Musculoskeletal: Other (Deformities of this small joints of the hand and the bilateral knees of the wrist noted. No acute joints.)
Neuro: AO x 3 and No Motor Deficits
Psych: Calm; Negative Confused
Data Reviewed
-
Labs: Labs Reviewed by me
[2025-10-08 13:09] LABS: Glucose - Point of Care 147 mg/dl (70-99)
[2025-10-08 14:46] VITALS: BP 104/55; PULSE 61; O2SAT 96
[2025-10-08 15:49] VITALS: BP 111/50
[2025-10-08 16:02] LABS: Glucose - Point of Care 244 mg/dl (70-99)
[2025-10-08] MEDS: PROTONIX 40 MG PO (17:00)
[2025-10-08] MEDS: NOVOLOG FLEXPEN-LOW RESISTANCE 2 UNITS SC (17:07)
[2025-10-08 21:09] LABS: Glucose - Point of Care 206 mg/dl (70-99)
[2025-10-08] MEDS: LIDOCAINE 4% PATCH 2 PATCH TOPICAL (22:09)
[2025-10-08 23:23] VITALS: BP 128/77
[2025-10-09 05:56] VITALS: BMI 23.8
[2025-10-09] MEDS: ROXICODONE 5 MG PO ×4 (06:03→19:40)
[2025-10-09] MEDS: SYMBICORT 160/4.5 MCG INHALER 2 PUFF INH (07:34)
[2025-10-09] MEDS: SPIRIVA RESPIMAT 2.5 MCG 2 PUFF INH (07:34)
[2025-10-09 07:45] VITALS: BP 142/69
[2025-10-09 08:11] LABS: Glucose - Point of Care 124 mg/dl (70-99)
[2025-10-09] MEDS: NOVOLOG FLEXPEN-LOW RESISTANCE SC (09:48)
[2025-10-09] MEDS: ALDACTONE 25 MG PO (09:48)
[2025-10-09] MEDS: TENORMIN 50 MG PO (09:49)
[2025-10-09] MEDS: ASPIR LOW (ENTERIC COATED) 81 MG PO (09:49)
[2025-10-09] MEDS: ELIQUIS 5 MG PO ×2 (09:49→19:40)
[2025-10-09] MEDS: CYMBALTA DELAYED RELEASE 60 MG PO (09:49)
[2025-10-09] MEDS: NEURONTIN 600 MG PO ×3 (09:49→21:05)
[2025-10-09] MEDS: CYMBALTA DELAYED RELEASE 30 MG PO (09:54)
[2025-10-09] MEDS: DELTASONE 5 MG PO (09:54)
[2025-10-09] MEDS: REMOVE LIDOCAINE PATCH 2 PATCH REMOVE (11:58)
[2025-10-09 12:08] LABS: Glucose - Point of Care 191 mg/dl (70-99)
[2025-10-09] MEDS: NOVOLOG FLEXPEN-LOW RESISTANCE 1 UNITS SC ×2 (12:12→16:58)
--- NOTE | 2025-10-09 12:18 | CM ---
Addendum entered by Haritha Huff 10/09/25 14:50:
CM met with patient, agreeable to [facility], does not want [facility].
CM spoke with liaison at [facility], will need to review financial information with patient/ before accepting, unable to accept patient today.
Update to Hospitalist.
Original Note:
CM reviewed chart, patient seen bedside.
CM discussed per [facility]- patient has used up all of her skilled days- would be private pay for rehab, would need check up front for $7,000.
Per [facility]- will not accept patient MA pending.
Patient aware, agreeable to referrals to local SNFS that will take MA pending- [facility] to review. Patient will review with her .
Update to Hospitalist.
CM will continue to follow for all d.c needs.
Plan; SNF, will need facility that accepts MA pending
--- NOTE | 2025-10-09 13:30 | W.PN.HOSP.TC ---
Today's Communication/Plan
-
dc
Assessment / Plan
Assessment / Plan
Generalized weakness, ambulatory dysfunction and failure to thrive
No obvious focal signs or symptoms. No fever or chills.
White count was 12.0 and urinalysis shows pyuria. She has no dysuria or frequency of urine. Urine culture shows mixed naida probably contamination. Hold antibiotics.
COVID and flu is negative.
Chest x-ray shows no focal consolidation.
She has rheumatoid arthritis with chronic joint pains and also has chronic pain syndrome. She has chronic bilateral rotator cuff full-thickness tears. Suspect her symptomatology may be all related to chronic medical conditions.
Recent fall and right pelvic pain
Repeat CT of the pelvis shows no evidence of fracture
Chronic rheumatoid arthritis.
Chronic pain syndrome
CRP is mildly elevated but no acute joints noted.
Continue with her chronic prednisone and pain regimen.
COPD without flare
Patient without cough or respiratory symptoms shortness of breath. Continue with inhaler therapy.
History of chronic heart failure with preserved EF
Abnormal chest x-ray
CXR from 10/07 There mildly increased vascular interstitial markings in both lungs suggesting mild interstitial cardiogenic pulmonary edema
She is asymptomatic without shortness of breath. Not hypoxic.
Last known echo from 2023 shows EF of 60 to 65%. Mild MR. Mild to moderate aortic stenosis noted.
BNP within the limits for her age.
On spironolactone but not on Lasix
Follow cxr as OP and consider CT chest if persistent interstitial changes.
History of DVT on anticoagulation-continue with Eliquis
DW CM
Medically stable for discharge.
Anticipated Discharge: Today
Subjective/Interval History
-
Date of Service: October 09, 2025
No overnight issues.
Patient voices no new specific complaints.
Denies any fever or chills. Denies any chest pain or shortness of breath. Denies any nausea vomiting. Tolerating diet. No constipation. No new joint symptoms.
Objective Data
-
Vital Signs:
Vital Signs
Temp Pulse Resp BP Pulse Ox
98 F 67 16 142/69 95
10/09/25 07:45 10/09/25 09:48 10/09/25 07:45 10/09/25 09:48 10/09/25 07:45
I&O
10/08/25 10/09/25 10/10/25
06:59 06:59 06:59
Intake Total 120 / 120 1560 / 1560
Output Total 200 / 200 600 / 600
Balance -80 / -80 960 / 960
Physical Exam
-
General: No Apparent Distress
HEENT: Moist Mucous Membranes
Respiratory: Clear to Auscultation and Non Labored Respirations; Negative Accessory Resp Muscle Use
Cardiac: Regular Rhythm and S1/S2; Negative Tachycardic
GI: Soft and Nontender
Neuro: AO x 3
Psych: Calm
Data Reviewed
-
Labs: Labs Reviewed by me
[2025-10-09 15:45] VITALS: BP 139/54
[2025-10-09 16:38] LABS: Glucose - Point of Care 188 mg/dl (70-99)
[2025-10-09] MEDS: PROTONIX 40 MG PO (16:59)
[2025-10-09] MEDS: LIDOCAINE 4% PATCH 2 PATCH TOPICAL (21:06)
[2025-10-09 21:59] LABS: Glucose - Point of Care 197 mg/dl (70-99)
[2025-10-09 22:58] VITALS: BP 121/56
[2025-10-10] MEDS: ROXICODONE 5 MG PO ×4 (05:22→20:32)
[2025-10-10 07:00] VITALS: BP 121/69
[2025-10-10 08:21] LABS: Glucose - Point of Care 103 mg/dl (70-99)
[2025-10-10] MEDS: SYMBICORT 160/4.5 MCG INHALER 2 PUFF INH (08:31)
[2025-10-10] MEDS: SPIRIVA RESPIMAT 2.5 MCG 2 PUFF INH (08:31)
[2025-10-10] MEDS: CYMBALTA DELAYED RELEASE 60 MG PO (08:52)
[2025-10-10] MEDS: TENORMIN 50 MG PO (08:52)
[2025-10-10] MEDS: NEURONTIN 600 MG PO ×3 (08:52→20:43)
[2025-10-10] MEDS: ASPIR LOW (ENTERIC COATED) 81 MG PO (08:52)
[2025-10-10] MEDS: ALDACTONE 25 MG PO (08:53)
[2025-10-10] MEDS: ELIQUIS 5 MG PO ×2 (08:53→20:32)
[2025-10-10] MEDS: CYMBALTA DELAYED RELEASE 30 MG PO (08:54)
[2025-10-10] MEDS: DELTASONE 5 MG PO (09:07)
[2025-10-10] MEDS: NOVOLOG FLEXPEN-LOW RESISTANCE SC (09:08)
[2025-10-10 11:51] LABS: Glucose - Point of Care 186 mg/dl (70-99)
[2025-10-10] MEDS: REMOVE LIDOCAINE PATCH 2 PATCH REMOVE (12:32)
[2025-10-10] MEDS: NOVOLOG FLEXPEN-LOW RESISTANCE 1 UNITS SC ×2 (12:35→17:39)
--- NOTE | 2025-10-10 13:03 | W.PN.HOSP.TC ---
Today's Communication/Plan
-
Ongoing disposition efforts
Assessment / Plan
Assessment / Plan
Generalized weakness, ambulatory dysfunction and failure to thrive
No obvious focal signs or symptoms. No fever or chills.
White count was 12.0 and urinalysis shows pyuria. She has no dysuria or frequency of urine. Urine culture shows mixed naida probably contamination. Hold antibiotics.
COVID and flu is negative.
Chest x-ray shows no focal consolidation.
She has rheumatoid arthritis with chronic joint pains and also has chronic pain syndrome. She has chronic bilateral rotator cuff full-thickness tears. Suspect her symptomatology may be all related to chronic medical conditions.
Recent fall and right pelvic pain
Repeat CT of the pelvis shows no evidence of fracture
Chronic rheumatoid arthritis.
Chronic pain syndrome
CRP is mildly elevated but no acute joints noted.
Continue with her chronic prednisone and pain regimen.
COPD without flare
Patient without cough or respiratory symptoms shortness of breath. Continue with inhaler therapy.
History of chronic heart failure with preserved EF
Abnormal chest x-ray
CXR from 10/07 There mildly increased vascular interstitial markings in both lungs suggesting mild interstitial cardiogenic pulmonary edema
She is asymptomatic without shortness of breath. Not hypoxic.
Last known echo from 2023 shows EF of 60 to 65%. Mild MR. Mild to moderate aortic stenosis noted.
BNP within the limits for her age.
On spironolactone but not on Lasix
Follow cxr as OP and consider CT chest if persistent interstitial changes.
History of DVT on anticoagulation-continue with Eliquis
DW CM
Medically stable for discharge.
Anticipated Discharge: Within 24 hours
Subjective/Interval History
-
Date of Service: October 10, 2025
No overnight.
Voices no new specific complaints.
Denies fever chills.
Denies nausea vomiting or abdominal pain. Tolerating diet.
Denies chest pain or shortness of breath.
Objective Data
-
Vital Signs:
Vital Signs
Temp Pulse Resp BP Pulse Ox
98.3 F 65 16 121/69 96
10/10/25 07:00 10/10/25 08:52 10/10/25 08:37 10/10/25 08:52 10/10/25 08:37
I&O
10/09/25 10/10/25 10/11/25
06:59 06:59 06:59
Intake Total 1560 / 1560 1080 / 1080
Output Total 600 / 600 750 / 750
Balance 960 / 960 330 / 330
Physical Exam
-
General: Comfortable
Respiratory: Clear to Auscultation and Non Labored Respirations; Negative Accessory Resp Muscle Use
Cardiac: Regular Rhythm and S1/S2
GI: Soft and Nontender
Neuro: AO x 3
Psych: Calm
[2025-10-10 15:00] VITALS: BP 141/71
[2025-10-10 17:06] LABS: Glucose - Point of Care 172 mg/dl (70-99)
[2025-10-10] MEDS: PROTONIX 40 MG PO (17:40)
[2025-10-10] MEDS: LIDOCAINE 4% PATCH 2 PATCH TOPICAL (20:43)
[2025-10-10] MEDS: MUCINEX 600 MG PO (21:20)
[2025-10-10 21:31] LABS: Glucose - Point of Care 158 mg/dl (70-99)
[2025-10-10 23:43] VITALS: BP 123/59
[2025-10-11] MEDS: ROXICODONE 5 MG PO ×4 (03:36→19:57)
[2025-10-11 07:00] VITALS: BP 128/67
[2025-10-11] MEDS: ASPIR LOW (ENTERIC COATED) 81 MG PO (08:02)
[2025-10-11] MEDS: ELIQUIS 5 MG PO ×2 (08:02→19:56)
[2025-10-11] MEDS: CYMBALTA DELAYED RELEASE 60 MG PO (08:02)
[2025-10-11] MEDS: ALDACTONE 25 MG PO (08:02)
[2025-10-11] MEDS: TENORMIN 50 MG PO (08:02)
[2025-10-11] MEDS: NEURONTIN 600 MG PO ×3 (08:03→22:18)
[2025-10-11] MEDS: MUCINEX 600 MG PO ×2 (08:03→19:57)
[2025-10-11] MEDS: SPIRIVA RESPIMAT 2.5 MCG 2 PUFF INH (08:04)
[2025-10-11] MEDS: SYMBICORT 160/4.5 MCG INHALER 2 PUFF INH (08:04)
[2025-10-11] MEDS: DELTASONE 5 MG PO (08:07)
[2025-10-11] MEDS: CYMBALTA DELAYED RELEASE 30 MG PO (08:13)
[2025-10-11 08:54] LABS: Glucose - Point of Care 124 mg/dl (70-99)
[2025-10-11] MEDS: NOVOLOG FLEXPEN-LOW RESISTANCE SC (08:55)
[2025-10-11] MEDS: REMOVE LIDOCAINE PATCH 2 PATCH REMOVE (09:01)
[2025-10-11 11:37] LABS: Glucose - Point of Care 168 mg/dl (70-99)
[2025-10-11] MEDS: NOVOLOG FLEXPEN-LOW RESISTANCE 1 UNITS SC ×2 (12:32→16:45)
[2025-10-11] MEDS: ROBITUSSIN 200 MG PO (12:42)
--- NOTE | 2025-10-11 13:20 | W.PN.HOSP.TC ---
Today's Communication/Plan
-
Ongoing disposition efforts
Assessment / Plan
Assessment / Plan
Generalized weakness, ambulatory dysfunction and failure to thrive
No obvious focal signs or symptoms. No fever or chills.
White count was 12.0 and urinalysis shows pyuria. She has no dysuria or frequency of urine. Urine culture shows mixed naida probably contamination. Hold antibiotics.
COVID and flu is negative.
Chest x-ray shows no focal consolidation.
She has rheumatoid arthritis with chronic joint pains and also has chronic pain syndrome. She has chronic bilateral rotator cuff full-thickness tears. Suspect her symptomatology may be all related to chronic medical conditions.
Recent fall and right pelvic pain
Repeat CT of the pelvis shows no evidence of fracture
Chronic rheumatoid arthritis.
Chronic pain syndrome
CRP is mildly elevated but no acute joints noted.
Continue with her chronic prednisone and pain regimen.
COPD without flare
Patient without cough or respiratory symptoms shortness of breath. Continue with inhaler therapy.
History of chronic heart failure with preserved EF
Abnormal chest x-ray
CXR from 10/07 There mildly increased vascular interstitial markings in both lungs suggesting mild interstitial cardiogenic pulmonary edema
She is asymptomatic without shortness of breath. Not hypoxic.
Last known echo from 2023 shows EF of 60 to 65%. Mild MR. Mild to moderate aortic stenosis noted.
BNP within the limits for her age.
On spironolactone but not on Lasix
Follow cxr as OP and consider CT chest if persistent interstitial changes.
History of DVT on anticoagulation-continue with Eliquis
DW CM
Remains Medically stable for discharge.
Anticipated Discharge: 24 - 48 hours
Subjective/Interval History
-
Date of Service: October 11, 2025
No overnight events. Voices no specific complaints.
Objective Data
-
Vital Signs:
Vital Signs
Temp Pulse Resp BP Pulse Ox
98.1 F 72 14 128/67 97
10/11/25 07:00 10/11/25 08:08 10/11/25 08:08 10/11/25 07:00 10/11/25 08:08
I&O
10/10/25 10/11/25 10/12/25
06:59 06:59 06:59
Intake Total 1080 / 1080 240 / 240
Output Total 750 / 750 600 / 600
Balance 330 / 330 -360 / -360
Physical Exam
-
General: No Apparent Distress
Respiratory: Clear to Auscultation and Non Labored Respirations; Negative Accessory Resp Muscle Use
Cardiac: Regular Rhythm and S1/S2; Negative Tachycardic
GI: Soft and Nontender
Neuro: AO x 3
Psych: Calm
[2025-10-11 16:36] LABS: Glucose - Point of Care 199 mg/dl (70-99)
[2025-10-11] MEDS: PROTONIX 40 MG PO (16:45)
[2025-10-11 21:57] LABS: Glucose - Point of Care 120 mg/dl (70-99)
[2025-10-11] MEDS: LIDOCAINE 4% PATCH 2 PATCH TOPICAL (22:18)
[2025-10-11 22:53] VITALS: BP 139/58
[2025-10-12] MEDS: ROXICODONE 5 MG PO ×6 (00:51→19:52)
[2025-10-12 05:40] VITALS: BMI 23.6
[2025-10-12 07:30] VITALS: BP 124/74
[2025-10-12] MEDS: NEURONTIN 600 MG PO ×3 (07:47→22:11)
[2025-10-12] MEDS: MUCINEX 600 MG PO ×2 (07:47→19:52)
[2025-10-12 07:55] LABS: Glucose - Point of Care 123 mg/dl (70-99)
[2025-10-12] MEDS: SPIRIVA RESPIMAT 2.5 MCG 2 PUFF INH (08:31)
[2025-10-12] MEDS: SYMBICORT 160/4.5 MCG INHALER 2 PUFF INH (08:31)
[2025-10-12] MEDS: DELTASONE 5 MG PO (09:06)
[2025-10-12] MEDS: CYMBALTA DELAYED RELEASE 60 MG PO (09:06)
[2025-10-12] MEDS: NOVOLOG FLEXPEN-LOW RESISTANCE SC (09:06)
[2025-10-12] MEDS: CYMBALTA DELAYED RELEASE 30 MG PO (09:06)
[2025-10-12] MEDS: ASPIR LOW (ENTERIC COATED) 81 MG PO (09:07)
[2025-10-12] MEDS: ALDACTONE 25 MG PO (09:08)
[2025-10-12] MEDS: TENORMIN 50 MG PO (09:09)
[2025-10-12] MEDS: ELIQUIS 5 MG PO ×2 (09:09→19:52)
[2025-10-12] MEDS: REMOVE LIDOCAINE PATCH 2 PATCH REMOVE (11:46)
[2025-10-12 12:02] LABS: Glucose - Point of Care 150 mg/dl (70-99)
[2025-10-12] MEDS: NOVOLOG FLEXPEN-LOW RESISTANCE 1 UNITS SC ×2 (12:49→16:42)
--- NOTE | 2025-10-12 13:58 | W.PN.HOSP.TC ---
Today's Communication/Plan
-
ongong dispo efforts
Assessment / Plan
Assessment / Plan
Generalized weakness, ambulatory dysfunction and failure to thrive
No obvious focal signs or symptoms. No fever or chills.
White count was 12.0 and urinalysis shows pyuria. She has no dysuria or frequency of urine. Urine culture shows mixed naida probably contamination. Hold antibiotics.
COVID and flu is negative.
Chest x-ray shows no focal consolidation.
She has rheumatoid arthritis with chronic joint pains and also has chronic pain syndrome. She has chronic bilateral rotator cuff full-thickness tears. Suspect her symptomatology may be all related to chronic medical conditions.
Recent fall and right pelvic pain
Repeat CT of the pelvis shows no evidence of fracture
Chronic rheumatoid arthritis.
Chronic pain syndrome
CRP is mildly elevated but no acute joints noted.
Continue with her chronic prednisone and pain regimen. Await her Buprenorphine patch - in mean time cw prn oral oxycodone
COPD without flare
Patient without cough or respiratory symptoms shortness of breath. Continue with inhaler therapy.
History of chronic heart failure with preserved EF
Abnormal chest x-ray
CXR from 10/07 There mildly increased vascular interstitial markings in both lungs suggesting mild interstitial cardiogenic pulmonary edema
She is asymptomatic without shortness of breath. Not hypoxic.
Last known echo from 2023 shows EF of 60 to 65%. Mild MR. Mild to moderate aortic stenosis noted.
BNP within the limits for her age.
On spironolactone but not on Lasix
Follow cxr as OP and consider CT chest if persistent interstitial changes.
History of DVT on anticoagulation-continue with Eliquis
DW CM
Remains Medically stable for discharge.
Anticipated Discharge: 24 - 48 hours
Subjective/Interval History
-
Date of Service: October 12, 2025
No overnight events. Patient complains of pain due to lack of her buprenorphine patch. was not able to bring it in. She was supposed to get changed .
Objective Data
-
Vital Signs:
Vital Signs
Temp Pulse Resp BP Pulse Ox
97.5 F 65 16 124/74 95
10/12/25 07:30 10/12/25 08:36 10/12/25 08:36 10/12/25 07:30 10/12/25 08:36
I&O
10/11/25 10/12/25 10/13/25
06:59 06:59 06:59
Intake Total 240 / 240 720 / 720
Output Total 600 / 600
Balance -360 / -360 720 / 720
Physical Exam
-
General: No Apparent Distress
Respiratory: Non Labored Respirations; Negative Accessory Resp Muscle Use
Cardiac: Regular Rhythm and S1/S2
GI: Soft, Nontender, Nondistended and Normal Bowel Sounds
Neuro: AO x 3
[2025-10-12 15:15] VITALS: BP 104/56
[2025-10-12 16:35] LABS: Glucose - Point of Care 184 mg/dl (70-99)
[2025-10-12] MEDS: PROTONIX 40 MG PO (17:51)
[2025-10-12 22:07] LABS: Glucose - Point of Care 160 mg/dl (70-99)
[2025-10-12] MEDS: LIDOCAINE 4% PATCH 2 PATCH TOPICAL (22:11)
[2025-10-12 23:17] VITALS: BP 124/57
[2025-10-13] MEDS: ROXICODONE 5 MG PO ×5 (06:01→20:17)
[2025-10-13 07:00] VITALS: BP 137/82
[2025-10-13 07:36] LABS: Glucose - Point of Care 107 mg/dl (70-99)
[2025-10-13] MEDS: CYMBALTA DELAYED RELEASE 60 MG PO (07:40)
[2025-10-13] MEDS: NOVOLOG FLEXPEN-LOW RESISTANCE SC (07:40)
[2025-10-13] MEDS: ASPIR LOW (ENTERIC COATED) 81 MG PO (07:40)
[2025-10-13] MEDS: NEURONTIN 600 MG PO ×3 (07:40→21:29)
[2025-10-13] MEDS: MUCINEX 600 MG PO ×2 (07:40→20:18)
[2025-10-13] MEDS: ELIQUIS 5 MG PO ×2 (07:42→20:18)
[2025-10-13] MEDS: ALDACTONE 25 MG PO (07:42)
[2025-10-13] MEDS: DELTASONE 5 MG PO (07:43)
[2025-10-13] MEDS: CYMBALTA DELAYED RELEASE 30 MG PO (07:43)
[2025-10-13] MEDS: TENORMIN 50 MG PO (07:43)
[2025-10-13] MEDS: SYMBICORT 160/4.5 MCG INHALER 2 PUFF INH (08:53)
[2025-10-13] MEDS: SPIRIVA RESPIMAT 2.5 MCG 2 PUFF INH (08:53)
--- NOTE | 2025-10-13 09:41 | W.PN.HOSP.TC ---
Today's Communication/Plan
-
Ongoing disposition-
Assessment / Plan
Assessment / Plan
Generalized weakness, ambulatory dysfunction and failure to thrive
No obvious focal signs or symptoms. No fever or chills.
White count was 12.0 and urinalysis shows pyuria. She has no dysuria or frequency of urine. Urine culture shows mixed naida probably contamination. Hold antibiotics.
COVID and flu is negative.
Chest x-ray shows no focal consolidation.
She has rheumatoid arthritis with chronic joint pains and also has chronic pain syndrome. She has chronic bilateral rotator cuff full-thickness tears. Suspect her symptomatology may be all related to chronic medical conditions.
Recent fall and right pelvic pain
Repeat CT of the pelvis shows no evidence of fracture
Chronic rheumatoid arthritis.
Chronic pain syndrome
CRP is mildly elevated but no acute joints noted.
Continue with her chronic prednisone and pain regimen. Await her Buprenorphine patch - in mean time cw prn oral oxycodone
COPD without flare
Patient without cough or respiratory symptoms shortness of breath. Continue with inhaler therapy.
History of chronic heart failure with preserved EF
Abnormal chest x-ray
CXR from 10/07 There mildly increased vascular interstitial markings in both lungs suggesting mild interstitial cardiogenic pulmonary edema
She is asymptomatic without shortness of breath. Not hypoxic.
Last known echo from 2023 shows EF of 60 to 65%. Mild MR. Mild to moderate aortic stenosis noted.
BNP within the limits for her age.
On spironolactone but not on Lasix
Follow cxr as OP and consider CT chest if persistent interstitial changes.
History of DVT on anticoagulation-continue with Eliquis
DW CM
Remains Medically stable for discharge.
Anticipated Discharge: Within 24 hours
Subjective/Interval History
-
Date of Service: October 13, 2025
No overnight events.
Voices no specific complaints.
Objective Data
-
Vital Signs:
Vital Signs
Temp Pulse Resp BP Pulse Ox
98.4 F 65 12 137/82 99
10/13/25 07:00 10/13/25 07:00 10/13/25 07:00 10/13/25 07:00 10/13/25 07:00
I&O
10/12/25 10/13/25 10/14/25
06:59 06:59 06:59
Intake Total 720 / 720 480 / 480
Output Total 500 / 500
Balance 720 / 720 -20 / -20
Physical Exam
-
General: Comfortable
Respiratory: Clear to Auscultation and Non Labored Respirations; Negative Accessory Resp Muscle Use
Cardiac: Regular Rhythm and S1/S2; Negative Tachycardic
GI: Soft, Nontender, Nondistended and Normal Bowel Sounds
Neuro: AO x 3
Psych: Calm
[2025-10-13] MEDS: REMOVE LIDOCAINE PATCH 2 PATCH REMOVE (09:46)
[2025-10-13 11:34] LABS: Glucose - Point of Care 214 mg/dl (70-99)
[2025-10-13] MEDS: NOVOLOG FLEXPEN-LOW RESISTANCE 2 UNITS SC (11:45)
[2025-10-13 15:00] VITALS: BP 87/68
[2025-10-13 15:51] VITALS: BP 99/52
[2025-10-13 16:51] LABS: Glucose - Point of Care 164 mg/dl (70-99)
[2025-10-13] MEDS: NOVOLOG FLEXPEN-LOW RESISTANCE 1 UNITS SC (17:12)
[2025-10-13] MEDS: PROTONIX 40 MG PO (17:12)
[2025-10-13 21:18] LABS: Glucose - Point of Care 177 mg/dl (70-99)
[2025-10-13] MEDS: LIDOCAINE 4% PATCH 2 PATCH TOPICAL (21:29)
[2025-10-13 23:02] VITALS: BP 125/51
[2025-10-14] MEDS: ROXICODONE 5 MG PO ×5 (05:24→20:17)
[2025-10-14 06:00] VITALS: BMI 24.1
[2025-10-14 07:00] VITALS: BP 121/61
[2025-10-14 07:42] LABS: Glucose - Point of Care 109 mg/dl (70-99)
[2025-10-14] MEDS: NOVOLOG FLEXPEN-LOW RESISTANCE SC (08:22)
[2025-10-14] MEDS: DELTASONE 5 MG PO (08:24)
[2025-10-14] MEDS: CYMBALTA DELAYED RELEASE 30 MG PO (08:24)
[2025-10-14] MEDS: ASPIR LOW (ENTERIC COATED) 81 MG PO (08:24)
[2025-10-14] MEDS: NEURONTIN 600 MG PO ×3 (08:24→20:17)
[2025-10-14] MEDS: MUCINEX 600 MG PO ×2 (08:25→20:17)
[2025-10-14] MEDS: ALDACTONE 25 MG PO (08:25)
[2025-10-14] MEDS: CYMBALTA DELAYED RELEASE 60 MG PO (08:25)
[2025-10-14] MEDS: ELIQUIS 5 MG PO ×2 (08:26→20:17)
[2025-10-14] MEDS: TENORMIN 50 MG PO (08:26)
[2025-10-14] MEDS: SYMBICORT 160/4.5 MCG INHALER 2 PUFF INH (08:41)
[2025-10-14] MEDS: SPIRIVA RESPIMAT 2.5 MCG 2 PUFF INH (08:41)
[2025-10-14] MEDS: REMOVE LIDOCAINE PATCH 2 PATCH REMOVE (10:59)
[2025-10-14 11:29] LABS: Glucose - Point of Care 182 mg/dl (70-99)
[2025-10-14] MEDS: NOVOLOG FLEXPEN-LOW RESISTANCE 1 UNITS SC ×2 (11:50→17:00)
--- NOTE | 2025-10-14 11:53 | CM ---
Addendum entered by Haritha Huff 10/14/25 16:06:
Update- confirmed with liaison at [facility]- patients primary insurance is MEDICARE, not [facility].
Confirmed with admissions in Hospital.
Will review with SNFS if they can accept patient under secondary insurance ([facility]) and will need auth- waiting to hear back from [facility] ([place])
Original Note:
CM reviewed chart, patient seen bedside.
CM discussed [facility] unable to accept patient MA pending- patient requesting additional referrals to be placed.
Patient aware if no accepting facility, will likely have to d.c home with home care services.
CM will continue to follow.
Plan; additional referrals placed vs home with home care
[2025-10-14] MEDS: SENOKOT-S 1 TABLET PO (11:55)
[2025-10-14 13:08] VITALS: BP 104/82; PULSE 56; O2SAT 95
[2025-10-14 15:00] VITALS: BP 122/67
--- NOTE | 2025-10-14 15:07 | W.PN.HOSP.TC ---
Today's Communication/Plan
-
Medically ready for discharge awaiting SNF placement
Assessment / Plan
Assessment / Plan
75F with RA, COPD, history of DVT, p/w generalized weakness and inability to care for herself.
Generalized weakness
ambulatory dysfunction and failure to thrive
No focal signs of infection
Chronic medical conditions, including chronic pain, rheumatoid arthritis, all contributing.
PT/OT recommended SNF
Right pelvic pain
After fall
CT of pelvis with no fracture
Chronic RA
Continue chronic prednisone
Chronic pain syndrome
Await her Buprenorphine patch - in mean time cw prn oral oxycodone
Chronic COPD
Continue inhalers
HFpEF
Compensated. BNP is WNL for her age. CXR with mildly increased interstitial markings. However, asymptomatic.
Continue home spironolactone
History of DVT
Continue Eliquis
Dispo: Awaiting SNF placement, medically ready for discharge
Anticipated Discharge: Within 24 hours
Subjective/Interval History
-
Date of Service: October 14, 2025
Patient notes constipation, normally takes Colace at home
Objective Data
-
Vital Signs:
Vital Signs
Temp Pulse Resp BP Pulse Ox
98.5 F 63 14 121/61 94
10/14/25 07:00 10/14/25 08:44 10/14/25 08:44 10/14/25 08:25 10/14/25 11:24
I&O
10/13/25 10/14/25 10/15/25
06:59 06:59 06:59
Intake Total 480 / 480 960 / 960
Output Total 500 / 500 900 / 900
Balance -20 / -20 60 / 60
Review of Systems
-
History Source: Patient
All other systems: Reviewed and negative
Physical Exam
-
General: No Apparent Distress
HEENT: Moist Mucous Membranes, Anicteric and PERRLA
Respiratory: Clear to Auscultation; Negative Wheezes, Rales or Rhonchi
Cardiac: Regular Rhythm, S1/S2 and Murmur; Negative Rub or Gallop
GI: Soft, Nontender, Nondistended and Normal Bowel Sounds
Musculoskeletal: No Edema
Skin: Warm and Dry; Negative Rash, Ulcers or Lesions
Neuro: Awake and AO x 3
Hematologic / Lymphatic: No Lymphadenopathy
Psych: Calm
Data Reviewed
-
Old Records: Reviewed
[2025-10-14 16:51] LABS: Glucose - Point of Care 162 mg/dl (70-99)
[2025-10-14] MEDS: PROTONIX 40 MG PO (17:02)
[2025-10-14] MEDS: LIDOCAINE 4% PATCH 2 PATCH TOPICAL (20:17)
[2025-10-14 21:48] LABS: Glucose - Point of Care 151 mg/dl (70-99)
[2025-10-14 23:00] VITALS: BP 115/59
[2025-10-15] MEDS: ROXICODONE 5 MG PO ×5 (05:26→20:21)
[2025-10-15 06:00] VITALS: BMI 23.7
[2025-10-15 07:00] VITALS: BP 116/57
[2025-10-15 07:42] LABS: Glucose - Point of Care 104 mg/dl (70-99)
[2025-10-15] MEDS: SPIRIVA RESPIMAT 2.5 MCG 2 PUFF INH (07:57)
[2025-10-15] MEDS: SYMBICORT 160/4.5 MCG INHALER 2 PUFF INH (07:58)
[2025-10-15] MEDS: NOVOLOG FLEXPEN-LOW RESISTANCE SC ×2 (08:46→17:10)
[2025-10-15] MEDS: ELIQUIS 5 MG PO ×2 (08:48→20:21)
[2025-10-15] MEDS: ASPIR LOW (ENTERIC COATED) 81 MG PO (08:48)
[2025-10-15] MEDS: NEURONTIN 600 MG PO ×3 (08:48→20:21)
[2025-10-15] MEDS: CYMBALTA DELAYED RELEASE 60 MG PO (08:48)
[2025-10-15] MEDS: MUCINEX 600 MG PO ×2 (08:48→20:21)
[2025-10-15] MEDS: TENORMIN 50 MG PO (08:49)
[2025-10-15] MEDS: ALDACTONE 25 MG PO (08:49)
[2025-10-15] MEDS: REMOVE LIDOCAINE PATCH 2 PATCH REMOVE (08:50)
[2025-10-15 09:04] LABS: Hematocrit 35.8 % (37.0-47.0); Hemoglobin 11.7 g/dL (12.0-16.0); Mean Corp Hgb Conc. 32.7 g/dL (33.0-37.0); Mean Corpuscular Volume 90.6 fL (81.0-99.0); Nucleated Red Blood Cells % 0 %; Platelet Count 464 10^3/uL (130-400); Red Cell Dist. Width 13.1 % (11.5-14.5)
[2025-10-15] MEDS: DELTASONE 5 MG PO (09:06)
[2025-10-15] MEDS: CYMBALTA DELAYED RELEASE 30 MG PO (09:06)
[2025-10-15 09:32] LABS: Blood Urea Nitrogen 16 mg/dl (7-17); Calcium 9.2 mg/dl (8.4-10.2); Carbon Dioxide 22 mmol/L (22-30); Chloride 105 mmol/L (98-107); Estimated Creatinine Clearance 68 ml/min; Glucose 108 mg/dl (70-99); Potassium 4.0 mmol/L (3.5-5.1); Sodium 135 mmol/L (135-145); eGFR > 60.00
--- NOTE | 2025-10-15 12:18 | CM ---
CM reviewed chart, patient seen bedside.
Auth submitted to [facility] clinicals faxed to [phone] for [facility].
Pending reference # [id number].
CM will continue to follow.
Plan; [facility] pending auth, will require ambulance transport.
[2025-10-15 12:31] LABS: Glucose - Point of Care 159 mg/dl (70-99)
[2025-10-15 12:51] VITALS: BP 102/54; PULSE 61; O2SAT 94
[2025-10-15] MEDS: NOVOLOG FLEXPEN-LOW RESISTANCE 1 UNITS SC (13:01)
--- NOTE | 2025-10-15 14:49 | W.PN.HOSP.TC ---
Today's Communication/Plan
-
Medically ready for discharge awaiting SNF placement
Assessment / Plan
Assessment / Plan
75F with RA, COPD, history of DVT, p/w generalized weakness and inability to care for herself.
Generalized weakness
ambulatory dysfunction and failure to thrive
No focal signs of infection
Chronic medical conditions, including chronic pain, rheumatoid arthritis, all contributing.
PT/OT recommended SNF
Right pelvic pain
After fall
CT of pelvis with no fracture
Chronic RA
Continue chronic prednisone
Chronic pain syndrome
Home buprenorphine patch - in mean time c/w prn oral oxycodone
Chronic COPD
Continue inhalers
HFpEF
Compensated. BNP is WNL for her age. CXR with mildly increased interstitial markings. However, asymptomatic.
Continue home spironolactone
Leukocytosis noted, no fevers, no signs of infection. Monitor.
History of DVT
Continue Eliquis
Dispo: Awaiting SNF placement, medically ready for discharge
Anticipated Discharge: Within 24 hours
Subjective/Interval History
-
Date of Service: October 15, 2025
No longer constipated, able to have BM
Objective Data
-
Labs:
Laboratory Results
10/15/25
08:40
WBC 14.4 H
Hgb 11.7 L
Hct 35.8 L
Plt Count 464 H
Sodium 135
Potassium 4.0
Chloride 105
Carbon Dioxide 22
BUN 16
Creatinine 0.5 L
Glucose 108 H
Calcium 9.2
Vital Signs:
Vital Signs
Temp Pulse Resp BP Pulse Ox
98.4 F 64 14 116/51 96
10/15/25 07:00 10/15/25 08:49 10/15/25 08:02 10/15/25 08:49 10/15/25 08:02
I&O
10/14/25 10/15/25 10/16/25
06:59 06:59 06:59
Intake Total 960 / 960 1080 / 1080
Output Total 900 / 900 650 / 650
Balance 60 / 60 430 / 430
Review of Systems
-
History Source: Patient
All other systems: Reviewed and negative
Physical Exam
-
General: No Apparent Distress
HEENT: Moist Mucous Membranes, Anicteric and PERRLA
Respiratory: Clear to Auscultation; Negative Wheezes, Rales or Rhonchi
Cardiac: Regular Rhythm, S1/S2 and Murmur; Negative Rub or Gallop
GI: Soft, Nontender, Nondistended and Normal Bowel Sounds
Musculoskeletal: No Edema
Skin: Warm and Dry; Negative Rash, Ulcers or Lesions
Neuro: Awake and AO x 3
Hematologic / Lymphatic: No Lymphadenopathy
Psych: Calm
Data Reviewed
-
Labs: Labs Reviewed by me and Discussed with Patient
Old Records: Reviewed
[2025-10-15 15:00] VITALS: BP 120/73
[2025-10-15 17:08] LABS: Glucose - Point of Care 129 mg/dl (70-99)
[2025-10-15] MEDS: PROTONIX 40 MG PO (17:10)
[2025-10-15] MEDS: LIDOCAINE 4% PATCH 2 PATCH TOPICAL (20:20)
[2025-10-15 21:26] LABS: Glucose - Point of Care 190 mg/dl (70-99)
[2025-10-15 23:55] VITALS: BP 115/65
[2025-10-16 04:22] LABS: Urine Character Cloudy (Clear)
[2025-10-16 04:36] LABS: Urine Squamous Cell >30 /LPF (Few)
[2025-10-16 04:38] LABS: Urine White Cell 26-30 /HPF (0-5)
[2025-10-16 05:52] VITALS: BMI 23.9
[2025-10-16 07:00] VITALS: BP 123/66
[2025-10-16] MEDS: ELIQUIS 5 MG PO (07:57)
[2025-10-16] MEDS: ALDACTONE 25 MG PO (07:57)
[2025-10-16] MEDS: NEURONTIN 600 MG PO ×2 (07:57→16:05)
[2025-10-16] MEDS: MUCINEX 600 MG PO (07:57)
[2025-10-16] MEDS: TENORMIN 50 MG PO (07:57)
[2025-10-16] MEDS: CYMBALTA DELAYED RELEASE 60 MG PO (07:58)
[2025-10-16] MEDS: ROXICODONE 5 MG PO ×3 (07:58→16:04)
[2025-10-16] MEDS: DELTASONE 5 MG PO (07:58)
[2025-10-16] MEDS: CYMBALTA DELAYED RELEASE 30 MG PO (07:58)
[2025-10-16] MEDS: ASPIR LOW (ENTERIC COATED) 81 MG PO (07:58)
[2025-10-16] MEDS: NOVOLOG FLEXPEN-LOW RESISTANCE SC ×3 (08:13→17:09)
[2025-10-16] MEDS: SPIRIVA RESPIMAT 2.5 MCG 2 PUFF INH (08:13)
[2025-10-16] MEDS: SYMBICORT 160/4.5 MCG INHALER 2 PUFF INH (08:14)
[2025-10-16 08:17] LABS: Glucose - Point of Care 109 mg/dl (70-99)
--- NOTE | 2025-10-16 11:56 | CM ---
Addendum entered by Haritha Huff 10/16/25 13:24:
Patient scheduled for 5:00 p.m. ambulance transport.
[facility] updated with transport time.
Original Note:
CM reviewed chart, auth approved for SNF to [facility]. 10/16-11/14, auth #[id number].
Update to Liaison at [facility].
Patient will require ambulance transport- forms on chart.
CM will continue to follow.
Plan; d/c to [facility] SNF, ambulance transport
[facility]
Report: [phone]
[2025-10-16] MEDS: BACTRIM DS 800 MG/160 MG 1 TABLET PO (12:00)
[2025-10-16 13:30] LABS: Glucose - Point of Care 127 mg/dl (70-99)
[2025-10-16] MEDS: REMOVE LIDOCAINE PATCH 2 PATCH REMOVE (13:30)
[2025-10-16 15:00] VITALS: BP 126/62
[2025-10-16 17:05] LABS: Glucose - Point of Care 183 mg/dl (70-99)
--- NOTE | 2025-10-16 19:04 | W.DCSUMMARY ---
Discharge Summary
Discharge Data
Date of Admission: 10/07/25
Date of Discharge: 10/16/25
Total time spent discharging patient (in min): 31
-
Pending Results: No
Hospital Course
Attending physician on day of discharge:
Yary Duenas MD
Discharge diagnosis:
Secondary diagnoses:
Consultations:
None
Procedures:
None
Hospital course:
75F with RA, COPD, history of DVT, p/w generalized weakness and inability to care for herself. No focal signs of infection, just isolated leukocytosis. Chronic medical conditions, including chronic pain, rheumatoid arthritis, all felt to be
contributing. PT/OT recommended SNF. She had right pelvic pain after fall at home, CT of pelvis with no fracture, treated with supportive measures. Her chronic pain syndrome was treated with her home buprenorphine patch until it and she was
supposed to have family bring in a new patch. In mean time she recieved prn oral oxycodone.
She was discharged to SNF in stable condition.
Physical exam on discharge:
Gen: NAD
HEENT: PERRLA, EOMI, MMM, neck supple
Cards: RRR, no M/G/R
Resp: Lungs CTAB, no W/R/R
GI: soft, NT/ND/NABS
MSK: No edema
Skin: warm and dry, no rash, ulcer or lesions
Heme: No LAD
Psych: Calm
Neuro: AAOx3
Discharge disposition:
SNF
Discharge Plan
-
Patient Disposition: Halfway/SNF
Discharge Diagnosis/Procedures: Failure to thrive
Diet: Regular
Activity: As tolerated
Driving Restrictions: No driving
Specialty Instructions: Weigh Daily- Call MD for wt gain/loss 3 lbs overnight/5 lbs in 1 week
Referrals:
Madonna Rivera PA-C [Family Provider, Family Practice]
Additional Discharge Medication Instructions: 3 days Bactrim DS. Hold spironlactone while on Bactrim, then resume.
Prescriptions:
New
polyethylene glycol 3350 17 gram Powder In Packet
17 g PO DAILYPRN PRN (Reason: constipation) Qty: 0 0RF
sennosides-docusate sodium [Senna Plus] 8.6-50 mg Tablet
1 tab PO BIDPRN PRN (Reason: constipation) Qty: 0 0RF
sulfamethoxazole-trimethoprim 800-160 mg Tablet
1 tab PO BID 3 Days Qty: 6 0RF
guaifenesin 600 mg Tablet Extended Release 12hr
600 mg PO Q12 Qty: 0 0RF
Continued
duloxetine 30 MG capsule,delayed release(DR/EC)
30 mg PO DAILY
Rx Instructions:
take with 60mg for total of 90mg
duloxetine 60 MG capsule,delayed release(DR/EC)
60 mg PO DAILY
Rx Instructions:
take with 30mg for total of 90mg
albuterol sulfate 90 mcg/actuation Hfa Aerosol Inhaler
2 puff INHALATION R Q6HPRN PRN (Reason: sob)
CertaVite Senior 0.4 mg-300 mcg- 250 mcg Tablet
1 tab PO DAILY
prednisone 5 MG tablet
5 mg PO DAILY
Eliquis 5 mg tablet
5 mg PO BID Qty: 60 0RF
metformin 500 mg Tablet
500 mg PO BID
lidocaine 4 % adhesive patch,medicated
2 patch topical HS
atenolol 50 mg Tablet
50 mg PO DAILY
gabapentin 300 mg Capsule
600 mg PO TID Qty: 120 0RF
aspirin 81 mg Tablet,Delayed Release (Dr/Ec)
81 mg PO DAILY
budesonide-formoterol [Symbicort] 160-4.5 mcg/actuation Hfa Aerosol Inhaler
2 puff INHALATION R DAILY
Spiriva Respimat 2.5 mcg/actuation mist
2 puff INHALATION R DAILY
pantoprazole 40 mg tablet,delayed release (DR/EC)
40 mg PO QPM
oxycodone 5 mg tablet
5 mg PO BID Qty: 12 0RF
buprenorphine 10 mcg/hour Patch Weekly
1 patch TRANSDERMAL TH Qty: 1 0RF
Held
spironolactone 25 mg Tablet
25 mg PO DAILY
Hold Instructions: Resume on 10/19/25.
Discharge Orders:
Discharge Patient (As Directed); Ordered 10/16/25
Ordered By: Yary Duenas
Discharge Date and Time
Discharge Date/Time: 10/16/25 18:26
Print Language: TUVALU[place]
== END 2025-10-16 18:26 ==
LOC: 4 WEST ACU 17:54
PROVIDERS: Internal Medicine; Nurse Practitioner Family; Physician Assistant Medical; ADMITTING PHYSICIAN Internal Medicine; ATTENDING PHYSICIAN Internal Medicine; EMERGENCY PHYSICIAN Emergency Medicine; FAMILY PHYSICIAN Physician Assistant Medical
DX: R53.1 Weakness (principal); G89.4 Chronic pain syndrome; I11.0 Hypertensive heart disease with heart failure; J44.9 Chronic obstructive pulmonary disease, unspecified; I50.32 Chronic diastolic (congestive) heart failure; E11.9 Type 2 diabetes mellitus without complications; F32.A Depression, unspecified; F41.9 Anxiety disorder, unspecified; F11.20 Opioid dependence, uncomplicated; I35.0 Nonrheumatic aortic (valve) stenosis; I27.20 Pulmonary hypertension, unspecified; M06.9 Rheumatoid arthritis, unspecified; M25.551 Pain in right hip; K59.00 Constipation, unspecified; F17.210 Nicotine dependence, cigarettes, uncomplicated; I25.10 Atherosclerotic heart disease of native coronary artery without angina pectoris; R29.6 Repeated falls; R62.7 Adult failure to thrive; Z68.23 Body mass index [BMI] 23.0-23.9, adult; Z11.52 Encounter for screening for COVID-19; Z79.01 Long term (current) use of anticoagulants; Z79.52 Long term (current) use of systemic steroids; Z79.84 Long term (current) use of oral hypoglycemic drugs; Z79.82 Long term (current) use of aspirin; Z79.899 Other long term (current) drug therapy; Z86.711 Personal history of pulmonary embolism; Z86.718 Personal history of other venous thrombosis and embolism
CPT/HCPCS: 71045; 72170; 72192; 80048; 80053; 81003; 81015; 82962; 83036; 83880; 83935; 84300; 84443; 85025; 85027; 85652; 86140; 87077; 87086; 87186; 87502; 87811; 93005; 94640; 96365; 97110; 97116; 97167; 97530; 97535; 99285; 99406; G0378